=== PATIENT | female | born 1950 | race Caucasian/White ===

== ENCOUNTER 2019-12-28 08:08 | Outpatient (REF) | payer MEDICARE, SELFPAY ==
[2019-12-28 11:13] LABS: Hematocrit 28.3 % (37-47); Hemoglobin 8.5 g/dl (12.0-16.0); Mean Corpuscular Hemoglobin 29.9 pg (27.0-33.0); Mean Corpuscular Volume 99.6 fL (80-98); Mean Platelet Volume 10.4 fL (9.4-12.3); Platelet Count 149 X10*3/uL (160-400); Red Blood Count 2.84 X10*6/uL (4.20-5.50); Red Cell Distribution Width 16.9 % (11.0-16.0); White Blood Count 8.1 X10*3/uL (4.8-10.8)
[2019-12-28 11:37] LABS: Anion Gap 14 (12-20); Blood Urea Nitrogen 42 mg/dL (9-16); Calcium 8.8 mg/dL (8.4-10.2); Carbon Dioxide 26 mmol/L (22-29); Chloride 107 mmol/L (96-108); Estimated Glomerular Filt Rate 23; Glucose Random 197 mg/dL (60-115); Iron 59 mcg/dL (30-160); Percent Iron Saturation 16 % (15-50); Potassium 4.2 mmol/l (3.3-5.1); Sodium 143 mmol/L (135-145); Total Iron Binding Capacity 360 mcg/dL (228-428); Unsaturated Iron Binding 301 ug/dL
[2019-12-28 14:26] LABS: Ferritin 169 ng/mL (10-250)
== END 2019-12-28 08:09 | disposition home or self-care (01) ==
LOC: HO.HMGCLDS 08:08
PROVIDERS: PCP Internal Medicine; Visit Provider Internal Medicine
DX: I42.9 Cardiomyopathy, unspecified (principal); N17.9 Acute kidney failure, unspecified; E11.9 Type 2 diabetes mellitus without complications
CPT/HCPCS: 36415; 80048; 82728; 83540; 85027

== ENCOUNTER 2020-01-19 10:06 | Outpatient (REF) | payer MEDICARE, SELFPAY ==
[2020-01-19 11:45] LABS: Anion Gap 15 (12-20); Blood Urea Nitrogen 44 mg/dL (9-16); Calcium 8.5 mg/dL (8.4-10.2); Carbon Dioxide 26 mmol/L (22-29); Chloride 101 mmol/L (96-108); Estimated Glomerular Filt Rate 20; Potassium 4.4 mmol/l (3.3-5.1); Sodium 138 mmol/L (135-145)
== END 2020-01-19 10:07 | disposition home or self-care (01) ==
LOC: HO.HMGCX 10:06
PROVIDERS: Absent Provider Internal Medicine Hypertension Specialist; PCP Internal Medicine; Visit Provider Internal Medicine
DX: I13.0 Hypertensive heart and chronic kidney disease with heart failure and stage 1 through stage 4 chronic kidney disease, or unspecified chronic kidney disease (principal); E11.22 Type 2 diabetes mellitus with diabetic chronic kidney disease; N18.30 Chronic kidney disease, stage 3 unspecified; N17.9 Acute kidney failure, unspecified; E11.21 Type 2 diabetes mellitus with diabetic nephropathy
CPT/HCPCS: 80051; 82310; 82565; 84520

== ENCOUNTER → 2020-01-21 10:00 | Outpatient (BNVA) | payer MEDICARE, SELFPAY | PROVIDERS: PCP Internal Medicine; Visit Provider Nurse Practitioner Family | DX: R06.02 Shortness of breath (principal); I42.8 Other cardiomyopathies; I11.0 Hypertensive heart disease with heart failure; I50.9 Heart failure, unspecified; N17.9 Acute kidney failure, unspecified; I48.0 Paroxysmal atrial fibrillation; Z79.01 Long term (current) use of anticoagulants; Z79.899 Other long term (current) drug therapy; Z95.2 Presence of prosthetic heart valve; Z95.810 Presence of automatic (implantable) cardiac defibrillator | CPT/HCPCS: 93005; 99212 ==

== ENCOUNTER → 2020-01-26 07:30 | Outpatient (REF) | payer MEDICARE, OTHER, SELFPAY ==
--- NOTE | 2020-01-26 07:35 | CA_ITS ---
Transthoracic Echocardiogram Patient (Last, First, Middle): Ebonie Thomas J Gender: Female Date of : 1950 Age: 69 Procedure Date: 01/26/2020 Procedure Type: Transthoracic Echocardiogram Location: OP Height: 162.56 cm Weight: 116.12 kg BSA: 2.17 m2 Heart Rate: bpm BP: 128 / 60 mmHg Insole Reinforcer: FRANNIE Referring MD: Itzel Meza SOCIAL SERVICES COUNSELOR-Jose Manuel Bond Runner: Kareem Sarmiento MD Symptoms: Z95.2 S/P TAVR, I42.9 CARDIOMYOPATHY Study Quality: Fair ECG Rhythm: Sinus Conclusions: - 1. Moderately dilated left ventricle with severe LV systolic dysfunction with LVEF of 20-25% with grade 3 diastolic dysfunction 2. Moderately dilated left and right atrium 3. Severe stenosis of bioprosthetic aortic valve with mean gradient of 42 mm of mercury 4. Severely elevated right ventricular systolic pressure 5. No pericardial effusion Findings Left Ventricle Moderately increased left ventricular cavity size. There is mildly increased left ventricular wall thickness. The left ventricular systolic function is severely decreased. The visually estimated ejection fraction is between 20 25%. Spectral Doppler is indicative of a restrictive filling pattern. E/E prime ratio is >15, consistent with elevated filling pressures. Evidence suggests grade III (severe) diastolic dysfunction. Right Ventricle Moderately increased right ventricular cavity size. There is low normal right ventricular systolic function. There is an ICD wire seen in the right ventricle. Atria The left atrium is moderately dilated. Interatrial shunt cannot be excluded. The right atrium is mildly dilated. A pacemaker wire is identified in the right atrium. Aortic Valve A bioprosthetic aortic valve is present. The prosthetic aortic valve appears to be functioning abnormally. The aortic valve was not well visualized. The mean gradient is 41 mmHg. The aortic valve area is 0.86 cm2. There is no aortic valve regurgitation. The bioprosthetic valve is well seated without abnormal rocking motion. Her leaflets are not well visualized, on some views appeared to be restricted in motion. The mean gradient is significantly Ng increased compared to prior study consistent with severe stenosis of the bioprosthetic valve. Mitral Valve There is mild anterior and posterior mitral leaflet thickening. There is mild mitral annular calcification. There is trace mitral valve regurgitation. There is no mitral valve stenosis. Pulmonic Valve The pulmonic valve is likely normal. There is trace to mild pulmonic valve regurgitation. Tricuspid Valve Normal tricuspid valve structure. There is moderate tricuspid valve regurgitation. Mildly elevated right atrial pressure. Severe pulmonary hypertension is present. Great Vessels The pulmonary artery was not well visualized. There is mild dilatation of the ascending aorta measuring 3.90 cm. Venous The inferior vena cava is normal in size and collapses less than 50% with inspiration. Pericardium/Pleural There is no evidence of pericardial effusion. Prior Study Comparison Significant changes compared to prior study dated: 05/18/2019. Severe stenosis of bioprosthetic aortic valve is present. LV systolic function appears mildly reduced. RV systolic pressures are increased. Recommendations, Care & Conclusions Consider a JOÃO if clinically appropriate. Measurements 2D Linear Measurements IVSd: 1.26 0.6-0.9/0.6-1.0 cm LVIDd: 6.95 3.9-5.3/4.2-5.9 cm LVIDd Index: 3.20 2.4-3.2/2.2-3.1 cm/m2 LVIDs: 6.17 2.0-3.6 cm LVPWd: 1.33 0.7-1.1 cm Ao Root: 3.00 2.1-3.5 cm LA Diam: 4.60 2.7-3.8/3.0-4.0 cm LAIDs Index: 2.12 1.5-2.3 cm/m2 LV Mass: 553.85 67-162/88-224 g LV Mass Index: 255.23 43-95/49-115 g/m2 LVOT Diam: 2.00 3.0+(-)1.3 cm 2D Systolic Function EF 4C: 22.90 >55% EF 2C: 19.20 >55% EF BiP: 19.40 >55% Mitral Valve MV VTI: 0.36 MV Pk Christian: 1.60 MV Mn Christian: 0.80 MV Pk Grad: 10.00 MV Mn Grad: 3.00 MV Pk E: 1.41 MV PK A: 0.88 MV Decel Time: 169.00 E/A: 1.60 E'Lateral: 3.19 E'Medial: 4.45 E/E' Med: 31.70 E/E' Lat: 44.20 PHT: 50.00 MVA PHT: 4.40 MVA Continuity: 2.41 Decel Mills: 8.35 Aortic Valve AoV Pk Christian: 4.16 AoV Mn Christian: 3.02 AoV VTI: 1.00 AoV Pk Grad: 69.00 Aov Mn Grad: 41.00 MEME Cont.VTI: 0.86 LVOT LVOT Pk Christian: 0.90 LVOT Mn Christian: 0.66 LVOT VTI: 0.27 LVOT Pk Grad: 3.00 LVOT Mn Grad: 2.00 LVOT Diam: 2.00 LVOT Area: 3.14 Diastolic Function MV Pk E: 1.41 MV Pk A: 0.88 E/A: 1.60 E'Medial: 4.45 E/E' Med: 31.70 E' Laterial: 3.19 E/E' Lat: 44.20 Tricuspid Valve TR Pk Christian: 3.70 TR Pk Grad: 55.00 RA Press: 8.00 RVSP: 63.00 Great Vessels Aorta Ao Root-2D: 3.00 2.0-3.7 cm Ao Asc: 3.90 2.1-3.4 cm Pulmonary Valve PV Pk Christian: 1.43 Peak PV Grad: 8.00 Updated in Other Vendor System with Status of Final Kareem Sarmiento MD electronically signed on 01/26/2020 11:32:16 AM with status of Final
== END ==
LOC: HO.CARD 07:30
PROVIDERS: PCP Internal Medicine; Visit Provider Nurse Practitioner Family
DX: I42.9 Cardiomyopathy, unspecified (principal); Z95.2 Presence of prosthetic heart valve
CPT/HCPCS: 93306

== ENCOUNTER 2020-02-18 09:25 | Outpatient (REF) | payer MEDICARE, OTHER, SELFPAY ==
[2020-02-18 11:05] LABS: Hematocrit 28.9 % (37-47); Hemoglobin 8.7 g/dl (12.0-16.0); Mean Corpuscular HGB Conc 30.1 g/dl (31.0-35.0); Mean Corpuscular Hemoglobin 29.2 pg (27.0-33.0); Mean Platelet Volume 10.6 fL (9.4-12.3); Platelet Count 168 X10*3/uL (160-400); Red Blood Count 2.98 X10*6/uL (4.20-5.50); Red Cell Distribution Width 14.7 % (11.0-16.0); White Blood Count 7.6 X10*3/uL (4.8-10.8)
[2020-02-18 11:30] LABS: Anion Gap 15 (12-20); Blood Urea Nitrogen 54 mg/dL (9-16); Calcium 8.4 mg/dL (8.4-10.2); Carbon Dioxide 26 mmol/L (22-29); Chloride 101 mmol/L (96-108); Estimated Glomerular Filt Rate 18; Glucose Random 246 mg/dL (60-115); Potassium 4.1 mmol/l (3.3-5.1); Sodium 138 mmol/L (135-145)
[2020-02-18 11:32] LABS: Alanine Aminotransferase 26 U/L (0-31); Aspartate Amino Transferase 27 U/L (5-31)
[2020-02-18 11:38] LABS: B Type Natriuretic Peptide 3076 pg/mL (<100)
[2020-02-18 11:56] LABS: TSH reflex Free T4 1.54 mIU/mL (0.32-4.0)
== END 2020-02-18 09:26 | disposition home or self-care (01) ==
LOC: HO.HMGCLDS 09:25
PROVIDERS: Absent Provider Nurse Practitioner Family; PCP Internal Medicine; Visit Provider Student in an Organized Health Care Education/Training Program
DX: I48.0 Paroxysmal atrial fibrillation (principal); I50.9 Heart failure, unspecified
CPT/HCPCS: 36415; 80048; 83880; 84443; 84450; 84460; 85027

== ENCOUNTER → 2020-03-14 07:55 | Outpatient (BNVA) | payer MEDICARE, OTHER, SELFPAY | PROVIDERS: PCP Internal Medicine; Visit Provider Internal Medicine | DX: I50.22 Chronic systolic (congestive) heart failure (principal); I42.9 Cardiomyopathy, unspecified; I48.0 Paroxysmal atrial fibrillation; I47.2 Ventricular tachycardia; E66.01 Morbid (severe) obesity due to excess calories; Z79.01 Long term (current) use of anticoagulants; Z79.899 Other long term (current) drug therapy; Z95.3 Presence of xenogenic heart valve; Z95.810 Presence of automatic (implantable) cardiac defibrillator | CPT/HCPCS: 99212 ==

== ENCOUNTER → 2020-04-03 14:21 | Outpatient (BNVA) | payer MEDICARE, OTHER, SELFPAY | PROVIDERS: PCP Internal Medicine; Referring Provider Internal Medicine; Visit Provider Internal Medicine | DX: Z45.02 Encounter for adjustment and management of automatic implantable cardiac defibrillator (principal); I50.22 Chronic systolic (congestive) heart failure; I48.0 Paroxysmal atrial fibrillation; I47.2 Ventricular tachycardia; E66.01 Morbid (severe) obesity due to excess calories; Z95.2 Presence of prosthetic heart valve | CPT/HCPCS: 99212 ==

== ENCOUNTER 2020-04-26 08:30 | Outpatient (REF) | payer MEDICARE, OTHER, SELFPAY ==
--- NOTE | ~2020-04-26 | XR_ITS ---
EXAMINATION: XR ANKLE, bilateral CLINICAL INFORMATION: Pain COMPARISON: Right foot x-ray November 2019 and left foot x-ray March 2014 TECHNIQUE: AP, lateral, and mortise views of both ankles. FINDINGS: Right: Bone alignment is normal. No fracture or dislocation is seen. The ankle mortise is normal. There is soft tissue arterial calcification. There also appears to be nonvascular soft tissue calcification in the lower leg. There is a plantar calcaneal spur. There are degenerative changes of the midfoot. Left: Bone alignment is normal. No fracture or dislocation is seen. The ankle mortise is normal. There is soft tissue arterial calcification. There also appears to be a significant soft tissue calcification in the lower leg that may be nonvascular. There is a large plantar calcaneal spur. There are degenerative changes of the midfoot. XR/XR ankle RT 2V IMPRESSION: Unremarkable ankles. Bilateral soft tissue tissue and arterial calcification, left greater than right. Bilateral large plantar calcaneal spurs and degenerative changes of the midfoot.
--- NOTE | 2020-04-26 08:45 | XR_ITS ---
EXAMINATION: XR ANKLE, bilateral CLINICAL INFORMATION: Pain COMPARISON: Right foot x-ray November 2019 and left foot x-ray March 2014 TECHNIQUE: AP, lateral, and mortise views of both ankles. FINDINGS: Right: Bone alignment is normal. No fracture or dislocation is seen. The ankle mortise is normal. There is soft tissue arterial calcification. There also appears to be nonvascular soft tissue calcification in the lower leg. There is a plantar calcaneal spur. There are degenerative changes of the midfoot. Left: Bone alignment is normal. No fracture or dislocation is seen. The ankle mortise is normal. There is soft tissue arterial calcification. There also appears to be a significant soft tissue calcification in the lower leg that may be nonvascular. There is a large plantar calcaneal spur. There are degenerative changes of the midfoot. XR/XR ankle LT 2V IMPRESSION: Unremarkable ankles. Bilateral soft tissue tissue and arterial calcification, left greater than right. Bilateral large plantar calcaneal spurs and degenerative changes of the midfoot.
[2020-04-26 11:10] LABS: MANUAL DIFF FLAG NO
[2020-04-26 11:23] LABS: Estimated Average Glucose 197 mg/dL; Hemoglobin A1c % 8.5 %
[2020-04-26 11:24] LABS: Basophils Absolute Auto 0.1 X10*3/uL (0.0-0.2); Basophils Percent Auto 0.6 % (0-2); Eosinophils Absolute Auto 0.4 X10*3/uL (0.0-0.4); Eosinophils Percent Auto 4.3 % (0-4); Hematocrit 28.6 % (37-47); Hemoglobin 8.5 g/dl (12.0-16.0); Imm Gran Abs Auto 0.05 X10*3/uL (0.00-0.03); Imm Gran Pct Auto 0.6 % (0.0-0.4); Lymphocytes Absolute Auto 1.4 X10*3/uL (1.2-4.9); Lymphocytes Percent Auto 16.9 % (20-40); Mean Corpuscular HGB Conc 29.7 g/dl (31.0-35.0); Mean Corpuscular Hemoglobin 25.4 pg (27.0-33.0); Mean Corpuscular Volume 85.4 fL (80-98); Mean Platelet Volume 9.9 fL (9.4-12.3); Monocytes Absolute Auto 1.1 X10*3/uL (0.1-1.2); Neutrophils Absolute Auto 5.2 X10*3/uL (2.0-8.3); Neutrophils Percent Auto 64.6 % (45-73); Platelet Count 217 X10*3/uL (160-400); Red Blood Count 3.35 X10*6/uL (4.20-5.50); Red Cell Distribution Width 16.5 % (11.0-16.0); White Blood Count 8.1 X10*3/uL (4.8-10.8)
[2020-04-26 11:34] LABS: B Type Natriuretic Peptide 481 pg/mL (<100)
[2020-04-26 11:42] LABS: Alanine Aminotransferase 16 U/L (0-31); Albumin Level 3.7 g/dL (3.5-5.0); Alkaline Phosphatase 107 U/L (39-117); Anion Gap 17 (12-20); Aspartate Amino Transferase 18 U/L (5-31); Bilirubin Total 0.6 mg/dL (0.0-1.0); Blood Urea Nitrogen 39 mg/dL (9-16); Calcium 8.6 mg/dL (8.4-10.2); Carbon Dioxide 27 mmol/L (22-29); Chloride 101 mmol/L (96-108); Estimated Glomerular Filt Rate 22; Glucose Fasting 212 mg/dL (60-99); Potassium 4.1 mmol/L (3.3-5.1); Sodium 141 mmol/L (135-145); Total Protein 6.9 g/dL (6.5-8.0)
== END 2020-04-26 08:31 | disposition home or self-care (01) ==
LOC: HO.HMGCLDS 08:30
PROVIDERS: PCP Internal Medicine; Visit Provider Internal Medicine
DX: G89.29 Other chronic pain (principal); M25.572 Pain in left ankle and joints of left foot; M25.571 Pain in right ankle and joints of right foot; E11.8 Type 2 diabetes mellitus with unspecified complications; I50.22 Chronic systolic (congestive) heart failure; I48.0 Paroxysmal atrial fibrillation
CPT/HCPCS: 36415; 73600; 80053; 83036; 83880; 85025

== ENCOUNTER 2020-05-29 14:59 | Outpatient (REF) | payer MEDICARE, OTHER, SELFPAY ==
[2020-05-29 16:59] LABS: Anion Gap 15 (12-20); Blood Urea Nitrogen 48 mg/dL (9-16); Calcium 8.3 mg/dL (8.4-10.2); Carbon Dioxide 27 mmol/L (22-29); Chloride 102 mmol/L (96-108); Estimated Glomerular Filt Rate 20; Glucose Random 323 mg/dL (60-115); Potassium 4.3 mmol/L (3.3-5.1); Rheumatoid Factor < 15.0 IU/mL (<15.0); Sodium 140 mmol/L (135-145)
[2020-05-29 17:03] LABS: Uric Acid 9.2 mg/dL (2.4-5.7)
[2020-05-30 15:32] LABS: Cyclic Citrullinated Peptide <16 UNITS
== END 2020-05-29 15:00 | disposition home or self-care (01) ==
LOC: HO.HMGCLDS 14:59
PROVIDERS: PCP Internal Medicine; Visit Provider Internal Medicine
DX: M10.9 Gout, unspecified (principal); M19.90 Unspecified osteoarthritis, unspecified site; E11.8 Type 2 diabetes mellitus with unspecified complications
CPT/HCPCS: 36415; 80048; 84550; 86200; 86431

== ENCOUNTER → 2020-06-26 09:05 | Outpatient (BNVA) | payer MEDICARE, SELFPAY | PROVIDERS: PCP Internal Medicine; Visit Provider Internal Medicine | DX: I50.22 Chronic systolic (congestive) heart failure (principal); I48.0 Paroxysmal atrial fibrillation; I47.2 Ventricular tachycardia; E66.01 Morbid (severe) obesity due to excess calories; Z95.2 Presence of prosthetic heart valve; Z95.810 Presence of automatic (implantable) cardiac defibrillator | CPT/HCPCS: 93005; 99212 ==

== ENCOUNTER 2020-07-14 07:23 | Outpatient (REF) | payer MEDICARE, SELFPAY ==
--- NOTE | ~2020-07-14 | MM_ITS ---
EXAMINATION: MM SCREENING DIGITAL MAMMOGRAPHY, BILATERAL CLINICAL INFORMATION: Screening. Asymptomatic. The lifetime risk of breast cancer based on the Tyrer-Cuzick Model is 4%. COMPARISON: Mammography: 05/06/2019, 04/15/2018, 03/26/2017 TECHNIQUE: Digital mammography is performed in craniocaudal and mediolateral oblique views along with computer-aided detection (CAD). Additional bilateral exaggerated CC views are provided. FINDINGS: The breasts are almost entirely fatty (ACR BI-RADS breast composition Category a). There are no significant masses, abnormal calcifications, or other abnormalities. Pacemaker generator partially overlying the posterior upper left axilla on MLO view. Parenchymal pattern is similar to prior exams. No significant changes. MM/MM screening mammo BI IMPRESSION: No mammographic evidence of malignancy. ASSESSMENT: BI-RADS 1: Negative RECOMMENDATION: Routine annual mammography screening. This patient's information was entered into a reminder system with a target due date for their next mammogram.
== END 2020-07-14 07:24 | disposition home or self-care (01) ==
LOC: HO.MAMMO 07:23
PROVIDERS: PCP Internal Medicine; Visit Provider Internal Medicine
DX: Z12.31 Encounter for screening mammogram for malignant neoplasm of breast (principal)
CPT/HCPCS: 77067

== ENCOUNTER → 2020-10-02 13:35 | Outpatient (BNVA) | payer MEDICARE, SELFPAY | PROVIDERS: PCP Internal Medicine; Referring Provider Internal Medicine; Visit Provider Internal Medicine | DX: Z45.02 Encounter for adjustment and management of automatic implantable cardiac defibrillator (principal); I50.22 Chronic systolic (congestive) heart failure; I48.0 Paroxysmal atrial fibrillation; I47.2 Ventricular tachycardia; E66.01 Morbid (severe) obesity due to excess calories | CPT/HCPCS: 99212 ==

== ENCOUNTER 2020-10-17 08:58 | Outpatient (REF) | payer MEDICARE, SELFPAY ==
--- NOTE | ~2020-10-17 | XR_ITS ---
EXAMINATION: XR CHEST CLINICAL INFORMATION: Respiratory disease. COMPARISON: None TECHNIQUE: Two views of the chest were obtained. FINDINGS: The lungs are well expanded and clear of acute pneumonic process. The heart size and pulmonary vascularity is normal. There are pacer electrodes in the right atrium and right ventricle. There is an aortic stent. No gross bony abnormality seen. XR/XR chest 2V IMPRESSION: Unremarkable chest exam.
== END 2020-10-17 08:59 | disposition home or self-care (01) ==
LOC: HO.HMGCX 08:58
PROVIDERS: PCP Internal Medicine; Visit Provider Nurse Practitioner Family
DX: J98.8 Other specified respiratory disorders (principal)
CPT/HCPCS: 71046

== ENCOUNTER 2020-10-27 14:07 | Outpatient (REF) | payer MEDICARE, SELFPAY ==
[2020-10-27 14:39] LABS: MANUAL DIFF FLAG NO
[2020-10-27 14:44] LABS: Basophils Percent Auto 0.4 % (0-2); Eosinophils Absolute Auto 0.3 X10*3/uL (0.0-0.4); Eosinophils Percent Auto 2.8 % (0-4); Hematocrit 37.7 % (37-47); Hemoglobin 11.8 g/dl (12.0-16.0); Imm Gran Abs Auto 0.12 X10*3/uL (0.00-0.03); Imm Gran Pct Auto 1.3 % (0.0-0.4); Lymphocytes Percent Auto 22.1 % (20-40); Mean Corpuscular HGB Conc 31.3 g/dl (31.0-35.0); Mean Corpuscular Hemoglobin 29.5 pg (27.0-33.0); Mean Corpuscular Volume 94.3 fL (80-98); Mean Platelet Volume 10.4 fL (9.4-12.3); Monocytes Absolute Auto 1.1 X10*3/uL (0.1-1.2); Monocytes Percent Auto 12.1 % (2-11); Neutrophils Absolute Auto 5.5 X10*3/uL (2.0-8.3); Neutrophils Percent Auto 61.3 % (45-73); Platelet Count 142 X10*3/uL (160-400); Red Cell Distribution Width 16.6 % (11.0-16.0)
[2020-10-27 15:07] LABS: Anion Gap 15 (12-20); Blood Urea Nitrogen 45 mg/dL (9-16); Calcium 8.5 mg/dL (8.4-10.2); Carbon Dioxide 25 mmol/L (22-29); Chloride 103 mmol/L (96-108); Estimated Glomerular Filt Rate 23; Glucose Random 344 mg/dL (60-115); Potassium 3.8 mmol/L (3.3-5.1); Sodium 139 mmol/L (135-145)
[2020-10-30 11:36] LABS: Calcium (PTHI) 8.5 mg/dL (8.6-10.4); PTHI 144 pg/mL (14-64)
== END 2020-10-27 14:08 | disposition home or self-care (01) ==
LOC: HO.LAB 14:07
PROVIDERS: PCP Internal Medicine; Visit Provider Internal Medicine Hypertension Specialist
DX: E11.21 Type 2 diabetes mellitus with diabetic nephropathy (principal); N18.4 Chronic kidney disease, stage 4 (severe)
CPT/HCPCS: 36415; 80048; 83970; 85025

== ENCOUNTER 2021-01-08 09:18 | Outpatient (REF) | payer MEDICARE, SELFPAY ==
--- NOTE | ~2021-01-08 | XR_ITS ---
EXAMINATION: CR X-RAY HAND AND WRIST RIGHT CLINICAL INFORMATION: Right hand pain. COMPARISON: None TECHNIQUE: 3 views of the right hand and wrist were obtained. FINDINGS: Severe degenerative changes are seen in the distal interphalangeal joint of the fifth digit with joint space narrowing, periarticular sclerosis, marginal osteophyte formation and mild malalignment. Minimal degenerative changes are seen in the remainder of the interphalangeal joints. Mild degenerative changes are seen at the first carpometacarpal joint. The carpal bones are normally aligned. The distal radius and ulna are intact. There is no acute fracture. Mild soft tissue swelling is seen. XR/XR hand wrist RT IMPRESSION: 1. Degenerative joint changes as detailed above most pronounced in the fifth digit, most consistent with osteoarthritis. No acute osseous abnormality.
== END 2021-01-08 09:19 | disposition home or self-care (01) ==
LOC: HO.HMGCX 09:18
PROVIDERS: PCP Internal Medicine; Visit Provider Physician Assistant
DX: M25.531 Pain in right wrist (principal); M79.641 Pain in right hand
CPT/HCPCS: 73110; 73130

== ENCOUNTER 2021-01-09 04:09 | Emergency (ER) | payer MEDICARE, SELFPAY ==
--- NOTE | ~2021-01-09 | XR_ITS ---
EXAMINATION: XR WRIST, RIGHT CLINICAL INFORMATION: Wrist pain COMPARISON: 01/08/2021 TECHNIQUE: PA, lateral, and oblique views of the right wrist. XR/XR wrist RT min 3V FINDINGS/IMPRESSION: Osseous alignment is anatomic. Small calcific density noted along the dorsal margin of the distal radius, of uncertain etiology, as no finding is seen at this site on yesterday's exam. No definite acute fracture. Diffuse soft tissue swelling is noted. Mild degenerative change in the basal joint of the thumb. Partially visualized degenerative changes of the fifth digit.
[2021-01-09 05:19] VITALS: BP 128/78; PULSE 83; RESP 16; TEMP 36.6; O2SAT 98; BMI 51.5
--- NOTE | 2021-01-09 06:38 | ED.EXTPRO ---
HPI - Extremity Problem General Chief complaint: Extremity Injury, Upper Stated complaint: wrist pain Time Seen by Provider: 01/09/21 06:38 Source: patient Mode of arrival: ambulatory Limitations: no limitations History of Present Illness MD Complaint: extremity pain, extremity swelling, joint swelling and joint paint Onset (ago): day(s) (2) Pain Consistency: constant Location: right and upper extremity Quality: aching Radiation: none Relieving factors: nothing and immobilization Exacerbating factors: range of motion and palpation Associated symptoms: denies other symptoms Context: other (thinks she rolled over on it in bed) Related Data Home Medications Medication Instructions Recorded Confirmed carvedilol 3.125 mg tablet 3.125 mg PO BID 03/14/20 10/02/20 pravastatin 40 mg tablet 40 mg PO DAILY tab 03/14/20 10/02/20 amiodarone 200 mg tablet 200 mg PO DAILY 10/02/20 10/02/20 Previous Rx's Medication Instructions Recorded walker #1 ea 02/03/20 acetaminophen 650 mg 650 mg PO Q8H PRN #270 tab 06/19/20 tablet,extended release (Tylenol 8 Hour) prednisone 20 mg tablet 20 mg PO DAILY #10 tab 07/05/20 insulin glargine 100 unit/mL (3 32 unit SUBCUT QAM #15 ml 08/15/20 mL) subcutaneous pen (Basaglar KwikPen U-100 Insulin) blood sugar diagnostic (FreeStyle #100 ea 08/18/20 Lite Strips) apixaban 5 mg tablet 5 mg PO BID 90 Days #180 tab 08/24/20 torsemide 20 mg tablet 40 mg PO DAILY 90 Days #180 tab 09/26/20 colchicine 0.6 mg tablet (Colcrys) 0.6 mg PO BID 30 Days #60 tab 10/10/20 amoxicillin 875 mg-potassium 1 tab PO BID #14 tab 10/12/20 clavulanate 125 mg tablet doxycycline hyclate 100 mg tablet 100 mg PO BID #14 tab 10/12/20 doxycycline hyclate 100 mg capsule 100 mg PO BID 10 Days #20 cap 10/17/20 prednisone 20 mg tablet 40 mg PO DAILY 5 Days #10 tab 10/17/20 hydrocodone 5 mg-acetaminophen 325 1 tab PO BEDTIME PRN #14 tab 11/23/20 mg tablet prednisone 20 mg tablet 20 mg PO .COMPLEX #18 tab 11/23/20 pen needle, diabetic 31 gauge x 1 ea SUBCUT DIRECTED #100 cap 12/05/20 3/16 (BD Ultra-Fine Mini Pen Needle) fluticasone propionate 230 2 puff INHALATION BID #12 g 12/09/20 mcg-salmeterol 21 mcg/actuation HFA inhaler (Advair HFA) allopurinol 100 mg tablet 100 mg PO DAILY #90 tab 01/01/21 levothyroxine 175 mcg tablet 175 mcg PO QAM #90 tab 01/01/21 potassium chloride 20 mEq 20 meq PO DAILY #90 tab 01/04/21 tablet,extended release oxycodone 5 mg tablet 5 mg PO Q4H PRN #14 tab 01/09/21 prednisone 20 mg tablet 20 mg PO DAILY 4 Days #4 tab 01/09/21 Allergies Allergy/AdvReac Type Severity Reaction Status Date / Time bees Allergy Unknown angioedema Verified 01/08/21 09:06 ibuprofen [From MOTRIN] Allergy Unknown RASH Verified 01/08/21 09:06 Review of Systems Review of Systems: Constitutional : No Fever, No Chills ENT/Mouth : No Ear Pain, No Hoarseness, No sore throat Eyes: No Eye Pain, No Swelling, No Redness, No Foreign Body Cardiovascular : No Chest Pain, No SOB Respiratory : No Cough, No Dyspnea Gastrointestinal : No Nausea, No Vomiting, No Diarrhea, No abdominal Pain Genitourinary : No Dysuria, No Hematuria Musculoskeletal : positive joint pain, No Myalgias, pos Joint Swelling Skin : No Skin lacerations, No rash Neuro : No Weakness, No Numbness PMFSH Past Medical History Attestation statement: The following information was validated with the patient. Medical History Ankle pain, chronic Aortic stenosis ARF (acute renal failure) Arthritis Biventricular ICD (implantable cardioverter-defibrillator) in place CHF (congestive heart failure) Chronic kidney disease Chronic systolic (congestive) heart failure Edema Gout Morbid obesity PAF (paroxysmal atrial fibrillation) Type 2 diabetes mellitus with unspecified complications Ventricular tachycardia Surgical History History of partial thyroidectomy History of tonsillectomy Hx of cholecystectomy S/P TAVR (transcatheter aortic valve replacement) Family History Family History Father CVD (cardiovascular disease) Mother No problems noted. Sister Cancer Son No problems noted. Sister Leukemia Son No problems noted. Son No problems noted. Daughter No problems noted. Brother No problems noted. Brother No problems noted. Brother No problems noted. Social History Social History Patient Tobacco Use Status: Never used Tobacco Advance Directives: No Advance Directives Information Provided: Yes Physical Exam Vital Signs: Vital Signs: Last Vital Signs Temp 97.8 F 01/09/21 05:19 Pulse 83 01/09/21 05:19 Resp 16 01/09/21 05:19 BP 128/78 01/09/21 05:19 Pulse Ox 98 01/09/21 05:19 Body Mass Index 51.5 Appearance: Alert. Oriented X3. No acute distress. Eyes: Pupils equal, round and reactive to light. ENT: Pharynx normal. Neck: Normal inspection. Neck supple. CVS: Normal heart rate and rhythm. Pulses normal. Respiratory: No respiratory distress. Breath sounds normal. Abdomen: Soft and nontender. Skin: Skin warm and dry. Normal skin color. Normal skin turgor. Extremities: No lower extremity edema. R wrist mild swelling NV intact, mild erythema to dorsum and warmth, ttp Neuro: Oriented X 3. No motor deficit. No sensory deficit. MDM - Extremity (Nontraumatic) MDM Narrative Medical decision making narrative: 70 yo female with hx of gout, PNHD, edema, DM, CHF, PAF on eliquis here with c/o R wrist pain after rolling on it. She has no signs of infection, she is NV intact, xrays no fracture. Exam appears as gout, already in splint will treat with steroids and pain medications and refer to PCP Discharge Plan Discharge Clinical Impression: Gout Qualifiers: Gout site: wrist Gout etiology: other secondary cause Chronicity: acute Laterality: right Qualified Code(s): M10.431 - Other secondary gout, right wrist Acute wrist pain Qualifiers: Laterality: right Qualified Code(s): M25.531 - Pain in right wrist Patient Disposition: Home, Self-Care Instructions: Gout (ED), Arthralgia (ED) Additional Instructions: return to ED for any worsening symptoms or concerns REPEAT XRAYS IN 5 DAYS WITH YOUR DOCTOR Osseous alignment is anatomic. Small calcific density noted along the dorsal margin of the distal radius, of uncertain etiology, as no finding is seen at this site on yesterday's exam. No definite acute fracture. Diffuse soft tissue swelling is noted. Mild degenerative change in the basal joint of the thumb. Partially visualized degenerative changes of the fifth digit. Prescriptions: New prednisone 20 mg tablet 20 mg PO DAILY 4 Days Qty: 4 RF: 0 oxycodone 5 mg tablet 5 mg PO Q4H PRN (Reason: pain) Qty: 14 RF: 0 No Action (DME) walker Misc See Rx Instructions .ROUTE .MEDSUPPLY Qty: 1 RF: 0 acetaminophen [Tylenol 8 Hour] 650 mg tablet extended release 650 mg PO Q8H PRN (Reason: pain) Qty: 270 RF: 3 prednisone 20 mg tablet 20 mg PO DAILY Qty: 10 RF: 0 Basaglar KwikPen U-100 Insulin 100 unit/mL (3 mL) insulin pen 32 unit subcut QAM Qty: 15 RF: 4 (DME) FreeStyle Lite Strips Strip See Rx Instructions .ROUTE .MEDSUPPLY Qty: 100 RF: 6 apixaban 5 mg tablet 5 mg PO BID 90 Days Qty: 180 RF: 3 torsemide 20 mg tablet 40 mg PO DAILY 90 Days Qty: 180 RF: 3 colchicine [Colcrys] 0.6 mg tablet 0.6 mg PO BID 30 Days Qty: 60 RF: 6 doxycycline hyclate 100 mg tablet 100 mg PO BID Qty: 14 RF: 0 amoxicillin-pot clavulanate 875-125 mg tablet 1 tab PO BID Qty: 14 RF: 0 pen needle, diabetic [BD Ultra-Fine Mini Pen Needle] 31 gauge x 3/16 needle 1 ea subcut DIRECTED Qty: 100 RF: 3 Advair HFA 230-21 mcg/actuation HFA aerosol inhaler 2 puff inhalation BID Qty: 12 RF: 5 allopurinol 100 mg tablet 100 mg PO DAILY Qty: 90 RF: 0 levothyroxine 175 mcg tablet 175 mcg PO QAM Qty: 90 RF: 0 potassium chloride 20 mEq tablet extended release 20 meq PO DAILY Qty: 90 RF: 3 doxycycline hyclate 100 mg capsule 100 mg PO BID 10 Days Qty: 20 RF: 0 prednisone 20 mg tablet 40 mg PO DAILY 5 Days Qty: 10 RF: 0 prednisone 20 mg tablet 20 mg PO .COMPLEX Qty: 18 RF: 0 hydrocodone-acetaminophen 5-325 mg tablet 1 tab PO BEDTIME PRN (Reason: pain) Qty: 14 RF: 0 amiodarone 200 mg tablet 200 mg PO DAILY RF: 0 pravastatin 40 mg tablet 40 mg PO DAILY RF: 0 carvedilol 3.125 mg tablet 3.125 mg PO BID RF: 0 Referrals: Zainab Pritchard MD [Primary Care Provider] - 5 days
[2021-01-09] MEDS: oxyCODONE HCl Immed Release 5 MG TABLET PO (06:52)
[2021-01-09] MEDS: predniSONE 20 MG TABLET PO (06:53)
[2021-01-09 07:26] VITALS: BP 126/69; PULSE 71; RESP 16; TEMP 36.6; O2SAT 98
--- NOTE | 2021-01-09 08:14 | PC.NURSE ---
RN aware of POC 211
[2021-01-09 08:16] VITALS: BP 132/69; PULSE 74; RESP 16; TEMP 36.6; O2SAT 96
[2021-01-09 08:31] LABS: Glucose, Whole Blood 211 mg/dL (60-115)
== END 2021-01-09 08:19 | disposition home or self-care (01) ==
PROVIDERS: Emergency Provider Emergency Medicine; PCP Internal Medicine
DX: M10.431 Other secondary gout, right wrist (principal); E11.22 Type 2 diabetes mellitus with diabetic chronic kidney disease; N18.9 Chronic kidney disease, unspecified; I50.20 Unspecified systolic (congestive) heart failure; I48.0 Paroxysmal atrial fibrillation; Z79.01 Long term (current) use of anticoagulants; Z95.810 Presence of automatic (implantable) cardiac defibrillator
CPT/HCPCS: 73110; 82947; 99283; 99284

== ENCOUNTER 2021-01-17 13:11 | Outpatient (REF) | payer MEDICARE, SELFPAY ==
[2021-01-17 14:24] LABS: Hematocrit 37.4 % (37-47); Mean Corpuscular HGB Conc 32.1 g/dl (31.0-35.0); Mean Corpuscular Hemoglobin 30.8 pg (27.0-33.0); Mean Corpuscular Volume 96.1 fL (80-98); Mean Platelet Volume 10.4 fL (9.4-12.3); Platelet Count 207 X10*3/uL (160-400); Red Blood Count 3.89 X10*6/uL (4.20-5.50); Red Cell Distribution Width 16.3 % (11.0-16.0); White Blood Count 9.6 X10*3/uL (4.8-10.8)
[2021-01-17 14:27] LABS: Estimated Average Glucose 260 mg/dL; Hemoglobin A1c % 10.7 %
[2021-01-17 14:31] LABS: Alanine Aminotransferase 12 U/L (0-31); Albumin Level 3.9 g/dL (3.5-5.0); Alkaline Phosphatase 106 U/L (39-117); Anion Gap 19 (12-20); Aspartate Amino Transferase 17 U/L (5-31); Bilirubin Total 0.6 mg/dL (0.0-1.0); Blood Urea Nitrogen 38 mg/dL (9-16); Carbon Dioxide 22 mmol/L (22-29); Chloride 101 mmol/L (96-108); Estimated Glomerular Filt Rate 29; Glucose Random 243 mg/dL (60-115); Potassium 4.2 mmol/L (3.3-5.1); Sodium 138 mmol/L (135-145); Uric Acid 8.1 mg/dL (2.4-5.7)
[2021-01-17 14:50] LABS: TSH reflex Free T4 3.24 uIU/mL (0.32-4.0)
== END 2021-01-17 13:12 | disposition home or self-care (01) ==
LOC: HO.HMGCLDS 13:11
PROVIDERS: PCP Internal Medicine; Visit Provider Internal Medicine
DX: E11.8 Type 2 diabetes mellitus with unspecified complications (principal); I48.0 Paroxysmal atrial fibrillation; I42.8 Other cardiomyopathies; I50.22 Chronic systolic (congestive) heart failure
CPT/HCPCS: 36415; 80053; 83036; 84443; 84550; 85027

== ENCOUNTER → 2021-04-02 12:53 | Outpatient (BNVA) | payer MEDICARE, SELFPAY | PROVIDERS: PCP Internal Medicine; Referring Provider Internal Medicine; Visit Provider Internal Medicine | DX: Z45.02 Encounter for adjustment and management of automatic implantable cardiac defibrillator (principal); I50.22 Chronic systolic (congestive) heart failure; I48.0 Paroxysmal atrial fibrillation; I47.2 Ventricular tachycardia; E66.01 Morbid (severe) obesity due to excess calories; Z68.43 Body mass index [BMI] 50.0-59.9, adult | CPT/HCPCS: 99212 ==

== ENCOUNTER 2021-04-09 11:38 | Outpatient (REF) | payer MEDICARE, SELFPAY ==
[2021-04-09 13:55] LABS: Uric Acid 6.8 mg/dL (2.4-5.7)
== END 2021-04-09 11:39 | disposition home or self-care (01) ==
LOC: HO.HMGCLDS 11:38
PROVIDERS: Visit Provider Internal Medicine
DX: M10.431 Other secondary gout, right wrist (principal)
CPT/HCPCS: 36415; 84550

== ENCOUNTER 2021-04-30 07:52 | Outpatient (REF) | payer MEDICARE, SELFPAY ==
[2021-04-30 11:23] LABS: Hemoglobin 11.6 g/dl (12.0-16.0); Mean Corpuscular HGB Conc 31.4 g/dl (31.0-35.0); Mean Corpuscular Hemoglobin 30.7 pg (27.0-33.0); Mean Corpuscular Volume 97.9 fL (80.0-98.0); Mean Platelet Volume 10.8 fL (9.4-12.3); Platelet Count 197 X10*3/uL (160-400); Red Blood Count 3.78 X10*6/uL (4.20-5.50); Red Cell Distribution Width 16.6 % (11.0-16.0); White Blood Count 6.7 X10*3/uL (4.8-10.8)
[2021-04-30 11:50] LABS: Alanine Aminotransferase 16 U/L (0-31); Albumin Level 3.8 g/dL (3.5-5.0); Alkaline Phosphatase 110 U/L (39-117); Anion Gap 14 (12-20); Aspartate Amino Transferase 29 U/L (5-31); Bilirubin Total 0.7 mg/dL (0.0-1.0); Blood Urea Nitrogen 28 mg/dL (9-16); Calcium 9.1 mg/dL (8.4-10.2); Carbon Dioxide 27 mmol/L (22-29); Chloride 101 mmol/L (96-108); Cholesterol 261 mg/dL; Estimated Glomerular Filt Rate 26; Glucose Fasting 242 mg/dL (60-99); HDL Cholesterol 30 mg/dL; Iron 75 mcg/dL (30-160); Percent Iron Saturation 20 % (15-50); Potassium 4.2 mmol/L (3.3-5.1); Sodium 138 mmol/L (135-145); Total Iron Binding Capacity 377 mcg/dL (228-428); Total Protein 6.8 g/dL (6.5-8.0); Triglycerides 434 mg/dL; Unsaturated Iron Binding 302 ug/dL
[2021-04-30 11:55] LABS: TSH reflex Free T4 4.36 uIU/mL (0.32-4.0)
[2021-04-30 11:58] LABS: Creatinine Urine 62.34 mg/dL; Microalbum/Creatinine Ratio Ur 155.5 ug/mg cr
[2021-04-30 12:05] LABS: Estimated Average Glucose 341 mg/dL; Hemoglobin A1c % 13.5 %
[2021-04-30 12:59] LABS: Free T4 (Free Thyroxine) 1.01 ng/dL (0.71-1.85)
== END 2021-04-30 07:53 | disposition home or self-care (01) ==
LOC: HO.HMGCLDS 07:52
PROVIDERS: Visit Provider Internal Medicine
DX: E66.01 Morbid (severe) obesity due to excess calories (principal); I11.0 Hypertensive heart disease with heart failure; I50.22 Chronic systolic (congestive) heart failure; E11.8 Type 2 diabetes mellitus with unspecified complications
CPT/HCPCS: 36415; 80053; 80061; 82043; 83036; 83540; 84439; 84443; 85027

== ENCOUNTER 2021-06-11 07:31 | Outpatient (REF) | payer MEDICARE, SELFPAY ==
--- NOTE | ~2021-06-11 | US_ITS ---
EXAMINATION: US NONINVASIVE ASSESSMENT OF THE bilateral LOWER EXTREMITY WITH ARTERIAL DUPLEX CLINICAL INFORMATION: Peripheral vascular disease, unspecified COMPARISON: None TECHNIQUE: Duplex Doppler techniques with waveform analysis and measurement of velocities in the common femoral, profunda femoris, superficial femoral, popliteal and tibial arteries were performed. The study was performed only at rest. FINDINGS: RIGHT LOWER EXTREMITY DUPLEX ULTRASOUND: Common femoral artery: 132 cm/s. Diastolic flow reversal: Present Profunda femoris artery: 72.4 cm/s. Diastolic flow reversal: Present Superficial femoral artery (proximal): 114 cm/s. Diastolic flow reversal: Present Superficial femoral artery (mid): 104 cm/s. Diastolic flow reversal: Present Superficial femoral artery (distal): 74.5 cm/s. Diastolic flow reversal: Present Popliteal artery: 91.7 cm/s Diastolic flow reversal: Present Posterior tibial artery (midportion): 117 cm/s Diastolic flow reversal: Present Poor quality waveform within the proximal aspect of the posterior tibial with peak systolic velocity 51 cm/s LEFT LOWER EXTREMITY DUPLEX ULTRASOUND: Common femoral artery: 103 cm/s. Diastolic flow reversal: Present Profunda femoris artery: 44.3 cm/s. Diastolic flow reversal: Present Superficial femoral artery (proximal): 108 cm/s. Diastolic flow reversal: Present Superficial femoral artery (mid): 97.4 cm/s. Diastolic flow reversal: Present Superficial femoral artery (distal): 58.5 cm/s. Diastolic flow reversal: Present Popliteal artery: 68 cm/s Diastolic flow reversal: Present Posterior tibial artery (midportion): 62 cm/s Diastolic flow reversal: Present Incidental note of chronic appearing thrombus within the superficial varicosities at the mid thigh bilaterally. US/US arterial duplex LE BI IMPRESSION: No definite ultrasound evidence of hemodynamically significant arterial disease. There is multiphasic flow throughout both of the lower extremities. Incidental note of probable superficial thrombophlebitis of the proximal thighs.
== END 2021-06-11 07:32 | disposition home or self-care (01) ==
LOC: HO.US 07:31
PROVIDERS: Visit Provider Internal Medicine
DX: I73.9 Peripheral vascular disease, unspecified (principal); E66.01 Morbid (severe) obesity due to excess calories; I11.0 Hypertensive heart disease with heart failure; I50.22 Chronic systolic (congestive) heart failure; E11.8 Type 2 diabetes mellitus with unspecified complications
CPT/HCPCS: 93925

== ENCOUNTER 2021-07-02 08:18 | Outpatient (REF) | payer MEDICARE, SELFPAY ==
--- NOTE | ~2021-07-02 | XR_ITS ---
EXAMINATION: XR CHEST CLINICAL INFORMATION: Acute bronchitis COMPARISON: Previous chest x-ray most recent September 2020 TECHNIQUE: 2 views of the chest were obtained. FINDINGS: The cardiac silhouette is enlarged but stable. There is a left-sided KV and 8 ICD devices. There is an aortic valve stent graft. Hilar and mediastinal contours are unremarkable. The lungs are clear. There is no pleural effusion or pneumothorax. Bony structures are unremarkable. XR/XR chest 2V IMPRESSION: Stable enlargement of the cardiac silhouette. No evidence for acute disease in the chest.
== END 2021-07-02 08:19 | disposition home or self-care (01) ==
LOC: HO.HMGCX 08:18
PROVIDERS: PCP Internal Medicine; Visit Provider Internal Medicine
DX: J20.9 Acute bronchitis, unspecified (principal)
CPT/HCPCS: 71046

== ENCOUNTER 2021-07-23 07:16 | Outpatient (REF) | payer MEDICARE, SELFPAY ==
[2021-07-23 12:09] LABS: Alanine Aminotransferase 21 U/L (0-31); Albumin Level 3.8 g/dL (3.5-5.0); Alkaline Phosphatase 94 U/L (39-117); Anion Gap 16 (12-20); Aspartate Amino Transferase 38 U/L (5-31); Bilirubin Total 0.9 mg/dL (0.0-1.0); Blood Urea Nitrogen 27 mg/dL (9-16); Calcium 9.2 mg/dL (8.4-10.2); Carbon Dioxide 27 mmol/L (22-29); Chloride 102 mmol/L (96-108); Cholesterol 95 mg/dL; Estimated Glomerular Filt Rate 28; Glucose Fasting 191 mg/dL (60-99); HDL Cholesterol 26 mg/dL; LDL Cholesterol Calculated 18 mg/dl; Potassium 3.5 mmol/L (3.3-5.1); Sodium 141 mmol/L (135-145); Total Protein 6.6 g/dL (6.5-8.0); Triglycerides 257 mg/dL; Uric Acid 8.9 mg/dL (2.4-5.7)
[2021-07-23 12:10] LABS: Estimated Average Glucose 235 mg/dL; Hemoglobin A1c % 9.8 %
[2021-07-23 12:13] LABS: TSH reflex Free T4 1.27 uIU/mL (0.32-4.0)
== END 2021-07-23 07:17 | disposition home or self-care (01) ==
LOC: HO.HMGCLDS 07:16
PROVIDERS: Visit Provider Internal Medicine
DX: E66.01 Morbid (severe) obesity due to excess calories (principal); I42.8 Other cardiomyopathies; I48.0 Paroxysmal atrial fibrillation; E11.8 Type 2 diabetes mellitus with unspecified complications
CPT/HCPCS: 36415; 80053; 80061; 83036; 84443; 84550

== ENCOUNTER → 2021-07-26 13:00 | Outpatient (BNVA) | payer MEDICARE, SELFPAY | PROVIDERS: PCP Internal Medicine; Referring Provider Internal Medicine; Visit Provider Nurse Practitioner Family | DX: Z45.02 Encounter for adjustment and management of automatic implantable cardiac defibrillator (principal); R06.02 Shortness of breath; I50.22 Chronic systolic (congestive) heart failure; I42.8 Other cardiomyopathies; I47.2 Ventricular tachycardia; N18.4 Chronic kidney disease, stage 4 (severe); I48.0 Paroxysmal atrial fibrillation; Z95.2 Presence of prosthetic heart valve | CPT/HCPCS: 99212 ==

== ENCOUNTER 2021-08-27 07:19 | Outpatient (REF) | payer MEDICARE, SELFPAY ==
[2021-08-27 11:13] LABS: MANUAL DIFF FLAG NO
[2021-08-27 11:19] LABS: Basophils Absolute Auto 0.1 X10*3/uL (0.0-0.2); Eosinophils Absolute Auto 0.4 X10*3/uL (0.0-0.4); Eosinophils Percent Auto 6.5 % (0-4); Hematocrit 37.8 % (37.0-47.0); Hemoglobin 11.9 g/dl (12.0-16.0); Imm Gran Abs Auto 0.02 X10*3/uL (0.00-0.03); Imm Gran Pct Auto 0.3 % (0.0-0.4); Lymphocytes Absolute Auto 1.8 X10*3/uL (1.2-4.9); Lymphocytes Percent Auto 28.6 % (20-40); Mean Corpuscular HGB Conc 31.5 g/dl (31.0-35.0); Mean Corpuscular Hemoglobin 31.8 pg (27.0-33.0); Mean Corpuscular Volume 101.1 fL (80.0-98.0); Monocytes Absolute Auto 0.7 X10*3/uL (0.1-1.2); Monocytes Percent Auto 12.1 % (2-11); Neutrophils Absolute Auto 3.1 x10*3/uL (2.0-8.3); Neutrophils Percent Auto 51.5 % (45-73); Platelet Count 153 X10*3/uL (160-400); Red Blood Count 3.74 X10*6/uL (4.20-5.50); Red Cell Distribution Width 15.9 % (11.0-16.0); White Blood Count 6.1 X10*3/uL (4.8-10.8)
[2021-08-27 12:00] LABS: Anion Gap 16 (12-20); Blood Urea Nitrogen 23 mg/dL (9-16); Calcium 8.8 mg/dL (8.4-10.2); Carbon Dioxide 26 mmol/L (22-29); Chloride 103 mmol/L (96-108); Estimated Glomerular Filt Rate 29; Glucose Random 172 mg/dL (60-115); Potassium 3.8 mmol/L (3.3-5.1); Sodium 141 mmol/L (135-145)
[2021-08-27 12:04] LABS: INTERNATIONAL NORM RATIO 1.1 (0.9-1.1); Prothrombin Time 12.9 SEC (9.9-13.0)
== END 2021-08-27 07:20 | disposition home or self-care (01) ==
LOC: HO.HMGCLDS 07:19
PROVIDERS: PCP Internal Medicine; Visit Provider Nurse Practitioner Family
DX: Z01.810 Encounter for preprocedural cardiovascular examination (principal)
CPT/HCPCS: 36415; 80048; 85025; 85610

== ENCOUNTER → 2021-09-03 11:02 | Outpatient (BNVA) | payer MEDICARE, SELFPAY | PROVIDERS: PCP Internal Medicine; Referring Provider Internal Medicine; Visit Provider Internal Medicine | DX: Z45.02 Encounter for adjustment and management of automatic implantable cardiac defibrillator (principal); I50.22 Chronic systolic (congestive) heart failure; I48.0 Paroxysmal atrial fibrillation; I47.2 Ventricular tachycardia; E66.01 Morbid (severe) obesity due to excess calories; Z95.2 Presence of prosthetic heart valve; Z68.43 Body mass index [BMI] 50.0-59.9, adult | CPT/HCPCS: 93005; 99212 ==

== ENCOUNTER 2021-09-06 10:23 | Day surgery (SDC) | payer MEDICARE, SELFPAY ==
--- NOTE | 2021-09-05 09:13 | HO.ANESPROP2 ---
Documented by User: Julissa Sanchez NP 09/10/21 14:35 HPI - Anesthesia Eval Consult details Narrative: 71yo F for CARDIOMEMS ICD in situ Eliquis for afib Per cardiac visit 09/03/21, history of transcatheter aortic valve replacement, cardiomyopathy as well as BiV ICD placement in the past.? Last year, she was admitted with acute heart failure to [facility].? It was felt that her bioprosthetic aortic valve had severe stenosis, primarily causing her problems.? Subsequently, she underwent a redo TAVR. Otherwise, she also had COVID infection in summer 2019 and had hospitalization to [facility].? She was quite ill and was also intubated and in that setting had ventricular arrhythmias.? 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 Then put on amiodarone- now off. No recurrences. Overall, cardiac status is just about the same.? Shortness of breath is at baseline.? No significant leg swelling.? She has lot of medical issues but overall stable.? Comes in a wheelchair.? Schedule for CardioMEMS this week. ? [facility] Active Problems Active Problems: All Active Problems (Updated 09/03/21 @ 15:01 by Itzel Meza NP-C) Implantable cardioverter-defibrillator (ICD) generator end of life (Acute) Preop cardiovascular exam (Acute) Acute bronchitis (Acute) CKD (chronic kidney disease) stage 4, GFR 15-29 ml/min (Acute) Annual physical exam (Acute) Claudication (Acute) PND (post-nasal drip) (Acute) Respiratory infection (Acute) Gout (Acute) Arthritis (Acute) Ankle pain, chronic (Acute) Type 2 diabetes mellitus with unspecified complications (Acute) Edema (Acute) Morbid obesity (Acute) Chronic systolic (congestive) heart failure (Acute) PAF (paroxysmal atrial fibrillation) (Acute) Shortness of breath (Acute) Biventricular ICD (implantable cardioverter-defibrillator) in place (Acute) HTN (hypertension) (Acute) Non-ischemic cardiomyopathy (Acute) S/P TAVR (transcatheter aortic valve replacement) (Acute) Aortic stenosis (Acute) Ventricular tachycardia (Acute) CHF (congestive heart failure) (Acute) ARF (acute renal failure) (Acute) Past Medical History Medical History Chronic kidney disease Family History Family History Father CVD (cardiovascular disease) Mother No problems noted. Sister Cancer Son No problems noted. Sister Leukemia Son No problems noted. Son No problems noted. Daughter No problems noted. Brother No problems noted. Brother No problems noted. Brother No problems noted. Surgical History Surgical History History of partial thyroidectomy History of tonsillectomy Hx of cholecystectomy Social History Social History Household Members: Spouse Housing: Apartment Patient Tobacco Use Status: Never used Tobacco e-Cigarette/Vaping Use: Never Used Current occupational status: retired Cognitive needs: No Hearing needs: No Vision needs: No Meds Allergies Allergy/AdvReac Type Severity Reaction Status Date / Time bees Allergy Unknown angioedema Verified 09/03/21 12:40 ibuprofen [From MOTRIN] Allergy Unknown RASH Verified 09/03/21 12:40 Home Medications Medication Instructions Recorded Confirmed Last Taken Type potassium chloride 20 mEq 20 meq PO DAILY 09/12/21 09/12/21 Unknown History tablet,extended release(part/cryst) Exam Exam Date and Time: September 05, 2021 0913 Pertinent Lab Results Pertinent Lab Results: Laboratory Tests 08/27/21 08/27/21 07:30 07:30 WBC 6.1 Hgb 11.9 L Hct 37.8 Plt Count 153 L Sodium 141 Potassium 3.8 Chloride 103 BUN 23 H Creatinine 1.72 H Narrative Narrative: EKG 08/2021 atrial sensed, ventricular paced rhythm at 91/Min. Cardiac Device Check 08/2021 Details: Bi V ICD interrogated today.? Device at OUTREACH LIBRARIAN.? Normal lead parameters.? No treated VT/VF.? Monitored VT noted.? No significant atrial arrhythmias.? Total ventricular pacing more than 98%.? Overall, normal function. ECHO 2019 Conclusions: - ? 1. Moderately dilated left ventricle with severe LV systolic dysfunction with LVEF of 20-25% with grade 3 diastolic ? dysfunction? 2. Moderately dilated left and right atrium? 3. Severe stenosis of bioprosthetic aortic valve with mean ? ? ? gradient of 42 mm of mercury ? 4. Severely elevated right ventricular systolic pressure ? 5. No pericardial effusion ? Assessment and Plan Assessment Anesthesia Assessment: Chart Reviewed Documented by User: Cristopher Gerber MD 09/13/21 15:02 [facility] Past Medical History Medical History Chronic kidney disease Family History Family History Father CVD (cardiovascular disease) Mother No problems noted. Sister Cancer Son No problems noted. Sister Leukemia Son No problems noted. Son No problems noted. Daughter No problems noted. Brother No problems noted. Brother No problems noted. Brother No problems noted. Family history of problems with anesthesia: No Surgical History Surgical History History of partial thyroidectomy History of tonsillectomy Hx of cholecystectomy History of Problems with Anesthesia: No Social History Social History Household Members: Spouse Housing: Apartment Patient Tobacco Use Status: Never used Tobacco e-Cigarette/Vaping Use: Never Used Current occupational status: retired Cognitive needs: No Hearing needs: No Vision needs: No Meds Allergies Allergy/AdvReac Type Severity Reaction Status Date / Time bees Allergy Unknown angioedema Verified 09/03/21 12:40 ibuprofen [From MOTRIN] Allergy Unknown RASH Verified 09/03/21 12:40 Home Medications Medication Instructions Recorded Confirmed Last Taken Type potassium chloride 20 mEq 20 meq PO DAILY 09/12/21 09/12/21 Unknown History tablet,extended release(part/cryst) Exam Airway Mallampati Class: III TM Dist: >3cm Neck ROM: Full Loose/Missing/Broken Teeth: Yes Assessment and Plan Assessment Anesthesia Assessment: Anesthesia Plan Discussed Final Anesthetic Review Family History of Problems with Anesthesia: No History of Problems with Anesthesia: No NPO: Yes ASA Class: III Final Preanesthetic Review: No Changes in Pt Med Stat, Meds/Allgs Chart Reviewed, Consent Obtained/Reviewed and Anes Risks/Benef Reviewed Patient Risk: High Procedure Risk: Intermediate Anesthetic Plan Anesthetic Plan: MAC: Disposition: Standard PACU
[2021-09-06] VITALS (14 sets, daily range): BP systolic 104–151; BP diastolic 53–88; PULSE 98–108; RESP 14–25; TEMP 36.1–36.6; O2SAT 92–95; BMI 52.9
[2021-09-06] MEDS: Lactated Ringers 1,000 ML 20 ML IVCONT (11:51)
[2021-09-06 12:02] LABS: Glucose, Whole Blood 141 mg/dL (60-115)
--- NOTE | 2021-09-06 12:25 | MHC.SHP ---
Pre-Procedural Eval Section A Date of Service: 09/06/21 The patient is an INPATIENT: No Section B Chief Complaint: Unspecified diastolic (congestive) heart failure Details of Present Illness: Here for cardiomems implantation. Allergies: Allergies Allergy/AdvReac Type Severity Reaction Status Date / Time bees Allergy Unknown angioedema Verified 09/03/21 12:40 ibuprofen [From MOTRIN] Allergy Unknown RASH Verified 09/03/21 12:40 Plan Diagnosis/Plan: Unchanged I have reviewed the history and physical and performed a pertinent physical examination on my patient. No changes have occurred unless specified.
[2021-09-06] MEDS: iohexoL 300 MG/ML 100 ML INFUS..BTL IV (14:42)
--- NOTE | 2021-09-06 15:10 | P.OP_ITS ---
Operative Note Operative Note Date of Service: 09/06/21 Narrative: Procedure: CardioMEMS implantation. Date: 09/06/2021 Referring physician: Angel Calhoun MD. Itzel Meza NP. Procedure: Patient was identified and a time-out was performed. After this she was draped in usual fashion. Patient was given midazolam and fentanyl for sedation by Anesthesia. We placed 11 [place] sheath with micropuncture technique. We deployed Perclose ProGlide as pre closure. We performed right heart catheterization using the 7 [place] Gotha-Gen catheter and recorded are findings. Right atrial pressure 13 mm Hg, RV 70/14, PA 71/38 mean 89, pulmonary capillary wedge pressure 38. Systolic blood pressure 148/94. We performed left pulmonary angiography and identified target area for deployment of the device. After this we advanced a 018 wire into the left pulmonary artery and advanced the CardioMEMS delivery catheter. We were able to successfully deploy the device. After this we removed the delivery catheter carefully making sure that it does not move the actual device. We then advanced the Gotha-Gen catheter into the pulmonary artery and did the calibration. After this removed the Gotha-Gen catheter. We achieved hemostasis with manual compression. The Perclose ProGlide failed to achieve hemostasis. She will have to lay flat in bed for 6 hours. After that will ambulate her and if the right femoral site is stable then she can go home. She can resume her Eliquis tomorrow if there is no bleeding. Her filling pressures are significantly elevated and we will make changes in her medications starting with increasing her torsemide to twice a day frequency. Thank you for allowing me to participate in the care of your patient. Please feel free to contact me if you have any questions.
[2021-09-06] MEDS: Acetaminophen 325 MG TABLET 650 MG PO (16:22)
--- NOTE | 2021-09-06 17:37 | PC.NURSE ---
HOB elevated 30 degrees. patient more comfortably laying a bit more upright
--- NOTE | 2021-09-06 18:43 | PC.NURSE ---
patient taking po fluids. no complaints related to puncture site. no hematoma, dressing right groin c/d/i. spo2 92-93% at rest.
--- NOTE | 2021-09-06 20:56 | PC.NURSE ---
oob dressing at bedside. ambulated to bathroom with walker to voidx1. steady gait. mild mariee noted. iv removed.
== END 2021-09-06 21:00 | disposition home or self-care (01) ==
PROVIDERS: PCP Internal Medicine; Visit Provider Internal Medicine Cardiovascular Disease
DX: I13.0 Hypertensive heart and chronic kidney disease with heart failure and stage 1 through stage 4 chronic kidney disease, or unspecified chronic kidney disease (principal); N18.4 Chronic kidney disease, stage 4 (severe); I50.22 Chronic systolic (congestive) heart failure; E11.22 Type 2 diabetes mellitus with diabetic chronic kidney disease; Z79.4 Long term (current) use of insulin; R06.02 Shortness of breath; I35.0 Nonrheumatic aortic (valve) stenosis; I42.8 Other cardiomyopathies; I48.0 Paroxysmal atrial fibrillation; I47.2 Ventricular tachycardia; Z95.2 Presence of prosthetic heart valve; Z95.810 Presence of automatic (implantable) cardiac defibrillator; E66.01 Morbid (severe) obesity due to excess calories; Z68.43 Body mass index [BMI] 50.0-59.9, adult; Z79.01 Long term (current) use of anticoagulants; Z79.899 Other long term (current) drug therapy; Z88.8 Allergy status to other drugs, medicaments and biological substances; Z90.49 Acquired absence of other specified parts of digestive tract
CPT/HCPCS: 33289; 82947; C1769; C1887; C1894; C2624; J2250; J3010; Q9967

== ENCOUNTER → 2021-09-12 13:38 | Outpatient (BNVA) | payer MEDICARE, SELFPAY | PROVIDERS: PCP Internal Medicine; Referring Provider Internal Medicine; Visit Provider Nurse Practitioner Family | DX: E11.22 Type 2 diabetes mellitus with diabetic chronic kidney disease (principal); I13.0 Hypertensive heart and chronic kidney disease with heart failure and stage 1 through stage 4 chronic kidney disease, or unspecified chronic kidney disease; N18.4 Chronic kidney disease, stage 4 (severe); I50.22 Chronic systolic (congestive) heart failure; I42.8 Other cardiomyopathies; I48.0 Paroxysmal atrial fibrillation; I47.2 Ventricular tachycardia; R06.02 Shortness of breath; Z95.818 Presence of other cardiac implants and grafts; Z95.810 Presence of automatic (implantable) cardiac defibrillator; Z95.2 Presence of prosthetic heart valve | CPT/HCPCS: 99212 ==

== ENCOUNTER 2021-09-13 09:04 | Outpatient (REF) | payer MEDICARE, SELFPAY ==
[2021-09-13 11:29] LABS: Anion Gap 16 (12-20); Blood Urea Nitrogen 29 mg/dL (9-16); Calcium 8.6 mg/dL (8.4-10.2); Carbon Dioxide 27 mmol/L (22-29); Chloride 102 mmol/L (96-108); Estimated Glomerular Filt Rate 27; Glucose Random 251 mg/dL (60-115); Potassium 3.6 mmol/L (3.3-5.1); Sodium 141 mmol/L (135-145)
[2021-09-13 11:41] LABS: B Type Natriuretic Peptide 482 pg/mL (<100)
== END 2021-09-13 09:05 | disposition home or self-care (01) ==
LOC: HO.HMGCLDS 09:04
PROVIDERS: PCP Internal Medicine; Visit Provider Nurse Practitioner Family
DX: I50.22 Chronic systolic (congestive) heart failure (principal)
CPT/HCPCS: 36415; 80048; 83880

== ENCOUNTER 2021-09-25 08:46 | Outpatient (REF) | payer MEDICARE, SELFPAY ==
[2021-09-25 12:07] LABS: B Type Natriuretic Peptide 457 pg/mL (<100)
[2021-09-25 13:15] LABS: Anion Gap 15 (12-20); Blood Urea Nitrogen 48 mg/dL (9-16); Calcium 8.8 mg/dL (8.4-10.2); Carbon Dioxide 28 mmol/L (22-29); Chloride 98 mmol/L (96-108); Estimated Glomerular Filt Rate 24; Glucose Random 356 mg/dL (60-115); Potassium 3.1 mmol/L (3.3-5.1); Sodium 138 mmol/L (135-145)
== END 2021-09-25 08:47 | disposition home or self-care (01) ==
LOC: HO.HMGCLDS 08:46
PROVIDERS: PCP Internal Medicine; Visit Provider Nurse Practitioner Family
DX: I50.22 Chronic systolic (congestive) heart failure (principal)
CPT/HCPCS: 36415; 80048; 83880

== ENCOUNTER 2021-10-29 07:11 | Outpatient (REF) | payer MEDICARE, SELFPAY ==
[2021-10-29 11:33] LABS: Estimated Average Glucose 203 mg/dL; Hemoglobin A1c % 8.7 %
[2021-10-29 11:40] LABS: Alanine Aminotransferase 23 U/L (0-31); Albumin Level 3.6 g/dL (3.5-5.0); Alkaline Phosphatase 109 U/L (39-117); Anion Gap 15 (12-20); Aspartate Amino Transferase 41 U/L (5-31); Blood Urea Nitrogen 26 mg/dL (9-16); Calcium 8.3 mg/dL (8.4-10.2); Carbon Dioxide 29 mmol/L (22-29); Chloride 100 mmol/L (96-108); Cholesterol 102 mg/dL; Estimated Glomerular Filt Rate 31; Glucose Fasting 153 mg/dL (60-99); HDL Cholesterol 27 mg/dL; LDL Cholesterol Calculated 37 mg/dl; Potassium 3.4 mmol/L (3.3-5.1); Sodium 141 mmol/L (135-145); Total Protein 6.2 g/dL (6.5-8.0); Triglycerides 194 mg/dL
[2021-10-29 11:46] LABS: Hematocrit 35.9 % (37.0-47.0); Hemoglobin 11.5 g/dl (12.0-16.0); Mean Corpuscular Hemoglobin 32.7 pg (27.0-33.0); Mean Platelet Volume 10.8 fL (9.4-12.3); Platelet Count 144 X10*3/uL (160-400); Red Blood Count 3.52 X10*6/uL (4.20-5.50); White Blood Count 6.8 X10*3/uL (4.8-10.8)
[2021-10-29 12:38] LABS: Creatinine Urine 95.06 mg/dL; Microalbum/Creatinine Ratio Ur 66.2 ug/mg cr
== END 2021-10-29 07:12 | disposition home or self-care (01) ==
LOC: HO.HMGCLDS 07:11
PROVIDERS: PCP Internal Medicine; Visit Provider Internal Medicine
DX: E11.8 Type 2 diabetes mellitus with unspecified complications (principal); N18.4 Chronic kidney disease, stage 4 (severe); I50.22 Chronic systolic (congestive) heart failure; I48.0 Paroxysmal atrial fibrillation; I47.2 Ventricular tachycardia; E66.01 Morbid (severe) obesity due to excess calories; Z95.810 Presence of automatic (implantable) cardiac defibrillator; Z95.2 Presence of prosthetic heart valve
CPT/HCPCS: 36415; 80053; 80061; 82043; 83036; 85027; 99212

== ENCOUNTER 2021-11-22 07:39 | Outpatient (REF) | payer MEDICARE, SELFPAY ==
[2021-11-22 12:07] LABS: Anion Gap 19 (12-20); Blood Urea Nitrogen 37 mg/dL (9-16); Carbon Dioxide 27 mmol/L (22-29); Chloride 99 mmol/L (96-108); Estimated Glomerular Filt Rate 27; Glucose Random 133 mg/dL (60-115); Potassium 3.1 mmol/L (3.3-5.1); Sodium 142 mmol/L (135-145)
== END 2021-11-22 07:40 | disposition home or self-care (01) ==
LOC: HO.HMGCLDS 07:39
PROVIDERS: PCP Internal Medicine; Visit Provider Internal Medicine
DX: I50.22 Chronic systolic (congestive) heart failure (principal)
CPT/HCPCS: 36415; 80048

== ENCOUNTER 2022-01-23 07:37 | Outpatient (REF) | payer MEDICARE, SELFPAY ==
[2022-01-23 09:42] LABS: B Type Natriuretic Peptide 630 pg/mL (<100)
== END 2022-01-23 07:38 | disposition home or self-care (01) ==
LOC: HO.HMGCLDS 07:37
PROVIDERS: PCP Internal Medicine; Visit Provider Nurse Practitioner Family
DX: I42.8 Other cardiomyopathies (principal)
CPT/HCPCS: 36415; 83880

== ENCOUNTER 2022-01-25 07:04 | Outpatient (REF) | payer MEDICARE, SELFPAY ==
[2022-01-25 12:06] LABS: Anion Gap 17 (12-20); Blood Urea Nitrogen 26 mg/dL (9-16); Calcium 8.9 mg/dL (8.4-10.2); Carbon Dioxide 27 mmol/L (22-29); Chloride 100 mmol/L (96-108); Estimated Glomerular Filt Rate 32; Glucose Random 109 mg/dL (60-115); Potassium 3.4 mmol/L (3.3-5.1); Sodium 141 mmol/L (135-145)
== END 2022-01-25 07:05 | disposition home or self-care (01) ==
LOC: HO.HMGCLDS 07:04
PROVIDERS: PCP Internal Medicine; Visit Provider Nurse Practitioner Family
DX: I50.22 Chronic systolic (congestive) heart failure (principal)
CPT/HCPCS: 36415; 80048

== ENCOUNTER 2022-01-29 06:30 | Outpatient (REF) | payer MEDICARE, SELFPAY ==
[2022-01-29 11:37] LABS: MANUAL DIFF FLAG NO
[2022-01-29 11:51] LABS: Basophils Percent Auto 0.6 % (0-2); Eosinophils Absolute Auto 0.5 X10*3/uL (0.0-0.4); Eosinophils Percent Auto 7.8 % (0-4); Hematocrit 36.4 % (37.0-47.0); Hemoglobin 11.9 g/dl (12.0-16.0); Imm Gran Abs Auto 0.03 X10*3/uL (0.00-0.03); Imm Gran Pct Auto 0.5 % (0.0-0.4); Lymphocytes Absolute Auto 1.5 X10*3/uL (1.2-4.9); Lymphocytes Percent Auto 24.3 % (20-40); Mean Corpuscular HGB Conc 32.7 g/dl (31.0-35.0); Mean Corpuscular Hemoglobin 33.6 pg (27.0-33.0); Mean Corpuscular Volume 102.8 fL (80.0-98.0); Monocytes Absolute Auto 0.9 X10*3/uL (0.1-1.2); Neutrophils Absolute Auto 3.3 x10*3/uL (2.0-8.3); Neutrophils Percent Auto 52.8 % (45-73); Red Blood Count 3.54 X10*6/uL (4.20-5.50); Red Cell Distribution Width 16.2 % (11.0-16.0); White Blood Count 6.3 X10*3/uL (4.8-10.8)
[2022-01-29 12:04] LABS: Alanine Aminotransferase 29 U/L (0-31); Albumin Level 3.8 g/dL (3.5-5.0); Alkaline Phosphatase 115 U/L (39-117); Anion Gap 16 (12-20); Aspartate Amino Transferase 57 U/L (5-31); Bilirubin Total 1.1 mg/dL (0.0-1.0); Blood Urea Nitrogen 29 mg/dL (9-16); Carbon Dioxide 28 mmol/L (22-29); Chloride 100 mmol/L (96-108); Cholesterol 87 mg/dL; Estimated Glomerular Filt Rate 31; Glucose Fasting 101 mg/dL (60-99); HDL Cholesterol 30 mg/dL; LDL Cholesterol Calculated 24 mg/dl; Potassium 3.4 mmol/L (3.3-5.1); Sodium 141 mmol/L (135-145); Total Protein 6.5 g/dL (6.5-8.0); Triglycerides 165 mg/dL
[2022-01-29 12:32] LABS: Estimated Average Glucose 154 mg/dL
[2022-01-29 12:42] LABS: Creatinine Urine 54.51 mg/dL; Microalbum/Creatinine Ratio Ur 78.8 ug/mg cr
[2022-01-29 12:49] LABS: Mean Platelet Volume 11.1 fL (9.4-12.3); Platelet Count 107 X10*3/uL (160-400)
== END 2022-01-29 06:31 | disposition home or self-care (01) ==
LOC: HO.HMGCLDS 06:30
PROVIDERS: PCP Internal Medicine; Visit Provider Internal Medicine
DX: Z13.89 Encounter for screening for other disorder (principal)
CPT/HCPCS: 36415; 80053; 80061; 82043; 83036; 85025

== ENCOUNTER 2022-01-29 12:07 | Outpatient (REF) | payer MEDICARE, SELFPAY ==
--- NOTE | ~2022-01-29 | MM_ITS ---
EXAMINATION: MM SCREENING DIGITAL BREAST TOMOSYNTHESIS, BILATERAL CLINICAL INFORMATION: Screening. Asymptomatic. COMPARISON: Mammography: July 14, 2020 and studies dating back to March 05, 2016 TECHNIQUE: Digital breast tomosynthesis is performed in both the craniocaudal and mediolateral oblique views along with computer-aided detection (CAD). Synthesized 2D images are generated from the tomosynthesis. Bilateral exaggerated craniocaudal views also performed. FINDINGS: The breasts are almost entirely fatty (ACR BI-RADS breast composition Category a). There are no significant masses, abnormal calcifications, or other abnormalities. MM/MM tomosynthesis screening BI IMPRESSION: No significant changes from prior exam. ASSESSMENT: BI-RADS 1: Negative RECOMMENDATION: Routine annual mammography screening. This patient's information was entered into a reminder system with a target due date for their next mammogram.
== END 2022-01-29 12:08 | disposition home or self-care (01) ==
LOC: HO.MAMMO 12:07
PROVIDERS: PCP Internal Medicine; Visit Provider Internal Medicine
DX: Z12.31 Encounter for screening mammogram for malignant neoplasm of breast (principal); E11.8 Type 2 diabetes mellitus with unspecified complications; E11.22 Type 2 diabetes mellitus with diabetic chronic kidney disease; N18.4 Chronic kidney disease, stage 4 (severe); I50.22 Chronic systolic (congestive) heart failure; H26.9 Unspecified cataract; Z95.818 Presence of other cardiac implants and grafts
CPT/HCPCS: 36415; 77063; 77067; 80053; 80061; 82043; 83036; 85025

== ENCOUNTER → 2022-01-30 12:23 | Outpatient (BNVA) | payer MEDICARE, SELFPAY | PROVIDERS: PCP Internal Medicine; Referring Provider Internal Medicine; Visit Provider Nurse Practitioner Family | DX: I50.22 Chronic systolic (congestive) heart failure (principal); R06.02 Shortness of breath; I42.8 Other cardiomyopathies; I48.0 Paroxysmal atrial fibrillation; I47.20 Ventricular tachycardia, unspecified; N18.4 Chronic kidney disease, stage 4 (severe); Z95.818 Presence of other cardiac implants and grafts; Z95.810 Presence of automatic (implantable) cardiac defibrillator; Z95.2 Presence of prosthetic heart valve | CPT/HCPCS: 99212 ==

== ENCOUNTER 2022-02-18 11:48 | Outpatient (REF) | payer MEDICARE, SELFPAY ==
[2022-02-18 14:30] LABS: Anion Gap 15 (12-20); Blood Urea Nitrogen 40 mg/dL (9-16); Calcium 9.7 mg/dL (8.4-10.2); Carbon Dioxide 29 mmol/L (22-29); Chloride 100 mmol/L (96-108); Estimated Glomerular Filt Rate 26; Glucose Random 165 mg/dL (60-115); Potassium 3.9 mmol/L (3.3-5.1); Sodium 140 mmol/L (135-145)
[2022-02-18 14:46] LABS: B Type Natriuretic Peptide 673 pg/mL (<100)
== END 2022-02-18 11:49 | disposition home or self-care (01) ==
LOC: HO.HMGCLDS 11:48
PROVIDERS: PCP Internal Medicine; Visit Provider Nurse Practitioner Family
DX: I50.22 Chronic systolic (congestive) heart failure (principal)
CPT/HCPCS: 36415; 80048; 83880

== ENCOUNTER 2022-03-05 08:03 | Outpatient (REF) | payer MEDICARE, SELFPAY ==
[2022-03-05 12:24] LABS: Anion Gap 16 (12-20); Blood Urea Nitrogen 52 mg/dL (9-16); Calcium 9.7 mg/dL (8.4-10.2); Carbon Dioxide 31 mmol/L (22-29); Chloride 95 mmol/L (96-108); Estimated Glomerular Filt Rate 22; Glucose Random 156 mg/dL (60-115); Potassium 3.2 mmol/L (3.3-5.1); Sodium 139 mmol/L (135-145)
[2022-03-05 13:06] LABS: B Type Natriuretic Peptide 340 pg/mL (<100)
== END 2022-03-05 08:04 | disposition home or self-care (01) ==
LOC: HO.HMGCLDS 08:03
PROVIDERS: PCP Internal Medicine; Visit Provider Nurse Practitioner Family
DX: I50.9 Heart failure, unspecified (principal)
CPT/HCPCS: 36415; 80048; 83880

== ENCOUNTER 2022-04-09 10:21 | Outpatient (REF) | payer MEDICARE, SELFPAY ==
[2022-04-09 12:10] LABS: B Type Natriuretic Peptide 595 pg/mL (<100)
[2022-04-09 13:54] LABS: Alanine Aminotransferase 38 U/L (0-31); Albumin Level 3.8 g/dL (3.5-5.0); Alkaline Phosphatase 129 U/L (39-117); Anion Gap 17 (12-20); Aspartate Amino Transferase 58 U/L (5-31); Bilirubin Total 1.2 mg/dL (0.0-1.0); Blood Urea Nitrogen 43 mg/dL (9-16); Calcium 9.3 mg/dL (8.4-10.2); Carbon Dioxide 28 mmol/L (22-29); Chloride 95 mmol/L (96-108); Estimated Glomerular Filt Rate 28; Glucose Random 219 mg/dL (60-115); Potassium 3.6 mmol/L (3.3-5.1); Sodium 136 mmol/L (135-145); Total Protein 6.5 g/dL (6.5-8.0)
== END 2022-04-09 10:22 | disposition home or self-care (01) ==
LOC: HO.HMGCLDS 10:21
PROVIDERS: Visit Provider Nurse Practitioner Family
DX: I50.22 Chronic systolic (congestive) heart failure (principal)
CPT/HCPCS: 36415; 80053; 83880

== ENCOUNTER → 2022-04-29 14:41 | Outpatient (BNVA) | payer MEDICARE, SELFPAY | PROVIDERS: PCP Internal Medicine; Referring Provider Internal Medicine; Visit Provider Internal Medicine | DX: I50.22 Chronic systolic (congestive) heart failure (principal); I48.0 Paroxysmal atrial fibrillation; I47.20 Ventricular tachycardia, unspecified; E66.01 Morbid (severe) obesity due to excess calories; Z95.2 Presence of prosthetic heart valve; Z95.810 Presence of automatic (implantable) cardiac defibrillator | CPT/HCPCS: 99212 ==

== ENCOUNTER 2022-04-30 08:47 | Outpatient (REF) | payer MEDICARE, SELFPAY ==
--- NOTE | ~2022-04-30 | US_ITS ---
EXAMINATION: US ABDOMEN COMPLETE CLINICAL INFORMATION: Abnormal LFTs. COMPARISON: Ultrasound retroperitoneal limited (renal only) 12/21/2019 and 07/23/2017. TECHNIQUE: Real-time imaging of the abdominal viscera. FINDINGS: PANCREAS: Normal. ABDOMINAL AORTA: The proximal, mid, and distal segments are normal in caliber. INFERIOR VENA CAVA: Visualized portions are normal. LIVER: The liver is normal in size. The liver contour is normal. Coarsened hepatic echotexture may represent hepatocellular disease. No focal hepatic lesion. There is no intrahepatic biliary duct dilatation seen. GALLBLADDER: Surgically absent. COMMON BILE DUCT: Normal in caliber measuring 1.2 cm in diameter. RIGHT KIDNEY: Increased parenchymal echogenicity and thinning. No hydronephrosis. No renal calculi or focal parenchymal lesions. The kidney measures 9.1 cm in maximum dimension. LEFT KIDNEY: Increased parenchymal echogenicity and thinning. No hydronephrosis. No renal calculi or focal parenchymal lesions. The kidney measures 10.2 cm in maximum dimension. SPLEEN: Mildly enlarged. The spleen measures 13.7 cm in maximum dimension. FREE FLUID: None. US/US abdomen complete IMPRESSION: Unspecific coarsened hepatic echotexture may represent underlying hepatocellular disease. No morphologic cirrhosis. No biliary ductal dilatation. Increased renal echogenicity and cortical thinning consistent with chronic medical renal disease. No hydronephrosis.
== END 2022-04-30 08:48 | disposition home or self-care (01) ==
LOC: HO.HMGCX 08:47
PROVIDERS: PCP Internal Medicine; Visit Provider Internal Medicine
DX: R79.89 Other specified abnormal findings of blood chemistry (principal)
CPT/HCPCS: 76700

== ENCOUNTER 2022-05-15 07:53 | Outpatient (REF) | payer MEDICARE, SELFPAY ==
[2022-05-15 11:13] LABS: MANUAL DIFF FLAG NO
[2022-05-15 11:18] LABS: Basophils Absolute Auto 0.1 X10*3/uL (0.0-0.2); Basophils Percent Auto 0.7 % (0-2); Eosinophils Absolute Auto 0.7 X10*3/uL (0.0-0.4); Eosinophils Percent Auto 10.4 % (0-4); Hematocrit 43.1 % (37.0-47.0); Hemoglobin 14.2 g/dl (12.0-16.0); Imm Gran Abs Auto 0.05 X10*3/uL (0.00-0.03); Imm Gran Pct Auto 0.7 % (0.0-0.4); Lymphocytes Absolute Auto 1.9 X10*3/uL (1.2-4.9); Lymphocytes Percent Auto 26.2 % (20-40); Mean Corpuscular HGB Conc 32.9 g/dl (31.0-35.0); Mean Corpuscular Hemoglobin 33.6 pg (27.0-33.0); Mean Corpuscular Volume 102.1 fL (80.0-98.0); Mean Platelet Volume 11.4 fL (9.4-12.3); Monocytes Percent Auto 13.4 % (2-11); Neutrophils Absolute Auto 3.4 x10*3/uL (2.0-8.3); Neutrophils Percent Auto 48.6 % (45-73); Platelet Count 121 X10*3/uL (160-400); Red Blood Count 4.22 X10*6/uL (4.20-5.50); White Blood Count 7.1 X10*3/uL (4.8-10.8)
[2022-05-15 11:55] LABS: Anion Gap 17 (12-20); Blood Urea Nitrogen 45 mg/dL (9-16); Calcium 9.1 mg/dL (8.4-10.2); Carbon Dioxide 28 mmol/L (22-29); Chloride 100 mmol/L (96-108); Estimated Glomerular Filt Rate 27; Glucose Random 177 mg/dL (60-115); Potassium 3.8 mmol/L (3.3-5.1); Sodium 141 mmol/L (135-145)
== END 2022-05-15 07:54 | disposition home or self-care (01) ==
LOC: HO.HMGCLDS 07:53
PROVIDERS: PCP Internal Medicine; Visit Provider Internal Medicine Hypertension Specialist
DX: N18.4 Chronic kidney disease, stage 4 (severe) (principal)
CPT/HCPCS: 36415; 80048; 85025

== ENCOUNTER 2022-06-18 09:40 | Outpatient (REF) | payer MEDICARE, SELFPAY ==
[2022-06-18 12:59] LABS: Anion Gap 16 (12-20); Blood Urea Nitrogen 44 mg/dL (9-16); Carbon Dioxide 29 mmol/L (22-29); Chloride 97 mmol/L (96-108); Estimated Glomerular Filt Rate 22; Glucose Random 317 mg/dL (60-115); Magnesium 1.5 mg/dL (1.6-2.6); Potassium 3.7 mmol/L (3.3-5.1); Sodium 138 mmol/L (135-145)
== END 2022-06-18 09:41 | disposition home or self-care (01) ==
LOC: HO.HMGCLDS 09:40
PROVIDERS: Visit Provider Nurse Practitioner Family
DX: I47.29 Other ventricular tachycardia (principal)
CPT/HCPCS: 36415; 80048; 83735

== ENCOUNTER → 2022-06-21 14:32 | Outpatient (REF) | payer MEDICARE, SELFPAY ==
--- NOTE | 2022-06-21 14:36 | CA_ITS ---
Transthoracic Echocardiogram Patient (Last, First, Middle): Ebonie Thomas J Gender: Female Date of : 1950 Age: 72 Procedure Date: 06/21/2022 Procedure Type: Transthoracic Echocardiogram Location: OP Height: 162.56 cm Weight: 124.74 kg BSA: 2.24 m2 Heart Rate: bpm BP: 110 / 68 mmHg Medical Scientific Officer: TO/SB Referring MD: Itzel Meza PRESS HAND SUPERVISOR-C Symptoms: I42.8 - Other cardiomyopathies Study Quality: Technically Difficult ECG Rhythm: Sinus/v paced Conclusions: - Severely increased left ventricular cavity size. - The left ventricular systolic function is severely decreased. The calculated ejection fraction is 22% by biplane method. - A bioprosthetic aortic valve is present. The prosthetic aortic valve appears to be functioning normally. - There is moderate mitral annular calcification. - There is mild dilatation of the ascending aorta measuring 4.20 cm. Findings Procedure Information The study quality is limited by patients body habitus. Left Ventricle Severely increased left ventricular cavity size. The left ventricular systolic function is severely decreased. The calculated ejection fraction is 22% by biplane method. There is severe global hypokinesis. E/E prime ratio is >15, consistent with elevated filling pressures. Evidence suggests grade II (moderate) diastolic dysfunction. There is mild septal asymmetric hypertrophy. Right Ventricle Normal right ventricular cavity size. There is low normal right ventricular systolic function. There is an ICD wire seen in the right ventricle. Atria The left atrium is likely dilated. The right atrium is normal in size. Aortic Valve A bioprosthetic aortic valve is present. The prosthetic aortic valve appears to be functioning normally. The mean gradient is 8 mmHg. Trivial regurgitation, cannot state if valvular or para-valvular. Mitral Valve There is moderate mitral annular calcification. There is trace mitral valve regurgitation. There is no mitral valve stenosis. Calcified mitral apparatus. Pulmonic Valve The pulmonic valve is likely normal. Tricuspid Valve There is trace tricuspid valve regurgitation. There is no evidence of pulmonary hypertension. Great Vessels There is mild dilatation of the ascending aorta measuring 4.20 cm. Venous The inferior vena cava is normal in size and collapses greater than 50% with inspiration. Pericardium/Pleural There is no evidence of pericardial effusion. Prior Study Comparison No significant change compared to prior study dated: 01/26/2020. Measurements 2D Linear Measurements IVSd: 1.10 0.6-0.9/0.6-1.0 cm LVIDd: 6.97 3.9-5.3/4.2-5.9 cm LVIDd Index: 3.11 2.4-3.2/2.2-3.1 cm/m2 LVIDs: 6.72 2.0-3.6 cm LVPWd: 0.99 0.7-1.1 cm LA Diam: 3.90 2.7-3.8/3.0-4.0 cm LAIDs Index: 1.74 1.5-2.3 cm/m2 LV Mass: 421.27 67-162/88-224 g LV Mass Index: 188.07 43-95/49-115 g/m2 LVOT Diam: 2.00 3.0+(-)1.3 cm 2D Systolic Function EF 4C: 21.20 >55% EF 2C: 21.90 >55% EF BiP: 21.50 >55% Mitral Valve MV VTI: 0.19 MV Pk Christian: 1.06 MV Mn Christian: 0.69 MV Pk Grad: 4.00 MV Mn Grad: 2.00 MV Pk E: 0.66 MV PK A: 0.44 MV Decel Time: 115.00 E/A: 1.50 E'Lateral: 3.81 E'Medial: 3.05 E/E' Med: 21.50 E/E' Lat: 17.20 PHT: 34.00 MVA PHT: 6.47 MVA Continuity: 2.71 Decel [place]: 5.68 Aortic Valve AoV Pk Christian: 1.87 AoV Mn Christian: 1.32 AoV VTI: 0.29 AoV Pk Grad: 14.00 Aov Mn Grad: 8.00 MEME Cont.VTI: 1.70 LVOT LVOT Pk Christian: 0.96 LVOT Mn Christian: 0.60 LVOT VTI: 0.16 LVOT Pk Grad: 4.00 LVOT Mn Grad: 2.00 LVOT Diam: 2.00 LVOT Area: 3.14 Diastolic Function MV Pk E: 0.66 MV Pk A: 0.44 E/A: 1.50 E'Medial: 3.05 E/E' Med: 21.50 E' Laterial: 3.81 E/E' Lat: 17.20 Right Ventricle TAPSE (mm): 18.20 TVS' Christian: 10.00 Tricuspid Valve TR Pk Christian: 2.59 TR Pk Grad: 27.00 RA Press: 3.00 RVSP: 30.00 Great Vessels Aorta Ao Asc: 4.20 2.1-3.4 cm Updated in Other Vendor System with Status of Final Angel Calhoun MD electronically signed on 06/23/2022 11:33:21 AM with status of Final
== END ==
LOC: HO.CARD 14:32
PROVIDERS: PCP Internal Medicine; Visit Provider Nurse Practitioner Family
DX: I42.8 Other cardiomyopathies (principal); I47.20 Ventricular tachycardia, unspecified; Z95.810 Presence of automatic (implantable) cardiac defibrillator
CPT/HCPCS: 93306

== ENCOUNTER 2022-07-04 08:17 | Outpatient (REF) | payer MEDICARE, SELFPAY ==
[2022-07-04 12:02] LABS: Anion Gap 17 (12-20); Blood Urea Nitrogen 42 mg/dL (9-16); Calcium 8.9 mg/dL (8.4-10.2); Carbon Dioxide 28 mmol/L (22-29); Chloride 99 mmol/L (96-108); Estimated Glomerular Filt Rate 27; Glucose Random 216 mg/dL (60-115); Magnesium 2.2 mg/dL (1.6-2.6); Potassium 3.9 mmol/L (3.3-5.1); Sodium 140 mmol/L (135-145)
== END 2022-07-04 08:18 | disposition home or self-care (01) ==
LOC: HO.HMGCLDS 08:17
PROVIDERS: PCP Internal Medicine; Visit Provider Nurse Practitioner Family
DX: Z13.89 Encounter for screening for other disorder (principal)
CPT/HCPCS: 36415; 80048; 83735

== ENCOUNTER 2022-07-04 09:50 | Outpatient (REF) | payer MEDICARE, SELFPAY ==
[2022-07-04 12:05] LABS: Alanine Aminotransferase 53 U/L (0-31); Albumin Level 3.8 g/dL (3.5-5.0); Alkaline Phosphatase 152 U/L (39-117); Anion Gap 17 (12-20); Aspartate Amino Transferase 80 U/L (5-31); Bilirubin Total 1.2 mg/dL (0.0-1.0); Blood Urea Nitrogen 42 mg/dL (9-16); Calcium 9.1 mg/dL (8.4-10.2); Carbon Dioxide 28 mmol/L (22-29); Chloride 99 mmol/L (96-108); Cholesterol 100 mg/dL; Estimated Glomerular Filt Rate 27; Glucose Fasting 213 mg/dL (60-99); HDL Cholesterol 26 mg/dL; LDL Cholesterol Calculated 36 mg/dl; Magnesium 2.2 mg/dL (1.6-2.6); Potassium 3.9 mmol/L (3.3-5.1); Sodium 140 mmol/L (135-145); Total Protein 6.4 g/dL (6.5-8.0); Triglycerides 193 mg/dL
[2022-07-04 12:11] LABS: Estimated Average Glucose 183 mg/dL
[2022-07-04 12:12] LABS: B Type Natriuretic Peptide 450 pg/mL (<100)
[2022-07-04 12:23] LABS: TSH reflex Free T4 0.39 uIU/mL (0.32-4.0)
== END 2022-07-04 09:51 | disposition home or self-care (01) ==
LOC: HO.HMGCLDS 09:50
PROVIDERS: PCP Internal Medicine; Visit Provider Internal Medicine
DX: E11.22 Type 2 diabetes mellitus with diabetic chronic kidney disease (principal); N18.4 Chronic kidney disease, stage 4 (severe); I42.8 Other cardiomyopathies; E11.8 Type 2 diabetes mellitus with unspecified complications; I47.29 Other ventricular tachycardia
CPT/HCPCS: 36415; 80048; 80053; 80061; 83036; 83735; 83880; 84443

== ENCOUNTER → 2022-09-20 23:59 | Outpatient (BNV) | payer MEDICARE, SELFPAY ==
--- NOTE | 2022-10-04 17:42 | A.OFFVIS_ITS ---
Intake Intake Visit Reasons: Cardiomems - [facility] Allergies bees Allergy (Unknown, Verified 07/04/22 08:49) angioedema ibuprofen [From MOTRIN] Allergy (Unknown, Verified 07/04/22 08:49) RASH FOR[facility], 1928–1983 Medical History Ankle pain, chronic Annual physical exam Arthritis Biventricular ICD (implantable cardioverter-defibrillator) in place Cataract (lens) fragments in eye following cataract surgery, bilateral Chronic kidney disease CKD (chronic kidney disease) stage 4, GFR 15-29 ml/min Claudication Edema Gout Morbid obesity PAF (paroxysmal atrial fibrillation) Type 2 diabetes mellitus with unspecified complications Ventricular tachycardia Surgical History History of partial thyroidectomy History of tonsillectomy Hx of cholecystectomy S/P TAVR (transcatheter aortic valve replacement) Family History Father CVD (cardiovascular disease) Mother No problems noted. Sister Cancer Son No problems noted. Sister Leukemia Son No problems noted. Son No problems noted. Daughter No problems noted. Brother No problems noted. Brother No problems noted. Brother No problems noted. Social History Household Members: Spouse Housing: Apartment Alcohol intake: never Patient Tobacco Use Status: Never used Tobacco e-Cigarette/Vaping Use: Never Used Current occupational status: retired Cognitive needs: No Hearing needs: No Vision needs: No Office Procedures Cardiac Device Check Cardiac Device Check Details: Monitoring period dates: 07/19- 08/20/22 Optimal PA pressure range: PAD 23mmhg Procedure code: [id number] BACKGROUND: Ebonie is implanted with the CardioMEMS PA Sensor.? I use this technology to monitor PA pressures on a weekly basis to ensure patients are within their optimal range to prevent decompensation.? SUMMARY:? I utilized the remote monitoring platform ([employer]) to set optimal targets for pulmonary artery pressure thresholds as part of acute and chronic management of patient?s heart failure. During the period indicated above, I monitored the patient?s pulmonary artery pressures weekly via trend analysis and notification reports which provide alerts when patient?s PA pressures were outside of range to prompt immediate action in medication changes and communications.? The weekly reports are archived in the [employer] system which serve as a parallel record to document weekly PA pressures, medication changes, and clinical notes. I have reviewed readings on 08/23, 08/26, 08/30, 09/02, 09/08, 09/13, 09/20. PAD range has been 17-27mmhg. She has been doing well. 13187 - Remote monitoring of wireless pulmonary artery pressure sensor Procedure code (CPT) selection complete Coding Level of Care Code Procedure Only Diagnoses CPT Codes Cardiac Device Check - Cardiac Device 17: 21549 - Remote monitoring of wireless pulmonary artery pressure sensor ([id number])
== END ==
PROVIDERS: PCP Internal Medicine; Visit Provider Nurse Practitioner Family
DX: I50.9 Heart failure, unspecified (principal); Z95.818 Presence of other cardiac implants and grafts
CPT/HCPCS: 93264

== ENCOUNTER → 2022-10-21 23:59 | Outpatient (BNV) | payer MEDICARE, SELFPAY ==
--- NOTE | 2022-10-31 13:04 | A.OFFVIS_ITS ---
Intake Intake Visit Reasons: [facility] Allergies bees Allergy (Unknown, Verified 10/23/22 09:14) angioedema ibuprofen [From MOTRIN] Allergy (Unknown, Verified 10/23/22 09:14) RASH [facility] Medical History (Updated 10/30/22 @ 00:04 by Background Duong) Ankle pain, chronic Annual physical exam Arthritis Biventricular ICD (implantable cardioverter-defibrillator) in place Cataract (lens) fragments in eye following cataract surgery, bilateral Chronic kidney disease CKD (chronic kidney disease) stage 4, GFR 15-29 ml/min Claudication Edema Gout Morbid obesity PAF (paroxysmal atrial fibrillation) Type 2 diabetes mellitus with unspecified complications Ventricular tachycardia Surgical History History of partial thyroidectomy History of tonsillectomy Hx of cholecystectomy S/P TAVR (transcatheter aortic valve replacement) Family History Father CVD (cardiovascular disease) Mother No problems noted. Sister Cancer Son No problems noted. Sister Leukemia Son No problems noted. Son No problems noted. Daughter No problems noted. Brother No problems noted. Brother No problems noted. Brother No problems noted. Social History Household Members: Spouse Housing: Apartment Alcohol intake: never Patient Tobacco Use Status: Never used Tobacco e-Cigarette/Vaping Use: Never Used Advance Directives: No Current occupational status: retired Cognitive needs: No Hearing needs: No Vision needs: No Office Procedures Cardiac Device Check Cardiac Device Check Details: Monitoring period dates: - 10/21/22 Optimal PA pressure range: PAD goal 23mmhg Procedure code: [id number] BACKGROUND: Ebonie is implanted with the CardioMEMS PA Sensor.? I use this technology to monitor PA pressures on a weekly basis to ensure patients are within their optimal range to prevent decompensation.? SUMMARY:? I utilized the remote monitoring platform ([employer]) to set optimal targets for pulmonary artery pressure thresholds as part of acute and chronic m anagement of patient?s heart failure. During the period indicated above, I monitored the patient?s pulmonary artery pressures weekly via trend analysis and notification reports which provide alerts when patient?s PA pressures were outside of range to prompt immediate action in medication changes and communications.? The weekly reports are archived in the [employer] system which serve as a parallel record to document weekly PA pressures, medication changes, and clinical notes. I have reviewed readings on 09.21, 09/27, 10/02, 10/07, 10/10, 10/15, 10/21. PAD has ranged 18-27mmhg. No HF admits. Diuretics adjusted as needed 89168 - Remote monitoring of wireless pulmonary artery pressure sensor Procedure code (CPT) selection complete Coding Level of Care Code Procedure Only Diagnoses CPT Codes Cardiac Device Check - Cardiac Device 17: 47427 - Remote monitoring of wireless pulmonary artery pressure sensor ([id number])
== END ==
PROVIDERS: PCP Internal Medicine; Visit Provider Internal Medicine
DX: I50.9 Heart failure, unspecified (principal)
CPT/HCPCS: 93264

== ENCOUNTER 2022-10-23 09:07 | Outpatient (AMB) | payer MEDICARE, SELFPAY ==
--- NOTE | 2022-10-23 09:09 | AM.OFFVISMDC ---
Intake Vital Signs 10/23/22 09:14 Weight 260 lb BP 124/78 Blood Pressure Location Lt brachial Position Sitting Pulse 87 Pulse Source Pulse Oximeter Pulse Oximetry (%) 97 Oxygen Delivery Method Room Air Intake Visit Reasons: SWV G0439/DM Allergies bees Allergy (Unknown, Verified 10/23/22 09:14) angioedema ibuprofen [From MOTRIN] Allergy (Unknown, Verified 10/23/22 09:14) RASH Medication List - Last Reconciled 10/23/22 by Zainab Pritchard MD acetaminophen ER (Tylenol 8 Hour) 650 mg PO Q8H PRN allopurinol 200 mg (2 x 100 mg) PO DAILY apixaban (Eliquis) 5 mg PO BID blood sugar diagnostic (FreeStyle Lite Strips) test 3 times a day DX E11.9 carvedilol 3.125 mg PO BID colchicine (Colcrys) 0.6 mg PO BID dapagliflozin propanediol (Farxiga) 10 mg PO DAILY dulaglutide (Trulicity) 3 mg (0.5 mL) subcut QWEEK famotidine (Pepcid) 20 mg PO DAILY flash glucose sensor (FreeStyle Silvestre 14 Day Sensor kit) As directed fluticasone propion-salmeterol 230-21 mcg/actuation (Advair HFA) 2 puffs inhalation BID insulin aspart U-100 (Novolog FlexPen U-100 Insulin aspart) 18 units (0.18 mL) subcut TID insulin glargine (Basaglar KwikPen U-100 Insulin) 80 units (0.8 mL) subcut DAILY levothyroxine 175 mcg PO QAM metolazone 2.5 mg orally; friday/ and PRN when directed 90 days miscellaneous medical supply electric scooter mupirocin 2% 1 appl topical BID pen needle, diabetic (BD Ultra-Fine Mini Pen Needle) 1 ea subcut DIRECTED potassium chloride ER 40 mEq (2 x 20 mEq) PO DAILY 90 days rosuvastatin (Crestor) 20 mg PO DAILY spironolactone (Aldactone) 25 mg PO DAILY 90 days torsemide 60 mg (3 x 20 mg) PO DAILY 90 days walker 2 wheels and 2 flat feet Do you need a note to return to daycare/school/sports/work: No HPI SWV G0439/DM HPI Details Pt presents for ANNUAL. Pt c/o 2 weeks of intermittent watery diarrhea and went to [facility] ER last week and was given IV Potassium for hypokalemia. Pt denies abd pain, fever, chills, hematochezia. Initiated the conversation about Advanced Directives. Advanced Directives help? patients prepare for current and future decisions about their medical treatment? and place of care. Discussed with patient that it is a process where a patients? current condition and prognosis are reviewed, their wishes for information? regarding their illness are elicited, and likely medical dilemmas are presented? and options discussed. The form can be amended as needed, reviewed yearly and? make changes as needed IPPE/AWV ? year old presents? for her ? Annual? Wellness Visit, initial visit.? Medical / Social History Reviewed? Past Medical History ?Yes? . ? [place]? of Care / Care Team list updated ?Yes . ? Surgical/Hospitalization? History ?Yes . ? Current Medications? (including OTC and supplements) ?Yes . ? Family History ?Yes? . ? Tobacco? Control form ?Yes . ? AUDIT-C (Alcohol use) form? ?Yes . ? Illicit drug use in Social? History ?Yes . ? Current diagnosis of? depression? ?No ? Appropriate PHQ2/PHQ9? completed ?Yes . ? Data entered by ?Medical? Circulation Sales Representative and reviewed by provider ? Fall Risk ? Fall? History? Have you had any falls with? injury in the past year? ?No . ? Have you had two or more? falls in the past year? ?No . ? Fall Risk Assessment: ?No? falls in the past year . ? HRA filled out by? the patient, reviewed by Provider and scanned. ? IPPE/AWV ? Balance? Romberg? ?Yes . ? Tandem? walk ?Yes . ? Walk and? Turn ?Yes . ? Rise from? sit to stand ?Yes . ?Vision? Corrective? lens ?Yes ? Vision? screen ? Up-to-date, has an appointment [] for vision? screening and glaucoma screening ?Hearing? Whisper? test ?pass .? Initiated the conversation about Advanced Directives. Advanced Directives help? patients prepare for current and future decisions about their medical treatment? and place of care. Discussed with patient that it is a process where a patients? current condition and prognosis are reviewed, their wishes for information? regarding their illness are elicited, and likely medical dilemmas are presented? and options discussed. The form can be amended as needed, reviewed yearly and? make changes as needed Written? Plan?Completed. See Patient? Documents. [facility] Medical History (Updated 10/23/22 @ 10:18 by Zainab Pritchard MD) Ankle pain, chronic Annual physical exam Arthritis Biventricular ICD (implantable cardioverter-defibrillator) in place Cataract (lens) fragments in eye following cataract surgery, bilateral Chronic kidney disease CKD (chronic kidney disease) stage 4, GFR 15-29 ml/min Claudication Edema Gout Morbid obesity PAF (paroxysmal atrial fibrillation) Type 2 diabetes mellitus with unspecified complications Ventricular tachycardia Surgical History History of partial thyroidectomy History of tonsillectomy Hx of cholecystectomy S/P TAVR (transcatheter aortic valve replacement) Family History Father CVD (cardiovascular disease) Mother No problems noted. Sister Cancer Son No problems noted. Sister Leukemia Son No problems noted. Son No problems noted. Daughter No problems noted. Brother No problems noted. Brother No problems noted. Brother No problems noted. Social History Household Members: Spouse Housing: Apartment Alcohol intake: never Patient Tobacco Use Status: Never used Tobacco e-Cigarette/Vaping Use: Never Used Current occupational status: retired Cognitive needs: No Hearing needs: No Vision needs: No Questionnaire Medicare Wellness Checkup [age] What gender do you identify with?: female During the past 4 weeks, how much have you been bothered by emotional problems such as feeling anxious, depressed, irritable, sad or downhearted, and blue?: quite a bit During the past 4 weeks, has your physical & emotional health limited your social activities with family, friends, neighbors, or groups?: not at all During the past 4 weeks, how much bodily pain have you generally had?: no pain During the past 4 weeks, was someone available to help you if you needed & wanted help?: no, not at all During the past 4 weeks, what was the hardest physical activity you could do for at least 2 minutes?: light Can you get to places out of walking distance without help? (For eg., can you travel alone on buses, taxis or drive your car?): Yes Can you go shopping for groceries or clothes without someone's help?: Yes Can you prepare your own meals?: Yes Can you do your housework without help?: Yes Because of any health problems, do you need the help of another person with your personal care needs such as eating, bathing, dressing or getting around the house?: No Can you handle your own money without help?: Yes During the past 4 weeks, how would you rate your health in general?: fair During the past 4 weeks how have things been going for you?: good & bad parts about equal Are you having difficulties driving your car?: no Do you always fasten your seat belt when you are in a car?: yes, usually During past 4 weeks, have you been bothered by the following: never: Falling or dizzy when standing up, Sexual problems?, Teeth or denture problems? and Problems using the telephone? and sometimes: Trouble eating well? and Tiredness or fatigue? Have you fallen 2 or more times in the past year?: No Are you afraid of falling?: No Are you a smoker?: no During the past 4 weeks, how many drinks of wine, beer, or other alcoholic beverages did you have?: 1 drink or less per week Do you exercise for about 20 minutes 3 or more times a week?: yes, some of the time Have you been given information to help with the following?: yes: Keeping track of your medications? and no: Hazards in your house that might hurt you? How often do you have trouble taking medicines the way you have been told to take them?: I always take medicine as prescribed How confident are you that you can control & manage most of your health problems?: somewhat confident What is your race?: White Mini Mental State Exam (MMSE) Orientation What is the (year) (season) (date) (day) (month)?: year, season, date, day and month Where are we (state) (county) (town or city) (hospital) (floor)?: state, county, town or city, hospital/clinic and floor Registration Name of 3 unrelated objects clearly and slowly, then ask patient to repeat all 3 of them. (1st repeat determines score. Make sure they can repeat all three): object 1, object 2 and object 3 Attention & Calculation (CHOOSE ONE) Spell WORLD backwards (DLROW): 5 letters Recall Ask patient to repeat the 3 items from question #3.: object 1, object 2 and object 3 Language Show patient a wristwatch & ask what it is. Repeat for pencil.: watch and pencil Ask the patient to repeat the phrase 'No ifs, ands, or buts' after you.: correct Ask the patient to 'take a piece of paper with their right hand' 'fold paper in half' 'place paper on floor': take paper in right hand, fold paper in half and place paper on floor Print the sentence 'CLOSE YOUR EYES' on a piece. If patient actually closes eyes then score.: followed written direction Give patient a blank piece of paper & ask to write a sentence. Score if it contains a noun & verb.: sentence contains subject and verb Score Score: 29 Review of Systems Const All systems reviewed & are unremarkable except as noted in HPI and below Reports no additional complaints Eyes Reports no additional complaints ENT Reports no additional complaints Card Reports no additional complaints Resp Reports no additional complaints Reports no additional complaints Physical Exam Vital Signs: Last Vital Signs Pulse 87 10/23/22 09:14 BP 124/78 10/23/22 09:14 Pulse Ox 97 10/23/22 09:14 Oxygen Delivery Method Room Air 10/23/22 09:14 Const General: no acute distress HEENT Head: Yes normal to inspection Eyes General: appearance normal, both eyes and all related structures Neck Neck: Yes no lymphadenopathy and Yes supple Resp Effort & Inspection: normal respiratory effort Auscultation: clear to auscultation bilaterally Cardio Rhythm: regular rhythm Heart sounds: S1 normal heart sound present and S2 normal heart sound present GI Inspection: Yes normal to inspection Palpation (GI): Soft to palpation Percussion: Yes normal to percussion Auscultation: normal bowel sounds Extrem General: Yes no clubbing, cyanosis or edema Assessment & Plan Assessment & Plan (1) Type 2 diabetes mellitus with unspecified complications: Code(s): E11.8 - Type 2 diabetes mellitus with unspecified complications Plan: Check A1c today continue current treatment ADA diet increase physical activity. Follow-up in 3 months with a fasting labs before (2) Non-ischemic cardiomyopathy: Comment: echo 07/14, left ventricle injection fraction 20% global hypokinesis, s/p ICD, no ACEI or ARB CKD stage 4 Code(s): I42.8 - Other cardiomyopathies Plan: Continue current medications (3) S/P TAVR (transcatheter aortic valve replacement): Code(s): Z95.2 - Presence of prosthetic heart valve (4) CHF (congestive heart failure): Code(s): I50.9 - Heart failure, unspecified Plan: Continue current medications (5) CKD (chronic kidney disease) stage 4, GFR 15-29 ml/min: Comment: Follow-up with global consumer sector vice president Code(s): N18.4 - Chronic kidney disease, stage 4 (severe) Plan: Monitor renal function (6) Diarrhea: Code(s): R19.7 - Diarrhea, unspecified Plan: Check stool studies, avoid dairy and fresh vegetables of fruits, try Metamucil or Citrucel, check Cologuard, patient never had a colonoscopy (7) Annual physical exam: Code(s): Z00.00 - Encounter for general adult medical examination without abnormal findings (8) Hypokalemia: Code(s): E87.6 - Hypokalemia Plan: Continue regular dose of 40 mEq of KCl daily, check comprehensive panel today, monitor potassium level periodically Orders: Orders Comprehensive Wise. Panel Fast Today E11.8 - Type 2 diabetes mellitus with unspecified complications, I42.8 - Other cardiomyopathies, I50.9 - Heart failure, unspecified, N17.9 - Acute kidney failure, unspecified, N18.4 - Chronic kidney disease, stage 4 (severe), Z95.2 - Presence of prosthetic heart valve Hemoglobin A1c Today E11.8 - Type 2 diabetes mellitus with unspecified complications, I42.8 - Other cardiomyopathies, I50.9 - Heart failure, unspecified, N17.9 - Acute kidney failure, unspecified, N18.4 - Chronic kidney disease, stage 4 (severe), Z95.2 - Presence of prosthetic heart valve Lipid Panel Today E11.8 - Type 2 diabetes mellitus with unspecified complications, I42.8 - Other cardiomyopathies, I50.9 - Heart failure, unspecified, N17.9 - Acute kidney failure, unspecified, N18.4 - Chronic kidney disease, stage 4 (severe), Z95.2 - Presence of prosthetic heart valve TSH reflex Free T4 Today E11.8 - Type 2 diabetes mellitus with unspecified complications, I42.8 - Other cardiomyopathies, I50.9 - Heart failure, unspecified, N17.9 - Acute kidney failure, unspecified, N18.4 - Chronic kidney disease, stage 4 (severe), Z95.2 - Presence of prosthetic heart valve Complete Blood Count Auto Diff Today E11.8 - Type 2 diabetes mellitus with unspecified complications, I42.8 - Other cardiomyopathies, I50.9 - Heart failure, unspecified, N17.9 - Acute kidney failure, unspecified, N18.4 - Chronic kidney disease, stage 4 (severe), Z95.2 - Presence of prosthetic heart valve GI Panel Today R19.7 - Diarrhea, unspecified Microalbumin, Random (w Creat) Today E11.8 - Type 2 diabetes mellitus with unspecified complications Comprehensive Wise. Panel Fast 3 Months E11.8 - Type 2 diabetes mellitus with unspecified complications, I42.8 - Other cardiomyopathies, N18.4 - Chronic kidney disease, stage 4 (severe) Hemoglobin A1c 3 Months E11.8 - Type 2 diabetes mellitus with unspecified complications, I42.8 - Other cardiomyopathies, N18.4 - Chronic kidney disease, stage 4 (severe) Lipid Panel 3 Months E11.8 - Type 2 diabetes mellitus with unspecified complications, I42.8 - Other cardiomyopathies, N18.4 - Chronic kidney disease, stage 4 (severe) TSH reflex Free T4 3 Months E11.8 - Type 2 diabetes mellitus with unspecified complications, I42.8 - Other cardiomyopathies, N18.4 - Chronic kidney disease, stage 4 (severe) Referrals Cologuard Test Z12.11 - Encounter for screening for malignant neoplasm of colon, Z12.12 - Encounter for screening for malignant neoplasm of rectum Podiatry Referral E11.8 - Type 2 diabetes mellitus with unspecified complications Medications: New flash glucose sensor (FreeStyle Silvestre 14 Day Sensor kit) As directed 2 ea 5RF famotidine (Pepcid) 20 mg PO DAILY 90 tabs 0RF Coding Level of Care Code Medicare Subsequent (G0439) Diagnoses Type 2 diabetes mellitus with unspecified complications E11.8 Non-ischemic cardiomyopathy I42.8 S/P TAVR (transcatheter aortic valve replacement) Z95.2 CHF (congestive heart failure) I50.9 CKD (chronic kidney disease) stage 4, GFR 15-29 ml/min N18.4 Diarrhea R19.7 Annual physical exam Z00.00 Hypokalemia E87.6 CPT Codes Advance Care Planning - Time spent: 1-15 minutes, not on file ([id number]) Advance Care Planning Advance Care Planning discussion: Exists, not on file Forms completed: Health Care Proxy Time spent: 1-15 minutes, not on file
[2022-10-23 09:14] VITALS: BP 124/78; PULSE 87; O2SAT 97
== END 2022-10-23 10:16 | disposition home or self-care (01) ==
PROVIDERS: Visit Provider Internal Medicine
DX: Z00.00 Encounter for general adult medical examination without abnormal findings (principal); E11.22 Type 2 diabetes mellitus with diabetic chronic kidney disease; I50.9 Heart failure, unspecified; N18.4 Chronic kidney disease, stage 4 (severe); I42.8 Other cardiomyopathies; Z95.2 Presence of prosthetic heart valve; R19.7 Diarrhea, unspecified; E87.6 Hypokalemia
CPT/HCPCS: 1124F; G0439

== ENCOUNTER 2022-10-23 10:10 | Outpatient (REF) | payer MEDICARE, SELFPAY ==
[2022-10-23 13:19] LABS: MANUAL DIFF FLAG NO
[2022-10-23 13:34] LABS: Basophils Absolute Auto 0.1 X10*3/uL (0.0-0.2); Basophils Percent Auto 0.9 % (0-2); Eosinophils Absolute Auto 0.2 X10*3/uL (0.0-0.4); Eosinophils Percent Auto 3.9 % (0-4); Hematocrit 39.6 % (37.0-47.0); Hemoglobin 13.4 g/dl (12.0-16.0); Imm Gran Abs Auto 0.02 X10*3/uL (0.00-0.03); Imm Gran Pct Auto 0.3 % (0.0-0.4); Lymphocytes Absolute Auto 1.2 X10*3/uL (1.2-4.9); Lymphocytes Percent Auto 20.7 % (20-40); Mean Corpuscular HGB Conc 33.8 g/dl (31.0-35.0); Mean Corpuscular Hemoglobin 34.8 pg (27.0-33.0); Mean Corpuscular Volume 102.9 fL (80.0-98.0); Monocytes Absolute Auto 0.9 X10*3/uL (0.1-1.2); Monocytes Percent Auto 14.6 % (2-11); Neutrophils Absolute Auto 3.5 x10*3/uL (2.0-8.3); Neutrophils Percent Auto 59.6 % (45-73); Red Blood Count 3.85 X10*6/uL (4.20-5.50); Red Cell Distribution Width 15.9 % (11.0-16.0); White Blood Count 5.9 X10*3/uL (4.8-10.8)
[2022-10-23 13:40] LABS: Estimated Average Glucose 200 mg/dL; Hemoglobin A1c % 8.6 %
[2022-10-23 13:59] LABS: Mean Platelet Volume 11.1 fL (9.4-12.3); Platelet Count 85 X10*3/uL (160-400)
[2022-10-23 14:13] LABS: Alanine Aminotransferase 33 U/L (0-31); Albumin Level 3.4 g/dL (3.5-5.0); Alkaline Phosphatase 198 U/L (39-117); Anion Gap 16 (12-20); Aspartate Amino Transferase 60 U/L (5-31); Bilirubin Total 1.1 mg/dL (0.0-1.0); Blood Urea Nitrogen 49 mg/dL (9-16); Carbon Dioxide 21 mmol/L (22-29); Chloride 106 mmol/L (96-108); Cholesterol 85 mg/dL; Creatinine Urine 102.35 mg/dL; Estimated Glomerular Filt Rate 30; Glucose Fasting 131 mg/dL (60-99); HDL Cholesterol 26 mg/dL; LDL Cholesterol Calculated 32 mg/dl; Microalbum/Creatinine Ratio Ur 12.7 ug/mg cr; Potassium 3.2 mmol/L (3.3-5.1); Sodium 140 mmol/L (135-145); Total Protein 6.7 g/dL (6.5-8.0); Triglycerides 135 mg/dL
[2022-10-23 14:22] LABS: TSH reflex Free T4 1.22 uIU/mL (0.32-4.0)
[2022-10-23 14:24] LABS: Folate 15.9 ng/mL (> or = 4.0); Vitamin B12 1117 pg/mL (200-900)
== END 2022-10-23 10:11 | disposition home or self-care (01) ==
LOC: HO.HMGCLDS 10:10
PROVIDERS: PCP Internal Medicine; Visit Provider Internal Medicine
DX: E11.22 Type 2 diabetes mellitus with diabetic chronic kidney disease (principal); I42.8 Other cardiomyopathies; I50.9 Heart failure, unspecified; N17.9 Acute kidney failure, unspecified; N18.4 Chronic kidney disease, stage 4 (severe); E53.8 Deficiency of other specified B group vitamins; Z95.2 Presence of prosthetic heart valve
CPT/HCPCS: 36415; 80053; 80061; 82043; 82607; 82746; 83036; 84443; 85025

== ENCOUNTER 2022-10-24 06:11 | Outpatient (REF) | payer MEDICARE, SELFPAY ==
[2022-10-24 16:06] LABS: Adenovirus F 40/41 Not Detected (Not Detect.); Astrovirus Detected (Not Detect.); Campylobacter Not Detected (Not Detect.); Cryptosporidium Not Detected (Not Detect.); Cyclospora cayetanensis Not Detected (Not Detect.); E. coli EAEC Not Detected (Not Detect.); E. coli EPEC Not Detected (Not Detect.); E. coli ETEC Not Detected (Not Detect.); E. coli STEC Not Detected (Not Detect.); Entamoeba histolytica Not Detected (Not Detect.); Giardia lamblia Not Detected (Not Detect.); Plesiomonas shigelloides Not Detected (Not Detect.); Rotavirus A Not Detected (Not Detect.); Salmonella Not Detected (Not Detect.); Sapovirus Not Detected (Not Detect.); Shigella sp./EIEC Not Detected (Not Detect.); Vibrio Not Detected (Not Detect.); Vibrio Cholerae Not Detected (Not Detect.); Yersinia enterocolitica Not Detected (Not Detect.)
[2022-10-24 16:10] LABS: Norovirus GI/GII Detected (Not Detect.)
== END 2022-10-24 06:12 | disposition home or self-care (01) ==
LOC: HO.HMGCLNP 06:11
PROVIDERS: PCP Internal Medicine; Visit Provider Internal Medicine
DX: R19.7 Diarrhea, unspecified (principal)
CPT/HCPCS: 87507

== ENCOUNTER 2022-10-28 07:36 | Outpatient (REF) | payer MEDICARE, SELFPAY ==
[2022-10-28 12:31] LABS: Anion Gap 17 (12-20); Blood Urea Nitrogen 44 mg/dL (9-16); Calcium 9.2 mg/dL (8.4-10.2); Carbon Dioxide 20 mmol/L (22-29); Chloride 105 mmol/L (96-108); Estimated Glomerular Filt Rate 29; Gamma Glutamyl Transpeptidase 346 U/L (7-33); Glucose Random 116 mg/dL (60-115); Sodium 139 mmol/L (135-145)
[2022-10-28 12:37] LABS: B Type Natriuretic Peptide 364 pg/mL (<100)
== END 2022-10-28 07:37 | disposition home or self-care (01) ==
LOC: HO.HMGCLDS 07:36
PROVIDERS: PCP Internal Medicine; Visit Provider Internal Medicine
DX: E87.6 Hypokalemia (principal); R79.89 Other specified abnormal findings of blood chemistry; I42.8 Other cardiomyopathies
CPT/HCPCS: 36415; 80048; 82977; 83880

== ENCOUNTER 2022-10-29 10:40 | Emergency (ER) | payer MEDICARE, SELFPAY ==
[2022-10-29 10:48] VITALS: BP 142/64; PULSE 81; RESP 18; O2SAT 96; BMI 46.2
[2022-10-29 11:03] LABS: MANUAL DIFF FLAG NO
[2022-10-29 11:05] LABS: Basophils Absolute Auto 0.1 X10*3/uL (0.0-0.2); Eosinophils Absolute Auto 0.3 X10*3/uL (0.0-0.4); Eosinophils Percent Auto 4.5 % (0-4); Hematocrit 40.4 % (37.0-47.0); Hemoglobin 13.7 g/dl (12.0-16.0); Imm Gran Abs Auto 0.04 X10*3/uL (0.00-0.03); Imm Gran Pct Auto 0.6 % (0.0-0.4); Lymphocytes Absolute Auto 1.4 X10*3/uL (1.2-4.9); Lymphocytes Percent Auto 19.5 % (20-40); Mean Corpuscular HGB Conc 33.9 g/dl (31.0-35.0); Mean Corpuscular Hemoglobin 35.1 pg (27.0-33.0); Mean Corpuscular Volume 103.6 fL (80.0-98.0); Monocytes Absolute Auto 1.1 X10*3/uL (0.1-1.2); Monocytes Percent Auto 16.4 % (2-11); Red Cell Distribution Width 15.9 % (11.0-16.0); White Blood Count 6.9 X10*3/uL (4.8-10.8)
[2022-10-29 11:06] LABS: Platelet Count 88 X10*3/uL (160-400)
[2022-10-29 11:25] LABS: Anion Gap 15 (12-20); Blood Urea Nitrogen 47 mg/dL (9-16); Calcium 9.3 mg/dL (8.4-10.2); Carbon Dioxide 22 mmol/L (22-29); Chloride 104 mmol/L (96-108); Creatinine Clr Calc Pharmacy 34.2; Estimated Glomerular Filt Rate 25; Glucose Random 129 mg/dL (60-115); Sodium 138 mmol/L (135-145)
--- OUTSIDE RECORDS SUMMARY | 2022-10-29 11:40 | XMS_ITS | Continuity of Care Document ---
Demographics Address [address] [place] [address] Mobile Email Address Preferred Language Azeri Marital Status Anabaptism Affiliation Sabianism Race Unknown Ethnic Group Not or Lati no Author Name Unknown Organization [facility] ter Address [address] [place] [id number]- Care Team Providers Care Shipping & Receiving Lead Name Role Phone Zainab Pritchard MD Primary Care Physician Encounter [facility] [place] Date(s): 10/15/22 - 10/16/[address] [address]- Encounter Diagnosis Diarrhea(Final) - 10/16/22 Discharge Disposition: A-D/C Home Attending Physician: Sophia Lopez DO Admitting Physician: Sophia Lopez DO Referring Physician: Not on Staff, Referring MD Allergies, Adverse Reactions, Alerts Substance Reaction Severity Status Motrin Active Bee Stings Active Immunizations Given and Recorded Vaccine Date Status Refusal Reason influenza virus vaccine, inactivated 02/06/20 Give n influenza virus vaccine, inactivated 01/07/15 Give n pneumococcal 23-valent vaccine 01/07/15 Given Not Given Vaccine Date Status Refusal Reason pneumococcal 13-valent vaccine 02/16/20 Not Given Patient Refuses Medications Advair HFA 230 mcg / 21 mcg INHALE TWO PUFFS BY MOUTH TWICE DAILY (BULK) Start Date: 02/03/22 Status: Ordered allopurinol 100 mg oral tablet 100 mg, 1, tablet, By Mouth, Refills 0, Maintenance, 04/01/22 15:16:00 EST, Partial fill upon patient request if the prescription is for a schedule II opioid drug. Start Date: 04/01/22 Status: Ordered apixaban = 5 mg, By Mouth, 2 times a day, 0 Refills, Maintenance, 02/16/20 14:04:00 EST, Tablet, Partial fill upon patient request Start Date: 02/16/20 Status: Ordered carvedilol 3.125 mg oral tablet 3.125 mg, 1, tablet, By Mouth, 2 times a day, # 180 tablet, Refills 3, Tot. Refills 3, Maintenance,04/11/21 14:21:00 EST, Route to Pharmacy Electronically, [facility] ([email or web address]), Partial fill upon patient request if the prescription is for... Start Date: 04/11/21 Stop Date: 04/06/22 Status: Ordered Centrum Silver By Mouth, Daily, 0 Refills, Maintenance, 06/22/15 10:45:53 Start Date: 06/22/15 Status: Ordered colchicine 0.6 mg oral capsule 1 capsule = 0.6 mg, By Mouth, Daily, 0 Refills, Maintenance, 04/01/22 15:16:00 EST, Partial fill upon patient request if the prescription is for a schedule II opioid drug. Start Date: 04/01/22 Status: Ordered Farxiga 10 mg oral tablet TAKE 1 TABLET BY MOUTH EVERY DAY Start Date: 02/03/22 Status: Ordered Insulin Glargine Inj = 80 units, Subcutaneous Injection, Daily at bedtime, 0 Refills, Maintenance, 02/16/20 14:00:00 EST, Injection, Partial fill upon patient request Start Date: 02/16/20 Status: Ordered Lantus Inj Subcutaneous Infusion, Daily, 0 Refills, Maintenance, 04/01/22 15:17:00 EST, Partial fill upon patient request if the prescription is for a schedule II opioid drug. Start Date: 04/01/22 Status: Ordered levothyroxine 0.175 mg oral tablet 1 tablet, By Mouth, Daily, 0 Refills, Maintenance, 05/29/16 16:22:43 Start Date: 05/29/16 Status: Ordered metolazone 2.5 mg oral tablet TAKE 1 TABLET BY MOUTH ONCE WEEKLY DIRECTED BY PROVIDER Start Date: 02/03/22 Status: Ordered Potassium Chloride (Gya-[id number]-Ucf M20) 20 mEq oral tablet, extended release 0 Refills, Maintenance, 02/03/22 21:02:00 EST, Partial fill upon patient request if the prescription is for a schedule II opioid drug. Start Date: 02/03/22 Status: Ordered rosuvastatin 20 mg oral tablet TAKE ONE TABLET BY MOUTH DAILY AT 9PM (VIAL) Start Date: 02/03/22 Status: Ordered spironolactone 25 mg oral tablet 12.5 mg, 0.5, tablet, By Mouth, Daily, # 15 tablet, Refills 0, Maintenance, 02/03/22 21:02:00 EST, Partial fill upon patient request if the prescription is for a schedule II opioid drug. Start Date: 02/03/22 Status: Ordered torsemide 20 mg oral tablet 3 tablet = 60 mg, By Mouth, Daily, # 30 tablet, 1 Refills, Maintenance, 02/16/20 14:00:00 EST, Tablet, [facility], Partial fill upon patient request, 163, cm, 02/16/20 7:37:00 EST, Height, 134, kg, 02/05/20 21:39:00 EST, Dry Weight Start Date: 02/16/20 Status: Ordered Trulicity Pen Subcutaneous Infusion, 0 Refills, Maintenance, 04/01/22 15:17:00 EST, Partial fill upon patient request if the prescription is for a schedule II opioid drug. Start Date: 04/01/22 Status: Ordered Problem List Condition Confirmation Course Effective Dates Status H ealth Status Informant Aortic stenosis Confirmed Active Atrial fibrillation Confirmed Active Stage III chronic kidney disease Confirmed Active Diabetes mellitus Confirmed Active Dilated cardiomyopathy Confirmed Active HFrEF (20-25%) Confirmed Active Heart murmur Confirmed Active S/P TAVR (transcatheter aortic valve replacement) Confirmed Active HLD (hyperlipidemia) Confirmed Active Hypertension Confirmed Active Hypothyroidism Confirmed Active LV dysfunction, EF 20-25% Confirmed Active Morbid obesity, actual BMI 51.90 as of 02/24/2015 Confirmed Active OA (osteoarthritis), knees and back Confirmed Active Pulmonary HTN, severe 78mmHg Confirmed Active Severe obesity Confirmed Active Systolic CHF Confirmed Active Current tobacco use Confirmed Active URI (upper respiratory infection) Confirmed Active Varicose vein of leg Confirmed Active Vital Signs Most recent to oldest [Reference Range]: 1 2 3 Height 163 cm (10/15/22 4:58 PM) 163 cm (10/15/22 3:59 PM) Weight 135 kg (10/15/22 4:58 PM) Oxygen Saturation [94-100 %] 95 % (10/15/22 10:04 PM) 94 % (10/15/22 7:28 PM) 97 % (10/15/22 5:00 PM) Pulse Rate [55-90 bpm] 89 bpm (10/15/22 10:04 PM) 91 bpm *H* (10/15/22 7:28 PM) 88 bpm (10/15/22 5:00 PM) Blood Pressure [90-138/55-84 mm Hg] 126/79mm Hg (10/15/22 10:04 PM) 100/73mm Hg (10/15/22 7:28 PM) 114/81mm Hg (10/15/22 5:00 PM) Respiratory Rate [16-30 br/min] 20 br/min (10/15/22 10:04 PM) 20 br/min (10/15/22 7:28 PM) 22 br/min (10/15/22 5:00 PM) Temperature [96.8-100.4 DegF] 98.0 DegF (10/15/22 7:28 PM) 97.8 DegF (10/15/22 3:59 PM) Mode of Delivery (Oxygen) Room air (10/15/22 10:04 PM) Room air (10/15/22 7:28 PM) Room air (10/15/22 5:00 PM) Blood pressure sites Arm, left (10/15/22 10:04 PM) Arm, left (10/15/22 7:28 PM) Arm, left (10/15/22 3:59 PM) Temperature Route Oral (10/15/22 7:28 PM) Oral (10/15/22 3:59 PM) Dry Weight 135 kg (10/15/22 4:58 PM) 135 kg (10/15/22 3:59 PM) Dry Weight Obtained Via Patient/family s tated (10/15/22 3:59 PM) Social History Social History Type Response Smoking Status Never smoker entered on: 06/22/15 Sex EKG study * Event Display: EKG Authored Date: * Event Display: ECG 12-Lead Authored Date: Please click on pdf link to open report * Event Display: ECG 12-Lead Authored Date: Ventricular Rate: 87 BPM Atrial Rate: 87 BPM P-R Interval: 168 ms QRS Duration: 144 ms Q-T Interval: 458 ms QTC Calculation(Bazett): 551 ms P Tanana: 104 degrees R Tanana: -28 degrees T Tanana: 107 degrees Atrial-sensed ventricular-paced rhythm Abnormal ECG When compared with ECG of 01-APR-2022 15:04, Vent. rate has decreased BY 8 BPM Confirmed by MIKE BARNES MD ([id number]) on 10/16/2022 11:01:24 AM [place]: MIKE BARNES MD Note * Sophia Lopez DO: PERFORM Event Display: Patient Education Leaflets Authored Date: [id number] Potassium Content Fruit ?? [address] [facility] Potassium Content of Fruits Serving Size ?? cup, unless otherwise indicted Juices: 6 oz Low Potassium Fruits (150 mg or less) Applesauce Apricots canned or 1 fresh Blueberries Boysenberries Fruit cocktail Passion fruit 1 fresh Persimmon, 1 fresh Pineapple, fresh Plums, canned or 1 fresh [place], 1 fresh Cranberry juice Cran-Apple juice Cran-Apricot juice Cran-Grape juice Cran-Raspberry juice Papaya nectar [place] nectar Pear nectar ? Medium Potassium Fruits (155-245 mg) Apple 1 medium Blackberries Cherries, canned, 10 fresh Grapefruit, ?? fresh Grapes, 15 small Mandarin oranges Mcbee ?? medium fresh [place], 1 medium Pear, 1 medium Pineapple, canned Prunes, dried 3 Red raspberries Rhubarb Strawberries, 5 fresh Watermelon, 1 cup Apple juice Apple-Raspberry juice Grape juice Pineapple juice Pineapple-Connell juice [place] juice Pear, 1 fresh ? High Potassium Fruits (250-395 mg) Apricots, 3 fresh Dates, 7 Figs, 3 Kiwi, 1 fresh Nectarine, 1 fresh Connell, 1 medium Papaya, ?? fresh Pomegranate, 1 fresh Tangelo, 1 fresh Connell juice ? Very High Potassium Fruits (more than 400 mg) Apricots, dried, 10 halves Avocado, ?? medium Banana, ?? fresh Cantaloupe, 1 cup, cubed Honeydew melon, 1 Cup, cubed Peaches, dried, 5 halves Pears, dried, 5 halves Plantain, ?? fresh Prunes, 6 or more Raisins, 2 tablespoons Passion Fruit juice Prune Juice Breadfruit, raw ? * Sophia Lopez DO: PERFORM Event Display: Patient Education Leaflets Authored Date: [id number] Viral Diarrhea (Adult) ?? [id number] Viral Diarrhea (Adult) Diarrhea caused by??a virus is often called viral gastroenteritis. Many people call it the stomach flu, but it has nothing to do with the flu. The virus that causes diarrhea affects the stomach and intestinal tract. It often lasts from 2 to 7 days. Diarrhea is the passing of loose, watery stools 3 or more times a day. Symptoms Along with diarrhea, you may have these symptoms: ??? Belly (abdominal) pain and cramping ??? Nausea and vomiting ??? Loss of bowel control ??? Feverand chills ??? Bloody stools The danger from repeated diarrhea is dehydration. This is when your body loses too much water and other fluids. Antibiotics don't work well in treating this illness. But there are things you can do at home that will help. ?? Home care Follow these home care tips: ??? If symptoms are severe, rest at home for the next 24 hours or until you are feeling better. ???Wash your hands with soap and water or an alcohol-based asp net software developer. This helps prevent the spread ofinfection. Wash your hands after touching anyone who is sick. ??? Teach all people in your home when and how to wash their hands. Wet your hands with clean, running water. Lather the backs of your hands, between your fingers, and under your nails. Scrub your hands for at least 20 seconds. If you need a timer, try humming the ???Happy Birthday?? song from beginning to end twice. Rinse your hands well. Dry them with a clean paper towel. ??? Wash your hands after using the toilet and before meals. Clean the toilet after each use. Food preparation ??? People with diarrhea should not make food for others. When making food, wash your hands after touching anyone who is??sick. ??? Wash your hands after using items that have been in contact with raw food. This includes cutting boards, countertops, and knives. ??? Keep uncooked meats away from cooked and [id number]-[id number]-xiy foods. Medicines ??? You may use acetaminophen or nonsteroidal anti-inflammatory drugs (NSAIDS), such as ibuprofen or naproxen, to control fever unless another medicine was prescribed.??In addition: o Talk with your healthcare provider before using these medicines if you have chronic liver or kidney disease, or ever had a stomach ulcer or GI (gastrointestinal) bleeding. o Don???t give aspirin (or medicine that contains aspirin) to children or teens unless directed by the provider. Taking aspirin can put them atrisk for Kalyan syndrome. This is a rare but very serious disorder. It most often affects the brain and the liver. o Don't use NSAID medicines if you are already taking one for another condition (such as arthritis) or if you are taking aspirin (such as for heart disease or after a stroke). ??? Only take antidiarrhea medicines if advised by your healthcare provider. Sometimes they can make your condition worse. If you have bloody diarrhea or fever, check with your provider before taking this type of medicine. Diet ??? Water and clear liquids are important, so you don't get dehydrated. Drink small amounts at a time. Don't guzzle it down. If you are very dehydrated, sports drinks aren't a good choice. They have too much sugar and not enough electrolytes. In this case, commercially available products called oral rehydration solutions are best. ??? Caffeine, tobacco, and alcohol can make the diarrhea, cramping, and pain worse. Try to stop using these until you are fully recovered. ??? Don't force yourself toeat, especially if you have cramping, vomiting, or diarrhea. Don't eat large amounts at a time, even if you are hungry. It may make you feel worse. ??? If you eat, don't have fatty, greasy, spicy, orfried foods. ??? Don't have any dairy products, as they can make diarrhea worse. During the first 24 hours??(the first full day)??follow the diet below: ??? Drinks. Water, clear liquids, soft drinks without caffeine; vika shelly, mineral water (plain orflavored), decaffeinated tea and coffee ??? Soups. Clear broth, consomm??, and bouillon ??? Desserts. Plain gelatin, ice pops, and fruit juice bars During the next 24 hours (the second day) you may add these to the above if you are feeling better: ??? Hot cereal, plain toast, bread, rolls, crackers ??? Plain noodles, rice, mashed potatoes, chicken noodle or rice soup ??? Unsweetened canned fruit, such as applesauce and bananas (not pineapple and citrus) ??? Limit fat intake to less than 15 grams per day. Don't eat margarine, butter, oils, mayonnaise, sauces, gravies, fried foods, peanut butter, meat, poultry, and fish. ??? Limit fiber. Don't eat raw or cooked vegetables, fresh fruits (except bananas), and bran cereals. ??? Limit caffeineand chocolate. No spices or seasonings except salt. During the next 24 hours: ??? Slowly go back to a normal diet, as you feel better and your symptomsease. ??? If at any time the diarrhea or cramping gets worse, go back to the simpler diet (above) or to clear liquids. ?? Follow-up care Follow up with your healthcare provider, or??as advised. Call if you aren't getting better in 24 hours or if??the diarrhea lasts more than 1 week. This is even more important if you are in a high-risk group, such as: ??? Being an older adult ??? Having a weak immune system (such as from cancer treatment) ??? Havinginflammatory bowel disease (Crohn's disease or colitis) If a stool (diarrhea) sample was taken, you may call in 2 days (or as directed) for the results. ?? When to get medical advice Call your healthcare provider right away if any of the following occur: ??? More belly pain or constant lower right belly pain ??? Lasting vomiting (can't keep liquids down) ??? Frequent diarrhea (more than 5 times a day) ??? Blood in vomit or stool (black or red color) ??? Eating or drinking less ??? Dark urine, reduced urine output ??? Weakness, dizziness ??? Drowsiness ??? Fever of 100.4??F (38??C) or higher, or as directed by your provider ??? New rash ??? Symptoms get worse or you have newsymptoms ?? Call 911 Call 911 if any of the following occur: ??? Trouble breathing ??? Feeling confused ??? Severe drowsiness or trouble waking up ??? Fainting or loss of consciousness ??? Fast heart rate ??? Seizure ???Stiff neck ?? Last Reviewed Date: 2022 ?? [id number] [employer]. All rights reserved. This information is not intended as a substitute for professional medical care. Always follow your healthcare professional's instructions. ?? Patient Care team information Care Team Personnel Name: Zainab Pritchard MD Position: [facility] Physician - Primary Care Member Role: PCP Address: Address: [address] [place] [address]- Name: Rupinder Gamez RN Position: [facility] RN Member Role: Primary Care Nurse Name: Brenda Pedro RN Position: [facility] RN Member Role: Primary Care Nurse Name: Charli Pedro RN Position: [facility] RN Member Role: Primary Care Nurse Name: Vanessa Corrigan RN Position: [facility] SN RN Member Role: Primary Care Nurse Name: Curtis Squires MD Position: [facility] Renal MD Member Role: Lifetime Consulting Physician Address: Address: [address] [place] [address] [address] [facility], [place] [address]- [place] Name: Michael Cardenas RN Position: [facility] RN Member Role: Primary Care Nurse Name: Raquel Ivy RN Position: [facility] RN Member Role: Primary Care Nurse Name: Josefina Syed RN Position: [facility] RN Member Role: Primary Care Nurse Name: Jane Horton Position: [facility] ED RN W/OE and Tasks Member Role: Patient Care Provider Name: Sophia Lopez DO Position: [facility] Resident Member Role: ED Attending Physician Address: Address: [address] [facility] [place] [address]- Care Team Related Persons Name: HANNAH LERMA Address: home [address] [place] [address] Name: BECKIE TORREZ Address: home [address] [place] [address]
--- OUTSIDE RECORDS SUMMARY | 2022-10-29 11:40 | XMS_ITS | Continuity of Care Document ---
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 Date(s): 02/04/22 - 02/05/[address] [id number] Discharge Disposition: A-D/C Home Attending Physician: Zohreh Plata MD Admitting Physician: Imani Hayes MD Referring Physician: Not on Staff, Referring MD [...] DAILY (BULK) Start Date: 02/03/22 Status: Ordered apixaban = 5 mg, By Mouth, 2 times a day, 0 Refills, Maintenance, 02/16/20 14:04:00 EST, Tablet, Partial fill upon patient request Start Date: 02/16/20 Status: Ordered carvedilol 3.125 mg oral tablet 3.125 mg, Tablet, By Mouth, 02/05/22 9:00:00 EST Start Date: 02/05/22 Stop Date: 02/05/22 Status: Completed carvedilol 3.125 mg oral tablet 3.125 mg, 1, tablet, By Mouth, 2 times a day, # 180 tablet, Refills 3, Tot. Refills 3, Maintenance,04/11/21 14:21:00 EST, Route to Pharmacy Electronically, [facility] ([facility]), Partial fill upon patient request if the prescription is for... Start Date: 04/11/21 Stop Date: 04/06/22 Status: Ordered Centrum Silver By Mouth, Daily, 0 Refills, Maintenance, 06/22/15 10:45:53 Start Date: 06/22/15 Status: Ordered Farxiga 10 mg oral tablet TAKE 1 TABLET BY MOUTH EVERY DAY Start Date: 02/03/22 Status: Ordered Insulin Glargine Inj = 80 units, Subcutaneous Injection, Daily at bedtime, 0 Refills, Maintenance, 02/16/20 14:00:00 EST, Injection, Partial fill upon patient request Start Date: 02/16/20 Status: Ordered levothyroxine 0.175 mg oral tablet 1 tablet, By Mouth, Daily, 0 Refills, Maintenance, 05/29/16 16:22:43 Start Date: 05/29/16 Status: Ordered metolazone 2.5 mg oral tablet TAKE 1 TABLET BY MOUTH ONCE WEEKLY DIRECTED BY PROVIDER Start Date: 02/03/22 Status: Ordered Potassium Chloride ([id number]-[id number]-Ula M20) 20 mEq oral tablet, extended release [...] 1 Refills, Maintenance, 02/16/20 14:00:00 EST, Tablet, [facility], Partial fill upon patient request, 163, cm, 02/16/20 7:37:00 EST, Height, 134, kg, 02/05/20 21:39:00 EST, Dry Weight Start Date: 02/16/20 Status: Ordered Problem List Condition Confirmation Course [...] Active Varicose vein of leg Confirmed Active Results Radiology Reports * Exam Date Time Procedure Performing Provider Status 02/03/22 3:41 PM Chest 2 Views Frontal and Lat Elysia Hester; Auth (Verified) Notes: (Chest 2 Views Frontal and Lat) Reason For Exam: Chest Pain;Other: RESULT: Chest 2 Views Frontal and Lat Chest 2 Views Frontal and Lat Hx of Present Illness: SOB since last pm; Reason: Other:; Chest Pain; Clinical Question(s): Other: COMPARISON: 11/11/2020. FINDINGS: LINES AND TUBES: Again demonstrated is a triple lead intracardiac pacemaker LUNGS AND PLEURA: Persistent pulmonary vascular congestion. Blunting of the left costophrenic angle compatible with a small pleural effusion. No pneumothorax. HEART, MEDIASTINUM AND HERNANDO: The cardiomediastinal silhouette remains enlarged. BONES AND SOFT TISSUES: No acute abnormality. IMPRESSION: 1. Enlarged cardiomediastinal silhouette with pulmonary vascular congestion. 2. Small left pleural effusion. WSN: [id number] Ordering Physician: Leo Morris MD Dictated By: Rivka Porter MD Dictated Date/Time: 02/03/22 3:51 pm Reviewed By: Rivka Porter MD Signed By: Rivka Porter MD Signed Date/Time: 02/03/22 3:51 pm Transcribed By: FELY Transcribed Date/Time: 02/03/22 3:49 pm Vital Signs Most recent to oldest [Reference Range]: 1 2 3 Height 165 cm (02/05/22 7:00 AM) 165 cm (02/05/22 5:04 AM) 165 cm (02/04/22 11:50 PM) Weight 122.5 kg (02/04/22 12:34 PM) 122.5 kg (02/04/22 8:19 AM) 122.5 kg (02/04/22 2:07 AM) Oxygen Saturation [94-100 %] 95 % (02/05/22 7:00 AM) 99 % (02/05/22 5:04 AM) 95 % (02/04/22 11:50 PM) Pulse Rate [55-90 bpm] 96 bpm *H* (02/05/22 8:22 AM) 96 bpm *H* (02/05/22 7:00 AM) 91 bpm *H* (02/05/22 5:04 AM) Body Mass Index [18.5-24.99 kg/m2] 45 kg/m2 *>HHI* (02/04/22 12:34 PM) 45 kg/m2 *>HHI* (02/04/22 8:19 AM) 45 kg/m2 *>HHI* (02/04/22 2:07 AM) Blood Pressure [90-138/55-84 mm Hg] 117/79mm Hg (02/05/22 8:22 AM) 117/79mm Hg (02/05/22 7:00 AM) 131/75mm Hg (02/05/22 5:04 AM) Respiratory Rate [16-30 br/min] 18 br/min (02/05/22 7:00 AM) 20 br/min (02/05/22 5:04 AM) 20 br/min (02/04/22 11:50 PM) Temperature [96.8-100.4 DegF] 98.6 DegF (02/05/22 7:00 AM) 98.3 DegF (02/05/22 5:04 AM) 97.9 DegF (02/04/22 11:50 PM) Mode of Delivery (Oxygen) Room air (02/05/22 7:00 AM) Room air (02/05/22 5:04 AM) Room air (02/04/22 7:56 PM) Blood pressure sites Arm, left (02/05/22 7:00 AM) Arm, right (02/05/22 5:04 AM) Arm, right (02/04/22 11:50 PM) Temperature Route Oral (02/05/22 7:00 AM) Oral (02/05/22 5:04 AM) Oral (02/04/22 7:56 PM) Weight Obtained Via Patient/family state d (02/03/22 1:59 PM) Social History Social History Type Response Smoking Status Never smoker entered on: 06/22/15 Sex History and physical note * Mannie MORFIN, Stefan Lan: MODIFY, PERFORM Event Display: History and Physical Hospital Authored Date: Patient: ??SHAUN LERMA ? Age:??71 Years?Sex:??Female?:??1950?? Chief Complaint/Reason for Consultation Shortness of breath History of Present Illness 71-year-old??female??with history of??morbid obesity,??HFrEF EF 15 to 20%, dilated cardiomyopathy,??aortic stenosis status post??2 TAVR's,??paroxysmal atrial fibrillation on Eliquis,??biventricular pacemaker with ICD, chronic kidney disease stage III,??insulin-dependent diabetes mellitus, hypertension, hyperlipidemia, and hypothyroidism??presenting to the emergency department with worsening dyspnea over the past 3 days.?? She became dyspneic??at rest yesterday, and thus came in for evaluation today.?? She describes increasing lower extremity edema. ??She has been taking her home medications as prescribed, with adjustment in diuretic dosing by her automobile club information clerk.?? She is not necessarily compliant with a low-salt diet.?? She denies chest pain. ??No fever or coughing. ??No vomiting, abdominalpain, diarrhea, or urinary symptoms. ?? In the emergency room, the patient has been afebrile and hemodynamically stable. ??She arrived with significant work of breathing, but no hypoxia.?? She was given??Lasix 40 mg IV, and has had [id number] cc urine output.?? By the time of my evaluation,??she is markedly improved and is asking if she can go home. Review of Systems Other than those positives as noted in the HPI above, the remaining comprehensive 14-point review of systems is negative. Objective Measurements?? Height: 165 cm (02/03/22) Weight: 122.5 kg (02/03/22) Body Mass Index:??45 kg/m2??Critical (02/03/22) ? Vital Signs?? Temperature: 98.2 DegF (02/03/22 17:45:00) Temperature Route: Oral (02/03/22 17:45:00) Pulse Rate:??99 bpm??High (02/03/22 17:45:00) Respiratory Rate: 19 br/min (02/03/22 17:45:00) Systolic Blood Pressure: 124 mm Hg (02/03/22 17:45:00) Diastolic Blood Pressure:??105 mm Hg??High (02/03/22 17:45:00) Blood pressure sites: Arm, right (02/03/22 17:45:00) Mean Arterial Pressure: 111 mm Hg (02/03/22 17:45:00) Pulse Pressure: 19 mm Hg (02/03/22 17:45:00) Oxygen Saturation: 100 % (02/03/22 17:45:00) Mode of Delivery (Oxygen): Room air (02/03/22 17:45:00) Early Warning Score: 3 (02/03/22 17:46:02) ? Pain Scores 1 - 10 Pain Scale Score: 0 (14:13) ? Physical Exam General Appearance: Alert, appears stated age, pleasant, answers questions appropriately in full sentences HEENT: Normocephalic, atraumatic, PERRL, EOMI, no scleral icterus, no facial droop, moist mucous membranes, no oropharynx lesions?? Neck: Supple, no JVD, no C-Spine tenderness, no LAD Cardiac: RRR, S1 & S2 present, no m / r / g appreciated Chest: Clear to auscultation bilaterally, no wheezing / ronchi / rales, no tenderness to percussion Abdomen: Soft, nontender, obese, no rebound or guarding, no masses, no organomegaly, normal bowel sounds in all quadrants Extremities: No clubbing or cyanosis, no ankle edema, large calves without overt edema or tenderness,??2+ distal pulses Skin: Warm, no rash or open wounds Neuro: ??A & O x 3, CN III-XII intact, strength 5/5 of upper / lower extremities bilaterally, gross sensation intact Psych: ??Stable mood, appropriate affect Assessment/Plan Assessment:??71-year-old female with history of morbid obesity, HFrEF EF 15 to 20%, dilated cardiomyopathy, aortic stenosis status post 2 TAVR's, paroxysmal atrial fibrillation on Eliquis, biventricular pacemaker with ICD, chronic kidney disease stage III, insulin-dependent diabetes mellitus, hypertension, hyperlipidemia, and hypothyroidism presenting to the emergency department with worsening dyspnea over the past 3 days.??She has decompensated heart failure without hypoxia, and has responded well to IV diuresis. ?? Acute on chronic systolic congestive heart failure (I50.23) Dilated cardiomyopathy (I42.0) Aortic stenosis (I35.0):??Etiology for decompensation is not clear. She does not have??chest pain or new??ischemic changes.??Troponin level is??unremarkable??with repeat pending.?? BNP appears to be around baseline from a year ago.?? There may be an element of dietary noncompliance. She has been??ta alcides her medications as prescribed.??She has had marked urine output from Lasix 40 mg IV??and feels 100% better. 1.?Observation on??the medical floor, continuous EKG monitoring, continuous pulse oximetry monitoring 2. ??Monitor strict input and output and daily weights 3.?Given rapid improvement after 1 dose of IV furosemide, will??switch back to oral Torsemide inthe morning.?? Increase dose to 60 mg daily for 1-2 days,??monitor renal function and electrolytes 4. ??Echocardiogram to be scheduled, evaluate prosthetic valve function (last Echo almost 1 year ago) 5. ??2 g sodium,??1500 cc fluid restricted, cardiac prudent diet 6. ??Continue carvedilol, statin,??spironolactone, and potassium supplementation??as prescribed 7.?? Discussed with Cardiology who??agrees with plan; consult as needed if Echo shows??worsening aortic valve function or other concerns ?? Atrial fibrillation (I48.91):??Currently the patient is in a paced rhythm. Continue carvedilol as prescribed. Continue Eliquis as prescribed. ?? Stage III chronic kidney disease (N18.30):??Creatinine at baseline, 1.8. Will monitor metabolic panel with diuresis. ?? Diabetes mellitus (E11.9):??Current blood sugar 206.??She is due for her basal insulin this evening. Continue Lantus 80 units nightly as prescribed. Monitor POC's with insulin lispro sliding scale coverage. Goal blood sugars less than 180. Resume Farxiga and??Trulicity on discharge??(nonformulary here). ?? Hypertension (I10):??Diastolic blood pressure??elevated. Renal function stable. We will monitor blood pressure with diuresis. Continue carvedilol??as prescribed. ?? Hypothyroidism (E03.9):??Continue levothyroxine as prescribed. ?? VTE Prophylaxis:??She is on Eliquis. ?VTE Prophylaxis Assessment:??VTE Prophylaxis Ordered ?? Code Status:??FULL. ?Order Code Status:??Code Status Ordered ?? Discharge Planning:??Anticipate discharge home with family,??less than 2 midnights. ?? Face to face time with patient:?26 min Total time spent including documentation and patient care coordination:?74 min ? Histories Allergies Allergies ?(Active and Proposed Allergies Only) Bee Stings? (Severity: Unknown severity, Onset: Unknown) Motrin? (Severity: Unknown severity, Onset: Unknown) ? Past Medical History/Problem List Active Problems Aortic stenosis Atrial fibrillation, on Eliquis Diabetes mellitus, insulin dependent Dilated cardiomyopathy Heart murmur HFrEF (15-20%) HLD (hyperlipidemia) Hypertension Hypothyroidism Morbid obesity, actual BMI 51.90 as of 02/24/2015 OA (osteoarthritis), knees and back Pulmonary HTN, severe 78mmHg S/P TAVR (transcatheter aortic valve replacement) x 2 Stage III chronic kidney disease URI (upper respiratory infection) Varicose vein of leg ? Past Surgical History Varicose veins of legs History of subtotal thyroidectomy Tonsillectomy s/p TAVR x 2 (03/2015, 01/2020) ? Social History Alcohol Details:??Use: Current. ??Type: Wine. Substance Abuse Details:??Use: Never. Tobacco Details:??Never smoker ? Family History Father (): CAD - Coronary artery disease ? Medications Home Medications apixaban?5?Milligram?By Mouth?2 times a day Carvedilol (carvedilol 3.125 mg oral tablet)?3.125?Milligram?1?tablet?By Mouth?2 times a day?for 90?Days dapagliflozin (Farxiga 10 mg oral tablet)?TAKE 1 TABLET BY MOUTH EVERY DAY Fluticasone-Salmeterol (Advair HFA 230 mcg / 21 mcg)?INHALE TWO PUFFS BY MOUTH TWICE DAILY (BULK) Insulin Glargine (Insulin Glargine Inj)?80?unit(s)?Subcutaneous Injection?Daily at bedtime Levothyroxine (levothyroxine 0.175 mg oral tablet)?1?tab(s)?By Mouth?Daily Metolazone (metolazone 2.5 mg oral tablet)?TAKE 1 TABLET BY MOUTH ONCE WEEKLY DIRECTED BY PROVIDER Multivitamin With Minerals (Centrum Silver)?By Mouth?Daily Rosuvastatin (rosuvastatin 20 mg oral tablet)?TAKE ONE TABLET BY MOUTH DAILY AT 9PM (VIAL) Spironolactone (spironolactone 25 mg oral tablet)?12.5?Milligram?0.5?tablet?By Mouth?Daily torsemide (torsemide 20 mg oral tablet)?2?tab(s)?40?Milligram?By Mouth?Daily ? Results Recent Labs BLOOD COUNT & DIFF WBC 5.6 k/mm3 ()?? 02/03/2022 14:45 RBC 3.47 m/mm3 (Low)?? 02/03/2022 14:45 Hgb 11.7 Gm/dL ()?? 02/03/2022 14:45 Hct 36.8 % ()?? 02/03/2022 14:45 MCV 106.1 femtoliters (High)?? 02/03/2022 14:45 MCH 33.7 pg ()?? 02/03/2022 14:45 MCHC 31.8 g/dL (Low)?? 02/03/2022 14:45 Platelet Count 115 k/mm3 (Low)?? 02/03/2022 14:45 RDW-SD 64.8 femtoliters (High)?? 02/03/2022 14:45 MPV 10.7 femtoliters ()?? 02/03/2022 14:45 Nucleated RBC (Automated) 0.0 #/100 WBC'S ()?? 02/03/2022 14:45 Abs. NRBC 0.0 k/mm3 ()?? 02/03/2022 14:45 Abs. Neut 3.2 k/mm3 ()?? 02/03/2022 14:45 Abs. Lymph 1.4 k/mm3 ()?? 02/03/2022 14:45 Abs. Cameron 0.6 k/mm3 ()?? 02/03/2022 14:45 Abs. Eo 0.4 k/mm3 ()?? 02/03/2022 14:45 Abs. Baso 0.0 k/mm3 ()?? 02/03/2022 14:45 Neut % 56.8 % ()?? 02/03/2022 14:45 Lymph % 24.1 % ()?? 02/03/2022 14:45 Cameron % 11.2 % (High)?? 02/03/2022 14:45 Eos % 7.0 % (High)?? 02/03/2022 14:45 Baso % 0.7 % ()?? 02/03/2022 14:45 Imm Gran 0.2 % ()?? 02/03/2022 14:45 Abs. Imm Gran 0.0 k/mm3 ()?? 02/03/2022 14:45 ?? CARDIAC Troponin T Quant 0.03 ng/mL ()?? 02/03/2022 14:45 Nt-Probnp 3653 pg/mL (High)?? 02/03/2022 14:45 ?? CHEM GENERAL Sodium 141 mmol/L ()?? 02/03/2022 14:45 Potassium 3.8 mmol/L ()?? 02/03/2022 14:45 Chloride 103 mmol/L ()?? 02/03/2022 14:45 Bicarbonate Level 27 mmol/L ()?? 02/03/2022 14:45 Anion Gap 11 ()?? 02/03/2022 14:45 Glucose Level 206 mg/dL (High)?? 02/03/2022 14:45 BUN 25 mg/dL (High)?? 02/03/2022 14:45 Creatinine-Blood 1.8 mg/dL (High)?? 02/03/2022 14:45 Estimated GFR Creatinine 31 ML/MIN/1.73 M2 ()?? 02/03/2022 14:45 Calcium 8.8 mg/dL ()?? 02/03/2022 14:45 ?? HEME OTHER Hold Blue Top SPECIMEN DISCARDED AFTER 4 HOURS. ()?? 02/03/2022 14:45 ?? VIROLOGY COVID-19 POC Result NEGATIVE ()?? 02/03/2022 14:10 ? Imaging(s) ?Chest 2 Views Frontal and Lat ?? 02/03/2022 15:41??by German MORFIN, [facility] ?IMPRESSION: 1. Enlarged cardiomediastinal silhouette with pulmonary vascular congestion. 2. Small left pleural effusion. ?Other Image ?EKG: A-sensed, V-paced, rate 98.??No changes from 08/2021. ? US Heart * Event Display: Echocardiogram - Complete Authored Date: [id number] Transthoracic Echocardiography Report (TTE) Patient Demographics Patient Name SHAUN LERMA Date of Study 02/04/2022 Corporate Gender Female Facility Race Ethnicity Date of 1950 Height: 64.96 inches Age 71 year(s) Weight: 268.98 pounds Accession Number [id number] BSA: 2.24 m2 Room Number D321 BMI: 44.81 kg/m2 Referring Physician Mannie Stout MD, MD Physician Carton Forming Machine Tender Isaac Aponte Indications Heart failure. Study Data Type of Study TTE procedure:Echo Complete-Doppler, Colorflow, M-Mode. Study Date02/04/2022 Start Time: 10:48 AM Study Location: [facility] Adult Echo Study Status: Bedside Patient Status: Routine Technical Quality: Fair Blood Pressure:106/44 mmHg EKG: Normal sinus rhythm HR: 99 bpm Allergies - Motrin. 2D Measurements LV Diastolic Dimension: 7.28 cm LV Systolic Dimension: 6.2 cm LV Septum Diastolic: 0.8 cm LV PW Diastolic: 0.98 cm AO Root Dimension: 3.8 cm LA Dimension: 3.7 cm LA ESV (BP):102 ml LVOT Stroke Volume: 88.91 ml LA ESV Index: 46 ml/m2 Stroke Volume Index39.69 ml/m2 LVOT: 2.2 cm Cardiac Index:3.93 l/min/m2 Ascending Aorta:4.5 cm Doppler Measurements AV Peak Velocity: 214 cm/s MV Peak E-Wave: 139 cm/s AV Peak Gradient: 18.32 mmHg MV Peak A-Wave: 65.1 cm/s AV Mean Gradient: 11 mmHg MV E/A Ratio: 2.14 AV VTI:38.4 cm LVOT Peak Velocity: 138 cm/s MV Mean Gradient: 34 mmHg LVOT VTI23.4 cm MV Area (continuity): 0.79 cm2 AV Area (Continuity):2.32 cm2 MV Deceleration Time: 164 msec TR Velocity:317 cm/s TR Gradient:40.2 mmHg E' Septal Velocity: 7.09 cm/s E' Lateral Velocity: 6.22 cm/s E/Med E':19.54860 E/Lat E':22.24630 Cardiac Anatomy Left Ventricle/Interventricular Septum The left ventricle is severely dilated. Left ventricular wall thickness is top normal, the septum is thinned. The LV systolic function is severely reduced . The left ventricular ejection fraction is 10-15 %. There is severe global hypokinesis with regional variation. Unable to assess diastolic function . Left Atrium/Interatrial Septum The left atrium is severely dilated. Aortic Valve There is a transcatheter aortic valve implantation (DANE Evolut Pro + #29) implanted [id number] in DANE (David 3 #29)in the aortic position. There is mild perivalvular leak. There is trivial central aortic regurgitation. The mean gradient is 11 mmHg. Mitral Valve The mitral valve appears moderately thickened. The mitral valve chordal apparatus is moderately thickened. There is moderate apical tethering of the both leaflets of the mitral valve. There is mild mitral regurgitation. Aorta The aorta is not well visualized. Right Ventricle The right ventricle is mildly dilated. Right ventricular systolic function appears reduced. A pacer/ICD wire is seen in the right ventricle. Right Atrium The right atrium is poorly visualized. Pulmonic Valve The pulmonic valve is poorly visualized. There is mild pulmonic regurgitation. Tricuspid Valve The tricuspid valve is poorly visualized. There is mild tricuspid valve regurgitation. Pumonary Artery The pulmonary artery systolic pressure estimation is 55-60 mmHg. There is moderate pulmonary hypertension. Venous Structures The inferior vena cava is moderately dilated with poor inspiratory collapse consistent with elevated right atrial pressures. Pericardium/Extracardiac There is no significant pericardial effusion. Summary The left ventricle is severely dilated. Left ventricular wall thickness is top normal, the septum is thinned. The LV systolic function is severely reduced . The left ventricular ejection fraction is 10-15 %. There is severe global hypokinesis with regional variation. Unable to assess diastolic function . There is a transcatheter aortic valve implantation (DANE Evolut Pro + #29) implanted msshi-gw-aspec in DANE (David 3 #29)in the aortic position. There is mild perivalvular leak. There is trivial central aortic regurgitation. The mean gradient is 11 mmHg. The mitral valve appears moderately thickened. The mitral valve chordal apparatus is moderately thickened. There is moderate apical tethering of the both leaflets of the mitral valve. There is mild mitral regurgitation. The right ventricle is mildly dilated. Right ventricular systolic function appears reduced. A pacer/ICD wire is seen in the right ventricle. The pulmonary artery systolic pressure estimation is 55-60 mmHg. There is moderate pulmonary hypertension. There is no significant pericardial effusion. Comparison Comparison is made to the study of February 20, .Images not available to review. Signature * Event Display: Echocardiogram - Complete Authored Date: [id number] Note * Event Display: Cardiac Rhythm Strips Authored Date: * Raquel Ivy RN: PERFORM Event Display: Discharge/Transfer Note Hospital Authored Date: [id number] Nursing Discharge Note Entered On: 02/05/2022 11:01 EST Performed On: 02/05/2022 11:01 EST by Raquel Ivy RN Nursing Discharge Note 2 Discharge Time : 02/05/2022 11:01 EST Discharge Level of Care at Discharge : Home/Longterm/Foster Care Patient Left Unit Via : Wheelchair Patient Accompanied Off Unit with : Responsible adult DC Instructions Provided & Signed by Pt : Yes Patient Understands D/C Instructions : Yes Patient Instructions Discharge Signed : Yes Did Pt have Specialty Bed or Wound Vac : No Raquel Ivy RN - 02/05/2022 11:01 EST * Zohreh Plata MD: PERFORM Event Display: Discharge/Transfer Note Hospital Authored Date: [id number] Patient: ??SHAUN LERMA ? Age:??71 Years?Sex:??Female?:??1950?? Patient Information Discharge Location: B Primary Care Physician: Zainab Pritchard MD Admjacinto Date/Time: 02/04/22 11:51 Discharge Disposition Discharge Disposition: Home: No Services Discharge Diagnosis Acute on chronic systolic congestive heart failure (I50.23) Dilated cardiomyopathy (I42.0) Aortic stenosis (I35.0) Atrial fibrillation (I48.91) Stage III chronic kidney disease (N18.30) ? _ Discharge Medications apixaban?5?Milligram?By Mouth?2 times a day Carvedilol (carvedilol 3.125 mg oral tablet)?3.125?Milligram?1?tablet?By Mouth?2 times a day?for 90?Days dapagliflozin (Farxiga 10 mg oral tablet)?TAKE 1 TABLET BY MOUTH EVERY DAY Fluticasone-Salmeterol (Advair HFA 230 mcg / 21 mcg)?INHALE TWO PUFFS BY MOUTH TWICE DAILY (BULK) Insulin Glargine (Insulin Glargine Inj)?80?unit(s)?Subcutaneous Injection?Daily at bedtime Levothyroxine (levothyroxine 0.175 mg oral tablet)?1?tab(s)?By Mouth?Daily Metolazone (metolazone 2.5 mg oral tablet)?TAKE 1 TABLET BY MOUTH ONCE WEEKLY DIRECTED BY PROVIDER Multivitamin With Minerals (Centrum Silver)?By Mouth?Daily Rosuvastatin (rosuvastatin 20 mg oral tablet)?TAKE ONE TABLET BY MOUTH DAILY AT 9PM (VIAL) Spironolactone (spironolactone 25 mg oral tablet)?12.5?Milligram?0.5?tablet?By Mouth?Daily torsemide (torsemide 20 mg oral tablet)?3?tab(s)?60?Milligram?By Mouth?Daily ? Medications Started None. Medications Discontinued None. Doses Changed Torsemide increased to 60 mg daily. Allergies Allergies ?(Active and Proposed Allergies Only) Bee Stings? (Severity: Unknown severity, Onset: Unknown) Motrin? (Severity: Unknown severity, Onset: Unknown) ? Future Appointments Friday 2:45 PM EST ?? With: Laura MORFIN, Maximilian Hernandez Where: [facility] [address] [place] [address]- Hospital Course ?? 71-year-old female with history of morbid obesity, HFrEF EF 15 to 20%, dilated cardiomyopathy, aortic stenosis status post 2 TAVR's, paroxysmal atrial fibrillation on Eliquis, biventricular pacemakerwith ICD, chronic kidney disease stage III, insulin-dependent diabetes mellitus, hypertension, hyperlipidemia, and hypothyroidism presenting to the emergency department with worsening dyspnea over the past 3 days.??She has decompensated heart failure without hypoxia, and has responded well to IV diuresis. ?? Acute on chronic systolic congestive heart failure (I50.23) Dilated cardiomyopathy (I42.0) Aortic stenosis (I35.0):??Etiology for decompensation is not clear. She does not have??chest pain or new??ischemic changes.??Troponin level is??unremarkable??with repeat pending.?? BNP appears to be around baseline from a year ago.?? There may be an element of dietary noncompliance. She has been??ta alcides her medications as prescribed.??She has had marked urine output from Lasix 40 mg IV??and feels 100% better. Got treated with IV Lasix in the hospital for 2 days. This morning appears to be clinically stable and??will discharge on??torsemide 60 mg daily. Torsemide increased to 60 mg daily from 40 mg daily. Continue carvedilol, statin,??spironolactone. Echo with known??very low ejection fraction of 10 to 15%.?? Echo finding has been??discussed with hand stitcher. Patient has appointment with her automobile club information clerk??Dr. Price??in [place]??less than a month. She will follow-up with her automobile club information clerk. ?? Atrial fibrillation (I48.91):??Currently the patient is in a paced rhythm. Continue carvedilol as prescribed. Continue Eliquis as prescribed. ?? Stage III chronic kidney disease (N18.30):??Creatinine at baseline, 1.8. ? Diabetes mellitus (E11.9):?? Continue Lantus 80 units nightly as prescribed. Resume Farxiga and??Trulicity ?? Hypertension (I10):?? Continue carvedilol??as prescribed. ?? Hypothyroidism (E03.9):??Continue levothyroxine as prescribed. ? Objective Measurements?? Height: 165 cm (02/05/22) Weight: 122.5 kg (02/04/22) Body Mass Index:??45 kg/m2??Critical (02/04/22) ? Vital Signs?? Temperature: 98.6 DegF (02/05/22 07:00:00) Temperature Route: Oral (02/05/22 07:00:00) Pulse Rate:??96 bpm??High (02/05/22 08:22:00) Respiratory Rate: 18 br/min (02/05/22 07:00:00) Systolic Blood Pressure: 117 mm Hg (02/05/22 08:22:00) Diastolic Blood Pressure: 79 mm Hg (02/05/22 08:22:00) Blood pressure sites: Arm, left (02/05/22 07:00:00) Mean Arterial Pressure: 94 mm Hg (02/05/22 05:04:00) Pulse Pressure: 38 mm Hg (02/05/22 07:00:00) Oxygen Saturation: 95 % (02/05/22 07:00:00) Mode of Delivery (Oxygen): Room air (02/05/22 07:00:00) Early Warning Score: 5 (02/05/22 08:33:37) ? . Physical Exam ?? General: Lying comfortably in bed,no evident distress Cardiac: S1 + S2 + 0, no murmurs heard Respiratory: CTA, No wheezes, Rales or crackles heard Abdomen: soft, nondistended, nontender Extremities: No edema or cyanosis present Neurological: AO X3,cranial nerves grossly normal? Pending Results COVID-19 (2019 Novel Coronavirus) PCR ordered on 02/04/2022 Follow-Up Appointments Added Follow Up ?Time Frame ?Comments Zainab Pritchard MD?1 to 2 weeks Post Discharge Care Discharge ?02/05/22 9:34:00 EST Home Health Face to Face ^[facility] Results Discharge Labs BLOOD COUNT & DIFF WBC 6.8 k/mm3 ()?? 02/04/2022 05:14 RBC 3.40 m/mm3 (Low)?? 02/04/2022 05:14 Hgb 11.5 Gm/dL (Low)?? 02/04/2022 05:14 Hct 35.3 % (Low)?? 02/04/2022 05:14 MCV 103.8 femtoliters (High)?? 02/04/2022 05:14 MCH 33.8 pg ()?? 02/04/2022 05:14 MCHC 32.6 g/dL (Low)?? 02/04/2022 05:14 Platelet Count 107 k/mm3 (Low)?? 02/04/2022 05:14 RDW-SD 64.3 femtoliters (High)?? 02/04/2022 05:14 MPV 10.6 femtoliters ()?? 02/04/2022 05:14 Nucleated RBC (Automated) 0.0 #/100 WBC'S ()?? 02/04/2022 05:14 Abs. NRBC 0.0 k/mm3 ()?? 02/04/2022 05:14 Abs. Neut 4.1 k/mm3 ()?? 02/04/2022 05:14 Abs. Lymph 1.3 k/mm3 ()?? 02/04/2022 05:14 Abs. Cameron 0.9 k/mm3 ()?? 02/04/2022 05:14 Abs. Eo 0.4 k/mm3 ()?? 02/04/2022 05:14 Abs. Baso 0.0 k/mm3 ()?? 02/04/2022 05:14 Neut % 60.5 % ()?? 02/04/2022 05:14 Lymph % 19.4 % ()?? 02/04/2022 05:14 Cameron % 13.5 % (High)?? 02/04/2022 05:14 Eos % 5.6 % ()?? 02/04/2022 05:14 Baso % 0.6 % ()?? 02/04/2022 05:14 Imm Gran 0.4 % ()?? 02/04/2022 05:14 Abs. Imm Gran 0.0 k/mm3 ()?? 02/04/2022 05:14 ?? CARDIAC Troponin T Quant 0.03 ng/mL ()?? 02/04/2022 05:14 Nt-Probnp 3653 pg/mL (High)?? 02/03/2022 14:45 ?? CHEM GENERAL Sodium 142 mmol/L ()?? 02/05/2022 01:15 Potassium 3.8 mmol/L ()?? 02/05/2022 01:15 Chloride 102 mmol/L ()?? 02/05/2022 01:15 Bicarbonate Level 27 mmol/L ()?? 02/05/2022 01:15 Anion Gap 13 ()?? 02/05/2022 01:15 Glucose Level 134 mg/dL (High)?? 02/05/2022 01:15 Glucose, POC 113 mg/dL (High)?? 02/05/2022 08:17 BUN 29 mg/dL (High)?? 02/05/2022 01:15 Creatinine-Blood 1.9 mg/dL (High)?? 02/05/2022 01:15 Estimated GFR Creatinine 29 ML/MIN/1.73 M2 ()?? 02/05/2022 01:15 Calcium 9.0 mg/dL ()?? 02/04/2022 05:14 Magnesium 2.0 mg/dL ()?? 02/05/2022 01:15 ?? HEME OTHER Hold Blue Top SPECIMEN DISCARDED AFTER 4 HOURS. ()?? 02/03/2022 14:45 ? VIROLOGY COVID-19 POC Result NEGATIVE ()?? 02/03/2022 14:10 ? 35_ minutes spent on discharge * Raquel Ivy RN: PERFORM Event Display: Patient Education/Instruction Authored Date: Inpatient Adult Discharge Instructions [address] [address] Name: SHAUN LERMA : 1950 Visit: 02/04/2022 11:51:00 Current Date: 02/05/2022 10:41 Account: [id number] Inpatient Adult Discharge Instructions We would like to thank you for allowing us to assist you with your healthcare needs. The following includes patient education materials and information regarding your injury/illness. Our entire staffstrives to provide an excellent experience for our patients and their families. PLEASE ENSURE YOU FOLLOW-UP PER THE INSTRUCTIONS BELOW! ?? YOUR OPINION IS IMPORTANT TO US! Please complete the survey you may receive by mail or email. Your feedback will be used to make improvements to the healthcare experiences of our patients and their families. Surveys are administered by [employer]. ?? If further treatment with your primary care physician or another doctor is recommended, it is important for you to keep the appointment. Call your primary care physician or return to the Emergency Department immediately if your condition worsens, fails to improve, or new symptoms develop. If you need to find a doctor, you can call [facility] [employer] for a referral at [phone] or toll free at [phone]) or log in to [email or web address].. ?? You can view and manage your care through the patient portal or by using a health care sincere of your choosing. [facility] is a website that allows you to securely view your medical information including your hospital discharge summary, office visit summaries, medications and follow-up visits. You can also request appointments, renew medications, and request access to your medical information using a health care sincere of your choosing, or just ask a question. You can enroll at [email or web address] or register during your next office visit. You have been discharged from [facility], Patient Care Unit: D3B. If you have any questions regarding these instructions after you leave, please call us and we will be happy to assist you. [facility] Your Care Team Attending Physician Zohreh Plata MD Discharging Providers Zohreh Plata MD Reason for Admission Shortness of breath Your Diagnosis Acute on chronic systolic congestive heart failure Diabetes mellitus Dilated cardiomyopathy Stage III chronic kidney disease Hypertension Hypothyroidism Aortic stenosis Atrial fibrillation Tests Performed Below is a partial list of the tests performed during your hospitalization. You may have had other tests and procedures not included in this list. Please discuss all test results with your provider. Basic Metabolic Panel BUN CBC w/ Differential COVID-19 RNA POC Creatinine Electrolytes Glucose Level GLUCOSE POC Hold Blue Top Tube Magnesium Level PROBNP TROPONIN T QUANT XR Chest 2 Views Frontal and Lat Primary Care Provider Zainab Pritchard MD Advance Directive Health Care Proxy on File Yes - Health Care Proxy No qualifying data available. Discharge Vitals Temperature: 98.6 DegF Height: 165 cm Pulse Rate:??96 bpm??High Weight: 122.5 kg Respiratory Rate: 18 br/min Body Mass Index:??45 kg/m2??Critical Systolic Blood Pressure: 117 mm Hg Body surface area: 2.37 Diastolic Blood Pressure: 79 mm Hg ?? Oxygen Saturation: 95 % ?? Studies Pending All tests and labs ordered during this hospital stay have been completed unless listed below. Please discuss all pending results with your provider listed above in these instructions. ?? COVID-19 (2019 Novel Coronavirus) PCR What to do next Instructions From Your Doctor Discharge Orders Scheduled Follow-Up Appointments Friday 2:45 PM EST ?? With: Laura MORFIN, Maximilian Hernandez Where: [facility] [address] [place] [id number]- You Need to Schedule the Following Appointments Follow Up with??Zainab Pritchard MD When??Within 1 to 2 weeks Where: [address] [place] [address]- Discharge Medications SHAUN LERMA :1950 Visit Date:02/04/2022 Medications: Please continue your medications until treatment is completed or stopped by your provider. Medications not listed below should be discontinued. Discuss any questions related to medications with your provider. What How Much When Instructions Next Dose Changed torsemide (torsemide 20 mg oral tablet) 3 tab(s) Oral Daily 02/06/22 - AM Unchanged apixaban 5 Milligram Oral Twice a day 02/05/22 - PM Unchanged Carvedilol (carvedilol 3.125 mg oral tablet) 1 tab(s) Oral Twice a day Duration: 90 Days 02/05/22 - PM Unchanged dapagliflozin (Farxiga 10 mg oral tablet) TAKE 1 TABLET BY MOUTH EVERY DAY ?? continue as ordered Unchanged Fluticasone-Salmeterol (Advair HFA 230 mcg / 21 mcg) INHALE TWO PUFFS BY MOUTH TWICE DAILY (BULK) ?? 02/05/22??- PM Unchanged Insulin Glargine (Insulin Glargine Inj) 80 unit(s) Subcutaneous Injection Daily at Bedtime 02/05/22 - PM Unchanged Levothyroxine (levothyroxine 0.175 mg oral tablet) 1 tab(s) Oral Daily 02/06/22 - AM Unchanged Metolazone (metolazone 2.5 mg oral tablet) TAKE 1 TABLET BY MOUTH ONCE WEEKLY DIRECTED BY PROVIDER ?? continue as ordered Unchanged Multivitamin With Minerals (Centrum Silver) Oral Daily 02/06/22 - AM Unchanged Potassium Chloride (Potassium Chloride (Bhk-Xege-Lrp M20) 20 mEq oral tablet, extended release) 02/06/22 AM Unchanged Rosuvastatin (rosuvastatin 20 mg oral tablet) TAKE ONE TABLET BY MOUTH DAILY AT 9PM (VIAL) ?? 02/05/22 - PM Unchanged Spironolactone (spironolactone 25 mg oral tablet) 0.5 tab(s) Oral Daily 02/06/22 - AM Test Results Below is a partial list of the most recent Laboratory test results done prior to this discharge. You may have had other tests and procedures not included in this list. Please discuss all test resultswith your provider. Basic Metabolic Panel (02/04/2022) ???Sodium - 141 mmol/L???Potassium - 3.9 mmol/L???Chloride - 103 mmol/L???Bicarbonate Level - 26 mmol/L???Anion Gap - 12???Glucose Level - 132 mg/dL???BUN - 27 mg/dL???Creatinine-Blood - 1.9 mg/dL???Estimated GFR Creatinine - 29 ML/MIN/1.73 M2???Calcium - 9.0 mg/dL BUN (02/05/2022) ???BUN - 29 mg/dL CBC w/ Differential (02/04/2022) ???WBC - 6.8 k/mm3???RBC - 3.40 m/mm3???Hgb - 11.5 Gm/dL???Hct - 35.3 %???MCV - 103.8 femtoliters???MCH - 33.8 pg???MCHC - 32.6 g/dL???Platelet Count - 107 k/mm3???RDW-SD - 64.3 femtoliters???MPV - 10.6 femtoliters???Nucleated RBC (Automated) - 0.0 #/100 WBC'S???Abs. NRBC - 0.0 k/mm3???Abs. Neut - 4.1 k/mm3???Abs. Lymph - 1.3 k/mm3???Abs. Cameron - 0.9 k/mm3???Abs. Eo - 0.4 k/mm3???Abs. Baso - 0.0 k/mm3???Neut % - 60.5 %???Lymph % - 19.4 %???Cameron % - 13.5 %???Eos % - 5.6 %???Baso % - 0.6 %???Imm Gran - 0.4 %???Abs. Imm Gran - 0.0 k/mm3 COVID-19 RNA POC (02/03/2022) ???COVID-19 POC Result - NEGATIVE Creatinine (02/05/2022) ???Creatinine-Blood - 1.9 mg/dL???Estimated GFR Creatinine - 29 ML/MIN/1.73 M2 Electrolytes (02/05/2022) ???Sodium - 142 mmol/L???Potassium - 3.8 mmol/L???Chloride - 102 mmol/L???Bicarbonate Level - 27 mmol/L???Anion Gap - 13 Glucose Level (02/05/2022) ???Glucose Level - 134 mg/dL GLUCOSE POC (02/05/2022) ???Glucose, POC - 113 mg/dL Hold Blue Top Tube (02/03/2022) ???Hold Blue Top - SPECIMEN DISCARDED AFTER 4 HOURS. Magnesium Level (02/05/2022) ???Magnesium - 2.0 mg/dL PROBNP (02/03/2022) ???Nt-Probnp - 3653 pg/mL TROPONIN T QUANT (02/04/2022) ???Troponin T Quant - 0.03 ng/mL Allergies (NKA means No Known Allergies) Bee Stings Motrin Problems Active Problems??(20) Aortic stenosis?? Atrial fibrillation?? Current tobacco use?? Diabetes mellitus?? Dilated cardiomyopathy?? Heart murmur?? HFrEF (20-25%)?? HLD (hyperlipidemia)?? Hypertension?? Hypothyroidism?? LV dysfunction, EF 20-25%?? Morbid obesity, actual BMI 51.90 as of 02/24/2015?? OA (osteoarthritis), knees and back?? Pulmonary HTN, severe 78mmHg?? S/P TAVR (transcatheter aortic valve replacement)?? Severe obesity?? Stage III chronic kidney disease?? Systolic CHF?? URI (upper respiratory infection)?? Varicose vein of leg?? Education Materials Below is the list of Educational Leaflet Providered with your Discharge Instructions. Valuables and Belongings I fully understand and agree that [facility] accepts no responsibility for all my personal property including clothing, toilet articles, radios, jewelry, dentures, hearing aids, rings, money, or any other property that is in my possession or is brought to me after admission. I understand certain valuables may be placed in a hospital safe for a short period of time. I understand that the hospital is not liable for loss or damage due to accident, fire, or other natural occurrence while said property is in the safe. I accept full responsibility for any personal property that I keep with me, and will not hold the hospital responsible in case of loss or disappearance. I acknowledge that i have been encouraged to send valuables and belongings home. ?? Review of Valuable and Belonging List: With patient Date for Pt to Sign Valuables/Belongings: 02/03/22 20:48:00 ?? Other Discharge Information ? Pulmonary Rehab Status?? Pulmonary Rehab Discharge Status?? Respiratory Rate: 18 br/min ? Common Emergency Awareness Tips IS IT A STROKE? Act FAST and Check for these signs: FACE Does the face look uneven? ARM Does one arm drift down? SPEECH Does their speech sound strange? TIME Call at any sign of stroke ?? Heart Attack Signs Chest discomfort: Most heart attacks involve discomfort in the center of the chest and lasts more than a few minutes, or goes away and comes back. It can feel like uncomfortable pressure, squeezing, fullness or pain. Discomfort in upper body: Symptoms can include pain or discomfort in one or both arms, back, neck, jaw or stomach. Shortness of breath: With or without discomfort. Other signs: Breaking out in a cold sweat, nausea, or lightheaded. Remember, MINUTES DO MATTER. If you experience any of these heart attack warning signs, call to get immediate medical attention! ?? Smoking can increase your chances of developing chronic health problems and can cause harmful effects to other family members in your house. If you smoke, you are strongly encouraged to quit. Please call [facility] the [employer] Link at [phone] or [phone] ([phone]) or log in to [email or web address] for referrals to smoking cessation programs. ?? The National Suicide Prevention Hotline is available 14/10 if you or someone you know needs to find a reason to keep living. By calling 6-259-047Shopcliq (7326) you'll be connected to a skilled, trained counselor at a crisis center in your area. INPATIENT DISCHARGE INSTRUCTIONS SIGNATURE PAGE SHAUN LERMA Location:[facility] Registration Date and Time:02/04/2022 11:51 EST Primary Care Physician: Zainab Pritchard MD, I FLORENTIN SHAUN, have received the above patient education materials/instructions and have verbalized understanding. If ambulance or transport services are being used I further acknowledge being given a choice of service. ?? If you need to contact me, please call me at this number: . Patient/Stock Turner Name: Patient/Stock Turner Signature: Relationship to Patient: Witness Name/Signature: Date: * BHSPowerscribe , CIS S: TRANSCRIBE Rivka Porter MD: VERIFY Event Display: Result: Authored Date: Chest 2 Views Frontal and Lat Hx of Present Illness: SOB since last pm; Reason: Other:; Chest Pain; Clinical Question(s): Other: COMPARISON: 11/11/2020. FINDINGS: LINES AND TUBES: Again demonstrated is a triple lead intracardiac pacemaker LUNGS AND PLEURA: Persistent pulmonary vascular congestion. Blunting of the left costophrenic angle compatible with a small pleural effusion. No pneumothorax. HEART, MEDIASTINUM AND HERNANDO: The cardiomediastinal silhouette remains enlarged. BONES AND SOFT TISSUES: No acute abnormality. IMPRESSION: 1. Enlarged cardiomediastinal silhouette with pulmonary vascular congestion. 2. Small left pleural effusion. WSN: [id number] Ordering Physician: Leo Morris MD Dictated By: Rivka Porter MD Dictated Date/Time: 02/03/22 3:51 pm Reviewed By: Rivka Porter MD Signed By: Rivka Porter MD Signed Date/Time: 02/03/22 3:51 pm Transcribed By: FELY Transcribed Date/Time: 02/03/22 3:49 pm Hospital Progress note * Franco KEYS, Rupinder: PERFORM, SIGN, VERIFY Event Display: Progress Note Hospital Authored Date: Patient: SHAUN LERMA Age: 71 years Sex: Female : 1950 Associated Diagnoses: None Author: Franco KEYS, Rupinder Findings Evaluation Patient is alert and oriented speech is clear she follows all commands, visual brown are intact .Pt lung sounds in the upper lobes are clear, she denies pain and neuro deficits.No signs of respiratory distress with exertion or at rest. Pt skin is intact + pp bilaterally. Will continue to monitor at this time please see cis and iview for more details.. * Tomas Melissa RN: PERFORM, SIGN, VERIFY Event Display: Progress Note Hospital Authored Date: Patient: SHAUN LERMA Age: 71 years Sex: Female : 1950 Associated Diagnoses: None Author: Tomas Melissa RN Findings Pt arrived on unit by stretcher, ambulated with walker to bed w/ slow/steady gait. Pt alert/oriented x4. VSS. Pt reports she has no pain. Neuros intact. Showing Paced, IVCD on telemetry. RN oriented pt to unit/call system. RN reviewed falls risk and use of call hill at all times prior to getting oob. Pt denies questions at this time. * Boni MORFIN, Zohreh: PERFORM Event Display: Progress Note Hospital Authored Date: Patient: ??SHAUN LERMA ? Age:??71 Years?Sex:??Female?:??1950?? Subjective Seen and examined at bedside. Overall clinically improved since yesterday. Still have bibasilar crackles. I gave 1 dose of IV Lasix this morning. Review of Systems Constitutional:??No fever. RS:??Reports shortness of breath improving. CVS:??Denies any chest pain, palpitations, orthopnea GI:??Denies any nausea, vomiting, Neuro:??No headache, disorientation or focal muscle weakness. Musculoskeletal:??No joint pain or low back pain Psych:??no depression Objective Vital Signs?? Temperature: 97.8 DegF (02/04/22 08:19:00) Temperature Route: Oral (02/04/22 08:19:00) Pulse Rate:??94 bpm??High (02/04/22 08:19:00) Respiratory Rate: 18 br/min (02/04/22 08:19:00) Vented: No (02/04/22 08:19:00) Systolic Blood Pressure: 123 mm Hg (02/04/22 08:19:00) Diastolic Blood Pressure: 73 mm Hg (02/04/22 08:19:00) Blood pressure sites: Arm, left (02/03/22 23:41:00) Mean Arterial Pressure: 90 mm Hg (02/04/22 08:19:00) Pulse Pressure: 50 mm Hg (02/04/22 08:19:00) Oxygen Saturation: 95 % (02/04/22 08:19:00) Mode of Delivery (Oxygen): Room air (02/04/22 08:19:00) Early Warning Score: 7 (02/04/22 08:34:30) ? Physical Exam ?? General: Lying comfortably in bed,no evident distress Cardiac: S1 + S2 + 0, no murmurs heard Respiratory: Bibasilar crackles. Abdomen: soft, nondistended, nontender Extremities: No edema or cyanosis present Neurological: AO X3,cranial nerves grossly normal? Results Reviewed. Assessment/Plan ?? 71-year-old female with history of morbid obesity, HFrEF EF 15 to 20%, dilated cardiomyopathy, aortic stenosis status post 2 TAVR's, paroxysmal atrial fibrillation on Eliquis, biventricular pacemakerwith ICD, chronic kidney disease stage III, insulin-dependent diabetes mellitus, hypertension, hyperlipidemia, and hypothyroidism presenting to the emergency department with worsening dyspnea over the past 3 days.??She has decompensated heart failure without hypoxia, and has responded well to IV diuresis. ?? Acute on chronic systolic congestive heart failure (I50.23) Dilated cardiomyopathy (I42.0) Aortic stenosis (I35.0):??Etiology for decompensation is not clear. She does not have??chest pain or new??ischemic changes.??Troponin level is??unremarkable??with repeat pending.?? BNP appears to be around baseline from a year ago.?? There may be an element of dietary noncompliance. She has been??ta alcides her medications as prescribed.??She has had marked urine output from Lasix 40 mg IV??and feels 100% better. Monitor strict input and output and daily weights Still have basal crackles hence will give 40 mg IV Lasix??today. Increase dose to 60 mg daily for 1-2 days,??monitor renal function and electrolytes Pending echocardiogram. Continue carvedilol, statin,??spironolactone, and potassium supplementation??as prescribed Admitting hospitalist discussed with Cardiology who??agrees with plan; consult as needed if Echo shows??worsening aortic valve function or other concerns. ?? Atrial fibrillation (I48.91):??Currently the patient is in a paced rhythm. Continue carvedilol as prescribed. Continue Eliquis as prescribed. ?? Stage III chronic kidney disease (N18.30):??Creatinine at baseline, 1.8. Will monitor metabolic panel with diuresis. ?? Diabetes mellitus (E11.9):??Current blood sugar 206.??She is due for her basal insulin this evening. Continue Lantus 80 units nightly as prescribed. Monitor POC's with insulin lispro sliding scale coverage. Goal blood sugars less than 180. Resume Farxiga and??Trulicity on discharge??(nonformulary here). ?? Hypertension (I10):??Diastolic blood pressure??elevated. Renal function stable. We will monitor blood pressure with diuresis. Continue carvedilol??as prescribed. ?? Hypothyroidism (E03.9):??Continue levothyroxine as prescribed. ?? VTE Prophylaxis:??She is on Eliquis. Code Status:??FULL. ? Patient Care team information Care Team Personnel Name: Zainab Pritchard MD Position: [facility] Physician (General Medicine) Member Role: PCP Address: Address: [address] [place] [address]- Name: Rupinder Gamez RN Position: [facility] RN Member Role: Primary Care Nurse Name: Brenda Pedro RN Position: [facility] [place] Nurse Member Role: Primary Care Nurse Name: Charli Pedro RN Position: [facility] RN Member Role: Primary Care Nurse Name: Vanessa Corrigan RN Position: [facility] SN RN Member Role: Primary Care Nurse Name: Curtis Squires MD Position: [facility] Renal MD Member Role: Lifetime Consulting Physician Address: Address: [address] [facility] [place] [address]- Name: Michael Cardenas RN Position: [facility] RN Member Role: Primary Care Nurse Name: Raquel Ivy RN Position: [facility] RN Member Role: Primary Care Nurse Name: Dory Kunz RN Position: [facility] RN Member Role: Primary Care Nurse Name: Josefina Syed RN Position: [facility] RN Member Role: Primary Care Nurse Name: Dominick YU Attending Position: [facility] ED Medicine MD Name: Fuad Rivera Position: [facility] ED TA [facility] Member Role: Patient Care Provider Name: Savannah Deutsch RN Position: [facility] ED RN W/OE and Tasks Member Role: Patient Care Provider Care Team Related Persons Name: HANNAH LERMA Address: home [address] [place] [address] Name: BECKIE TORREZ Address: home [address] [place] [address]
--- OUTSIDE RECORDS SUMMARY | 2022-10-29 11:40 | XMS_ITS | Continuity of Care Document ---
Demographics Address [address] [place] [address] Mobile Email Address Preferred Language Bulgarian Marital Status Mormonism Affiliation Gnosticism Race Unknown Ethnic Group Not or Lati no Author Name Unknown Organization [facility] ter Address [address] [place] [address]- Care Team Providers Care Civil Service Clerk Name Role Phone Zainab Pritchard MD Primary Care Physician [phone] [facility] Date(s): 10/20/22 - 10/20/[address] [address]- Discharge Disposition: A-D/C Walkout Attending Physician: Not on Staff, Attending MD Admitting Physician: Not on Staff, Admitting MD Referring Physician: Not on Staff, Referring [...] Maintenance,04/11/21 14:21:00 EST, Route to Pharmacy Electronically, [facility] ([facility]), Partial fill upon patient [...] Start Date: 02/03/22 Status: Ordered Potassium Chloride (Zoo-Qpxw-Oea M20) 20 mEq oral tablet, extended release [...] 1 Refills, Maintenance, 02/16/20 14:00:00 EST, Tablet, [facility], Partial fill upon patient request, [...] oldest [Reference Range]: 1 2 3 Height 162 cm (10/20/22 6:22 AM) 162 cm (10/20/22 6:11 AM) Weight 134.8 kg (10/20/22 6:22 AM) 134.8 kg (10/20/22 6:11 AM) Oxygen Saturation [94-100 %] 98 % (10/20/22 9:50 AM) 95 % (10/20/22 7:36 AM) 96 % (10/20/22 6:11 AM) Pulse Rate [55-90 bpm] 86 bpm (10/20/22 9:50 AM) 84 bpm (10/20/22 7:36 AM) 84 bpm (10/20/22 6:11 AM) Body Mass Index [18.5-24.99 kg/m2] 51.36 kg/m2 *>HHI* (10/20/22 6:11 AM) Blood Pressure [90-138/55-84 mm Hg] 108/61mm Hg (10/20/22 9:50 AM) 122/73mm Hg (10/20/22 7:36 AM) 117/65mm Hg (10/20/22 6:11 AM) Temperature [96.8-100.4 DegF] 97.6 DegF (10/20/22 9:50 AM) 97.6 DegF (10/20/22 7:36 AM) 97.7 DegF (10/20/22 6:11 AM) Mode of Delivery (Oxygen) Room air (10/20/22 6:11 AM) Blood pressure sites Arm, left (10/20/22 9:50 AM) Arm, right (10/20/22 7:36 AM) Arm, right (10/20/22 6:11 AM) Temperature Route Oral (10/20/22 9:50 AM) Oral (10/20/22 7:36 AM) Oral (10/20/22 6:11 AM) Dry Weight 134.8 kg (10/20/22 6:22 AM) 134.8 kg (10/20/22 6:11 AM) Weight Obtained Via Patient/family state d (10/20/22 6:11 AM) Dry Weight Obtained Via Patient/family s tated (10/20/22 6:11 AM) Social History Social History Type Response Smoking Status Never smoker entered on: 06/22/15 Sex EKG study * Event Display: ECG 12-Lead Authored Date: Please click on pdf link to open report * Event Display: ECG 12-Lead Authored Date: Ventricular Rate: 82 BPM Atrial Rate: 82 BPM P-R Interval: 158 ms QRS Duration: 146 ms Q-T Interval: 470 ms QTC Calculation(Bazett): 549 ms P Grayson: 82 degrees R Grayson: -41 degrees T Grayson: 130 degrees Atrial-sensed ventricular-paced rhythm Abnormal ECG When compared with ECG of 15-OCT-2022 20:10, Vent. rate has decreased BY 5 BPM Confirmed by MIKE BARNES MD ([id number]) on 10/20/2022 10:32:58 AM [place]: MIKE BARNES MD Patient Care team information Care Team Personnel Name: Zainab Pritchard MD Position: [facility] Physician - Primary Care Member Role: PCP Address: Address: [address] [place] [address]- Name: Rupinder Gamez RN Position: S RN Member Role: Primary Care Nurse Name: Brenda Pedro RN Position: S RN Member Role: Primary Care Nurse Name: Charli Pedro RN Position: S RN Member Role: Primary Care Nurse Name: Vanessa Corrigan RN Position: [facility] SN RN Member Role: Primary Care Nurse Name: Curtis Squires MD Position: [facility] Renal MD Member Role: Lifetime Consulting Physician Address: Address: [address] [place] [address] [address] [facility], [place] [address]- Name: Michael Cardenas RN Position: [facility] RN Member Role: Primary Care Nurse Name: Raquel Ivy RN Position: S RN Member Role: Primary Care Nurse Name: Josefina Syed RN Position: [facility] RN Member Role: Primary Care Nurse Care Team Related Persons Name: HANNAH LERMA Address: home [address] [place] [address] Name: BECKIE TORREZ Address: home [address] [place] [address]
--- OUTSIDE RECORDS SUMMARY | 2022-10-29 11:40 | XMS_ITS | Continuity of Care Document ---
Demographics Address [address] [facility] [place] [address] Mobile Email Address Preferred Language Luxembourger Marital Status Orthodoxy Affiliation Mormonism Race Unknown Ethnic Group Not or Lati no Author Name Unknown Organization [facility] Address [address] [place] [address]- Care Team Providers Care Tax Evaluator Name Role Phone Zainab Pritchard MD Primary Care Physician Encounter [facility] Date(s): 04/01/22 - 05/01/22 [facility] [address] [place] [address]- Attending Physician: Maria Alejandra Ríos Admitting Physician: Maria Alejandra Ríos Referring Physician: [id number] Allergies, Adverse Reactions, Alerts Substance Reaction Severity [...] Maintenance,04/11/21 14:21:00 EST, Route to Pharmacy Electronically, [facility] ([facility]), Partial fill upon patient request [...] Start Date: 02/03/22 Status: Ordered Potassium Chloride (Bmz-Owvi-Vjf M20) 20 mEq oral tablet, extended release [...] 1 Refills, Maintenance, 02/16/20 14:00:00 EST, Tablet, [facility], Partial fill upon [...] Active Varicose vein of leg Confirmed Active Social History Social History Type Response Smoking Status Never smoker entered on: 06/22/15 Sex Note * Event Display: EKG Non BH Authored Date: * Event Display: Non BH Lab Results Authored Date: * Event Display: Non BH Cardiovascular Results Authored Date: * Event Display: Cardiology Office Note, Non-BH Authored Date: * Event Display: Non BH Lab Results Authored Date: * Event Display: Cardiology Office Note, Non-BH Authored Date: * Event Display: Non BH Lab Results Authored Date: * Event Display: Non BH Cardiovascular Results Authored Date: * Event Display: Cardiology Office Note, Non-BH Authored Date: * Event Display: X-Ray Chest, Non- BH Authored Date: * Event Display: Ultrasound Lower Extremity, Non-BH Authored Date: * Radha Rodriguez: PERFORM, SIGN, VERIFY Event Display: Patient Education/Instruction Authored Date: [id number] [facility] Clinical Summary Person Information Visit Date 05/25/2015 11:00 AM Name SHAUN LERMA Age 64 Years 1950 12:00 AM PCP Marcos Ruano DO PCP Sex Female Race White Ethnicity Non-/Non- Language Luxembourger You can now view a summary of your hospital visit from the comfort of your home through a free online portal called [employer]eval[employer]. [employer] is a website that allows you to securely view your medical information including discharge summary, medications and follow-up visits. You can also send a secure electronic message to your doctor???s office to request appointments, renew medicationsor just ask a question. You can enroll at [email or web address] or register during your next office visit. Smoking can increase your chances of developing chronic health problems and can cause harmful effects to other family members in your house. If you smoke, you are strongly encouraged to quit. Please call the [place] Smokers??? Helpline at 6-123-ZHXO-NOW (or ) or log on to [email or web address] for more information. Reason for Visit: Allergy Info: Motrin Smoking Status No Smoking Status Documented Vital Signs Height Weight BMI Blood Pressure / Temperature Pulse Rate Respiratory Rate 02 Sat Mode of Delivery / Medication Information Aspirin 81 mg, Oral, Daily, Refills: 0 Furosemide (Lasix 40 mg oral tablet) 1 tablet, Oral, twice a day, Refills: 0 GlipiZIDE (glipiZIDE 5 mg oral tablet) 1 tablet, Oral, twice a day, Refills: 0 Levothyroxine (levothyroxine 0.2 mg oral tablet) 1 tablet, Oral, Daily, Refills: 0 Lisinopril (lisinopril 2.5 mg oral tablet) 1 tablet, Oral, Daily, 30 days, Refills: 1 Metformin 1,000 mg, Oral, twice a day, Refills: 0 Metoprolol (metoprolol 25 mg oral tablet, extended release) 25 mg, Oral, Daily, 30 days, Refills: 0 Multivitamin , Oral, Daily, Refills: 0 Oxycodone / Acetaminophen (acetaminophen-oxyCODONE 325 mg-5 mg oral tablet) 1 tablet, Oral, every 6hours, As Needed, Pain, Refills: 0 Potassium Chloride (potassium chloride 20 mEq oral tablet, extended release) 1 tablet, Oral, Daily,with food do not crush or chew, 30 days, Refills: 3 Spironolactone (spironolactone 25 mg oral tablet) 1 tablet, Oral, Daily, Refills: 1 Future Orders No future orders Orders Completed this Visit No visit orders documented Problem List Problem Aortic valve stenosis Hypothyroidism Hypertensive disorder Diabetes mellitus Heart failure Varicose vein of leg Upper respiratory infection Hyperlipidemia Morbid obesity Tobacco user Pulmonary hypertension Left ventricular cardiac dysfunction Dilated cardiomyopathy Heart murmur Osteoarthritis Diagnosis Procedures No Procedures Documented If the following labs have been performed in the last year, the most recent result is displayed below. Diagnostic Results Lab Result Value Date Lead Hemoglobin A1C 6.3 02/23/15 LDL HDL Triglycerides Total Cholesterol Disclaimer: The information provided is of a general nature and is intended to be used in conjunction with the recommendations and advice of your health care practitioner. Every effort has been made to ensure that the information provided is accurate and complete at the time it is provided to you however, as your needs change, or, as new information becomes available, different or additional instructions may be required. If you have questions, please consult with your primary care provider or pharmacist, as appropriate. This information is not intended to serve as substitution for assessment and evaluation by a qualified health care provider. If you do not have a primary care provider, you may find a [facility] provider by calling [facility] ERCOM Link at [phone]. For information about the plan of care including goals and instructions for your diagnosis, please see the patient education orders section of this document. Patient Visit Summary: Future Appointments: Type Location Start [facility] TAVR Follow Up [facility] 05/25/2015 11:00 AM 05/25/2015 11:30 AM Pending Follow-Up Instructions With: Address: When: [facility] [address] [place] [address] Business (1) 05/25/2015 10:15 AM Comments: ECHO APPOINTMENT BEFORE SEEING DR MERCADO With: Address: When: Jed Mercado [address] [place] [address] Business (1) 05/25/2015 11:00 AM Comments: Patient Education Materials Additional Instructions: Patient Care team information Care Team Personnel Name: Zainab Pritchard MD Position: [facility] Physician (General Medicine) Member Role: PCP Address: Address: [address] [place] [address]- Name: Rupinder Gamez RN Position: S RN Member Role: Primary Care Nurse Name: Brenda Pedro RN Position: S RN Member Role: Primary Care Nurse Name: Charli Pedro RN Position: S RN Member Role: Primary Care Nurse Name: Vanessa Corrigan RN Position: [facility] SN RN Member Role: Primary Care Nurse Name: Curtis Squires MD Position: [facility] Renal MD Member Role: Lifetime Consulting Physician Address: Address: [address] [place] [address] [address] [facility] [place] [address]- Name: Michael Cardenas RN Position: S RN Member Role: Primary Care Nurse Name: Raquel Ivy RN Position: S RN Member Role: Primary Care Nurse Name: Josefina Syed RN Position: S RN Member Role: Primary Care Nurse Care Team Related Persons Name: HANNAH LERMA Address: home [address] [place] [address] Name: BECKIE TORREZ Address: home [address] [place] [address]
[2022-10-29] MEDS: Potassium Chloride ER 20 MEQ TAB.ER.PRT 60 MEQ PO (11:57)
--- NOTE | 2022-10-29 11:58 | ED_ITS ---
HPI - General Adult General Chief complaint: General Medical Stated complaint: Low Potassium Time Seen by Provider: 10/29/22 11:33 Source: patient, family and old records reviewed Mode of arrival: ambulatory Limitations: no limitations History of Present Illness HPI narrative: 72 yo female with history of paroxysmal afib, CKD, nonischemic cardiomyopathy s/p AICD, morbid obesity, CHF, DM who presents to the ER for evaluation of low potassium found on routine lab work. She states she has had low potassium before and is on potassium supplements. She states she is also on torsemide, dosing not changed. She reports she has had significant watery diarrhea for the last 10 days as well and was diagnosed with norovirus. She is intermittently taking imodium and pepto with little relief. MD complaint: low potassium Onset (ago): day(s) Radiation: non-radiation Severity: moderate Quality: aching Pain Consistency: intermittent Relieving factors: none Exacerbating factors: none Associated symptoms: denies other symptoms Treatments prior to arrival: none Related Data Previous Rx's Medication Instructions Recorded walker #1 ea 02/03/20 miscellaneous medical supply See Rx Instructions miscellaneous 01/23/21 .COMPLEX #1 ea mupirocin 2 % topical ointment 1 appl topical BID #66 grams 04/23/21 dulaglutide 3 mg/0.5 mL 3 mg (0.5 mL) subcut QWEEK #6 mL 11/02/21 subcutaneous pen injector (Trulicity) insulin glargine 100 unit/mL (3 80 unit (0.8 mL) subcut DAILY #72 01/22/22 mL) subcutaneous pen (Basaglar mL KwikPen U-100 Insulin) torsemide 20 mg tablet 60 mg PO DAILY 90 days #270 tabs 03/29/22 fluticasone propionate 230 2 puff inhalation BID #36 grams 04/03/22 mcg-salmeterol 21 mcg/actuation HFA inhaler (Advair HFA) blood sugar diagnostic (FreeStyle #300 ea 04/10/22 Lite Strips) potassium chloride 20 mEq 40 meq PO DAILY 90 days #180 tabs 04/18/22 tablet,extended release(part/cryst) acetaminophen 650 mg 650 mg PO Q8H PRN pain #270 tabs 04/23/22 tablet,extended release (Tylenol 8 Hour) allopurinol 100 mg tablet 200 mg PO DAILY #180 tabs 04/25/22 levothyroxine 175 mcg tablet 175 mcg PO QAM #90 tabs 04/25/22 rosuvastatin 20 mg tablet (Crestor) 20 mg PO DAILY #90 tabs 05/20/22 spironolactone 25 mg tablet 25 mg PO DAILY 90 days #90 tabs 05/28/22 (Aldactone) pen needle, diabetic 31 gauge x 1 ea subcut DIRECTED #300 caps 07/09/2206/06 (BD Ultra-Fine Mini Pen Needle) dapagliflozin propanediol 10 mg 10 mg PO DAILY #90 tabs 07/10/22 tablet (Farxiga) metolazone 2.5 mg tablet 2.5 mg PO .COMPLEX 90 days #30 tabs 07/10/22 insulin aspart U-100 100 unit/mL 18 unit (0.18 mL) subcut TID #45 mL 07/26/22 (3 mL) subcutaneous pen (Novolog FlexPen U-100 Insulin aspart) colchicine (gout) 0.6 mg tablet 0.6 mg PO BID #180 tabs 08/23/22 (Colcrys) apixaban 5 mg tablet (Eliquis) 5 mg PO BID #60 tabs 10/21/22 carvedilol 3.125 mg tablet 3.125 mg PO BID #180 tabs 10/21/22 famotidine 20 mg tablet (Pepcid) 20 mg PO DAILY #90 tabs 10/23/22 flash glucose sensor (FreeStyle #2 ea 10/23/22 Silvestre 14 Day Sensor kit) loperamide 2 mg capsule (Imodium 2 mg PO Q4H PRN loose stool #30 10/29/22 A-D) caps Allergies Allergy/AdvReac Type Severity Reaction Status Date / Time bees Allergy Unknown angioedema Verified 10/23/22 09:14 ibuprofen [From MOTRIN] Allergy Unknown RASH Verified 10/23/22 09:14 Review of Systems Review of Systems: Yes all other systems are reviewed and are negative [facility] Past Medical History Medical History (Updated 10/29/22 @ 12:01 by ROSA [place]) Ankle pain, chronic Annual physical exam Arthritis Biventricular ICD (implantable cardioverter-defibrillator) in place Cataract (lens) fragments in eye following cataract surgery, bilateral Chronic kidney disease CKD (chronic kidney disease) stage 4, GFR 15-29 ml/min Claudication Edema Gout Morbid obesity PAF (paroxysmal atrial fibrillation) Type 2 diabetes mellitus with unspecified complications Ventricular tachycardia Surgical History History of partial thyroidectomy History of tonsillectomy Hx of cholecystectomy S/P TAVR (transcatheter aortic valve replacement) Family History Family History Father CVD (cardiovascular disease) Mother No problems noted. Sister Cancer Son No problems noted. Sister Leukemia Son No problems noted. Son No problems noted. Daughter No problems noted. Brother No problems noted. Brother No problems noted. Brother No problems noted. Social History Social History Household Members: Spouse Housing: Apartment Alcohol intake: never Patient Tobacco Use Status: Never used Tobacco e-Cigarette/Vaping Use: Never Used Advance Directives: No Current occupational status: retired Cognitive needs: No Hearing needs: No Vision needs: No Physical Exam ED Vital Signs: Vital Signs - 24 hr 10/29/22 10:48 Pulse Rate 81 Respiratory Rate 18 Blood Pressure 142/64 H Pulse Oximetry 96 Oxygen Delivery Method Room Air BMI result Body Mass Index 46.2 Appearance: Alert. Oriented X3. No acute distress. HEENT: normal inspection CVS: Normal heart rate and rhythm. Pulses normal. Respiratory: No respiratory distress. Lungs CTAB Skin: Skin warm and dry. Normal skin color. Normal skin turgor. No rashes. Abd: obese, soft, NT/ND Extremities: normal inspection Neuro: Oriented X 3. No motor deficit. No sensory deficit. Medications Administered Discontinued Medications Generic Name Dose Route Start Last Admin Trade Name Freq PRN Reason Stop Dose Admin Loperamide HCl 4 mg 10/29/22 11:58 10/29/22 12:01 Loperamide Hcl 2 Mg Capsule PO 10/29/22 11:59 4 mg ONCE ONE Administration Potassium Chloride 60 meq 10/29/22 11:33 10/29/22 11:57 Potassium Chloride Er 20 Meq Tab.Er.Prt PO 10/29/22 11:34 60 meq ONCE ONE Administration Medical Decision Making Medical Decision Making MDM Narrative: 72 yo female with history of paroxysmal afib, CKD, nonischemic cardiomyopathy s/p AICD, morbid obesity, CHF, DM who presents to the ER for evaluation of low potassium found on routine lab work. K 3.0 today and yesterday. She is on potassium supplementation at home given her diuretic use however she has active GI losses with norovirus. She was given 60 meQ KCl in the ER. She has not been taking imodium regularly. Patient advised to increase imodium and increase oral hydration including electrolytes like gatorade/powerade. She will get her K+ recheck in 48-72 hours as an outpatient by her PCP - advised sooner recheck if diarrhea persists or worsens or if she developed s/sxs dehydration or muscle cramping. Comfortable w/ d/c home with close outpatient follow up. Differential Diagnosis Differential Diagnoses: The differential diagnosis associated with the presentation includes hypokalemia 2/2 diuretics, GI losses, dehydration, worsening CKD, cardiac arryth sandy Admission/Observation Consideration of admission/observation: Escalation of care including admission/observation considered elderly female with extensive cardiac history presenting with hypokalemia and GI losses Lab Data MDM Lab Attestation statement: I reviewed the patient's lab results. thrombocytopenia (chronic), hypokalemia, CKD near baseline 10/29/22 10:58 10/29/22 10:58 Labs: Lab Results 10/29/22 10/29/22 Range/Units 10:58 10:58 WBC 6.9 (4.8-10.8) X10*3/uL RBC 3.90 L (4.20-5.50) X10*6/uL Hgb 13.7 (12.0-16.0) g/dl Hct 40.4 (37.0-47.0) % MCV 103.6 H (80.0-98.0) fL MCH 35.1 H (27.0-33.0) pg MCHC 33.9 (31.0-35.0) g/dl RDW 15.9 (11.0-16.0) % Plt Count 88 L (160-400) X10*3/uL MPV 11.0 (9.4-12.3) fL Immature Gran % (Auto) 0.6 H (0.0-0.4) % Neut % (Auto) 58.0 (45-73) % Lymph % (Auto) 19.5 L (20-40) % [place] % (Auto) 16.4 H (2-11) % Eos % (Auto) 4.5 H (0-4) % Baso % (Auto) 1.0 (0-2) % Lymph # (Auto) 1.4 (1.2-4.9) X10*3/uL [place] # (Auto) 1.1 (0.1-1.2) X10*3/uL Eos # (Auto) 0.3 (0.0-0.4) X10*3/uL Baso # (Auto) 0.1 (0.0-0.2) X10*3/uL Abs Immat Gran (auto) 0.04 H (0.00-0.03) X10*3/uL Absolute Neuts (auto) 4.0 (2.0-8.3) x10*3/uL Absolute Nucleated RBC 0.000 (0.0-0.012) X10*3/uL Nucleated RBC % (auto) 0.0 (0.0-0.2) /100WBC Sodium 138 (135-145) mmol/L Potassium 3.0 L (3.3-5.1) mmol/L Chloride 104 (96-108) mmol/L Carbon Dioxide 22 (22-29) mmol/L Anion Gap 15 (12-20) BUN 47 H (9-16) mg/dL Creatinine 1.97 H (0.5-1.4) mg/dL Estim Creat Clear Calc 34.2 Estimated GFR 25 Random Glucose 129 H (60-115) mg/dL Calcium 9.3 (8.4-10.2) mg/dL Independent Historian Clinical information obtained from an independent historian. History obtained from or confirmed by: Spouse External Record Review External record reviewed: Office record, Outpatient record and Prior outpatient labs Tests considered The following testing was considered but not selected: EKG considered however low suspicion for EKG changes associated with hypokalemia with level of 3.0 Prescription Management I considered prescription management with: Other (KCl, anti-diarrheal) Chronic Conditions Patient?s care impacted by: Other (CKD, CHF) Critical Care Time Critical Care Time Critical Care Time: No Discharge Plan Discharge Clinical Impression: Hypokalemia Patient Disposition: Home, Self-Care Instructions: Potassium Content of Foods List (ED), Hypokalemia (ED) Additional Instructions: Your potassium level today and yesterday was 3.0. Normal is 3.3-5.1. Recommend increasing your potassium at home to 2 in the morning and 2 at night for the next 2 days. Follow up with your doctor for repeat potassium testing by the end of the week. Take the prescribed anti-diarrheal medication as directed. Max 16 mg in 24 hours Drink plenty of fluids like Gatorade or Liquid IV which has electrolytes in it. If you develop new or worsening symptoms call 911 or come back to the ER for further evaluation. Prescriptions: New loperamide [Imodium A-D] 2 mg capsule 2 mg PO Q4H PRN (Reason: loose stool) Qty: 30 0RF Rx Instructions: administer after each loose stool until symptoms controlled; do not exceed 8 mg per 24 hrs No Action (DME) walker Misc See Rx Instructions .ROUTE .MEDSUPPLY Qty: 1 0RF Rx Instructions: 2 wheels and 2 flat feet miscellaneous medical supply Misc See Rx Instructions miscellaneous .COMPLEX Qty: 1 0RF Rx Instructions: electric scooter mupirocin 2 % ointment 1 appl topical BID Qty: 66 3RF Trulicity 3 mg/0.5 mL pen injector 3 mg subcut QWEEK Qty: 6 3RF Basaglar KwikPen U-100 Insulin 100 unit/mL (3 mL) insulin pen 80 unit subcut DAILY Qty: 72 3RF torsemide 20 mg tablet 60 mg PO DAILY 90 Days Qty: 270 3RF Advair HFA 230-21 mcg/actuation HFA aerosol inhaler 2 puff inhalation BID Qty: 36 3RF (DME) FreeStyle Lite Strips Strip See Rx Instructions .ROUTE .MEDSUPPLY Qty: 300 3RF Rx Instructions: test 3 times a day DX E11.9 potassium chloride 20 mEq tablet,ER particles/crystals 40 meq PO DAILY 90 Days Qty: 180 3RF acetaminophen [Tylenol 8 Hour] 650 mg tablet extended release 650 mg PO Q8H PRN (Reason: pain) Qty: 270 3RF levothyroxine 175 mcg tablet 175 mcg PO QAM Qty: 90 3RF allopurinol 100 mg tablet 200 mg PO DAILY Qty: 180 3RF rosuvastatin [Crestor] 20 mg tablet 20 mg PO DAILY Qty: 90 3RF spironolactone [Aldactone] 25 mg tablet 25 mg PO DAILY 90 Days Qty: 90 2RF pen needle, diabetic [BD Ultra-Fine Mini Pen Needle] 31 gauge x 3/16 needle 1 ea subcut DIRECTED Qty: 300 3RF Rx Instructions: Use to inject insulin 4 times per day Farxiga 10 mg tablet 10 mg PO DAILY Qty: 90 3RF metolazone 2.5 mg tablet 2.5 mg PO .COMPLEX 90 Days Qty: 30 3RF Rx Instructions: 2.5 mg orally; friday/ and PRN when directed insulin aspart U-100 [Novolog FlexPen U-100 Insulin] 100 unit/mL (3 mL) insulin pen 18 unit subcut TID Qty: 45 3RF Rx Instructions: before meals colchicine (gout) [Colcrys] 0.6 mg tablet 0.6 mg PO BID Qty: 180 1RF carvedilol 3.125 mg tablet 3.125 mg PO BID Qty: 180 11RF Eliquis 5 mg tablet 5 mg PO BID Qty: 60 11RF (DME) FreeStyle Silvestre 14 Day Sensor Kit See Rx Instructions .Route Qty: 2 5RF Rx Instructions: As directed famotidine [Pepcid] 20 mg tablet 20 mg PO DAILY Qty: 90 0RF Interventions: ED Discharge Assessment Last Done: 10/29/22 12:11 Discharge Date/Time: 10/29/22 12:12
[2022-10-29] MEDS: Loperamide HCl 2 MG CAPSULE 4 MG PO (12:01)
== END 2022-10-29 12:12 | disposition home or self-care (01) ==
PROVIDERS: Emergency Provider Emergency Medicine; PCP Internal Medicine
DX: E87.6 Hypokalemia (principal); I48.0 Paroxysmal atrial fibrillation; Z79.899 Other long term (current) drug therapy
CPT/HCPCS: 36415; 80048; 85025; 99283

== ENCOUNTER 2022-11-01 07:33 | Outpatient (REF) | payer MEDICARE, SELFPAY ==
[2022-11-01 12:05] LABS: Anion Gap 13 (12-20); Blood Urea Nitrogen 51 mg/dL (9-16); Carbon Dioxide 22 mmol/L (22-29); Chloride 105 mmol/L (96-108); Estimated Glomerular Filt Rate 26; Glucose Random 224 mg/dL (60-115); Potassium 3.4 mmol/L (3.3-5.1); Sodium 137 mmol/L (135-145)
== END 2022-11-01 07:34 | disposition home or self-care (01) ==
LOC: HO.HMGCLDS 07:33
PROVIDERS: PCP Internal Medicine; Visit Provider Internal Medicine
DX: E87.6 Hypokalemia (principal)
CPT/HCPCS: 36415; 80048

== ENCOUNTER 2022-11-11 08:56 | Outpatient (REF) | payer MEDICARE, SELFPAY ==
[2022-11-11 12:42] LABS: Anion Gap 13 (12-20); Blood Urea Nitrogen 46 mg/dL (9-16); Calcium 9.3 mg/dL (8.4-10.2); Carbon Dioxide 25 mmol/L (22-29); Chloride 102 mmol/L (96-108); Estimated Glomerular Filt Rate 26; Glucose Random 197 mg/dL (60-115); Potassium 3.2 mmol/L (3.3-5.1); Sodium 137 mmol/L (135-145)
== END 2022-11-11 08:57 | disposition home or self-care (01) ==
LOC: HO.HMGCLDS 08:56
PROVIDERS: PCP Internal Medicine; Visit Provider Internal Medicine
DX: E87.6 Hypokalemia (principal)
CPT/HCPCS: 36415; 80048

== ENCOUNTER 2022-11-20 08:14 | Outpatient (AMB) | payer MEDICARE, SELFPAY ==
[2022-11-20 08:22] VITALS: BP 133/77; PULSE 65
--- NOTE | 2022-11-20 08:22 | A.OFFVIS_ITS ---
Intake Vital Signs 11/20/22 08:22 Height 5 ft 4 in BP 133/77 Blood Pressure Location Lt brachial Position Sitting Pulse 65 Intake Visit Reasons: Diarrhea Intake Note: Ebonie presents in office as a new.patient for diarrhea PT CC: pt reports having diarrhea & heartburn pt denies any other GI Issues Epic Application Coordinator Required: No Accompanied by: Significant Other Allergies bees Allergy (Unknown, Verified 11/20/22 08:22) angioedema ibuprofen [From MOTRIN] Allergy (Unknown, Verified 11/20/22 08:22) RASH HPI Diarrhea HPI Details 72-year-old female with past medical his tory of cardiomyopathy, CKD, gout, arthritis, type 2 diabetes, PAF, biventricular ICD, hypertension, nonischemic cardiomyopathy, status post TAVR, VT, Congestive heart failure, gout, ICD, presence of CardioMEMS HF system is here today for initial consultation. Patient reports that she has been having diarrhea since middle of September (6 weeks now) diagnosed with Noro virus and Fausto Virus. Patient reports that she is getting tired as the diarrhea has been going on for so long. Patient was diagnosed and tested 10/29/2022. Patient has been trying to drink enough fluids. She however is on fluid restrictions due to her Congestive heart failure. Patient is trying to drink extra cup of water a day. Patient is also drinking electrolytes to stay hydrated. Patient denies any nausea or vomiting. However patient does report dyspepsia and epigastric discomfort in the morning. Patient denies melena, hematochezia, unintentional weight loss or ribbon like stools. Patient denies dysphagia or odynophagia. [facility] Medical History Ankle pain, chronic Annual physical exam Arthritis Biventricular ICD (implantable cardioverter-defibrillator) in place Cataract (lens) fragments in eye following cataract surgery, bilateral Chronic kidney disease CKD (chronic kidney disease) stage 4, GFR 15-29 ml/min Claudication Edema Gout Morbid obesity PAF (paroxysmal atrial fibrillation) Type 2 diabetes mellitus with unspecified complications Ventricular tachycardia Surgical History History of partial thyroidectomy History of tonsillectomy Hx of cholecystectomy S/P TAVR (transcatheter aortic valve replacement) Family History Father CVD (cardiovascular disease) Mother No problems noted. Sister Cancer Son No problems noted. Sister Leukemia Son No problems noted. Son No problems noted. Daughter No problems noted. Brother No problems noted. Brother No problems noted. Brother No problems noted. Social History Household Members: Spouse Housing: Apartment Alcohol intake: never Patient Tobacco Use Status: Never used Tobacco e-Cigarette/Vaping Use: Never Used Current occupational status: retired Cognitive needs: No Hearing needs: No Vision needs: No Review of Systems Const Denies weight gain and Denies weight loss ENT Reports no additional complaints, Denies dysphagia and Denies odynophagia Card Reports no additional complaints Resp Reports no additional complaints GI Reports abdominal pain (cramping), Denies belching, Denies melena, Reports bloating, Denies change in bowel habits, Denies dysphagia, Denies excessive flatus, Denies dyspepsia, Reports heartburn, Reports diarrhea, Reports loose stools, Denies nausea, Denies odynophagia and Denies vomiting Reports no additional complaints Musc Reports no additional complaints Neuro Reports no additional complaints Psych Reports no additional complaints Endo Reports no additional complaints Physical Exam Vital Signs: Last Vital Signs Pulse 65 11/20/22 08:22 BP 133/77 11/20/22 08:22 BMI result Body Mass Index 102.2 Assessment & Plan Assessment & Plan (1) Diarrhea: Code(s): R19.7 - Diarrhea, unspecified Qualifiers: Diarrhea type: presumed infectious Qualified Code(s): R19.7 - Diarrhea, unspecified Plan: Patient diagnosed with norovirus few weeks ago. Patient continues to have loose stools. Patient reports occasional abdominal cramping. Will repeat GI panel today, H pylori, vitamin level liver panel and lipase. Patient does report occasional abdominal cramping. Patient will continue to drink fluids patient does have a history of Congestive heart failure. Will send patient script for Citrucel. Patient twice a day. Patient was advised not to take any anti diarrheal (2) GERD (gastroesophageal reflux disease): Code(s): K21.9 - Gastro-esophageal reflux disease without esophagitis Qualifiers: Esophagitis presence: esophagitis presence not specified Qualified Code(s): K21.9 - Gastro-esophageal reflux disease without esophagitis Plan: Occasional dyspepsia without dysphagia or odynophagia. Patient will be started on pantoprazole daily. Patient was encouraged to avoid dietary triggers in late night snacking. Staying upright for minimum 3 hours after meals discussed with patient. I will see patient in 4 weeks, sooner on as needed basis. Patient is agreeable to this plan and verbalizes understanding of instructions. She was given the opportunity to ask questions and all questions answered. Thank you for allowing me to participate in her care Orders: Orders Vitamin D 25-OH (D2 and D3) 11/20/22 E55.9 - Vitamin D deficiency, unspecified Liver Panel 11/20/22 R10.9 - Unspecified abdominal pain Ova and Parasite 11/21/22 R19.7 - Diarrhea, unspecified GI Panel 11/21/22 R19.7 - Diarrhea, unspecified Lipase 11/20/22 R10.9 - Unspecified abdominal pain H pylori Ag Stool 11/21/22 K21.9 - Gastro-esophageal reflux disease without esophagitis Medications: New methylcellulose (laxative) (Citrucel) 500 mg PO BID 60 tabs 2RF pantoprazole take one tablet half an hour before breakfast 40 mg PO DAILY 30 tabs 2RF K21.9 - Gastro-esophageal reflux disease without esophagitis Coding Level of Care Code New Pt Level 4 (67287) Diagnoses Diarrhea of presumed infectious origin R19.7 Diarrhea type: presumed infectious Gastroesophageal reflux disease, unspecified whether esophagitis present K21.9 Esophagitis presence: esophagitis presence not specified Time Spent (min) 45 Comment 30 minutes spent with patient and additional minutes spent reviewing her records
== END 2022-11-20 08:59 | disposition home or self-care (01) ==
PROVIDERS: PCP Internal Medicine; Visit Provider Nurse Practitioner Family
DX: R19.7 Diarrhea, unspecified (principal); K21.9 Gastro-esophageal reflux disease without esophagitis
CPT/HCPCS: 99204

== ENCOUNTER 2022-11-20 08:14 | Outpatient (REF) | payer MEDICARE, SELFPAY ==
[2022-11-20 11:14] LABS: Alanine Aminotransferase 30 U/L (0-31); Albumin Level 3.5 g/dL (3.5-5.0); Alkaline Phosphatase 198 U/L (39-117); Anion Gap 17 (12-20); Aspartate Amino Transferase 62 U/L (5-31); Bilirubin Direct 0.6 mg/dL (0.0-0.5); Bilirubin Total 1.2 mg/dL (0.0-1.0); Blood Urea Nitrogen 43 mg/dL (9-16); Calcium 9.1 mg/dL (8.4-10.2); Carbon Dioxide 25 mmol/L (22-29); Chloride 99 mmol/L (96-108); Estimated Glomerular Filt Rate 26; Glucose Random 142 mg/dL (60-115); Lipase 19 U/L (8-78); Magnesium 1.7 mg/dL (1.6-2.6); Potassium 3.3 mmol/L (3.3-5.1); Sodium 138 mmol/L (135-145); Total Protein 6.8 g/dL (6.5-8.0)
[2022-11-24 15:03] LABS: Vitamin D 25-OH, D2 <4 ng/mL; Vitamin D 25-OH, D3 45 ng/mL; Vitamin D 25-OH, Total 45 ng/mL (30-100)
== END 2022-11-20 08:15 | disposition home or self-care (01) ==
LOC: HO.LAB 08:14
PROVIDERS: PCP Internal Medicine; Visit Provider Nurse Practitioner Family
DX: E87.6 Hypokalemia (principal); R19.7 Diarrhea, unspecified; E11.22 Type 2 diabetes mellitus with diabetic chronic kidney disease; I13.0 Hypertensive heart and chronic kidney disease with heart failure and stage 1 through stage 4 chronic kidney disease, or unspecified chronic kidney disease; N18.9 Chronic kidney disease, unspecified; I50.9 Heart failure, unspecified; K21.9 Gastro-esophageal reflux disease without esophagitis; E55.9 Vitamin D deficiency, unspecified; R10.9 Unspecified abdominal pain
CPT/HCPCS: 36415; 80048; 80076; 82306; 83690; 83735; 99202

== ENCOUNTER 2022-11-21 08:30 | Outpatient (REF) | payer MEDICARE, SELFPAY ==
[2022-11-22 13:09] LABS: Campylobacter Not Detected (Not Detect.); Plesiomonas shigelloides Not Detected (Not Detect.)
[2022-11-22 13:10] LABS: Adenovirus F 40/41 Not Detected (Not Detect.); Astrovirus Not Detected (Not Detect.); Cryptosporidium Not Detected (Not Detect.); Cyclospora cayetanensis Not Detected (Not Detect.); E. coli EAEC Not Detected (Not Detect.); E. coli EPEC Not Detected (Not Detect.); E. coli ETEC Not Detected (Not Detect.); E. coli STEC Not Detected (Not Detect.); Entamoeba histolytica Not Detected (Not Detect.); Giardia lamblia Not Detected (Not Detect.); Rotavirus A Not Detected (Not Detect.); Salmonella Not Detected (Not Detect.); Sapovirus Not Detected (Not Detect.); Shigella sp./EIEC Not Detected (Not Detect.); Vibrio Not Detected (Not Detect.); Vibrio Cholerae Not Detected (Not Detect.)
[2022-11-22 13:20] LABS: Norovirus GI/GII Detected (Not Detect.); Yersinia enterocolitica Detected (Not Detect.)
== END 2022-11-21 08:31 | disposition home or self-care (01) ==
LOC: HO.HMGCLNP 08:30
PROVIDERS: PCP Internal Medicine; Visit Provider Nurse Practitioner Family
DX: R19.7 Diarrhea, unspecified (principal); K21.9 Gastro-esophageal reflux disease without esophagitis
CPT/HCPCS: 87177; 87209; 87338; 87507

== ENCOUNTER → 2022-11-21 23:59 | Outpatient (BNV) | payer MEDICARE, SELFPAY ==
--- NOTE | 2022-12-03 18:32 | MHC.OFFVIS ---
Intake Intake Visit Reasons: Remote [facility]- [facility] Allergies bees Allergy (Unknown, Verified 11/20/22 08:22) angioedema ibuprofen [From MOTRIN] Allergy (Unknown, Verified 11/20/22 08:22) RASH [facility] Medical History Ankle pain, chronic Annual physical exam Arthritis Biventricular ICD (implantable cardioverter-defibrillator) in place Cataract (lens) fragments in eye following cataract surgery, bilateral Chronic kidney disease CKD (chronic kidney disease) stage 4, GFR 15-29 ml/min Claudication Edema Gout Morbid obesity PAF (paroxysmal atrial fibrillation) Type 2 diabetes mellitus with unspecified complications Ventricular tachycardia Surgical History History of partial thyroidectomy History of tonsillectomy Hx of cholecystectomy S/P TAVR (transcatheter aortic valve replacement) Family History Father CVD (cardiovascular disease) Mother No problems noted. Sister Cancer Son No problems noted. Sister Leukemia Son No problems noted. Son No problems noted. Daughter No problems noted. Brother No problems noted. Brother No problems noted. Brother No problems noted. Social History Household Members: Spouse Housing: Apartment Alcohol intake: never Patient Tobacco Use Status: Never used Tobacco e-Cigarette/Vaping Use: Never Used Current occupational status: retired Cognitive needs: No Hearing needs: No Vision needs: No Office Procedures Cardiac Device Check Cardiac Device Check Details: Monitoring period dates:10/22/22 - 11/21/22 Optimal PA pressure range: PAD goal 23mmhg Procedure code: [id number] BACKGROUND: Ebonie is implanted with the CardioMEMS PA Sensor.? I use this technology to monitor PA pressures on a weekly basis to ensure patients are within their optimal range to prevent decompensation.? SUMMARY:? I utilized the remote monitoring platform ([employer]) to set optimal targets for pulmonary artery pressure thresholds as part of acute and chronic management of patient?s heart failure. During the period indicated above, I monitored the patient?s pulmonary artery pressures weekly via trend analysis and notification reports which provide alerts when patient?s PA pressures were outside of range to prompt immediate action in medication changes and communications.? The weekly reports are archived in the [employer] system which serve as a parallel record to document weekly PA pressures, medication changes, and clinical notes. I have reviewed readings on 10/22, 10/27, 11/03, 11/10, 11/16, 11/19. PAD goal has ranged 16-23mmhg. She was having issues with diarrhea and Metolazone placed on hold. 74925 - Remote monitoring of wireless pulmonary artery pressure sensor Procedure code (CPT) selection complete Coding Level of Care Code Procedure Only CPT Codes Cardiac Device Check - Cardiac Device 17: 31455 - Remote monitoring of wireless pulmonary artery pressure sensor ([id number])
== END ==
PROVIDERS: PCP Internal Medicine; Visit Provider Nurse Practitioner Family
DX: I50.9 Heart failure, unspecified (principal)
CPT/HCPCS: 93264

== ENCOUNTER → 2022-12-17 23:59 | Outpatient (BNV) | payer MEDICARE, SELFPAY ==
--- NOTE | 2022-12-19 14:07 | MHC.OFFVIS ---
Intake Intake Visit Reasons: Remote ICD Check- [employer] Allergies bees Allergy (Unknown, Verified 12/18/22 09:14) angioedema ibuprofen [From MOTRIN] Allergy (Unknown, Verified 12/18/22 09:14) RASH [facility] Medical History Ankle pain, chronic Annual physical exam Arthritis Biventricular ICD (implantable cardioverter-defibrillator) in place Cataract (lens) fragments in eye following cataract surgery, bilateral Chronic kidney disease CKD (chronic kidney disease) stage 4, GFR 15-29 ml/min Claudication Edema Gout Morbid obesity PAF (paroxysmal atrial fibrillation) Type 2 diabetes mellitus with unspecified complications Ventricular tachycardia Surgical History History of tonsillectomy History of partial thyroidectomy Hx of cholecystectomy S/P TAVR (transcatheter aortic valve replacement) Family History Father CVD (cardiovascular disease) Mother No problems noted. Sister Cancer Son No problems noted. Sister Leukemia Son No problems noted. Son No problems noted. Daughter No problems noted. Brother No problems noted. Brother No problems noted. Brother No problems noted. Social History Household Members: Spouse Housing: Apartment Alcohol intake: never Patient Tobacco Use Status: Never used Tobacco e-Cigarette/Vaping Use: Never Used Current occupational status: retired Cognitive needs: No Hearing needs: No Vision needs: No Office Procedures Cardiac Device Check Cardiac Device Check Details: Date of service 12/17/2022; Battery life 7 years; normal lead parameters; no treated VT/VF; adequate biv pacing; normal ICD function. [id number] Cardiac Interrogation, implant defibrillator w/interim Procedure code (CPT) selection complete Assessment & Plan Assessment & Plan (1) Non-ischemic cardiomyopathy: Comment: echo 07/14, left ventricle injection fraction 20% global hypokinesis, s/p ICD, no ACEI or ARB CKD stage 4 Code(s): I42.8 - Other cardiomyopathies (2) HTN (hypertension): Code(s): I10 - Essential (primary) hypertension Coding Level of Care Code Procedure Only Diagnoses Non-ischemic cardiomyopathy I42.8 HTN (hypertension) I10 CPT Codes Cardiac Device Check - Cardiac Device 13: [id number] Cardiac Interrogation, implant defibrillator w/interim ([id number])
== END ==
PROVIDERS: PCP Internal Medicine; Visit Provider Internal Medicine
DX: I42.8 Other cardiomyopathies (principal); Z95.810 Presence of automatic (implantable) cardiac defibrillator
CPT/HCPCS: 93295

== ENCOUNTER 2022-12-18 07:53 | Outpatient (AMB) | payer MEDICARE, SELFPAY ==
--- NOTE | 2022-12-18 08:28 | A.OFFVIS_ITS ---
Intake Vital Signs 12/18/22 08:33 Height 5 ft 4 in Weight 255 lb BMI 43.8 BP 118/66 Blood Pressure Location Lt brachial Position Sitting Pulse 97 Intake Visit Reasons: 4 week follow up Intake Note: Ebonie presents in the office as a 4 week follow up. CC: States that her stomach is still the same - her diarrhea has gotten better but her stomach is bothering her everyday. Allergies bees Allergy (Unknown, Verified 12/18/22 09:14) angioedema ibuprofen [From MOTRIN] Allergy (Unknown, Verified 12/18/22 09:14) RASH HPI 4 week follow up HPI Details LAST VISIT Diarrhea Patient diagnosed with norovirus few weeks ago. Patient continues to have loose stools. Patient reports occasional abdominal cramping. Will repeat GI panel today, H pylori, vitamin level liver panel and lipase. Patient does report occasional abdominal cramping. Patient will continue to drink fluids patient does have a history of Congestive heart failure. Will send patient script for Citrucel. Patient twice a day. Patient was advised not to take any anti diar rheal GERD (gastroesophageal reflux disease) Occasional dyspepsia without dysphagia or odynophagia. Patient will be started on pantoprazole daily. Patient was encouraged to avoid dietary triggers in late night snacking. Staying upright for minimum 3 hours after meals discussed with patient. I will see patient in 4 weeks, sooner on as needed basis. Patient is agreeable to this plan and verbalizes understanding of instructions. She was given the opportunity to ask questions and all questions answered. TODAY'S VISIT Patient is here today for follow-up. Patient reports that since the last time I have seen her she has been feeling much better. Patient no longer has diarrhea. Take Citrucel twice a day and her stools are bulkier. However patient does report occasional abdominal discomfort. Patient reports that she is moving her bowels better. Feels like she empties them completely. Patient is taking pantoprazole in the morning and her symptoms of acid reflux are suppressed for the most part. Famotidine at night time patient feels like it is not working well enough she continues to have epigastric and mid abdominal discomfort. Patient denies dyspepsia, dysphagia or odynophagia. Denies melena, hematochezia, unintentional weight loss or ribbon like stools. [facility] Medical History Ankle pain, chronic Annual physical exam Arthritis Biventricular ICD (implantable cardioverter-defibrillator) in place Cataract (lens) fragments in eye following cataract surgery, bilateral Chronic kidney disease CKD (chronic kidney disease) stage 4, GFR 15-29 ml/min Claudication Edema Gout Morbid obesity PAF (paroxysmal atrial fibrillation) Type 2 diabetes mellitus with unspecified complications Ventricular tachycardia Surgical History History of tonsillectomy History of partial thyroidectomy Hx of cholecystectomy S/P TAVR (transcatheter aortic valve replacement) Family History Father CVD (cardiovascular disease) Mother No problems noted. Sister Cancer Son No problems noted. Sister Leukemia Son No problems noted. Son No problems noted. Daughter No problems noted. Brother No problems noted. Brother No problems noted. Brother No problems noted. Social History Household Members: Spouse Housing: Apartment Alcohol intake: never Patient Tobacco Use Status: Never used Tobacco e-Cigarette/Vaping Use: Never Used Current occupational status: retired Cognitive needs: No Hearing needs: No Vision needs: No Review of Systems Const Denies weight gain and Denies weight loss ENT Reports no additional complaints, Denies dysphagia and Denies odynophagia Card Reports no additional complaints Resp Reports no additional complaints GI Reports abdominal pain, Denies belching, Denies melena, Denies bloating, Denies change in bowel habits, Denies dysphagia, Denies excessive flatus, Denies dyspepsia, Denies heartburn, Denies diarrhea, Reports loose stools (Occasional), Denies nausea, Denies odynophagia and Denies vomiting Musc Reports no additional complaints Neuro Reports no additional complaints Psych Reports no additional complaints Endo Reports no additional complaints Physical Exam Vital Signs: Last Vital Signs Pulse 97 12/18/22 08:33 BP 118/66 12/18/22 08:33 BMI result Body Mass Index 43.8 Const Other: In a wheelchair General: healthy appearing and no acute distress Nutritional Appearance: obese Orientation/consciousness: patient oriented x3 HEENT Head: Yes normal to inspection, Yes normocephalic and Yes atraumatic Face and sinus: Yes normal facial exam Mouth: Normal oral and palatal mucosa present Throat: Yes posterior oropharynx normal, Yes tonsils normal and Yes uvula midline Eyes General: appearance normal, both eyes and all related structures Neck Neck: Yes normal visual inspection, Yes full ROM and Yes trachea midline Thyroid: Thyroid normal Resp Effort & Inspection: normal respiratory effort, able to speak in complete sentences, no tracheal deviation and symmetric chest movement Auscultation: clear to auscultation bilaterally Cardio Rate: regular rate Heart sounds: S1 normal heart sound present and S2 normal heart sound present GI Inspection: Yes normal to inspection, No distended and Yes obesity Palpation (GI): Soft to palpation, not firm, nontender and No hepatosplenomegaly present Auscultation: normal bowel sounds General: Yes no CVA tenderness Back/Spine/Pelvis Back: no CVA tenderness Skin General skin exam: elasticity normal, turgor normal and dry skin Neuro General: patient oriented x3 Psych Appearance: grossly normal Mental Status: mental status grossly normal Results Reviewed Results Reviewed: Laboratory Tests 11/21/22 08:30 St Y.enterocolitica PCR Detected A Stl Norovirus GI/GII PCR Detected A Assessment & Plan Assessment & Plan (1) Diarrhea: Code(s): R19.7 - Diarrhea, unspecified Qualifiers: Diarrhea type: presumed infectious Qualified Code(s): R19.7 - Diarrhea, unspecified Plan: Patient tested and of October and came back positive for norovirus again. Patient states that her diarrhea subsided. Feeling better. Continue drinking fluids weigh. Making sure the patient watches her hands and sanitizes bathroom after using to prevent spreading of the virus (2) Elevated LFTs: Code(s): R79.89 - Other specified abnormal findings of blood chemistry Plan: Improved liver functions. Patient was encouraged to lose weight eat food low in fat. Patient is unable to exercise due to her sedentary lifestyle. Will see patient in 2 months, sooner on as needed basis. Patient is agreeable to this plan and verbalizes understanding of instructions. She was given the opportunity to ask questions and all questions answered. Thank you for allowing me to participate in her care (3) Abdominal pain: Code(s): R10.9 - Unspecified abdominal pain Qualifiers: Abdominal location: generalized Qualified Code(s): R10.84 - Generalized abdominal pain Medications: New sucralfate 1 g PO BEDTIME 30 tabs 4RF R19.7 - Diarrhea, unspecified Discontinued famotidine (Pepcid) Discontinued Reason: Duplicate 20 mg PO DAILY 90 tabs 0RF Coding Level of Care Code Est Pt Level 3 (14233) Diagnoses Diarrhea of presumed infectious origin R19.7 Diarrhea type: presumed infectious Elevated LFTs R79.89 Generalized abdominal pain R10.84 Abdominal location: generalized Time Spent (min) 25 Comment 15 minutes spent with patient and additional 10 minutes spent reviewing her records
[2022-12-18 08:33] VITALS: BP 118/66; PULSE 97; BMI 43.8
== END 2022-12-18 09:05 | disposition home or self-care (01) ==
PROVIDERS: PCP Internal Medicine; Visit Provider Nurse Practitioner Family
DX: R19.7 Diarrhea, unspecified (principal); R79.89 Other specified abnormal findings of blood chemistry; R10.84 Generalized abdominal pain
CPT/HCPCS: 99213

== ENCOUNTER 2022-12-18 07:53 | Outpatient (AMB) | payer MEDICARE, SELFPAY ==
--- NOTE | 2022-12-18 09:11 | MHC.OFFVIS ---
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: No Allergies bees Allergy (Unknown, Verified 12/18/22 09:14) angioedema ibuprofen [From MOTRIN] Allergy (Unknown, Verified 12/18/22 09:14) RASH Medication List - Last Reconciled 12/18/22 by Angel Calhoun MD acetaminophen ER (Tylenol 8 Hour) 650 mg PO Q8H PRN allopurinol 200 mg (2 x 100 mg) PO DAILY apixaban (Eliquis) 5 mg PO BID blood sugar diagnostic (FreeStyle Lite Strips) test 3 times a day DX E11.9 carvedilol 3.125 mg PO BID colchicine (gout) (Colcrys) 0.6 mg PO BID dapagliflozin propanediol (Farxiga) 10 mg PO DAILY diphenoxylate-atropine 2.5-0.025 mg (Lomotil) 1 tab PO TID PRN dulaglutide (Trulicity) 3 mg (0.5 mL) subcut QWEEK flash glucose sensor (FreeStyle Silvestre 14 Day Sensor kit) As directed fluticasone propion-salmeterol 230-21 mcg/actuation (Advair HFA) 2 puffs inhalation BID insulin aspart U-100 (Novolog FlexPen U-100 Insulin aspart) 18 units (0.18 mL) subcut TID insulin glargine (Basaglar KwikPen U-100 Insulin) 80 units (0.8 mL) subcut DAILY levothyroxine 175 mcg PO QAM methylcellulose (laxative) (Citrucel) 500 mg PO BID metolazone mg PO miscellaneous medical supply electric scooter mupirocin 2% 1 appl topical BID pantoprazole 40 mg PO DAILY pen needle, diabetic (BD Ultra-Fine Mini Pen Needle) 1 ea subcut DIRECTED potassium chloride ER 60 mEq (3 x 20 mEq) PO DAILY 90 days rosuvastatin (Crestor) 20 mg PO DAILY spironolactone (Aldactone) 25 mg PO DAILY 90 days sucralfate 1 g PO BEDTIME torsemide 60 mg (3 x 20 mg) PO DAILY 90 days walker 2 wheels and 2 flat feet HPI HPI Comments History of Present Illness Details Ebonie returns for follow-up regarding her complex cardiac issues. To recall, she has a history of transcatheter aortic valve replacement x2; nonischemic cardiomyopathy; biventricular ICD among others. She also had CardioMEMS implanted for heart failure management. She comes to the clinic in a wheelchair as before. Overall, she states she is feeling the same as before. Shortness of breath is at baseline. No angina. No change in leg swelling. Stable per patient. [facility] Medical History Ankle pain, chronic Annual physical exam Arthritis Biventricular ICD (implantable cardioverter-defibrillator) in place Cataract (lens) fragments in eye following cataract surgery, bilateral Chronic kidney disease CKD (chronic kidney disease) stage 4, GFR 15-29 ml/min Claudication Edema Gout Morbid obesity PAF (paroxysmal atrial fibrillation) Type 2 diabetes mellitus with unspecified complications Ventricular tachycardia Surgical History History of tonsillectomy History of partial thyroidectomy Hx of cholecystectomy S/P TAVR (transcatheter aortic valve replacement) Family History Father CVD (cardiovascular disease) Mother No problems noted. Sister Cancer Son No problems noted. Sister Leukemia Son No problems noted. Son No problems noted. Daughter No problems noted. Brother No problems noted. Brother No problems noted. Brother No problems noted. Social History Household Members: Spouse Housing: Apartment Alcohol intake: never Patient Tobacco Use Status: Never used Tobacco e-Cigarette/Vaping Use: Never Used Current occupational status: retired Cognitive needs: No Hearing needs: No Vision needs: No Review of Systems Const Denies weakness ENT Denies dizziness Card Denies chest pain, Denies chest pain with activity, Denies syncope, Denies rapid heart rate, Denies pedal edema, Denies edema, Denies leg edema, Denies lightheadedness, Denies palpitations, Denies dyspnea, Denies dyspnea on exertion and Denies orthopnea Resp Denies cough, Denies dyspnea and Denies dyspnea on exertion GI Denies hematochezia and Denies change in stool character Musc Denies abnormal gait, Denies muscle cramps, Denies muscle weakness, Denies numbness, Denies radiating pain into limb and Denies tingling Neuro Denies abnormal gait, Denies dizziness, Denies syncope, Denies numbness, Denies tingling and Denies weakness Endo Denies palpitations Physical Exam Vital Signs: Last Vital Signs Pulse 87 12/18/22 09:15 BP 116/64 12/18/22 09:15 Const General: comfortable and no acute distress Orientation/consciousness: patient oriented x3 HEENT Other: Unremarkable Head: Yes normal to inspection Neck Neck: Yes normal visual inspection Chest Chest palpation & inspection: normal inspection of the chest Resp Auscultation: clear to auscultation bilaterally Cardio Palpation: normal PMI Heart sounds: S1 normal heart sound present, S2 normal heart sound present, no gallops, no murmurs and no rubs GI Palpation (GI): Soft to palpation Back/Spine/Pelvis Other: unremarkable Skin General skin exam: no rashes or lesions noted Neuro General: patient oriented x3 Extrem General: Yes normal to inspection Psych Mental Status: mental status grossly normal Office Procedures EKG Details: EKG with sinus rhythm with likely biventricular pacing and possibly intermittent atrial pacing. [id number], Complete Assessment & Plan Assessment & Plan (1) S/P TAVR (transcatheter aortic valve replacement): Code(s): Z95.2 - Presence of prosthetic heart valve Plan: Status post valve in valve TAVR, due to stenosis of the previous TAVR. Infective endocarditis prophylaxis per protocol. Stable valve function on the last echocardiogram. (2) Chronic systolic (congestive) heart failure: Code(s): I50.22 - Chronic systolic (congestive) heart failure Plan: In the most recent echocardiogram, LVEF 22%. Clinically, no overt volume overload but she is also difficult to assess. Can follow CardioMEMS readings and adjust accordingly. She is taking torsemide daily and metolazone once a week. Father medications, on carvedilol, spironolactone, Farxiga. Not on Entresto or MISBAH-i/ARB, but she also has a very high creatinine. (3) PAF (paroxysmal atrial fibrillation): Comment: On Eliquis Code(s): I48.0 - Paroxysmal atrial fibrillation Plan: This was previously noted on device interrogation. On Eliquis. Off amiodarone. (4) Ventricular tachycardia: Code(s): I47.2 - Ventricular tachycardia Plan: In the setting of COVID infection during hospitalization in ICU. No recent issues. (5) Biventricular ICD (implantable cardioverter-defibrillator) in place: Code(s): Z95.810 - Presence of automatic (implantable) cardiac defibrillator Plan: Status post generator change. Functioning normally. Can be followed remotely. (6) Morbid obesity: Code(s): E66.01 - Morbid (severe) obesity due to excess calories Plan: Long-term problem unlikely to change. As to her cardiac and medical issues. Coding Level of Care Code Est Pt Level 4 (11485) Diagnoses S/P TAVR (transcatheter aortic valve replacement) Z95.2 Chronic systolic (congestive) heart failure I50.22 PAF (paroxysmal atrial fibrillation) I48.0 Ventricular tachycardia I47.2 Biventricular ICD (implantable cardioverter-defibrillator) in place Z95.810 Morbid obesity E66.01 CPT Codes EKG - CPT: 99134-[id number], Complete ([id number])
[2022-12-18 09:15] VITALS: BP 116/64; PULSE 87
== END 2022-12-18 09:38 | disposition home or self-care (01) ==
PROVIDERS: PCP Internal Medicine; Visit Provider Internal Medicine
DX: Z95.2 Presence of prosthetic heart valve (principal); I50.22 Chronic systolic (congestive) heart failure; I48.0 Paroxysmal atrial fibrillation; I47.20 Ventricular tachycardia, unspecified; Z95.810 Presence of automatic (implantable) cardiac defibrillator; E66.01 Morbid (severe) obesity due to excess calories
CPT/HCPCS: 93010; 99214

== ENCOUNTER → 2022-12-18 07:53 | Outpatient (BNVA) | payer MEDICARE, SELFPAY | PROVIDERS: PCP Internal Medicine; Visit Provider Internal Medicine | DX: I50.22 Chronic systolic (congestive) heart failure (principal); I48.0 Paroxysmal atrial fibrillation; I47.20 Ventricular tachycardia, unspecified; E66.01 Morbid (severe) obesity due to excess calories; R19.7 Diarrhea, unspecified; R79.89 Other specified abnormal findings of blood chemistry; R10.84 Generalized abdominal pain; Z95.2 Presence of prosthetic heart valve; Z95.810 Presence of automatic (implantable) cardiac defibrillator; Z68.41 Body mass index [BMI] 40.0-44.9, adult | CPT/HCPCS: 93005; 99212 ==

== ENCOUNTER → 2022-12-27 23:59 | Outpatient (BNV) | payer MEDICARE, SELFPAY ==
--- NOTE | 2023-01-07 09:01 | A.OFFVIS_ITS ---
Intake Intake Visit Reasons: Remote CardioMEMS Check- [facility] Allergies bees Allergy (Unknown, Verified 12/18/22 09:14) angioedema ibuprofen [From MOTRIN] Allergy (Unknown, Verified 12/18/22 09:14) RASH [facility] Medical History Ankle pain, chronic Annual physical exam Arthritis Biventricular ICD (implantable cardioverter-defibrillator) in place Cataract (lens) fragments in eye following cataract surgery, bilateral Chronic kidney disease CKD (chronic kidney disease) stage 4, GFR 15-29 ml/min Claudication Edema Gout Morbid obesity PAF (paroxysmal atrial fibrillation) Type 2 diabetes mellitus with unspecified complications Ventricular tachycardia Surgical History History of tonsillectomy History of partial thyroidectomy Hx of cholecystectomy S/P TAVR (transcatheter aortic valve replacement) Family History Father CVD (cardiovascular disease) Mother No problems noted. Sister Cancer Son No problems noted. Sister Leukemia Son No problems noted. Son No problems noted. Daughter No problems noted. Brother No problems noted. Brother No problems noted. Brother No problems noted. Social History Household Members: Spouse Housing: Apartment Alcohol intake: never Patient Tobacco Use Status: Never used Tobacco e-Cigarette/Vaping Use: Never Used Current occupational status: retired Cognitive needs: No Hearing needs: No Vision needs: No Office Procedures Cardiac Device Check Cardiac Device Check Details: Monitoring period dates: 11/22/22 - 12/21/22 Optimal PA pressure range: PAD goal 23 mmhg Procedure code: 55180 BACKGROUND: Ebonie is implanted with the CardioMEMS PA Sensor.? I use this technology to monitor PA pressures on a weekly basis to ensure patients are within their optimal range to prevent decompensation.? SUMMARY:? I utilized the remote monitoring platform ([employer]) to set optimal targets for pulmonary artery pressure thresholds as part of acute and chronic management of patient?s heart failure. During the period indicated above, I monitored the patient?s pulmonary artery pressures weekly via trend analysis and notification reports which provide alerts when patient?s PA pressures were outside of range to prompt immediate action in medication changes and communications.? The weekly reports are archived in the [facility] system which serve as a parallel record to document weekly PA pressures, medication changes, and clinical notes. I have reviewed readings on 11/25, 12/02, 12/08, 12/15, 12/18. PAD ranged 18-27 mmhg. Medication adjustments made as needed. No HF admissions. 87666 - Remote monitoring of wireless pulmonary artery pressure sensor Procedure code (CPT) selection complete Coding Level of Care Code Procedure Only CPT Codes Cardiac Device Check - Cardiac Device 17: 17756 - Remote monitoring of wireless pulmonary artery pressure sensor ([id number])
== END ==
PROVIDERS: PCP Internal Medicine; Visit Provider Nurse Practitioner Family
DX: I50.9 Heart failure, unspecified (principal); Z95.818 Presence of other cardiac implants and grafts
CPT/HCPCS: 93264

== ENCOUNTER 2023-01-01 12:33 | Outpatient (REF) | payer MEDICARE, SELFPAY | END 2023-01-01 12:34 | disposition home or self-care (01) | LOC: HO.HMGCLDS 12:33 | PROVIDERS: PCP Internal Medicine; Visit Provider Internal Medicine | DX: R30.0 Dysuria (principal) | CPT/HCPCS: 87086; 87088; 87186 ==

== ENCOUNTER → 2023-01-27 23:59 | Outpatient (BNV) | payer MEDICARE, SELFPAY ==
--- NOTE | 2023-02-21 15:34 | MHC.OFFVIS ---
Intake Intake Visit Reasons: Remote CardioMEMS Check- [facility] Allergies bees Allergy (Unknown, Verified 02/07/23 08:30) angioedema ibuprofen [From MOTRIN] Allergy (Unknown, Verified 02/07/23 08:30) RASH [facility] Medical History Dysuria Hypokalemia Diarrhea Elevated LFTs Skin abnormality Preop cardiovascular exam Acute bronchitis Shortness of breath Cataract (lens) fragments in eye following cataract surgery, bilateral CKD (chronic kidney disease) stage 4, GFR 15-29 ml/min Annual physical exam Claudication Gout Arthritis Ankle pain, chronic Edema Type 2 diabetes mellitus with unspecified complications Morbid obesity Chronic kidney disease PAF (paroxysmal atrial fibrillation) Biventricular ICD (implantable cardioverter-defibrillator) in place Ventricular tachycardia Surgical History History of tonsillectomy History of partial thyroidectomy Hx of cholecystectomy S/P TAVR (transcatheter aortic valve replacement) Family History Father CVD (cardiovascular disease) Mother No problems noted. Sister Cancer Son No problems noted. Sister Leukemia Son No problems noted. Son No problems noted. Daughter No problems noted. Brother No problems noted. Brother No problems noted. Brother No problems noted. Social History Household Members: Spouse Housing: Apartment Alcohol intake: never Patient Tobacco Use Status: Never used Tobacco e-Cigarette/Vaping Use: Never Used Advance Directives Date on File: 10/23/22 Current occupational status: retired Cognitive needs: No Hearing needs: No Vision needs: No Office Procedures Cardiac Device Check Cardiac Device Check Details: Monitoring period dates: 12/22/22 - 01/21/23 Optimal PA pressure range: PAD goal 23 mmhg Procedure code: 04575 BACKGROUND: Ebonie is implanted with the CardioMEMS PA Sensor.? I use this technology to monitor PA pressures on a weekly basis to ensure patients are within their optimal range to prevent decompensation.? SUMMARY:? I utilized the remote monitoring platform ([employer]) to set optimal targets for pulmonary artery pressure thresholds as part of acute and chronic management of patient?s heart failure. During the period indicated above, I monitored the patient?s pulmonary artery pressures weekly via trend analysis and notification reports which provide alerts when patient?s PA pressures were outside of range to prompt immediate action in medication changes and communications.? The weekly reports are archived in the [employer] system which serve as a parallel record to document weekly PA pressures, medication changes, and clinical notes. I have reviewed readings on 12/27, 01/03, 01/07, 01/14, 01/20. PAD has ranged 20-24mmhg. Stable. 76410 - Remote monitoring of wireless pulmonary artery pressure sensor Procedure code (CPT) selection complete Assessment & Plan Assessment & Plan (1) Presence of CardioMEMS HF system: Comment: 09/06/2021 Code(s): Z95.818 - Presence of other cardiac implants and grafts Plan: monthly report - december Coding Level of Care Code Procedure Only Diagnoses Presence of CardioMEMS HF system Z95.818 CPT Codes Cardiac Device Check - Cardiac Device 17: 25285 - Remote monitoring of wireless pulmonary artery pressure sensor ([id number])
== END ==
PROVIDERS: PCP Internal Medicine; Visit Provider Nurse Practitioner Family
DX: I50.9 Heart failure, unspecified (principal); Z95.818 Presence of other cardiac implants and grafts
CPT/HCPCS: 93264

== ENCOUNTER 2023-02-02 14:49 | Emergency (ER) | payer MEDICARE, SELFPAY ==
[2023-02-02] VITALS (8 sets, daily range): BP systolic 110–128; BP diastolic 59–81; PULSE 69–87; RESP 16–20; TEMP 36.5–36.6; O2SAT 96–98; BMI 45.0
--- NOTE | ~2023-02-02 | CT_ITS ---
EXAMINATION: CT HEAD WITHOUT CONTRAST CLINICAL INFORMATION: Dizziness. COMPARISON: None available. TECHNIQUE: Contiguous axial imaging was performed from the skull base to vertex without intravenous administration of contrast. This CT examination was performed using dose optimization techniques as appropriate, variously including the following: *Automated exposure control *Adjustment of mA and/or kV according to patient size (this includes techniques or standardized protocols for targeted exams where dose is matched to indication/reason for exam; i.e. extremities or head) *Use of iterative reconstruction technique DLP: 636 mGy-cm FINDINGS: Mild diffuse commensurate prominence of ventricles and sulci is noted. No intrarenal hemorrhage, tumors or acute infarcts visualized. Mild subcortical and periventricular white matter patchy hypodensities are visualized consistent with chronic microangiopathic ischemic changes. Focal encephalomalacia is present in the head of the right caudate nucleus consistent with a chronic lacunar infarct. Dense segmental calcific atherosclerosis of the cavernous portions of the internal carotid arteries and focal calcific atherosclerosis within the intradural segment of the right vertebral artery. The orbits and globes are normal in appearance aside from bilateral ocular lens extractions. No significant opacification of the visualized paranasal sinuses, mastoid air cells and middle ear cavities. CT/CT head/brain wo IV con IMPRESSION: 1. No acute intracranial abnormalities. 2. Mild white matter chronic microangiopathic ischemic changes and chronic lacunar infarct of the head of the right caudate nucleus.
--- NOTE | ~2023-02-02 | XR_ITS ---
EXAMINATION: XR CHEST CLINICAL INFORMATION: Dizziness. COMPARISON: Chest x-ray 07/02/2021. TECHNIQUE: 2 views of the chest were obtained. FINDINGS: TAVR Left subclavian pacer with leads in the right atrium, right ventricle, and coronary sinus. CardioMEMS device. The cardiomediastinal silhouette is stable. Mild vascular congestion without overt edema. No consolidation. No effusion or pneumothorax. Degenerative changes in the shoulders and spine. XR/XR chest 2V IMPRESSION: Vascular congestion without overt pulmonary edema.
--- NOTE | 2023-02-02 15:02 | ED.GENADULT ---
HPI - General Adult General Chief complaint: Dizziness Stated complaint: Dizziness Time Seen by Provider: 02/02/23 16:19 Source: patient and family Mode of arrival: ambulatory History of Present Illness HPI narrative: 72-year-old female presents with an isolated episode lightheadedness when and she got up and walked to the bathroom and then out to the living room to sit in her recliner with some residual lightheadedness after sitting down but then quickly resolved. Patient states she is continue taking her prescribed medications as directed, she denies any associated shortness of breath/chest pain / palpitations with this event and she reports that her lightheadedness has completely resolved and that she did not experience any symptoms during orthostatics. She denies any recent medication changes or new medications and denies any GI or symptoms. Related Data Home Medications Medication Instructions Recorded Confirmed metolazone 2.5 mg tablet mg PO 12/18/22 12/18/22 Previous Rx's Medication Instructions Recorded walker #1 ea 02/03/20 miscellaneous medical supply See Rx Instructions miscellaneous 01/23/21 .COMPLEX #1 ea mupirocin 2 % topical ointment 1 appl topical BID #66 grams 04/23/21 dulaglutide 3 mg/0.5 mL 3 mg (0.5 mL) subcut QWEEK #6 mL 11/02/21 subcutaneous pen injector (Trulicity) torsemide 20 mg tablet 60 mg (3 x 20 mg) PO DAILY 90 days 03/29/22 #270 tabs fluticasone propionate 230 2 puff inhalation BID #36 grams 04/03/22 mcg-salmeterol 21 mcg/actuation HFA inhaler (Advair HFA) blood sugar diagnostic (FreeStyle #300 ea 04/10/22 Lite Strips) allopurinol 100 mg tablet 200 mg (2 x 100 mg) PO DAILY #180 04/25/22 tabs levothyroxine 175 mcg tablet 175 mcg PO QAM #90 tabs 04/25/22 rosuvastatin 20 mg tablet (Crestor) 20 mg PO DAILY #90 tabs 05/20/22 pen needle, diabetic 31 gauge x 1 ea subcut DIRECTED #300 caps 07/09/22/16 (BD Ultra-Fine Mini Pen Needle) dapagliflozin propanediol 10 mg 10 mg PO DAILY #90 tabs 07/10/22 tablet (Farxiga) colchicine (gout) 0.6 mg tablet 0.6 mg PO BID #180 tabs 08/23/22 (Colcrys) apixaban 5 mg tablet (Eliquis) 5 mg PO BID #60 tabs 10/21/22 carvedilol 3.125 mg tablet 3.125 mg PO BID #180 tabs 10/21/22 flash glucose sensor (FreeStyle #2 ea 10/23/22 Silvestre 14 Day Sensor kit) potassium chloride 20 mEq 60 meq (3 x 20 mEq) PO DAILY 90 11/12/22 tablet,extended release(part/cryst) days #270 tabs diphenoxylate-atropine 2.5 1 tab PO TID PRN diarrhea #60 tabs 11/13/22 mg-0.025 mg tablet (Lomotil) methylcellulose (laxative) 500 mg 500 mg PO BID #60 tabs 11/20/22 tablet (Citrucel) pantoprazole 40 mg tablet,delayed 40 mg PO DAILY #30 tabs 11/20/22 release insulin aspart U-100 100 unit/mL 18 unit (0.18 mL) subcut TID #45 mL 11/27/22 (3 mL) subcutaneous pen (Novolog FlexPen U-100 Insulin aspart) sucralfate 1 gram tablet 1 g PO BEDTIME #30 tabs 12/18/22 acetaminophen 650 mg 650 mg PO Q8H PRN pain #270 tabs 12/19/22 tablet,extended release (Tylenol 8 Hour) insulin glargine 100 unit/mL (3 80 unit (0.8 mL) subcut DAILY #72 12/30/22 mL) subcutaneous pen (Basaglar mL KwikPen U-100 Insulin) ciprofloxacin HCl 250 mg tablet 250 mg PO DAILY #7 tabs 01/01/23 spironolactone 25 mg tablet 25 mg PO QAM #90 tabs 01/20/23 Allergies Allergy/AdvReac Type Severity Reaction Status Date / Time bees Allergy Unknown angioedema Verified 12/18/22 09:14 ibuprofen [From MOTRIN] Allergy Unknown RASH Verified 12/18/22 09:14 Review of Systems Review of Systems: pertinent positives and negatives as stated in [facility] Past Medical History Source: nursing notes reviewed Medical History Dysuria Hypokalemia Diarrhea Elevated LFTs Skin abnormality Preop cardiovascular exam Acute bronchitis Shortness of breath Cataract (lens) fragments in eye following cataract surgery, bilateral CKD (chronic kidney disease) stage 4, GFR 15-29 ml/min Annual physical exam Claudication Gout Arthritis Ankle pain, chronic Edema Type 2 diabetes mellitus with unspecified complications Morbid obesity Chronic kidney disease PAF (paroxysmal atrial fibrillation) Biventricular ICD (implantable cardioverter-defibrillator) in place Ventricular tachycardia Surgical History History of tonsillectomy History of partial thyroidectomy Hx of cholecystectomy S/P TAVR (transcatheter aortic valve replacement) Family History Family History Father CVD (cardiovascular disease) Mother No problems noted. Sister Cancer Son No problems noted. Sister Leukemia Son No problems noted. Son No problems noted. Daughter No problems noted. Brother No problems noted. Brother No problems noted. Brother No problems noted. Social History Social History Household Members: Spouse Housing: Apartment Alcohol intake: never Patient Tobacco Use Status: Never used Tobacco Smoked in Last 30 Days: No e-Cigarette/Vaping Use: Never Used Use of substances other than those prescribed or required for medical reasons: No Advance Directives: Yes Advance Directives on File: Yes Advance Directives Date on File: 10/23/22 Current occupational status: retired Cognitive needs: No Hearing needs: No Vision needs: No Physical Exam ED Vital Signs: Vital Signs - 24 hr 02/02/23 15:03 02/02/23 15:34 02/02/23 16:13 Temperature 97.7 F Pulse Rate 78 77 82 Respiratory Rate 18 16 Blood Pressure 115/69 120/81 128/67 Pulse Oximetry 97 96 Oxygen Delivery Method Room Air Room Air 02/02/23 16:14 02/02/23 16:52 02/02/23 16:53 Temperature Pulse Rate 77 76 87 Respiratory Rate Blood Pressure 121/76 128/67 110/67 Pulse Oximetry Oxygen Delivery Method 02/02/23 16:53 02/02/23 16:55 Temperature Pulse Rate 81 81 Respiratory Rate 20 Blood Pressure 111/59 L 111/59 L Pulse Oximetry 98 Oxygen Delivery Method Room Air BMI result Body Mass Index 45.0 VITAL SIGNS: Reviewed. GENERAL: elevated BMI,Well developed, well nourished, in no acute distress. HEAD: Normocephalic/atraumatic EYES: PERRLA, EOMI EARS: Ext canals without abnormality, TMs non-bulging and non-erythematous NOSE: Nares patent bilateral OROPHARYNX: no oral lesions noted, posterior pharynx clear NECK: Supple, no adenopathy LUNGS: Normal breath sounds, there are no rales and no tachypnea. SpO2<98> CARDIOVASCULAR: Regular rate and rhythm without noted murmurs, no JVD, trace lower extremity edema. ABDOMEN: Soft, non-tender, non-distended with bowel sounds. MUSCULOSKELETAL: No tenderness, deformities, or effusions noted on gross inspection. EXTREMITIES: No cyanosis, clubbing or edema. SKIN: Inspection of the skin reveals no rashes NEUROLOGIC: Alert and oriented x 4. Strength and sensation to light touch were grossly intact x 4 , cranial nerves 2-12 are grossly intact. Course Course Course Narrative: RME performed by Lisa Chun PA-C. Patient is a 72 year old assigned female at presenting to the emergency department with dizziness. Labs, imaging, and swabs ordered. Patient placed back in the waiting room pending room availability and results. Medical Decision Making Medical Decision Making MDM Narrative: 72-year-old female with history and clinical presentation, DDX: infection, anemia, electrolyte abnormality, CHF, cardiac issue, Patient is otherwise nonfocal and no clinical suspicion for stroke like this etiology I reviewed all investigations and hematologic indices are negative for leukocytosis or left shift and patient has a chronically low thrombocytopenia, no anemia. Coagulation studies reflect current chronic anticoagulation with PT- 15.5 and INR-1.3. Chemistry indices demonstrate chronically stable CKD without electrolyte or new liver enzyme derangements. Patient has a chronic elevation of total bilirubin and AST. I sensitivity troponin is 80.7 by it patient is not experiencing chest pain, there are no acute findings on EKG in suspect that this is underlying elevation secondary to mild fluid overload in combination with exertion. urinalysis is dirty and no suspicion for UTI or hematuria and patient denies symptoms. CT of the head does not show any acute intracranial abnormalities. Chest x-ray does not show infiltrate but does demonstrate vascular congestion without overt pulmonary edema. In regards to the latter findings I do not appreciate on clinical exam acute exacerbation, there are no bibasilar rales, there is no significant lower extremity edema, patient has no complaints of shortness of breath and she is not noted to demonstrate any hypoxia. My interpretation is that patient experienced some postural lightheadedness due to a balance between fluid intake and the significant diuresis that she is currently undergoing she is otherwise discharged completely asymptomatic and I do note that patient has serial flat troponins but she does not have any chest pain she is otherwise asymptomatic and suspect that this is baseline elevation as there are no acute changes on EKG and there are no priors for comparison. She was provided with strict return precautions and strongly encouraged to follow-up with cardiology 1st thing in the morning. Differential Diagnosis Differential Diagnoses: The differential diagnosis associated with the presentation includes please see the discussion above Admission/Observation Consideration of admission/observation: Escalation of care including admission/observation considered please see the discussion above Lab Data MDM Lab Attestation statement: I reviewed the patient's lab results. Please see the discussion above 02/02/23 15:50 02/02/23 15:50 Labs: Lab Results 02/02/23 02/02/23 02/02/23 Range/Units 15:49 15:50 16:46 WBC 4.8 (4.8-10.8) X10*3/uL RBC 3.74 L (4.20-5.50) X10*6/uL Hgb 13.3 (12.0-16.0) g/dl Hct 39.1 (37.0-47.0) % MCV 104.5 H (80.0-98.0) fL MCH 35.6 H (27.0-33.0) pg MCHC 34.0 (31.0-35.0) g/dl RDW 15.6 (11.0-16.0) % Plt Count 58 L D (160-400) X10*3/uL MPV 10.7 (9.4-12.3) fL Immature Gran % (Auto) 0.2 (0.0-0.4) % Neut % (Auto) 49.4 (45-73) % Lymph % (Auto) 23.8 (20-40) % [place] % (Auto) 18.1 H (2-11) % Eos % (Auto) 7.7 H (0-4) % Baso % (Auto) 0.8 (0-2) % Lymph # (Auto) 1.1 L (1.2-4.9) X10*3/uL [place] # (Auto) 0.9 (0.1-1.2) X10*3/uL Eos # (Auto) 0.4 (0.0-0.4) X10*3/uL Baso # (Auto) 0.0 (0.0-0.2) X10*3/uL Abs Immat Gran (auto) 0.01 (0.00-0.03) X10*3/uL Absolute Neuts (auto) 2.4 (2.0-8.3) x10*3/uL Absolute Nucleated RBC 0.000 (0.0-0.012) X10*3/uL Nucleated RBC % (auto) 0.0 (0.0-0.2) /100WBC PT 15.5 H (11.1-13.3) SEC INR 1.3 H (0.9-1.1) APTT 33.9 (26.0-36.4) SEC Sodium 139 (135-145) mmol/L Potassium 3.6 (3.3-5.1) mmol/L Chloride 97 (96-108) mmol/L Carbon Dioxide 30 H (22-29) mmol/L Anion Gap 16 (12-20) BUN 23 H (9-16) mg/dL Creatinine 1.78 H (0.5-1.4) mg/dL Estim Creat Clear Calc 37.3 Estimated GFR 28 Random Glucose 220 H (60-115) mg/dL Calcium 8.7 (8.4-10.2) mg/dL Magnesium 1.8 (1.6-2.6) mg/dL Total Bilirubin 1.2 H (0.0-1.0) mg/dL AST 55 H (5-31) U/L ALT 25 (0-31) U/L Alkaline Phosphatase 214 H (39-117) U/L Troponin I High Sens 80.7 H* (<3.5-17.0) ng/L B-Natriuretic Peptide 623 H (<100) pg/mL Total Protein 6.2 L (6.5-8.0) g/dL Albumin 3.1 L (3.5-5.0) g/dL Urine Color Yellow Urine Appearance Clear Urine pH 6.0 (5.0-9.0) Ur Specific [place] 1.010 (1.005-1.025) Urine Protein Negative (Neg-Trace) mg/dL Urine Glucose (UA) >=1000 H (Negative) mg/dL Urine Ketones Negative (Negative) mg/dL Urine Blood Negative (Negative) Urine Nitrite Negative (Negative) Ur Leukocyte Esterase Small (1+) H (Negative) Urine RBC 0-2 (0-2) /HPF Urine WBC 11-20 H (0-5) /HPF Ur Squamous Epith Cells 6-10 (0-2) /HPF Urine Bacteria 1+ (None Seen) Hyaline Casts 0-2 (0-2) /LPF Influenza Type A (PCR) NEGATIVE (Negative) Influenza Type B (PCR) NEGATIVE (Negative) RSV RNA Qual (PCR) NEGATIVE (Negative) SARS-CoV-2 RNA (RT-PCR) NEGATIVE (Negative) Independent Interpretation I performed an independent interpretation of an: EKG Interpretation: atrial sensed ventricular paced rhythm, HR- 76, no evidence to suggest STEMI, MN within normal limits, QRS - 132 and QTC-510. Radiology Impression Discussion of test interpretation with radiology: I have reviewed the radiologist's reading. Radiologist Impression: Please see the discussion above External Record Review External record reviewed: Outpatient record, Prior outpatient labs and Prior outpatient radiology Chronic Conditions Patient?s care impacted by: Hypertension and Other CHF, CKD, paroxysmal atrial fibrillation Critical Care Time Critical Care Time Critical Care Time: Yes Total Critical Care Time: 45 Attestation: I personally attest to this time spent taking care of the patient. Discharge Plan Discharge Clinical Impression: Light-headedness Patient Disposition: Home, Self-Care Instructions: Lightheadedness (ED) Additional Instructions: 1. Resume all home medications as prescribed. 2. Tried about staying well hydrated with the need to also keep additional fluid removed. 3. Please follow-up with a packing machine inspector by calling the office 1st thing in the morning. Do not hesitate to return for any worsening symptoms. Prescriptions: No Action (DME) walker Misc See Rx Instructions .ROUTE .MEDSUPPLY Qty: 1 0RF Rx Instructions: 2 wheels and 2 flat feet miscellaneous medical supply Misc See Rx Instructions miscellaneous .COMPLEX Qty: 1 0RF Rx Instructions: electric scooter mupirocin 2 % ointment 1 appl topical BID Qty: 66 3RF Trulicity 3 mg/0.5 mL pen injector 3 mg subcut QWEEK Qty: 6 3RF torsemide 20 mg tablet 60 mg PO DAILY 90 Days Qty: 270 3RF Advair HFA 230-21 mcg/actuation HFA aerosol inhaler 2 puff inhalation BID Qty: 36 3RF (DME) FreeStyle Lite Strips Strip See Rx Instructions .ROUTE .MEDSUPPLY Qty: 300 3RF Rx Instructions: test 3 times a day DX E11.9 levothyroxine 175 mcg tablet 175 mcg PO QAM Qty: 90 3RF allopurinol 100 mg tablet 200 mg PO DAILY Qty: 180 3RF rosuvastatin [Crestor] 20 mg tablet 20 mg PO DAILY Qty: 90 3RF pen needle, diabetic [BD Ultra-Fine Mini Pen Needle] 31 gauge x 3/16 needle 1 ea subcut DIRECTED Qty: 300 3RF Rx Instructions: Use to inject insulin 4 times per day Farxiga 10 mg tablet 10 mg PO DAILY Qty: 90 3RF colchicine (gout) [Colcrys] 0.6 mg tablet 0.6 mg PO BID Qty: 180 1RF carvedilol 3.125 mg tablet 3.125 mg PO BID Qty: 180 11RF Eliquis 5 mg tablet 5 mg PO BID Qty: 60 11RF potassium chloride 20 mEq tablet,ER particles/crystals 60 meq PO DAILY 90 Days Qty: 270 3RF diphenoxylate-atropine [Lomotil] 2.5-0.025 mg tablet 1 tab PO TID PRN (Reason: diarrhea) Qty: 60 0RF insulin aspart U-100 [Novolog FlexPen U-100 Insulin] 100 unit/mL (3 mL) insulin pen 18 unit subcut TID Qty: 45 3RF Rx Instructions: before meals acetaminophen [Tylenol 8 Hour] 650 mg tablet extended release 650 mg PO Q8H PRN (Reason: pain) Qty: 270 3RF Basaglar KwikPen U-100 Insulin 100 unit/mL (3 mL) insulin pen 80 unit subcut DAILY Qty: 72 3RF ciprofloxacin HCl 250 mg tablet 250 mg PO DAILY Qty: 7 0RF spironolactone 25 mg tablet 25 mg PO QAM Qty: 90 3RF (DME) FreeStyle Silvestre 14 Day Sensor Kit See Rx Instructions .Route Qty: 2 5RF Rx Instructions: As directed metolazone 2.5 mg tablet PO sucralfate 1 gram tablet 1 g PO BEDTIME Qty: 30 4RF Citrucel 500 mg tablet 500 mg PO BID Qty: 60 2RF pantoprazole 40 mg tablet,delayed release (DR/EC) 40 mg PO DAILY Qty: 30 2RF Rx Instructions: take one tablet half an hour before breakfast Referrals: Zainab Pritchard MD [Primary Care Provider] - Angel Calhoun MD [Physician] -
--- NOTE | 2023-02-02 15:04 | ECG_ITS ---
Test Reason : DIZZINESS Blood Pressure : / mmHG Vent. Rate : 076 BPM Atrial Rate : 076 BPM P-R Int : 162 ms QRS Dur : 132 ms QT Int : 454 ms P-R-T Axes : 061 -83 156 degrees QTc Int : 510 ms Atrial-sensed ventricular-paced rhythm Abnormal ECG When compared with ECG of 05-AUG-2006 06:33, Electronic ventricular pacemaker has replaced Sinus rhythm Referred By: Lisa Chun Electronically Signed By:RUBY HENDRIX MD
--- NOTE | 2023-02-02 15:29 | PC.NURSE ---
Pt states she has been feeling dizzy since this AM; states she has to lay on a machine at night that measures my fluids and reports it to the doctors . Pt states when turning in the bed, she felt dizzines that would not go away. Pt states she has a defibrillator pacemaker s/p Afib dx. Pt has no c/o SOB and denies chest pain. No edema assessed in LE bilaterally. Fine crackles heard in base of left lung, otherwise clear throughout. Pt states she does not stand for long periods of time, and this is baseline for her.
[2023-02-02 15:54] LABS: MANUAL DIFF FLAG NO
[2023-02-02 15:58] LABS: Basophils Percent Auto 0.8 % (0-2); Eosinophils Absolute Auto 0.4 X10*3/uL (0.0-0.4); Eosinophils Percent Auto 7.7 % (0-4); Hematocrit 39.1 % (37.0-47.0); Hemoglobin 13.3 g/dl (12.0-16.0); Imm Gran Abs Auto 0.01 X10*3/uL (0.00-0.03); Imm Gran Pct Auto 0.2 % (0.0-0.4); Lymphocytes Absolute Auto 1.1 X10*3/uL (1.2-4.9); Lymphocytes Percent Auto 23.8 % (20-40); Mean Corpuscular Hemoglobin 35.6 pg (27.0-33.0); Mean Corpuscular Volume 104.5 fL (80.0-98.0); Mean Platelet Volume 10.7 fL (9.4-12.3); Monocytes Absolute Auto 0.9 X10*3/uL (0.1-1.2); Monocytes Percent Auto 18.1 % (2-11); Neutrophils Absolute Auto 2.4 x10*3/uL (2.0-8.3); Neutrophils Percent Auto 49.4 % (45-73); Red Blood Count 3.74 X10*6/uL (4.20-5.50); Red Cell Distribution Width 15.6 % (11.0-16.0); White Blood Count 4.8 X10*3/uL (4.8-10.8)
[2023-02-02 15:59] LABS: Platelet Count 58 X10*3/uL (160-400)
[2023-02-02 16:06] LABS: INTERNATIONAL NORM RATIO 1.3 (0.9-1.1); Prothrombin Time 15.5 SEC (11.1-13.3)
[2023-02-02 16:09] LABS: Partial Thromboplastin Time 33.9 SEC (26.0-36.4)
[2023-02-02 16:18] LABS: Alanine Aminotransferase 25 U/L (0-31); Albumin Level 3.1 g/dL (3.5-5.0); Alkaline Phosphatase 214 U/L (39-117); Anion Gap 16 (12-20); Aspartate Amino Transferase 55 U/L (5-31); Bilirubin Total 1.2 mg/dL (0.0-1.0); Blood Urea Nitrogen 23 mg/dL (9-16); Calcium 8.7 mg/dL (8.4-10.2); Carbon Dioxide 30 mmol/L (22-29); Chloride 97 mmol/L (96-108); Creatinine Clr Calc Pharmacy 37.3; Estimated Glomerular Filt Rate 28; Glucose Random 220 mg/dL (60-115); Magnesium 1.8 mg/dL (1.6-2.6); Potassium 3.6 mmol/L (3.3-5.1); Sodium 139 mmol/L (135-145); Total Protein 6.2 g/dL (6.5-8.0)
[2023-02-02 16:22] LABS: B Type Natriuretic Peptide 623 pg/mL (<100)
[2023-02-02 16:29] LABS: Troponin-I High Sensitivity 80.7 ng/L (<3.5-17.0)
[2023-02-02 16:42] LABS: Influenza A PCR NEGATIVE (Negative); Influenza B PCR NEGATIVE (Negative); Resp Syncy Virus RNA Qual PCR NEGATIVE (Negative); SARS COV2 PCR INHOUSE NEGATIVE (Negative)
[2023-02-02 16:55] LABS: Appearance Urine Clear; Color Urine Yellow; Glucose Urine UA >=1000 mg/dL (Negative); Leukocyte Esterase Urine Small (1+) (Negative); Nitrite Urine Negative (Negative); UMIC TRIGGER UACC YES; Urine Blood Negative (Negative); Urine Ketones Negative (Negative); Urine Protein Negative (Neg-Trace)
[2023-02-02 16:58] LABS: Bacteria Urine 1+ (None Seen); Hyaline Casts Urine 0-2 /LPF (0-2); RBC Urine 0-2 /HPF (0-2); UACC Culture Trigger YES
[2023-02-02 18:53] LABS: Troponin-I High Sensitivity 79.9 ng/L (<3.5-17.0)
== END 2023-02-02 19:21 | disposition home or self-care (01) ==
PROVIDERS: Physician Assistant Medical; Emergency Provider Student in an Organized Health Care Education/Training Program; PCP Internal Medicine
DX: R42 Dizziness and giddiness (principal); R06.02 Shortness of breath; E11.22 Type 2 diabetes mellitus with diabetic chronic kidney disease; I13.0 Hypertensive heart and chronic kidney disease with heart failure and stage 1 through stage 4 chronic kidney disease, or unspecified chronic kidney disease; N18.4 Chronic kidney disease, stage 4 (severe); I50.9 Heart failure, unspecified; Z20.822 Contact with and (suspected) exposure to COVID-19; Z20.828 Contact with and (suspected) exposure to other viral communicable diseases; I48.0 Paroxysmal atrial fibrillation; Z95.2 Presence of prosthetic heart valve; Z79.4 Long term (current) use of insulin; Z79.899 Other long term (current) drug therapy
CPT/HCPCS: 0241U; 36415; 70450; 71046; 80053; 81001; 83735; 83880; 84484; 85025; 85610; 85730; 87086; 93005; 99284; 99285

== ENCOUNTER 2023-02-07 08:25 | Outpatient (AMB) | payer MEDICARE, SELFPAY ==
[2023-02-07 08:27] VITALS: BP 113/87; PULSE 87; BMI 45.4
--- NOTE | 2023-02-07 08:27 | A.OFFVIS_ITS ---
Intake Vital Signs 02/07/23 08:27 Height 5 ft 4 in Weight 264 lb 8.875 oz BMI 45.4 BP 113/87 Blood Pressure Location Rt brachial Position Sitting Pulse 87 Pulse Source Pulse Oximeter Intake Visit Reasons: 2 month follow up Intake Note: Pt presents to the office today for a 2 month follow up. Pt states her abdominal pain has been doing a lot better and isnt as bad as it was. Pt denies any other GI concerns at this time. Allergies bees Allergy (Unknown, Verified 02/07/23 08:30) angioedema ibuprofen [From MOTRIN] Allergy (Unknown, Verified 02/07/23 08:30) RASH HPI 2 month follow up HPI Details LAST VISIT: Diarrhea Patient tested and of October and came back positive for norovirus again. Patient states that her diarrhea subsided. Feeling better. Continue drinking fluids weigh. Making sure the patient watches her hands and sanitizes bathroom after using to prevent spreading of the virus Elevated LFTs Improved liver functions. Patient was encouraged to lose weight eat food low in fat. Patient is unable to exercise due to her sedentary lifestyle. Will see patient in 2 months, sooner on as needed basis. Patient is agreeable to this plan and verbalizes understanding of instructions. She was given the opportunity to ask questions and all questions answered. ? Thank you for allowing me to participate in her care Abdominal pain Plan Medications New sucralfate 1 g PO BEDTIME 30 tabs 4RF R19.7 Discontinued famotidine (Pepcid) Discontinued Reason: Duplicate 20 mg PO DAILY 90 tabs 0RF TODAY'S VISIT Patient is here today for follow-up. Patient reports that she has been feeling much better now. Her bowels normalized. Patient is using Citrucel twice a day and sucralfate at bedtime. Patient states that she no longer has diarrhea. Patient denies any melena, hematochezia, unintentional weight loss or ribbon like stools. Patient denies any dyspepsia, dysphagia or odynophagia. Patient wants to wait to go for her colonoscopy. Has an appointment with her hot mill tin roller in May and wants to wait till after then. [facility] Medical History Dysuria Hypokalemia Diarrhea Elevated LFTs Skin abnormality Preop cardiovascular exam Acute bronchitis Shortness of breath Cataract (lens) fragments in eye following cataract surgery, bilateral CKD (chronic kidney disease) stage 4, GFR 15-29 ml/min Annual physical exam Claudication Gout Arthritis Ankle pain, chronic Edema Type 2 diabetes mellitus with unspecified complications Morbid obesity Chronic kidney disease PAF (paroxysmal atrial fibrillation) Biventricular ICD (implantable cardioverter-defibrillator) in place Ventricular tachycardia Surgical History History of tonsillectomy History of partial thyroidectomy Hx of cholecystectomy S/P TAVR (transcatheter aortic valve replacement) Family History Father CVD (cardiovascular disease) Mother No problems noted. Sister Cancer Son No problems noted. Sister Leukemia Son No problems noted. Son No problems noted. Daughter No problems noted. Brother No problems noted. Brother No problems noted. Brother No problems noted. Social History Household Members: Spouse Housing: Apartment Alcohol intake: never Patient Tobacco Use Status: Never used Tobacco e-Cigarette/Vaping Use: Never Used Advance Directives Date on File: 10/23/22 Current occupational status: retired Cognitive needs: No Hearing needs: No Vision needs: No Physical Exam Vital Signs: Last Vital Signs Pulse 87 02/07/23 08:27 BP 113/87 02/07/23 08:27 BMI result Body Mass Index 45.4 Const Other: In the wheelchair General: healthy appearing and no acute distress Nutritional Appearance: obese Orientation/consciousness: patient oriented x3 HEENT Head: Yes normal to inspection, Yes normocephalic and Yes atraumatic Face and sinus: Yes normal facial exam Mouth: Normal oral and palatal mucosa present Throat: Yes posterior oropharynx normal, Yes tonsils normal and Yes uvula midline Eyes General: appearance normal, both eyes and all related structures Neck Neck: Yes normal visual inspection, Yes full ROM and Yes trachea midline Thyroid: Thyroid normal Resp Effort & Inspection: normal respiratory effort, able to speak in complete sentences, no tracheal deviation and symmetric chest movement Auscultation: clear to auscultation bilaterally Cardio Rate: regular rate Heart sounds: S1 normal heart sound present and S2 normal heart sound present GI Other: Small umbilical hernia, no pain no tenderness Inspection: Yes normal to inspection, No distended and Yes obesity Palpation (GI): Soft to palpation, not firm, nontender and No hepatosplenomegaly present Auscultation: normal bowel sounds General: Yes no CVA tenderness Back/Spine/Pelvis Back: no CVA tenderness Skin General skin exam: elasticity normal, turgor normal and dry skin Neuro General: patient oriented x3 Psych Appearance: grossly normal Mental Status: mental status grossly normal Assessment & Plan Assessment & Plan (1) Diarrhea: Code(s): R19.7 - Diarrhea, unspecified Qualifiers: Diarrhea type: presumed infectious Qualified Code(s): R19.7 - Diarrhea, unspecified (2) Elevated LFTs: Code(s): R79.89 - Other specified abnormal findings of blood chemistry (3) Abdominal pain: Code(s): R10.9 - Unspecified abdominal pain Qualifiers: Abdominal location: generalized Qualified Code(s): R10.84 - Generalized abdominal pain Plan Continue Pantoprazole in the morning and sucralfate at bedtime. Patient can take Citrucel 1-2 tablets daily. Discussed with patient avoiding dietary triggers. Patient is aware which food causes diarrhea. She will try to stay away from eating food high in fat. Control blood sugars. Small umbilical hernia noted, no tenderness or discomfort. I will see her in 6 months, sooner on as needed basis. Patient is agreeable to this plan and verbalizes understanding of instructions. She was given the opportunity to ask questions and all questions answered. Thank you for allowing me to participate in her care Medications: Refilled pantoprazole take one tablet half an hour before breakfast 40 mg PO DAILY 90 tabs 2RF K21.9 - Gastro-esophageal reflux disease without esophagitis methylcellulose (laxative) (Citrucel) 500 mg PO BID 180 tabs 2RF sucralfate 1 g PO BEDTIME 90 tabs 4RF R19.7 - Diarrhea, unspecified Discontinued diphenoxylate-atropine 2.5-0.025 mg (Lomotil) Discontinued Reason: Patient no longer taking 1 tab PO TID PRN 60 tabs 0RF diarrhea Coding Level of Care Code Est Pt Level 3 (33646) Diagnoses Diarrhea of presumed infectious origin R19.7 Diarrhea type: presumed infectious Elevated LFTs R79.89 Generalized abdominal pain R10.84 Abdominal location: generalized Time Spent (min) 30 Comment 20 minutes spent with patient and additional 10 minutes spent reviewing her records
== END 2023-02-07 08:52 | disposition home or self-care (01) ==
PROVIDERS: PCP Internal Medicine; Visit Provider Nurse Practitioner Family
DX: R19.7 Diarrhea, unspecified (principal); R79.89 Other specified abnormal findings of blood chemistry; R10.84 Generalized abdominal pain
CPT/HCPCS: 99213

== ENCOUNTER → 2023-02-07 08:25 | Outpatient (BNVA) | payer MEDICARE, SELFPAY | PROVIDERS: PCP Internal Medicine; Visit Provider Nurse Practitioner Family | DX: R19.7 Diarrhea, unspecified (principal); R79.89 Other specified abnormal findings of blood chemistry; R10.84 Generalized abdominal pain | CPT/HCPCS: 99212 ==

== ENCOUNTER → 2023-02-28 23:59 | Outpatient (BNV) | payer MEDICARE, SELFPAY ==
--- NOTE | 2023-03-10 12:14 | A.OFFVIS_ITS ---
Intake Intake Visit Reasons: Remote CardioMEMS- [facility] Allergies bees Allergy (Unknown, Verified 02/07/23 08:30) angioedema ibuprofen [From MOTRIN] Allergy (Unknown, Verified 02/07/23 08:30) [facility] Medical History Dysuria Hypokalemia Diarrhea Elevated LFTs Skin abnormality Preop cardiovascular exam Acute bronchitis Shortness of breath Cataract (lens) fragments in eye following cataract surgery, bilateral CKD (chronic kidney disease) stage 4, GFR 15-29 ml/min Annual physical exam Claudication Gout Arthritis Ankle pain, chronic Edema Type 2 diabetes mellitus with unspecified complications Morbid obesity Chronic kidney disease PAF (paroxysmal atrial fibrillation) Biventricular ICD (implantable cardioverter-defibrillator) in place Ventricular tachycardia Surgical History History of tonsillectomy History of partial thyroidectomy Hx of cholecystectomy S/P TAVR (transcatheter aortic valve replacement) Family History Father CVD (cardiovascular disease) Mother No problems noted. Sister Cancer Son No problems noted. Sister Leukemia Son No problems noted. Son No problems noted. Daughter No problems noted. Brother No problems noted. Brother No problems noted. Brother No problems noted. Social History Household Members: Spouse Housing: Apartment Alcohol intake: never Patient Tobacco Use Status: Never used Tobacco e-Cigarette/Vaping Use: Never Used Advance Directives Date on File: 10/23/22 Current occupational status: retired Cognitive needs: No Hearing needs: No Vision needs: No Office Procedures Cardiac Device Check Cardiac Device Check Details: Monitoring period dates:01/22/23 - 02/21/23 Optimal PA pressure range: PAD goal 23mmhg Procedure code: 31774 BACKGROUND: Ebonie is implanted with the CardioMEMS PA Sensor.? I use this technology to monitor PA pressures on a weekly basis to ensure patients are within their optimal range to prevent decompensation.? SUMMARY:? I utilized the remote monitoring platform ([employer]) to set optimal targets for pulmonary artery pressure thresholds as part of acute and chronic management of patient?s heart failure. During the period indicated above, I monitored the patient?s pulmonary artery pressures weekly via trend analysis and notification reports which provide alerts when patient?s PA pressures were outside of range to prompt immediate action in medication changes and communications.? The weekly reports are archived in the [employer] system which serve as a parallel record to document weekly PA pressures, medication changes, and clinical notes. I have reviewed readings on 01/24, 01/31, 02/06, 02/10, 02/16, 02/20. Her PAD has ranged between 19-25mmgh. 09162 - Remote monitoring of wireless pulmonary artery pressure sensor Procedure code (CPT) selection complete Assessment & Plan Assessment & Plan (1) Presence of CardioMEMS HF system: Comment: 09/06/2021 Code(s): Z95.818 - Presence of other cardiac implants and grafts Plan: monthly report Coding Level of Care Code Procedure Only Diagnoses Presence of CardioMEMS HF system Z95.818 CPT Codes Cardiac Device Check - Cardiac Device 17: 52582 - Remote monitoring of wireless pulmonary artery pressure sensor ([id number])
== END ==
PROVIDERS: PCP Internal Medicine; Visit Provider Nurse Practitioner Family
DX: I50.9 Heart failure, unspecified (principal); Z95.818 Presence of other cardiac implants and grafts
CPT/HCPCS: 93264

== ENCOUNTER → 2023-03-17 23:59 | Outpatient (BNV) | payer MEDICARE, SELFPAY ==
--- NOTE | 2023-03-24 13:20 | A.OFFVIS_ITS ---
Intake Intake Visit Reasons: Remote ICD Check- [employer] Allergies bees Allergy (Unknown, Verified 03/19/23 08:59) angioedema ibuprofen [From MOTRIN] Allergy (Unknown, Verified 03/19/23 08:59) RASH [facility] Medical History Dysuria Hypokalemia Diarrhea Elevated LFTs Skin abnormality Preop cardiovascular exam Acute bronchitis Shortness of breath Cataract (lens) fragments in eye following cataract surgery, bilateral CKD (chronic kidney disease) stage 4, GFR 15-29 ml/min Annual physical exam Claudication Gout Arthritis Ankle pain, chronic Edema Type 2 diabetes mellitus with unspecified complications Morbid obesity Chronic kidney disease PAF (paroxysmal atrial fibrillation) Biventricular ICD (implantable cardioverter-defibrillator) in place Ventricular tachycardia Surgical History History of tonsillectomy History of partial thyroidectomy Hx of cholecystectomy S/P TAVR (transcatheter aortic valve replacement) Family History Father CVD (cardiovascular disease) Mother No problems noted. Sister Cancer Son No problems noted. Sister Leukemia Son No problems noted. Son No problems noted. Daughter No problems noted. Brother No problems noted. Brother No problems noted. Brother No problems noted. Social History Household Members: Spouse Housing: Apartment Alcohol intake: never Patient Tobacco Use Status: Never used Tobacco e-Cigarette/Vaping Use: Never Used Advance Directives Date on File: 10/23/22 Current occupational status: retired Cognitive needs: No Hearing needs: No Vision needs: No Office Procedures Cardiac Device Check Cardiac Device Check Details: Date of service 03/17/2023; Battery life >6 years; normal lead parameters; no treated VT/VF; ; normal ICD function. [id number] Cardiac Interrogation, implant defibrillator w/interim Procedure code (CPT) selection complete Assessment & Plan Assessment & Plan (1) Non-ischemic cardiomyopathy: Comment: echo 07/14, left ventricle injection fraction 20% global hypokinesis, s/p ICD, no ACEI or ARB CKD stage 4 Code(s): I42.8 - Other cardiomyopathies Plan x Coding Level of Care Code Procedure Only Diagnoses Non-ischemic cardiomyopathy I42.8 CPT Codes Cardiac Device Check - Cardiac Device 13: [id number] Cardiac Interrogation, implant defibrillator w/interim ([id number])
== END ==
PROVIDERS: PCP Internal Medicine; Visit Provider Internal Medicine
DX: I42.8 Other cardiomyopathies (principal); Z95.810 Presence of automatic (implantable) cardiac defibrillator
CPT/HCPCS: 93295

== ENCOUNTER 2023-03-19 08:47 | Outpatient (AMB) | payer MEDICARE, SELFPAY ==
[2023-03-19 08:53] VITALS: BP 130/76; PULSE 94; TEMP 36.3; O2SAT 98; BMI 43.9
--- NOTE | 2023-03-19 08:53 | MHC.OFFWIV ---
Intake Vital Signs 03/19/23 08:53 Height 5 ft 4 in Weight 256 lb BMI 43.9 BP 130/76 Blood Pressure Location Lt brachial Position Sitting Pulse 94 Pulse Source Pulse Oximeter Temp 97.4 F Temp Source Temporal Artery Scan Pulse Oximetry (%) 98 Oxygen Delivery Method Room Air Intake Visit Reasons: EP Cough (masked) Intake Note: pt is here today for cough started 1 week ago Patient Tobacco Use Status: Never used Tobacco Allergies bees Allergy (Unknown, Verified 03/19/23 08:59) angioedema ibuprofen [From MOTRIN] Allergy (Unknown, Verified 03/19/23 08:59) RASH Do you need a note to return to daycare/school/sports/work: No HPI EP Cough (masked) HPI Details This is a 72-year-old female patient who presents today with a one-week history of persistent productive cough which is worse at night, and nasal congestion. She denies any fever or chills, denies any shortness of breath, but denies any GI symptoms. Denies any known exposure to sick contacts. [facility] Medical History Dysuria Hypokalemia Diarrhea Elevated LFTs Skin abnormality Preop cardiovascular exam Acute bronchitis Shortness of breath Cataract (lens) fragments in eye following cataract surgery, bilateral CKD (chronic kidney disease) stage 4, GFR 15-29 ml/min Annual physical exam Claudication Gout Arthritis Ankle pain, chronic Edema Type 2 diabetes mellitus with unspecified complications Morbid obesity Chronic kidney disease PAF (paroxysmal atrial fibrillation) Biventricular ICD (implantable cardioverter-defibrillator) in place Ventricular tachycardia Surgical History History of tonsillectomy History of partial thyroidectomy Hx of cholecystectomy S/P TAVR (transcatheter aortic valve replacement) Family History Father CVD (cardiovascular disease) Mother No problems noted. Sister Cancer Son No problems noted. Sister Leukemia Son No problems noted. Son No problems noted. Daughter No problems noted. Brother No problems noted. Brother No problems noted. Brother No problems noted. Social History Household Members: Spouse Housing: Apartment Alcohol intake: never Patient Tobacco Use Status: Never used Tobacco e-Cigarette/Vaping Use: Never Used Advance Directives Date on File: 10/23/22 Current occupational status: retired Cognitive needs: No Hearing needs: No Vision needs: No Review of Systems Const All systems reviewed & are unremarkable except as noted in HPI and below Physical Exam Vital Signs: Last Vital Signs Temp 97.4 F 03/19/23 08:53 Pulse 94 03/19/23 08:53 BP 130/76 03/19/23 08:53 Pulse Ox 98 03/19/23 08:53 Oxygen Delivery Method Room Air 03/19/23 08:53 BMI result Body Mass Index 43.9 Const General: cooperative and no acute distress Nutritional Appearance: obese Limitations: wheelchair HEENT Head: Yes normal to inspection Ears: hearing grossly normal bilaterally General nose exam: Normal external nose present Throat: Yes posterior oropharynx normal Neck Neck: Yes no lymphadenopathy Resp Effort & Inspection: normal respiratory effort and Actively coughing Quality: productive Auscultation: clear to auscultation bilaterally Cardio Palpation: normal PMI Rate: regular rate Rhythm: regular rhythm Skin General skin exam: no rashes or lesions noted Extrem General: Yes capillary refill normal and Yes no clubbing, cyanosis or edema Psych Appearance: grossly normal Mental Status: mental status grossly normal Speech and movement: Normal speech and movement present Assessment & Plan Assessment & Plan (1) Upper respiratory infection: Code(s): J06.9 - Acute upper respiratory infection, unspecified Qualifiers: URI type: unspecified URI Qualified Code(s): J06.9 - Acute upper respiratory infection, unspecified Plan: Azithromycin and benzonatate prescribed for patient. We reviewed indications, use, possible s/e of these. Patient states similar URI progressed to pneumonia previously. We reviewed indications to return to clinic or to ED for evaluation, including worsening of symptoms, shortness of breath, fever/chills. She verbalizes understanding and agrees to plan. Medications: New azithromycin For 250 mg dose pack: take 500 mg today (day 1), then 250 mg for 4 days (days 2-5) PO 6 tabs 0RF J06.9 - Acute upper respiratory infection, unspecified benzonatate 100 mg PO BID 7 days PRN 14 caps 0RF cough R05.9 - Cough, unspecified Coding Level of Care Code Est Pt Level 3 (41417) Diagnoses Upper respiratory tract infection, unspecified type J06.9 URI type: unspecified URI
== END 2023-03-19 09:11 | disposition home or self-care (01) ==
PROVIDERS: PCP Internal Medicine; Visit Provider Nurse Practitioner Family
DX: J06.9 Acute upper respiratory infection, unspecified (principal)
CPT/HCPCS: 99213

== ENCOUNTER → 2023-03-31 23:59 | Outpatient (BNV) | payer MEDICARE, SELFPAY ==
--- NOTE | 2023-04-08 18:32 | A.OFFVIS_ITS ---
Intake Intake Visit Reasons: Remote CardioMEMS- [facility] Allergies bees Allergy (Unknown, Verified 03/19/23 08:59) angioedema ibuprofen [From MOTRIN] Allergy (Unknown, Verified 03/19/23 08:59) RASH [facility] Medical History Dysuria Hypokalemia Diarrhea Elevated LFTs Skin abnormality Preop cardiovascular exam Acute bronchitis Shortness of breath Cataract (lens) fragments in eye following cataract surgery, bilateral CKD (chronic kidney disease) stage 4, GFR 15-29 ml/min Annual physical exam Claudication Gout Arthritis Ankle pain, chronic Edema Type 2 diabetes mellitus with unspecified complications Morbid obesity Chronic kidney disease PAF (paroxysmal atrial fibrillation) Biventricular ICD (implantable cardioverter-defibrillator) in place Ventricular tachycardia Surgical History History of tonsillectomy History of partial thyroidectomy Hx of cholecystectomy S/P TAVR (transcatheter aortic valve replacement) Family History Father CVD (cardiovascular disease) Mother No problems noted. Sister Cancer Son No problems noted. Sister Leukemia Son No problems noted. Son No problems noted. Daughter No problems noted. Brother No problems noted. Brother No problems noted. Brother No problems noted. Social History Household Members: Spouse Housing: Apartment Alcohol intake: never Patient Tobacco Use Status: Never used Tobacco e-Cigarette/Vaping Use: Never Used Advance Directives Date on File: 10/23/22 Current occupational status: retired Cognitive needs: No Hearing needs: No Vision needs: No Office Procedures Cardiac Device Check Cardiac Device Check Details: Monitoring period dates:02/21/23 - 03/23/23 Optimal PA pressure range: PAD goal 23mmhg Procedure code: 78791 BACKGROUND: Ebonie is implanted with the CardioMEMS PA Sensor.? I use this technology to monitor PA pressures on a weekly basis to ensure patients are within their optimal range to prevent decompensation.? SUMMARY:? I utilized the remote monitoring platform ([employer]) to set optimal targets for pulmonary artery pressure thresholds as part of acute and chronic management of patient?s heart failure. During the period indicated above, I monitored the patient?s pulmonary artery pressures weekly via trend analysis and notification reports which provide alerts when patient?s PA pressures were outside of range to prompt immediate action in medication changes and communications.? The weekly reports are archived in the [employer] system which serve as a parallel record to document weekly PA pressures, medication changes, and clinical notes. I have reviewed readings on 02/22, 02/28, 03/07, 03/12, 03/18, 03/21. Her PAD readings have ranged between 20-29mmhg. stable. 12010 - Remote monitoring of wireless pulmonary artery pressure sensor Procedure code (CPT) selection complete Assessment & Plan Assessment & Plan (1) Presence of CardioMEMS HF system: Comment: 09/06/2021 Code(s): Z95.818 - Presence of other cardiac implants and grafts Plan: monthly report Coding Level of Care Code Procedure Only Diagnoses Presence of CardioMEMS HF system Z95.818 CPT Codes Cardiac Device Check - Cardiac Device 17: 99777 - Remote monitoring of wireless pulmonary artery pressure sensor ([id number])
== END ==
PROVIDERS: PCP Internal Medicine; Visit Provider Nurse Practitioner Family
DX: I50.9 Heart failure, unspecified (principal); Z95.818 Presence of other cardiac implants and grafts
CPT/HCPCS: 93264

== ENCOUNTER 2023-04-25 13:34 | Emergency (ER) | payer MEDICARE, SELFPAY ==
--- NOTE | ~2023-04-25 | CT_ITS ---
EXAMINATION: CT brain and CT cervical spine without contrast. CLINICAL INDICATIONS: Fall. COMPARISON: CT brain 02/02/2023. TECHNIQUE: 5 mm thin axial and reformatted 2 mm thin sagittal and coronal images of brain were obtained without contrast. Subsequently axial 3 mm thin and reformatted 2 mm thin sagittal and coronal images of cervical spine were obtained without contrast. DLP [address] examination was performed using dose optimization technique as appropriate, variously including the following: Automated exposure control Adjustment of MA and/or KV according to patient size(this includes techniques or standardized protocols for targeted exams where dose is matched to indication/reason for exam; extremities or head. Use of iterative reconstruction techniques. FINDINGS: Brain: There is no acute intra-axial, extra-axial bleed, masses or midline shift. There is no acute infarction evolution. There is a lacunar infarct right anterior external capsule in caudate nucleus.. The rivera to white matter differentiation is maintained normal. The lateral ventricles are symmetrical in size and configuration but moderately enlarged. There is mild periventricular hypodensity in both cerebral hemispheres without mass effect. There is patient motion artifact in bilateral temporal lobes and posterior fossa. Bone windows reveal no calvarial abnormality. No scalp soft tissue abnormality. Bilateral paranasal sinuses and mastoid air cells are well-aerated. Cervical spine: There is mild straightening of cervical lordosis. The vertebral heights and alignment is normal. There is loss of C6-C7 disc heights with mild ventral spondylosis. The craniovertebral junction and the C1-C2 alignment is normal. There is mild left C2-C3, C3-C4, C4-C5 facet joint arthropathy. No visible fracture, dislocation or subluxation seen. Prevertebral and paravertebral soft tissues are normal. The airways widely patent. The lung apices are clear. CT/CT cervical spine wo IV con IMPRESSION: 1. No acute intracranial process seen. 2. There is no acute fracture, dislocation or subluxation in cervical spine. There are degenerative disc changes C6-C7 disc level with spondylosis.
--- NOTE | ~2023-04-25 | XR_ITS ---
EXAMINATION: XR ELBOW, LEFT CLINICAL INFORMATION: Pain, fall COMPARISON: None available. TECHNIQUE: AP, lateral, and oblique views of the left elbow. FINDINGS: The joint spaces normal. There is no visible acute fracture, dislocation or loose bodies. No abnormal joint effusion seen. The soft tissues are normal. XR/XR elbow LT min 3V IMPRESSION: Unremarkable left elbow exam.
--- NOTE | ~2023-04-25 | XR_ITS ---
EXAMINATION: XR knee RT 4V CLINICAL INFORMATION: Reason for Exam pain, fall COMPARISON: None available at the time of this dictation. TECHNIQUE: frontal, lateral, tunnel and patella sunrise views 4 views. FINDINGS: BONES: There is 1.4 x 0.4 cm defect in the articular surface of the medial femoral condyle suggesting probably osteochondritis dissecans. No evidence of acute traumatic injury. JOINTS: Narrowing of joint spaces and developed osteophytes from the edges of articular surfaces suggest degenerative osteoarthritis. SOFT TISSUE: Normal XR/XR knee RT 4V IMPRESSION: 1. There is 1.4 x 0.4 cm defect in the articular surface of the medial femoral condyle suggesting probably osteochondritis dissecans. MRI could be utilized for further characterization. 2. Underlying degenerative osteoarthritis.
--- NOTE | ~2023-04-25 | XR_ITS ---
EXAMINATION: XR KNEE, LEFT CLINICAL INFORMATION: Fall. Pain. COMPARISON: None available. TECHNIQUE: Four views of the left knee. FINDINGS: Bone alignment is normal. No fracture or dislocation. There is arthritis at the femoral tibial patellofemoral joints with joint space narrowing and osteophyte formation. There is a small joint effusion. There is atherosclerotic disease. XR/XR knee LT 4V IMPRESSION: No fracture or dislocation. Arthritis and small joint effusion.
[2023-04-25 14:02] VITALS: BP 112/70; BP 140/90; PULSE 90; PULSE 96; RESP 18; TEMP 36.9; O2SAT 95; O2SAT 97; BMI 43.8
--- NOTE | 2023-04-25 14:06 | ED.GENADULT ---
HPI - General Adult General Chief complaint: Fall Stated complaint: FALL ONTO KNEES Time Seen by Provider: 04/25/23 18:14 Source: patient, family (patient's ) and EMS Mode of arrival: EMS Limitations: no limitations History of Present Illness HPI narrative: Patient is a 72 year old assigned female at with a history of DM, HTN, and arthritis presenting to the emergency department today with left elbow pain and bilateral knee pain. Patient states that she was at a [employer] when she got weak and fell to her knees and landed on her left arm. Patient denies any head strike, loss of consciousness, dizziness, lightheadedness, abdominal pain, nausea, vomiting, fever, chills, blurry vision, double vision, loss of vision, chest pain, difficulty breathing, shortness of breath, back pain, night sweats, pain with urination, increased urinary frequency, increased urinary urgency, blood in her urine or stool, syncope or a near syncopal episode, bowel incontinence, bladder incontinence, bowel retention, bladder retention, or any other complaints at this time. Onset (ago): minute(s) Location: upper extremity (left) and lower extremity (bilateral) Severity: mild Severity scale (1-10): 2 Relieving factors: none Exacerbating factors: none Associated symptoms: denies other symptoms Treatments prior to arrival: none Related Data Home Medications Medication Instructions Recorded Confirmed metolazone 2.5 mg tablet mg PO 12/18/22 12/18/22 Previous Rx's Medication Instructions Recorded walker #1 ea 02/03/20 miscellaneous medical supply See Rx Instructions miscellaneous 01/23/21 .COMPLEX #1 ea mupirocin 2 % topical ointment 1 appl topical BID #66 grams 04/23/21 dulaglutide 3 mg/0.5 mL 3 mg (0.5 mL) subcut QWEEK #6 mL 11/02/21 subcutaneous pen injector ([employer] fluticasone propionate 230 2 puff inhalation BID #36 grams 04/03/22 mcg-salmeterol 21 mcg/actuation HFA inhaler (Advair HFA) blood sugar diagnostic (FreeStyle #300 ea 04/10/22 Lite Strips) pen needle, diabetic 31 gauge x 1 ea subcut DIRECTED #300 caps 07/09/22/16 (BD Ultra-Fine Mini Pen Needle) apixaban 5 mg tablet (Eliquis) 5 mg PO BID #60 tabs 10/21/22 carvedilol 3.125 mg tablet 3.125 mg PO BID #180 tabs 10/21/22 flash glucose sensor (FreeStyle #2 ea 10/23/22 Silvestre 14 Day Sensor kit) insulin aspart U-100 100 unit/mL 18 unit (0.18 mL) subcut TID #45 mL 11/27/22 (3 mL) subcutaneous pen (Novolog FlexPen U-100 Insulin aspart) acetaminophen 650 mg 650 mg PO Q8H PRN pain #270 tabs 12/19/22 tablet,extended release (Tylenol 8 Hour) insulin glargine 100 unit/mL (3 80 unit (0.8 mL) subcut DAILY #72 12/30/22 mL) subcutaneous pen (Basaglar mL KwikPen U-100 Insulin) spironolactone 25 mg tablet 25 mg PO QAM #90 tabs 01/20/23 methylcellulose (laxative) 500 mg 500 mg PO BID #180 tabs 02/07/23 tablet (Citrucel) pantoprazole 40 mg tablet,delayed 40 mg PO DAILY #90 tabs 02/07/23 release sucralfate 1 gram tablet 1 g PO BEDTIME #90 tabs 02/07/23 dapagliflozin propanediol 10 mg 10 mg PO QAM #90 tabs 02/10/23 tablet (Farxiga) sennosides 8.6 mg tablet (Natural 17.2 mg (2 x 8.6 mg) PO BEDTIME 02/11/23 Senna Laxative) constipation #60 tabs colchicine 0.6 mg tablet (Colcrys) 0.6 mg PO BID #180 tabs 02/16/23 potassium chloride 20 mEq 60 meq (3 x 20 mEq) PO DAILY 90 03/10/23 tablet,extended release(part/cryst) days #270 tabs azithromycin 250 mg tablet See Rx Instructions PO .COMPLEX #6 03/19/23 tabs benzonatate 100 mg capsule 100 mg PO BID PRN cough 7 days #14 03/19/23 caps torsemide 20 mg tablet 60 mg (3 x 20 mg) PO QAM #270 tabs 04/08/23 allopurinol 100 mg tablet 200 mg (2 x 100 mg) PO DAILY #180 04/18/23 tabs levothyroxine 175 mcg tablet 175 mcg PO QAM #90 tabs 04/18/23 rosuvastatin 20 mg tablet (Crestor) 20 mg PO DAILY #90 tabs 04/18/23 Allergies Allergy/AdvReac Type Severity Reaction Status Date / Time bees Allergy Unknown angioedema Verified 04/25/23 14:07 ibuprofen [From MOTRIN] Allergy Unknown RASH Verified 04/25/23 14:07 Review of Systems Constitutional: Constitutional: Reports no additional constitutional complaints, Denies chills, Denies fever(s) and Denies night sweats Eyes: Eyes: Reports no additional eye complaints, Denies blurry vision, Denies change in vision, Denies diplopia, Denies eye discharge, Denies loss of vision and Denies eye pain ENT: Denies dizziness Cardiovascular: Cardiovascular: Reports no additional cardiovascular complaints, Denies chest pain, Denies lightheadedness, Denies Loss of Consciousness and Denies dyspnea Respiratory: Respiratory: Reports no additional respiratory complaints and Denies dyspnea Gastrointestinal: Gastrointestinal: Reports no additional gastrointestinal complaints, Denies abdominal pain, Denies melena, Denies hematochezia, Denies change in bowel habits and Denies change in stool character Genitourinary: Genitourinary: Denies hematuria, Denies urinary frequency, Denies dysuria, Denies urinary incontinence, Denies urinary hesitancy and Denies urinary urgency Musculoskeletal: Musculoskeletal: Reports no additional musculoskeletal complaints, Denies numbness and Denies tingling Comments: left elbow pain, bilateral knee pain Neurologic: Denies dizziness, Denies loss of vision, Denies numbness and Denies tingling Psychiatric: Psychiatric: Reports no additional psychiatric complaints Endocrine: Endocrine: Reports no additional endocrine complaints Hematologic/Lymphatic: Hematologic/Lymphatic: Reports no additional hematologic/lymphatic complaints Allergic/Immunologic: Allergic/Immunologic: Reports no additional allergic/immunologic complaints PMFSH Past Medical History Attestation statement: The following information was validated with the patient. Source: old records reviewed and nursing notes reviewed Medical History Dysuria Hypokalemia Diarrhea Elevated LFTs Skin abnormality Preop cardiovascular exam Acute bronchitis Shortness of breath Cataract (lens) fragments in eye following cataract surgery, bilateral CKD (chronic kidney disease) stage 4, GFR 15-29 ml/min Annual physical exam Claudication Gout Arthritis Ankle pain, chronic Edema Type 2 diabetes mellitus with unspecified complications Morbid obesity Chronic kidney disease PAF (paroxysmal atrial fibrillation) Biventricular ICD (implantable cardioverter-defibrillator) in place Ventricular tachycardia Surgical History History of tonsillectomy History of partial thyroidectomy Hx of cholecystectomy S/P TAVR (transcatheter aortic valve replacement) Family History Family History Father CVD (cardiovascular disease) Mother No problems noted. Sister Cancer Son No problems noted. Sister Leukemia Son No problems noted. Son No problems noted. Daughter No problems noted. Brother No problems noted. Brother No problems noted. Brother No problems noted. Social History Social History Household Members: Spouse Housing: Apartment Alcohol intake: never Patient Tobacco Use Status: Never used Tobacco e-Cigarette/Vaping Use: Never Used Advance Directives: Yes Advance Directives on File: Yes Advance Directives Date on File: 10/23/22 Current occupational status: retired Cognitive needs: No Hearing needs: No Vision needs: No Physical Exam ED Vital Signs: Vital Signs - 24 hr 04/25/23 14:02 04/25/23 18:14 Temperature 98.5 F 98.8 F Pulse Rate 96 96 Respiratory Rate 18 16 Blood Pressure 112/70 104/72 Pulse Oximetry 95 94 Oxygen Delivery Method Room Air Room Air BMI result Body Mass Index 43.8 Const General: cooperative, no acute distress, alert and awake Nutritional Appearance: well nourished Orientation/consciousness: patient oriented x3 Limitations: no limitations HENMT Head: Yes normal to inspection and Yes atraumatic Ears: hearing grossly normal bilaterally and external ears normal General nose exam: Normal external nose present, no nasal discharge noted and no epistaxis Face and sinus: Yes normal facial exam, No abrasion and No laceration Mouth: Normal oral and palatal mucosa present, no drooling and no muffled voice Eyes General: appearance normal, both eyes and all related structures Periorbital: periorbital findings normal Eyelids: Yes eyelids normal Conjunctivae: conjunctivae normal Pupils: Equal, round and reactive pupils present EOM: EOMs intact bilaterally Neck Neck: Yes normal visual inspection, Yes full ROM and Yes no lymphadenopathy Chest Chest palpation & inspection: normal inspection of the chest Resp Effort & Inspection: normal respiratory effort and able to speak in complete sentences GI Inspection: Yes normal to inspection Neuro General: patient oriented x3 and moves all extremities Cranial nerves: Yes Equal, round and reactive pupils present Cognition (Neuro): normal cognition Motor exam (neuro): 5/5 motor strength present throughout Sensory Exam: Normal double simultaneous stimulation for sensation Coordination: [id number] test normal Extrem General: Yes normal to inspection, Yes full ROM and Yes capillary refill normal Psych Appearance: grossly normal Mental Status: mental status grossly normal Affect: normal affect Attitude: cooperative Thought process: Normal thought process present Thought content: Normal thought content present Insight: Good insight present (Psych) Course Course Course Narrative: RME performed by Lisa Chun PA-C. Patient is a 72 year old assigned female at , on anti-coagulant medications, presenting to the emergency department with left arm and bilateral knee pain after a fall in a [employer]. 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 Imaging ordered. Patient placed back in the waiting room pending room availability and results. Medical Decision Making Medical Decision Making MDM Narrative: Patient is a 72 year old assigned female at with a history of DM presenting to the emergency department today with left elbow and bilateral knee pain after a fall. Patient's physical exam was unremarkable. Patient's left elbow x-ray, head CT, and c-spine CT showed no acute process. I explained my physical exam findings as well as all test results to the patient and the patient's . I answered all questions asked by the patient and the patient's . I stressed the importance of the patient taking her medication as prescribed. I stressed the importance of the patient following up with her primary care provider. I stressed the importance of the patient returning to the emergency department immediately if her symptoms were to worsen or if she were to develop any dizziness, shortness of breath, difficulty breathing, chest pain, blurry vision, loss of vision, nausea, vomiting, abdominal pain, fever, chills, back pain, or any other complaints. Patient and the patient's verbalized agreement and understanding with this treatment plan and discharge. Differential Diagnosis Differential Diagnoses: The differential diagnosis associated with the presentation includes Fall Knee pain Elbow pain Admission/Observation Consideration of admission/observation: Escalation of care including admission/observation considered Patient would have been admitted to the hospital had her work up had any findings where hospital admission was appropriate and her clinical presentation warranted hospital admission. Independent Interpretation I performed an independent interpretation of an: Plain X-Ray and CT Scan Interpretation: My interpretation is in agreement with the radiologist's impression of these imaging studies. EXAMINATION: XR ELBOW, LEFT CLINICAL INFORMATION: Pain, fall COMPARISON: None available. TECHNIQUE: AP, lateral, and oblique views of the left elbow. FINDINGS: The joint spaces normal. There is no visible acute fracture, dislocation or loose bodies. No abnormal joint effusion seen. The soft tissues are normal. XR/XR elbow LT min 3V IMPRESSION: Unremarkable left elbow exam. Dictated By: Jhonatan Murphy MD Signed By: Electronically signed by Jhonatan Murphy MD 04/25/23 1543 EXAMINATION: XR knee RT 4V CLINICAL INFORMATION: Reason for Exam pain, fall COMPARISON: None available at the time of this dictation. TECHNIQUE: frontal, lateral, tunnel and patella sunrise views 4 views. FINDINGS: BONES: There is 1.4 x 0.4 cm defect in the articular surface of the medial femoral condyle suggesting probably osteochondritis dissecans. No evidence of acute traumatic injury. JOINTS: Narrowing of joint spaces and developed osteophytes from the edges of articular surfaces suggest degenerative osteoarthritis. SOFT TISSUE: Normal XR/XR knee RT 4V IMPRESSION: 1. There is 1.4 x 0.4 cm defect in the articular surface of the medial femoral condyle suggesting probably osteochondritis dissecans. MRI could be utilized for further characterization. 2. Underlying degenerative osteoarthritis. Dictated By: Mercedes Lenz MD Signed By: Electronically signed by Mercedes Lenz MD 04/25/23 1737 EXAMINATION: XR KNEE, LEFT CLINICAL INFORMATION: Fall. Pain. COMPARISON: None available. TECHNIQUE: Four views of the left knee. FINDINGS: Bone alignment is normal. No fracture or dislocation. There is arthritis at the femoral tibial patellofemoral joints with joint space narrowing and osteophyte formation. There is a small joint effusion. There is atherosclerotic disease. XR/XR knee LT 4V IMPRESSION: No fracture or dislocation. Arthritis and small joint effusion. Dictated By: Arianna West MD Signed By: Electronically signed by Arianna West MD 04/25/23 7449 EXAMINATION: CT brain and CT cervical spine without contrast. CLINICAL INDICATIONS: Fall. COMPARISON: CT brain 02/02/2023. TECHNIQUE: 5 mm thin axial and reformatted 2 mm thin sagittal and coronal images of brain were obtained without contrast. Subsequently axial 3 mm thin and reformatted 2 mm thin sagittal and coronal images of cervical spine were obtained without contrast. DLP [address] examination was performed using dose optimization technique as appropriate, variously including the following: Automated exposure control Adjustment of MA and/or KV according to patient size(this includes techniques or standardized protocols for targeted exams where dose is matched to indication/reason for exam; extremities or head. Use of iterative reconstruction techniques. FINDINGS: Brain: There is no acute intra-axial, extra-axial bleed, masses or midline shift. There is no acute infarction evolution. There is a lacunar infarct right anterior external capsule in caudate nucleus.. The rivera to white matter differentiation is maintained normal. The lateral ventricles are symmetrical in size and configuration but moderately enlarged. There is mild periventricular hypodensity in both cerebral hemispheres without mass effect. There is patient motion artifact in bilateral temporal lobes and posterior fossa. Bone windows reveal no calvarial abnormality. No scalp soft tissue abnormality. Bilateral paranasal sinuses and mastoid air cells are well-aerated. Cervical spine: There is mild straightening of cervical lordosis. The vertebral heights and alignment is normal. There is loss of C6-C7 disc heights with mild ventral spondylosis. The craniovertebral junction and the C1-C2 alignment is normal. There is mild left C2-C3, C3-C4, C4-C5 facet joint arthropathy. No visible fracture, dislocation or subluxation seen. Prevertebral and paravertebral soft tissues are normal. The airways widely patent. The lung apices are clear. CT/CT cervical spine wo IV con IMPRESSION: 1. No acute intracranial process seen. 2. There is no acute fracture, dislocation or subluxation in cervical spine. There are degenerative disc changes C6-C7 disc level with spondylosis. Dictated By: Jhonatan Murphy MD Signed By: Electronically signed by Jhonatan Murphy MD 04/25/23 0193 Radiology Impression Discussion of test interpretation with radiology: I have reviewed the radiologist's reading. Independent Historian Clinical information obtained from an independent historian. History obtained from or confirmed by: Spouse (patient's provided additional history and confirmed the history provided by the patient.) and EMS (EMS provided additional history and confirmed the history provided by the patient.) Discharge Plan Discharge Clinical Impression: Fall Patient Disposition: Home, Self-Care Instructions: Fall Prevention for Older Adults (ED) Additional Instructions: Follow up with your primary care provider. Return to the emergency department immediately if your symptoms worsen or if you develop any dizziness, shortness of breath, difficulty breathing, chest pain, blurry vision, loss of vision, nausea, vomiting, abdominal pain, fever, chills, back pain, or any other complaints. Prescriptions: No Action (DME) walker Misc See Rx Instructions .ROUTE .MEDSUPPLY Qty: 1 0RF Rx Instructions: 2 wheels and 2 flat feet miscellaneous medical supply Misc See Rx Instructions miscellaneous .COMPLEX Qty: 1 0RF Rx Instructions: electric scooter mupirocin 2 % ointment 1 appl topical BID Qty: 66 3RF Trulicity 3 mg/0.5 mL pen injector 3 mg subcut QWEEK Qty: 6 3RF Advair HFA 230-21 mcg/actuation HFA aerosol inhaler 2 puff inhalation BID Qty: 36 3RF (DME) FreeStyle Lite Strips Strip See Rx Instructions .ROUTE .MEDSUPPLY Qty: 300 3RF Rx Instructions: test 3 times a day DX E11.9 pen needle, diabetic [BD Ultra-Fine Mini Pen Needle] 31 gauge x 3/16 needle 1 ea subcut DIRECTED Qty: 300 3RF Rx Instructions: Use to inject insulin 4 times per day carvedilol 3.125 mg tablet 3.125 mg PO BID Qty: 180 11RF Eliquis 5 mg tablet 5 mg PO BID Qty: 60 11RF insulin aspart U-100 [Novolog FlexPen U-100 Insulin] 100 unit/mL (3 mL) insulin pen 18 unit subcut TID Qty: 45 3RF Rx Instructions: before meals acetaminophen [Tylenol 8 Hour] 650 mg tablet extended release 650 mg PO Q8H PRN (Reason: pain) Qty: 270 3RF Basaglar KwikPen U-100 Insulin 100 unit/mL (3 mL) insulin pen 80 unit subcut DAILY Qty: 72 3RF spironolactone 25 mg tablet 25 mg PO QAM Qty: 90 3RF Farxiga 10 mg tablet 10 mg PO QAM Qty: 90 3RF sennosides [Natural Senna Laxative] 8.6 mg tablet 17.2 mg PO BEDTIME Qty: 60 3RF colchicine [Colcrys] 0.6 mg tablet 0.6 mg PO BID Qty: 180 1RF potassium chloride 20 mEq tablet,ER particles/crystals 60 meq PO DAILY 90 Days Qty: 270 3RF torsemide 20 mg tablet 60 mg PO QAM Qty: 270 3RF allopurinol 100 mg tablet 200 mg PO DAILY Qty: 180 3RF rosuvastatin [Crestor] 20 mg tablet 20 mg PO DAILY Qty: 90 3RF levothyroxine 175 mcg tablet 175 mcg PO QAM Qty: 90 3RF benzonatate 100 mg capsule 100 mg PO BID PRN (Reason: cough) 7 Days Qty: 14 0RF azithromycin 250 mg tablet See Rx Instructions PO .COMPLEX Qty: 6 0RF Rx Instructions: For 250 mg dose pack: take 500 mg today (day 1), then 250 mg for 4 days (days 2-5) PO (DME) FreeStyle Silvestre 14 Day Sensor Kit See Rx Instructions .Route Qty: 2 5RF Rx Instructions: As directed metolazone 2.5 mg tablet PO pantoprazole 40 mg tablet,delayed release (DR/EC) 40 mg PO DAILY Qty: 90 2RF Rx Instructions: take one tablet half an hour before breakfast sucralfate 1 gram tablet 1 g PO BEDTIME Qty: 90 4RF Citrucel 500 mg tablet 500 mg PO BID Qty: 180 2RF Referrals: Zainab Pritchard MD [Primary Care Provider] - Interventions: ED Discharge Assessment Last Done: 04/25/23 18:18 Discharge Date/Time: 04/25/23 18:23 Print Language: Montserratian
--- NOTE | 2023-04-25 17:47 | PC.NURSE ---
assumed care of pt at 1720- pt agitated, demanding a room with a television. advised current exam room is the only exam room aviable at this time. pt stated to nurse dont given me a needle advised pt needs eval before we can give anything. pt requests willie blanket, provided. ROSA Byrd to bedside explaining treatment. pt then stated he dont understand anything manager agency called to bedside.
[2023-04-25 18:14] VITALS: BP 104/72; PULSE 96; RESP 16; TEMP 37.1; O2SAT 94
== END 2023-04-25 18:23 | disposition home or self-care (01) ==
LOC: HO.ED 18:20
PROVIDERS: Emergency Provider Emergency Medicine Emergency Medical Services; PCP Internal Medicine
DX: S89.92XA Unspecified injury of left lower leg, initial encounter (principal); S89.91XA Unspecified injury of right lower leg, initial encounter; M25.561 Pain in right knee; R51.9 Headache, unspecified; M54.2 Cervicalgia; M25.522 Pain in left elbow; M25.521 Pain in right elbow; W18.30XA Fall on same level, unspecified, initial encounter; Y93.89 Activity, other specified; Y92.511 Restaurant or cafe as the place of occurrence of the external cause; Y99.8 Other external cause status; Z79.899 Other long term (current) drug therapy
CPT/HCPCS: 70450; 72125; 73080; 73564; 99282; 99284

== ENCOUNTER → 2023-05-02 23:59 | Outpatient (BNV) | payer MEDICARE, SELFPAY ==
--- NOTE | 2023-05-06 17:49 | MHC.OFFVIS ---
Intake Intake Visit Reasons: Remote CardioMEMS Check- [facility] Allergies bees Allergy (Unknown, Verified 04/25/23 14:07) angioedema ibuprofen [From MOTRIN] Allergy (Unknown, Verified 04/25/23 14:07) RASH [facility] Medical History Dysuria Hypokalemia Diarrhea Elevated LFTs Skin abnormality Preop cardiovascular exam Acute bronchitis Shortness of breath Cataract (lens) fragments in eye following cataract surgery, bilateral CKD (chronic kidney disease) stage 4, GFR 15-29 ml/min Annual physical exam Claudication Gout Arthritis Ankle pain, chronic Edema Type 2 diabetes mellitus with unspecified complications Morbid obesity Chronic kidney disease PAF (paroxysmal atrial fibrillation) Biventricular ICD (implantable cardioverter-defibrillator) in place Ventricular tachycardia Surgical History History of tonsillectomy History of partial thyroidectomy Hx of cholecystectomy S/P TAVR (transcatheter aortic valve replacement) Family History Father CVD (cardiovascular disease) Mother No problems noted. Sister Cancer Son No problems noted. Sister Leukemia Son No problems noted. Son No problems noted. Daughter No problems noted. Brother No problems noted. Brother No problems noted. Brother No problems noted. Social History Household Members: Spouse Housing: Apartment Alcohol intake: never Patient Tobacco Use Status: Never used Tobacco e-Cigarette/Vaping Use: Never Used Advance Directives Date on File: 10/23/22 Current occupational status: retired Cognitive needs: No Hearing needs: No Vision needs: No Office Procedures Cardiac Device Check Cardiac Device Check Details: Monitoring period dates: 03/24/23 - 05/02/23 Optimal PA pressure range: PAD goal 23 mmhg Procedure code: 52892 BACKGROUND: Ebonie is implanted with the CardioMEMS PA Sensor.? I use this technology to monitor PA pressures on a weekly basis to ensure patients are within their optimal range to prevent decompensation.? SUMMARY:? I utilized the remote monitoring platform ([employer]) to set optimal targets for pulmonary artery pressure thresholds as part of acute and chronic management of patient?s heart failure. During the period indicated above, I monitored the patient?s pulmonary artery pressures weekly via trend analysis and notification reports which provide alerts when patient?s PA pressures were outside of range to prompt immediate action in medication changes and communications.? The weekly reports are archived in the [employer] system which serve as a parallel record to document weekly PA pressures, medication changes, and clinical notes. I have reviewed readings on 03/25, 03/31, 04/07, 04/10, 04/15, 04/22, 04/29. PAD has ranged between 20-27mmhg. Stable, no admissions for HF. 63505 - Remote monitoring of wireless pulmonary artery pressure sensor Procedure code (CPT) selection complete Assessment & Plan Assessment & Plan (1) Presence of CardioMEMS HF system: Comment: 09/06/2021 Code(s): Z95.818 - Presence of other cardiac implants and grafts Plan: monthly monitoring Coding Level of Care Code Procedure Only Diagnoses Presence of CardioMEMS HF system Z95.818 CPT Codes Cardiac Device Check - Cardiac Device 17: 31516 - Remote monitoring of wireless pulmonary artery pressure sensor ([id number])
== END ==
PROVIDERS: PCP Internal Medicine; Visit Provider Nurse Practitioner Family
DX: I50.9 Heart failure, unspecified (principal); Z95.818 Presence of other cardiac implants and grafts
CPT/HCPCS: 93264

== ENCOUNTER 2023-05-09 12:21 | Outpatient (AMB) | payer MEDICARE, SELFPAY ==
--- NOTE | 2023-05-09 12:30 | A.OFFPC_ITS ---
Vital Signs 05/09/23 12:31 Height 5 ft 4 in Weight 255 lb 6 oz BMI 43.8 BP 112/76 Blood Pressure Location Rt radial Position Sitting Pulse 98 Pulse Source Pulse Oximeter Pulse Oximetry (%) 99 Oxygen Delivery Method Room Air Intake Visit Reasons: 04/25/23 [facility] Fall Intake Note: Pt is here to follow up from [facility] ER for a fall Allergies bees Allergy (Unknown, Verified 05/09/23 12:36) angioedema ibuprofen [From MOTRIN] Allergy (Unknown, Verified 05/09/23 12:36) RASH Medication List - Last Reconciled 05/09/23 by Zainab Pritchard MD acetaminophen ER (Tylenol 8 Hour) 650 mg PO Q8H PRN allopurinol 200 mg (2 x 100 mg) PO DAILY apixaban (Eliquis) 5 mg PO BID blood sugar diagnostic (FreeStyle Lite Strips) test 3 times a day DX E11.9 carvedilol 3.125 mg PO BID colchicine (Colcrys) 0.6 mg PO BID dapagliflozin propanediol (Farxiga) 10 mg PO QAM dulaglutide (Trulicity) 3 mg (0.5 mL) subcut QWEEK flash glucose sensor (FreeStyle Silvestre 14 Day Sensor kit) As directed fluticasone propion-salmeterol 230-21 mcg/actuation (Advair HFA) 2 puffs inhalation BID insulin aspart U-100 (Novolog FlexPen U-100 Insulin aspart) 18 units (0.18 mL) subcut TID insulin glargine (Basaglar KwikPen U-100 Insulin) 80 units (0.8 mL) subcut DAILY levothyroxine 175 mcg PO QAM methylcellulose (laxative) (Citrucel) 500 mg PO BID metolazone mg PO [employer] electric scooter mupirocin 2% 1 appl topical BID pantoprazole 40 mg PO DAILY pen needle, diabetic (BD Ultra-Fine Mini Pen Needle) 1 ea subcut DIRECTED potassium chloride ER 60 mEq (3 x 20 mEq) PO DAILY 90 days rosuvastatin (Crestor) 20 mg PO DAILY sennosides (Natural Senna Laxative) 17.2 mg (2 x 8.6 mg) PO BEDTIME spironolactone 25 mg PO QAM sucralfate 1 g PO BEDTIME torsemide 60 mg (3 x 20 mg) PO QAM walker 2 wheels and 2 flat feet Tobacco use date assessed: 05/09/23 Fall risk assessment: 1 Fall in past year Last assessed Fall Risk: 05/09/23 Dental Screening Dental Screen Date: 05/09/23 Did you have a dental visit in the last 12 months?: No Did you have a dental problem in the last 6 months where you did not have access to dental care?: No Was dental information given to patient?: No HPI 04/25/23 [facility] Fall HPI Details Patient presents for the follow-up of ER visit for a mechanical fall. Patient denies head trauma loss of consciousness chest pains or palpitations. She started physical therapy and is ambulating with a walker at home. Type 2 diabetes CHF chronic kidney disease stage 3 are stable on current medications. Patient complains of neuropathy pain in both feet worse at night. [facility] Medical History (Updated 05/09/23 @ 13:23 by Zainab Pritchard MD) Dysuria Hypokalemia Diarrhea Elevated LFTs Skin abnormality Preop cardiovascular exam Acute bronchitis Shortness of breath Cataract (lens) fragments in eye following cataract surgery, bilateral CKD (chronic kidney disease) stage 4, GFR 15-29 ml/min Annual physical exam Gout Arthritis Ankle pain, chronic Edema Type 2 diabetes mellitus with unspecified complications Morbid obesity Chronic kidney disease PAF (paroxysmal atrial fibrillation) Biventricular ICD (implantable cardioverter-defibrillator) in place Ventricular tachycardia Surgical History History of tonsillectomy History of partial thyroidectomy Hx of cholecystectomy S/P TAVR (transcatheter aortic valve replacement) Family History Father CVD (cardiovascular disease) Mother No problems noted. Sister Cancer Son No problems noted. Sister Leukemia Son No problems noted. Son No problems noted. Daughter No problems noted. Brother No problems noted. Brother No problems noted. Brother No problems noted. Social History Household Members: Spouse Housing: Apartment Alcohol intake: never Patient Tobacco Use Status: Never used Tobacco e-Cigarette/Vaping Use: Never Used Advance Directives Date on File: 10/23/22 Current occupational status: retired Cognitive needs: No Hearing needs: No Vision needs: No Questionnaire Thrive Questionnaire Date Thrive assessed: 07/04/22 BETY-7 AMB Questionnaire BETY-7 Date BETY - 7 assessed: 07/04/22 Source: Developed by Drs. Johnny Rodríguez, Ammy Sarah, Raphael Miranda and colleagues, with an educational sundeep from [employer]. Physical exam (Primary Care) Vital Signs: Last Vital Signs Pulse 98 05/09/23 12:31 BP 138/82 05/09/23 12:31 Pulse Ox 99 05/09/23 12:31 Oxygen Delivery Method Room Air 05/09/23 12:31 BMI result Body Mass Index 43.8 Tobacco/Smoking Status: Tobacco use Status Tobacco use date assessed 05/09/23 05/09/23 12:41 Patient Tobacco Use Status Never used Tobacco 05/09/23 12:30 e-Cigarette/Vaping Use Never Used 05/09/23 12:30 Thrive Assessment: Date of Thrive Assessment Date Thrive assessed 07/04/22 05/09/23 12:30 Const General: no acute distress HENMT Mouth: Normal oral and palatal mucosa present Eyes General: appearance normal, both eyes and all related structures Neck Neck: Yes supple Resp Effort & Inspection: normal respiratory effort Auscultation: clear to auscultation bilaterally Cardio Rhythm: regular rhythm Heart sounds: S1 normal heart sound present and S2 normal heart sound present GI Inspection: Yes normal to inspection Palpation (GI): Soft to palpation Percussion: Yes normal to percussion Auscultation: normal bowel sounds Extrem Other: 2+ pitting edema and chronic venous stasis in both lower extremities Assessment and Plan Assessment & Plan (1) CKD (chronic kidney disease) stage 4, GFR 15-29 ml/min: Comment: Follow-up with software validation technician Code(s): N18.4 - Chronic kidney disease, stage 4 (severe) Plan: Avoid nephrotoxins monitor renal function (2) Type 2 diabetes mellitus with unspecified complications: Code(s): E11.8 - Type 2 diabetes mellitus with unspecified complications Plan: ADA diet weight loss discussed with the patient. A1c will be checked next week. Continue current medications (3) Morbid obesity: Code(s): E66.01 - Morbid (severe) obesity due to excess calories Plan: Weight loss discussed with the patient (4) PAF (paroxysmal atrial fibrillation): Comment: On Eliquis Code(s): I48.0 - Paroxysmal atrial fibrillation Plan: Continue Eliquis (5) Non-ischemic cardiomyopathy: Comment: echo 07/14, left ventricle injection fraction 20% global hypokinesis, s/p ICD, no ACEI or ARB CKD stage 4 Code(s): I42.8 - Other cardiomyopathies Plan: Continue current medications and follow-up with Cardiology (6) Vitamin B 12 deficiency: Code(s): E53.8 - Deficiency of other specified B group vitamins Plan: Check vitamin B12 Orders: Orders Comprehensive [place]. Panel Fast Today E11.8 - Type 2 diabetes mellitus with unspecified complications, E66.01 - Morbid (severe) obesity due to excess calories, I10 - Essential (primary) hypertension, I42.8 - Other cardiomyopathies, I48.0 - Paroxysmal atrial fibrillation, N18.4 - Chronic kidney disease, stage 4 (severe) Hemoglobin A1c Today E11.8 - Type 2 diabetes mellitus with unspecified complications, E66.01 - Morbid (severe) obesity due to excess calories, I10 - Essential (primary) hypertension, I42.8 - Other cardiomyopathies, I48.0 - Paroxysmal atrial fibrillation, N18.4 - Chronic kidney disease, stage 4 (severe) Lipid Panel Today I42.8 - Other cardiomyopathies Complete Blood Count Auto Diff Today E11.8 - Type 2 diabetes mellitus with unspecified complications, E66.01 - Morbid (severe) obesity due to excess calories, I10 - Essential (primary) hypertension, I42.8 - Other cardiomyopathies, I48.0 - Paroxysmal atrial fibrillation, N18.4 - Chronic kidney disease, stage 4 (severe) TSH reflex Free T4 Today E11.8 - Type 2 diabetes mellitus with unspecified complications, E66.01 - Morbid (severe) obesity due to excess calories, I10 - Essential (primary) hypertension, I42.8 - Other cardiomyopathies, I48.0 - Paroxysmal atrial fibrillation, N18.4 - Chronic kidney disease, stage 4 (severe) Vitamin B12 and Folate Today E53.8 - Deficiency of other specified B group vitamins Medications: New gabapentin 200 mg (2 x 100 mg) PO BEDTIME 60 caps 0RF Coding Level of Care Code Est Pt Level 4 (95255) Diagnoses CKD (chronic kidney disease) stage 4, GFR 15-29 ml/min N18.4 Type 2 diabetes mellitus with unspecified complications E11.8 Morbid obesity E66.01 PAF (paroxysmal atrial fibrillation) I48.0 Non-ischemic cardiomyopathy I42.8 Vitamin B 12 deficiency E53.8
[2023-05-09 12:31] VITALS: BP 112/76; PULSE 98; O2SAT 99; BMI 43.8
== END 2023-05-09 13:30 | disposition home or self-care (01) ==
PROVIDERS: PCP Internal Medicine; Visit Provider Internal Medicine
DX: I48.0 Paroxysmal atrial fibrillation (principal); N18.4 Chronic kidney disease, stage 4 (severe); E11.8 Type 2 diabetes mellitus with unspecified complications; E66.01 Morbid (severe) obesity due to excess calories; I42.8 Other cardiomyopathies; E53.8 Deficiency of other specified B group vitamins
CPT/HCPCS: 99214

== ENCOUNTER 2023-05-10 06:36 | Outpatient (REF) | payer MEDICARE, SELFPAY ==
[2023-05-10 11:24] LABS: MANUAL DIFF FLAG NO
[2023-05-10 11:30] LABS: Basophils Absolute Auto 0.1 X10*3/uL (0.0-0.2); Basophils Percent Auto 1.3 % (0-2); Eosinophils Absolute Auto 0.1 X10*3/uL (0.0-0.4); Eosinophils Percent Auto 2.5 % (0-4); Hemoglobin 13.3 g/dl (12.0-16.0); Imm Gran Abs Auto 0.01 X10*3/uL (0.00-0.03); Imm Gran Pct Auto 0.2 % (0.0-0.4); Lymphocytes Absolute Auto 1.1 X10*3/uL (1.2-4.9); Lymphocytes Percent Auto 23.2 % (20-40); Mean Corpuscular HGB Conc 34.1 g/dl (31.0-35.0); Mean Corpuscular Volume 105.7 fL (80.0-98.0); Mean Platelet Volume 11.5 fL (9.4-12.3); Monocytes Absolute Auto 0.9 X10*3/uL (0.1-1.2); Monocytes Percent Auto 17.9 % (2-11); Neutrophils Absolute Auto 2.6 x10*3/uL (2.0-8.3); Neutrophils Percent Auto 54.9 % (45-73); Red Blood Count 3.69 X10*6/uL (4.20-5.50); Red Cell Distribution Width 17.4 % (11.0-16.0); White Blood Count 4.8 X10*3/uL (4.8-10.8)
[2023-05-10 11:36] LABS: Platelet Count 71 X10*3/uL (160-400)
[2023-05-10 11:51] LABS: Estimated Average Glucose 154 mg/dL
[2023-05-10 12:12] LABS: Alanine Aminotransferase 35 U/L (0-31); Albumin Level 3.1 g/dL (3.5-5.0); Alkaline Phosphatase 272 U/L (39-117); Anion Gap 15 (12-20); Aspartate Amino Transferase 67 U/L (5-31); Bilirubin Total 1.8 mg/dL (0.0-1.0); Blood Urea Nitrogen 40 mg/dL (9-16); Calcium 9.1 mg/dL (8.4-10.2); Carbon Dioxide 27 mmol/L (22-29); Chloride 100 mmol/L (96-108); Cholesterol 112 mg/dL (<200); Estimated Glomerular Filt Rate 27; Glucose Fasting 97 mg/dL (60-99); HDL Cholesterol 21 mg/dL (>40); LDL Cholesterol Calculated 60 mg/dL (<100); Potassium 3.5 mmol/L (3.3-5.1); Sodium 138 mmol/L (135-145); Total Protein 6.3 g/dL (6.5-8.0); Triglycerides 155 mg/dL (<150)
[2023-05-10 12:15] LABS: TSH reflex Free T4 0.54 uIU/mL (0.32-4.0)
[2023-05-10 12:30] LABS: Folate 14.6 ng/mL (> or = 4.0); Vitamin B12 1228 pg/mL (200-900)
== END 2023-05-10 06:37 | disposition home or self-care (01) ==
LOC: HO.HMGCLDS 06:36
PROVIDERS: PCP Internal Medicine; Visit Provider Internal Medicine
DX: E11.8 Type 2 diabetes mellitus with unspecified complications (principal); N18.4 Chronic kidney disease, stage 4 (severe); I48.0 Paroxysmal atrial fibrillation; I42.8 Other cardiomyopathies; I10 Essential (primary) hypertension; E66.01 Morbid (severe) obesity due to excess calories; E53.8 Deficiency of other specified B group vitamins
CPT/HCPCS: 36415; 80053; 80061; 82607; 82746; 83036; 84443; 85025

== ENCOUNTER 2023-05-20 09:00 | Outpatient (RCR) | payer MEDICARE, SELFPAY ==
--- NOTE | 2023-05-07 11:59 | MHC.PT.EP ---
[facility] [place] [facility] [place] [facility] [place] [facility] [address] Ana Rosa Bobo [address] [phone] F: [phone] F: [phone] F: [phone] F: [phone] Physical Therapy Plan of Care Date of Evaluation: 05/07/23 Date of Surgery: Diagnosis: weakness in legs. Assessment: Patient is a 72 year old R handed female who presents with s/s consistent with b/l leg weakness, R knee pain. She does not work and is fairy sedentary during the day. Patient past medical history is complex and she is currently mostly wheelchair bound during the day with short bouts of functional mobility. Current impairments include pain, posture, safety, independence, flexibility, ROM, strength, activity tolerance and functional mobility. Functional limitations include decreased ability to stand, walk, and perform household tasks and chores. Patient is motivated with good rehab potential. Skilled PT will address impairments and functional limitations in order to achieve goals. Frequency and Duration: The patient will be seen 2x/week for 5 weeks Short Term Goals: I with HEP - 2 weeks AROM ext full - 3 weeks TTP absent - 3 weeks Able to walk/stand 2 minutes without increased pain, need for rest - 3 weeks Brass Wind Instrument Maker Goals: Able to walk/stand 4 minutes without increased pain or need for rest - 5 weeks Strength 4/5 in LEs grossly - 5 weeks LEFS 40/80 - 5 weeks Treatment Plan: Modalities to reduce pain, spasms and effusion. Manual therapy to restore motion and function. Therapeutic exercise to improve strength and flexibility. Neuromuscular re-education for posture and balance. Therapeutic activities to return to functional activities of daily living. Electronically signed by: Ricky Rizo, PT Please sign and return to therapist. Thank you for your referral.
--- NOTE | 2023-12-02 10:47 | MHC.PT.DC ---
[facility] [place] Office [place] Office [place] Office [address] Ana Rosa Bobo [address] [phone] F: [phone] F: [phone] F: [phone] F: [phone] Physical Therapy Discharge Report Diagnosis: weakness in legs. Date of Surgery: Date of Evaluation: 05/07/23 Date of Discharge: 06/05/23 Treatments to Date: 4 Cancellations to Date: No Shows to Date: Discharge Status: Patient Elected to Stop Discharge Summary: 05/20; Pt performs exs with low endurance. SBA with transfer. Instructed her to do supine hip abd at home due to safety reasosn. 05/15/23: progressed time with each ex. to increased STS reps NV. pt with min soreness. appropriate to progress as tolerated. possible move to // for standing ex if indicated (marches, hip abd, HS curls, etc) 05/14/23: increased LE strength today. patient fatigued. we will assess response before progressing HEP. tolerates seated ex > supine ex. Patient is a 72 year old R handed female who presents with s/s consistent with b/l leg weakness, R knee pain. She does not work and is fairy sedentary during the day. Patient past medical history is complex and she is currently mostly wheelchair bound during the day with short bouts of functional mobility. Current impairments include pain, posture, safety, independence, flexibility, ROM, strength, activity tolerance and functional mobility. Functional limitations include decreased ability to stand, walk, and perform household tasks and chores. Patient is motivated with good rehab potential. Skilled PT will address impairments and functional limitations in order to achieve goals. Electronically signed by: Ricky Rizo, PT Please sign and return to therapist. Thank you for your referral.
== END 2023-12-02 10:47 | disposition home or self-care (01) ==
LOC: HO.PTCHIC 09:00
PROVIDERS: PCP Internal Medicine; Visit Provider Internal Medicine
DX: R29.898 Other symptoms and signs involving the musculoskeletal system (principal)
CPT/HCPCS: 97110; 97162

== ENCOUNTER → 2023-06-02 23:59 | Outpatient (BNV) | payer MEDICARE, SELFPAY ==
--- NOTE | 2023-06-12 11:49 | MHC.OFFVIS ---
Intake Intake Visit Reasons: Remote CardioMEMS Check- [facility] Allergies bees Allergy (Unknown, Verified 05/09/23 12:36) angioedema ibuprofen [From MOTRIN] Allergy (Unknown, Verified 05/09/23 12:36) RASH [facility] Medical History (Updated 05/09/23 @ 13:23 by Zainab Pritchard MD) Dysuria Hypokalemia Diarrhea Elevated LFTs Skin abnormality Preop cardiovascular exam Acute bronchitis Shortness of breath Cataract (lens) fragments in eye following cataract surgery, bilateral CKD (chronic kidney disease) stage 4, GFR 15-29 ml/min Annual physical exam Gout Arthritis Ankle pain, chronic Edema Type 2 diabetes mellitus with unspecified complications Morbid obesity Chronic kidney disease PAF (paroxysmal atrial fibrillation) Biventricular ICD (implantable cardioverter-defibrillator) in place Ventricular tachycardia Surgical History History of tonsillectomy History of partial thyroidectomy Hx of cholecystectomy S/P TAVR (transcatheter aortic valve replacement) Family History Father CVD (cardiovascular disease) Mother No problems noted. Sister Cancer Son No problems noted. Sister Leukemia Son No problems noted. Son No problems noted. Daughter No problems noted. Brother No problems noted. Brother No problems noted. Brother No problems noted. Social History Household Members: Spouse Housing: Apartment Alcohol intake: never Patient Tobacco Use Status: Never used Tobacco e-Cigarette/Vaping Use: Never Used Advance Directives Date on File: 10/23/22 Current occupational status: retired Cognitive needs: No Hearing needs: No Vision needs: No Office Procedures Cardiac Device Check Cardiac Device Check Details: Monitoring period dates: 05/03/23 - 06/02/23 Optimal PA pressure range:PAD goal 23mmhg Procedure code: 05168 BACKGROUND: Ebonie is implanted with the CardioMEMS PA Sensor.? I use this technology to monitor PA pressures on a weekly basis to ensure patients are within their optimal range to prevent decompensation.? SUMMARY:? I utilized the remote monitoring platform ([employer]) to set optimal targets for pulmonary artery pressure thresholds as part of acute and chronic management of patient?s heart failure. During the period indicated above, I monitored the patient?s pulmonary artery pressures weekly via trend analysis and notification reports which provide alerts when patient?s PA pressures were outside of range to prompt immediate action in medication changes and communications.? The weekly reports are archived in the [employer] system which serve as a parallel record to document weekly PA pressures, medication changes, and clinical notes. I have reviewed readings on 05/06, 05/13, 05/18. She has hospitalized after 05/18 and has not been doing readings since. PAD range 16- 23mmhg. Called her when reading was low and instructed to increase fluids, hold metolazone. 82142 - Remote monitoring of wireless pulmonary artery pressure sensor Procedure code (CPT) selection complete Assessment & Plan Assessment & Plan (1) Presence of CardioMEMS HF system: Comment: 09/06/2021 Code(s): Z95.818 - Presence of other cardiac implants and grafts Plan: monthly report Coding Level of Care Code Procedure Only Diagnoses Presence of CardioMEMS HF system Z95.818 CPT Codes Cardiac Device Check - Cardiac Device 17: 80230 - Remote monitoring of wireless pulmonary artery pressure sensor ([id number])
== END ==
PROVIDERS: PCP Internal Medicine; Visit Provider Nurse Practitioner Family
DX: Z95.818 Presence of other cardiac implants and grafts (principal)
CPT/HCPCS: 93264

== ENCOUNTER 2023-07-24 14:11 | Outpatient (AMB) | payer MEDICARE, SELFPAY ==
--- NOTE | 2023-07-24 14:12 | MHC.PC.OV ---
Intake Visit Reasons: Telehealth Discharge follow up Allergies bees Allergy (Unknown, Verified 07/24/23 14:12) angioedema ibuprofen [From MOTRIN] Allergy (Unknown, Verified 07/24/23 14:12) RASH Medication List - Last Reconciled 07/24/23 by Zainab Pritchard MD acetaminophen ER (Tylenol 8 Hour) 650 mg PO Q8H PRN allopurinol 200 mg (2 x 100 mg) PO DAILY apixaban (Eliquis) 5 mg PO BID blood sugar diagnostic (FreeStyle Lite Strips) test 3 times a day DX E11.9 carvedilol 3.125 mg PO BID colchicine (Colcrys) 0.6 mg PO BID dapagliflozin propanediol (Farxiga) 10 mg PO QAM dulaglutide (Trulicity) 3 mg (0.5 mL) subcut QWEEK flash glucose sensor (FreeStyle Silvestre 14 Day Sensor kit) As directed fluticasone propion-salmeterol 230-21 mcg/actuation (Advair HFA) 2 puffs inhalation BID gabapentin 100 mg PO BEDTIME insulin aspart U-100 (Novolog FlexPen U-100 Insulin aspart) 18 units (0.18 mL) subcut TID insulin glargine (Basaglar KwikPen U-100 Insulin) 80 units (0.8 mL) subcut DAILY levothyroxine 175 mcg PO QAM methylcellulose (laxative) (Citrucel) 500 mg PO BID metolazone every Friday miscellaneous medical supply electric scooter pantoprazole 40 mg PO DAILY pen needle, diabetic (BD Ultra-Fine Mini Pen Needle) 1 ea subcut DIRECTED potassium chloride ER 60 mEq (3 x 20 mEq) PO DAILY 90 days rosuvastatin (Crestor) 20 mg PO DAILY sennosides (Natural Senna Laxative) 17.2 mg (2 x 8.6 mg) PO BEDTIME spironolactone 25 mg PO QAM sucralfate 1 g PO BEDTIME torsemide 60 mg (3 x 20 mg) PO QAM walker 2 wheels and 2 flat feet [wheelchair-28 inch wide with removeable leg rests As directed] Tobacco use date assessed: 07/24/23 Dental Screening Dental Screen Date: 05/09/23 HPI Telehealth Discharge follow up HPI Details This is Tele health. Pt patient fell and broke her right distal femur on May 21 underwent open reduction and fixation by Dr. Colon at [facility] on May 22. Patient has been getting home physical therapy since she was discharged from rehab. CHF type 2 diabetes chronic kidney disease stage 3/4 are stable. Patient reports higher blood glucose readings up to 200 when noncompliant with ADA diet. Patient has a VNA service. She denies chest pain shortness for breath palpitations. [facility], [facility] Medical History (Updated 07/24/23 @ 14:49 by Zainab Pritchard MD) Dysuria Hypokalemia Diarrhea Elevated LFTs Skin abnormality Preop cardiovascular exam Acute bronchitis Shortness of breath Cataract (lens) fragments in eye following cataract surgery, bilateral CKD (chronic kidney disease) stage 4, GFR 15-29 ml/min Annual physical exam Gout Arthritis Ankle pain, chronic Edema Type 2 diabetes mellitus with unspecified complications Morbid obesity Chronic kidney disease PAF (paroxysmal atrial fibrillation) Biventricular ICD (implantable cardioverter-defibrillator) in place Ventricular tachycardia Surgical History History of tonsillectomy History of partial thyroidectomy Hx of cholecystectomy S/P TAVR (transcatheter aortic valve replacement) Family History Father CVD (cardiovascular disease) Mother No problems noted. Sister Cancer Son No problems noted. Sister Leukemia Son No problems noted. Son No problems noted. Daughter No problems noted. Brother No problems noted. Brother No problems noted. Brother No problems noted. Social History Household Members: Spouse Housing: Apartment Alcohol intake: never Patient Tobacco Use Status: Never used Tobacco e-Cigarette/Vaping Use: Never Used Advance Directives Date on File: 10/23/22 service: No Current occupational status: retired Cognitive needs: No Hearing needs: No Vision needs: No Questionnaire PHQ-9 Over the last 2 weeks, how often have you been bothered by any of the following problems? 1. Little interest or pleasure in doing things: not at all 2. Feeling down, depressed, or hopeless: not at all 3. Trouble falling or staying asleep, or sleeping too much: not at all 4. Feeling tired or having little energy: not at all 5. Poor appetite or overeating: not at all 6. Feeling bad about yourself - or that you are a failure or have let yourself or your family down: not at all 7. Trouble concentrating on things, such as reading the newspaper or watching television: not at all 8. Moving or speaking so slowly that other people could have noticed. Or the opposite - being so fidgety or restless that you have been moving around a lot more than usual: not at all 9. Thoughts that you would be better off or of hurting yourself in some way: not at all Total score: 0 Depression Screening Interpretation: Negative Depression Screening Done: Yes Source: Developed by Drs. Johnny Rodríguez, Ammy Sarah, Raphael Miranda and colleagues, with an educational sundeep from [employer]. Thrive Questionnaire Date Thrive assessed: 07/24/23 I am a: Patient What is your living situation today?: I have a steady place to live Within the past 12 months, did the food you bought not last and you didn't have the money to get more?: Never true Within the past 12 months, did you worry whether your food would run out before you got money to buy more?: Never true Do you have trouble paying for medicines?: No Do you have trouble getting transportation to medical appointments?: No Do you have trouble paying your heating and electricity bill?: No Do you have trouble taking care of your child, family member or friend?: No Do you have trouble with day-to-day activities such as bathing, preparing meals, shopping, managing finances, etc.?: No Are you currently unemployed and looking for a job?: No Are you interested in more education?: No THRIVE Score: 0 AUDIT C Alcohol Use Questionnaire (AUDIT-C) 1. How often do you have a drink containing alcohol?: Never 3. How often do you have six or more drinks on one occasion?: Never Total Score: 0 BETY-7 AMB Questionnaire BETY-7 Date BETY - 7 assessed: 07/24/23 Feeling nervous, anxious, or on edge: 0 = Not at all Not being able to stop or control worryin = Not at all Worrying too much about different things: 0 = Not at all Trouble relaxin = Not at all Being so restless that it is hard to sit still: 0 = Not at all Becoming easily annoyed or irritable: 0 = Not at all Feeling afraid as if something awful might happen: 0 = Not at all Total BETY-7 score (0-4 normal; 5-9 mild; 10-14 moderate; 15-21 severe): 0 Source: Developed by Drs. Johnny Rodríguez, Ammy Sarah, Raphael Miranda and colleagues, with an educational sundeep from [employer]. Review of Systems Const All systems reviewed & are unremarkable except as noted in HPI and below ENT Reports no additional complaints Card Reports no additional complaints Resp Reports no additional complaints GI Reports no additional complaints Reports no additional complaints Physical exam (Primary Care) Tobacco/Smoking Status: Tobacco use Status Tobacco use date assessed 07/24/23 07/24/23 14:20 Patient Tobacco Use Status Never used Tobacco 07/24/23 14:20 e-Cigarette/Vaping Use Never Used 07/24/23 14:13 PHQ-9: PHQ-9 Score PHQ-9: Total score 0 07/24/23 14:22 Depression Screening Interpretation: Negative Thrive Assessment: Date of Thrive Assessment Date Thrive assessed 07/24/23 07/24/23 14:22 Telehealth Telehealth Telehealth Platform: Telephone Location of provider rendering services: practice address Location of patient: address on file Patient Identification confirmed using: Name, : Yes Telehealth method: voice only Patient verbally consented to treatment: Yes Patient verbally consented to billing insurance company: Yes Patient informed of any privacy concerns related to visit: Yes Minutes spent on Phone/Video with Pt.: 25 Assessment and Plan Assessment & Plan (1) Closed fracture of right distal femur: Comment: 05/21/23 s/p ORIF NEOS Code(s): S72.401A - Unspecified fracture of lower end of right femur, initial encounter for closed fracture Plan: FOLLOW-UP WITH HOME PT AND ORTHO (2) Type 2 diabetes mellitus with unspecified complications: Code(s): E11.8 - Type 2 diabetes mellitus with unspecified complications Plan: ADA diet discussed with the patient continue current medications return in 2 months with a fasting labs including A1c (3) PAF (paroxysmal atrial fibrillation): Comment: On Eliquis Code(s): I48.0 - Paroxysmal atrial fibrillation Plan: Continue Eliquis and beta candido (4) Implantable cardioverter-defibrillator (ICD) generator end of life: Code(s): Z45.02 - Encounter for adjustment and management of automatic implantable cardiac defibrillator Plan: Follow-up with cardiology (5) CKD (chronic kidney disease) stage 4, GFR 15-29 ml/min: Comment: Follow-up with licensed midwife Code(s): N18.4 - Chronic kidney disease, stage 4 (severe) Plan: Monitor renal function avoid nephrotoxin follow-up with nephrology (6) Non-ischemic cardiomyopathy: Comment: echo 07/14, left ventricle injection fraction 20% global hypokinesis, s/p ICD, no ACEI or ARB CKD stage 4, on dapagliflozin carvedilol Code(s): I42.8 - Other cardiomyopathies Plan: Continue current medications follow-up with Cardiology (7) Ventricular tachycardia: Comment: STATUS POST IMPLANTED CARDIOVERTER -DEFIBRILLATOR 2021 Code(s): I47.2 - Ventricular tachycardia Plan: Follow-up with cardiology Orders: Orders Complete Blood Count Auto Diff 2 Months TSH reflex Free T4 2 Months Lipid Panel 2 Months Comprehensive Grant. Panel Fast 2 Months Hemoglobin A1c 2 Months Vitamin D 25-OH (D2 and D3) 2 Months Medications: Changed From gabapentin 200 mg (2 x 100 mg) PO BEDTIME 60 caps 0RF To gabapentin 100 mg PO BEDTIME Coding Level of Care Code Tele Est Pt Level 4 (36139) Diagnoses Closed fracture of right distal femur S72.401A Type 2 diabetes mellitus with unspecified complications E11.8 PAF (paroxysmal atrial fibrillation) I48.0 Implantable cardioverter-defibrillator (ICD) generator end of life Z45.02 CKD (chronic kidney disease) stage 4, GFR 15-29 ml/min N18.4 Non-ischemic cardiomyopathy I42.8 Ventricular tachycardia I47.2
--- OUTSIDE RECORDS SUMMARY | 2023-07-24 14:13 | XMS_ITS | Continuity of Care Document ---
Demographics Address [address] [place] [address] Mobile Preferred Language [place] Citizen Marital Status Zoroastrianism Affiliation Baptist Race White Ethnic Group Not or Lati no Author Organization [facility] ter Address [address] [place] [id number] Care Team Providers Care Inspector Quality Assurance Name Role Phone Zainab Pritchard MD Primary Care Physician [phone] Encounter [facility] [place] Date(s): 05/21/23 - 05/25/[address] [id number]- Encounter Diagnosis Accidental fall(Final) - 05/21/23 Discharge Disposition: A-Transfer SNF Attending Physician: Raine MORFIN, [facility] Admitting Physician: Marissa Pepe DO Referring Physician: Not on Staff, Referring MD Allergies, Adverse Reactions, Alerts Substance Reaction Severity Status Motrin Active Bee Stings Active Immunizations Given and Recorded Vaccine Date Status Refusal Reason influenza virus vaccine, inactivated 05/23/23 Give n influenza virus vaccine, inactivated 02/06/20 Give n influenza virus vaccine, inactivated 01/07/15 Give n pneumococcal 23-valent vaccine 01/07/15 Given Medications Advair HFA 230 mcg / 21 mcg INHALE TWO PUFFS BY MOUTH TWICE DAILY (BULK) Start Date: 02/03/22 Status: Ordered allopurinol 100 mg oral tablet 100 mg, 1, tablet, By Mouth, Refills 0, Maintenance, 04/01/22 15:16:00 EST, Partial fill upon patient request if the prescription is for a schedule II opioid drug. Start Date: 04/01/22 Status: Ordered carvedilol 3.125 mg oral tablet 3.125 mg, 1, tablet, By Mouth, 2 times a day, # 180 tablet, Refills 3, Tot. Refills 3, Maintenance,04/11/21 14:21:00 EST, Route to Pharmacy Electronically, [facility] ([facility]), Partial fill upon patient request if the prescription is for... Start Date: 04/11/21 Stop Date: 04/06/22 Status: Ordered Centrum Silver By Mouth, Daily, 0 Refills, Maintenance, 06/22/15 10:45:53 Start Date: 06/22/15 Status: Ordered Farxiga 10 mg oral tablet TAKE 1 TABLET BY MOUTH EVERY DAY Start Date: 02/03/22 Status: Ordered Heparin 1 mL = 5,000 units, Subcutaneous Injection, 3 times a day, 0 Refills, Maintenance, 05/25/23 15:43:00 EST, Injection, Partial fill upon patient request if the prescription is for a schedule II opioid drug. Start Date: 05/25/23 Status: Ordered Insulin Glargine Inj = 45 units, Subcutaneous Injection, Daily at bedtime, 0 Refills, Maintenance, 05/25/23 15:43:00 EST, Injection, Partial fill upon patient request if the prescription is for a schedule II opioid drug. Start Date: 05/25/23 Status: Ordered levothyroxine 0.175 mg oral tablet 1 tablet, By Mouth, Daily, 0 Refills, Maintenance, 05/29/16 16:22:43 Start Date: 05/29/16 Status: Ordered oxyCODONE 5 mg oral tablet 5 mg, Tablet, By Mouth, Every 4 hours, may give less in 2.5 mg increments, hold for sedation, PRN for Pain , Severe, Routine, 05/23/23 17:41:00 EST Start Date: 05/23/23 Stop Date: 05/26/23 Status: Discontinued oxyCODONE 5 mg oral tablet 5 mg, By Mouth, Every 4 hours, PRN, for 2 days, # 10 tablet, Refills 0, Tot. Refills 0, Acute 05/27/23 15:44:00 EST, Pain , Severe, 05/25/23 15:44:00 EST, Print Requisition, Partial fill upon patientrequest if the prescription is for a schedule II op... Start Date: 05/25/23 Stop Date: 05/27/23 Status: Ordered rosuvastatin 20 mg oral tablet TAKE ONE TABLET BY MOUTH DAILY AT 9PM (VIAL) Start Date: 02/03/22 Status: Ordered Trulicity Pen Subcutaneous Infusion, 0 Refills, Maintenance, 04/01/22 15:17:00 EST, Partial fill upon patient request if the prescription is for a schedule II opioid drug. Start Date: 04/01/22 Status: Ordered Tylenol 325 mg oral tablet 650 mg, Tablet, By Mouth, Every 4 hours, PRN for Pain , Moderate, Routine, 05/21/23 12:33:00 EST Start Date: 05/21/23 Stop Date: 05/26/23 Status: Discontinued Problem List Condition Confirmation Course Effective Dates [...] Active Varicose vein of leg Confirmed Active Procedures Procedure Date Related Diagnosis Body Site Status Open treatment of femoral orlando pracondylar or transcondylar fracture with intercondylar extension, includes internal fixation, when performed 1 05/23/23 Completed 1Synthes locking Kyra plate and screws Results Orders for Microbiology Reports Name Date Urine Culture (URINE CULTURE) 05/22/23 Blood Culture 05/22/23 Blood Culture #2 05/22/23 Microbiology Reports TEST:Urine Culture STATUS:Auth (Verified) BODY SITE: SOURCE:URINE COLLECTED DATE/TIME:05/22/23 2:36 AM Urine Culture SPECIMEN DESCRIPTION : URINE CLEAN CATCH/MIDSTREAM SPECIAL REQUESTS : NONE CULTURE : >100,000 COL/ML ENTEROBACTER CLOACAE COMPLEX Due to potential resistance which can develop on therapy, monotherapy with a 3rd-generation cephalosporin (ceftriaxone, ceftazidime, cefpodoxime, cefixime) is not recommended to treat this organism. Bacteriuria without symptoms may not warrant antibiotic treatment. This isolate was identified using Maldi-TOF system These AST results were performed on the GlucoVista 2 ID and AST system REPORT STATUS : FINAL 05/24/2023 ORGANISM >100,000 COL/ML ENTEROBACTER CLOACAE COMPLEX Due to potential resistance which can develop on therapy, monotherapy with a 3rd-generation cephalosporin (ceftriaxone, ceftazidime, cefpodoxime, cefixime) is not recommended to treat this organism. Bacteriuria without symptoms may not warrant antibiotic treatment. This isolate was identified using Maldi-TOF system These AST results were performed on the Vitek 2 ID and AST system METHOD MIN. INHIB. CONC. (MCG/ML) CEFEPIME SUSCEPTIBLE CIPROFLOXACIN SUSCEPTIBLE ERTAPENEM SUSCEPTIBLE GENTAMICIN SUSCEPTIBLE LEVOFLOXACIN SUSCEPTIBLE NITROFURANTOIN SUSCEPTIBLE PIPERACILLIN/TAZOBAC SUSCEPTIBLE TRIMETH/SULFAMETHOX SUSCEPTIBLE TEST:Blood Culture STATUS:Unauthenticated BODY SITE: SOURCE:Blood COLLECTED DATE/TIME:05/22/23 12:52 AM Blood Culture SPECIMEN DESCRIPTION : BLOOD NO SITE SPECIAL REQUESTS : NONE CULTURE : NO GROWTH 3 DAYS REPORT STATUS : PRELIMINARY REPORT TEST:Blood Culture, Second Order STATUS:Unauthenticated BODY SITE: SOURCE:Blood COLLECTED DATE/TIME:05/22/23 12:52 AM Blood Culture, Second Order SPECIMEN DESCRIPTION : BLOOD N SITE SPECIAL REQUESTS : NONE CULTURE : NO GROWTH 3 DAYS REPORT STATUS : PRELIMINARY REPORT Radiology Reports * Exam Date Time Procedure Performing Provider Status 05/23/23 7:17 PM C-Arm > 1 Hour Yunier Hugo; Rosanna (Ve rified) Notes: (C-Arm > 1 Hour) Reason For Exam: ORIF OF DISTAL R FEMUR RESULT: C-Arm > 1 Hour INDICATION: Reason: ORIF OF DISTAL R FEMUR COMPARISONS: CT of 05/22/2023 TECHNIQUE: Fluoroscopy support was provided. There was no radiologist in attendance. Fluoroscopy time: 1 minute 39.7 seconds Technologist time: 1 hour 38 minutes DAP: 3.5033 Gycm2 FINDINGS: 6 intraoperative images were provided for interpretation. Images demonstrate placement of a plate and screws stabilizing a distal femoral fracture. Please refer to operative report for additional details IMPRESSION: See above. WSN: [id number] Ordering Physician: El Colon Dictated By: Miriam Galdamez MD Dictated Date/Time: 05/23/23 7:54 pm Reviewed By: Miriam Galdamez MD Signed By: Miriam Galdamez MD Signed Date/Time: 05/23/23 7:54 pm Transcribed By: FELY Transcribed Date/Time: 05/23/23 7:52 pm * Exam Date Time Procedure Performing Provider Status 05/23/23 7:17 PM XR Femur 2 Views Right Mario Hugo Auth (Verified) Notes: (XR Femur 2 Views Right) Reason For Exam: ORIF OF DISTAL R FEMUR RESULT: Femur 2 Views Right INDICATION: Reason: ORIF OF DISTAL R FEMUR COMPARISONS: CT of 05/22/2023 TECHNIQUE: Fluoroscopy support was provided. There was no radiologist in attendance. Fluoroscopy time: 1 minute 39.7 seconds Technologist time: 1 hour 38 minutes DAP: 3.5033 Gycm2 FINDINGS: 6 intraoperative images were provided for interpretation. Images demonstrate placement of a plate and screws stabilizing a distal femoral fracture. Please refer to operative report for additional details IMPRESSION: See above. WSN: [id number] Ordering Physician: El Colon Dictated By: Miriam Galdamez MD Dictated Date/Time: 05/23/23 7:54 pm Reviewed By: Miriam Galdamez MD Signed By: Miriam Galdamez MD Signed Date/Time: 05/23/23 7:54 pm Transcribed By: FELY Transcribed Date/Time: 05/23/23 7:52 pm * Exam Date Time Procedure Performing Provider Status 05/22/23 5:[address] Angio Ext Lower Right Joseline Tran; Modified Notes: (CT Angio Ext Lower Right) Reason For Exam: rule out bleed;Trauma RESULT: CT Angio Ext Lower Right PROCEDURE: CT Angio Ext Lower Right INDICATION: Reason: Trauma; rule out bleed; Clinical Question(s): Other:; Order Comment: 05 22 2023 04:05:57 EST nurse will bring pt to ct room edg texted ordering MD - ? reason for order. 05 22 2023 04:31:34 EST. SJ gfr = 23 also have emergency consent from ordering MD - and scan femur for bleed. 05 22 2023 04:36:12 EST. SJ RELEVANT CLINICAL INFORMATION/CLINICAL QUESTION: Other: TECHNIQUE: CT angiography of the right lower extremity was performed from the pelvis through the knee using contiguous helical images during injection IV contrast. 100 cc of Omnipaque 300 was administered intravenously. One mm axial images were reconstructed. Sagittal and coronal reformatted imageswere rendered. High resolution multiplanar, volume rendered and MIP images were created and used to evaluate the abdominal aorta and lower extremity arteries in multiple projections on an independent workstation, with permanent images saved to PACS. Automatic tube current modulation was used to optimize exposure parameters. RADIATION DOSE PARAMETERS: CTDIvol Body: 42.50 mGy, DLP Body: 1444 mGy*cm. COMPARISON: 05/21/2023. FINDINGS: Right side: Common iliac artery: The visualized distal segment is patent. No significant stenosis. Internal iliac artery: Patent. No significant stenosis. External iliac artery: Patent. No significant stenosis. Common femoral artery: Patent. No significant stenosis. Superficial femoral artery: Patent. No significant stenosis. Deep femoral artery: Patent. No significant stenosis. Popliteal artery: Patent. No significant stenosis. No evidence of active hemorrhage. Small hypervascular focus in the medial soft tissues of the thigh(image 85, series 401), may represent a small pseudoaneurysm. Redemonstration of extensive venous varices throughout the extremity, some of which demonstrate diffuse calcifications and are therefore likely thrombosed. Left side: Internal iliac artery: The visualized segment is patent. External iliac artery: The visualized segment is patent. OTHER FINDINGS: Paper Ruler View Findings, Lines and Tubes: None. Bladder: Decompressed. No evidence of acute abnormality. Reproductive organs: Status post hysterectomy. Stomach, small bowel, and large bowel: Visualized loops of bowel are nonobstructive in appearance. Diverticulosis of the colon without evidence of acute diverticulitis. Peritoneum and retroperitoneum: No ascites or pneumoperitoneum. No omental or mesenteric lesions. Lymph nodes: No enlarged lymph nodes. Abdominal and pelvic wall: Incompletely visualized, complex of ventral hernia containing fat. Lower extremities: Varicosities as above. Diffuse edema. Redemonstration of a hematoma, posterior to the femur. Small lipohemarthrosis. Hallman's cyst with intermediate density fluid, compatible with blood. Bones: Better visualized on the concurrent MSK examination of the knee, comminuted fractures involving the femur and fibula. Please refer to the separate CT report for additional diagnostic details. IMPRESSION: 1. Status post a comminuted fracture to the distal femur and proximal fibula. 2. No evidence of active hemorrhage. 3. No evidence of a significant arterial injury. 4. Possibly tiny pseudoaneurysm in the medial thigh. Preliminary read was provided by [facility]. I concur with the salient findings of the [facility] report. No major discrepancy identified. WSN: [id number] Ordering Physician: Carlos Rizo Dictated By: Leo Mckee MD Dictated Date/Time: 05/22/23 9:35 am Reviewed By: Leo Mckee MD Signed By: Leo Mckee MD Signed Date/Time: 05/22/23 9:35 am Transcribed By: FELY Transcribed Date/Time: 05/22/23 8:41 am * Exam Date Time Procedure Performing Provider Status 05/21/23 5:[address] Ext Lower W/O Contrast Right Colon , Mela; Auth (Verified) Notes: (CT Ext Lower W/O Contrast Right) Reason For Exam: Fracture RESULT: CT Ext Lower W/O Contrast Right CT Ext Lower W/O Contrast Right Hx of Present Illness: Pt reports she was walking to the bathroom w her walker when her left knee gave out and she fell, no head strike, no LOC. Pt reports she fell 2 weeks ago after knee giving out ,went to [facility] ED and negative xrays.; Reason: Fracture; Clinical Question(s): Knee. TECHNIQUE: Helical CT of the right knee without contrast formatted in 3 planes. Weight-based protocol using automatic tube modulation was used to optimize exposure parameters. CTDIvol Body: 37.80 mGy, DLP Body: 1124 mGy*cm. COMPARISONS: Right knee radiographs dated 05/21/2023. FINDINGS: Bones and joints: There is an acute comminuted fracture of the distal right femur. The dominant fracture planes are primarily seen at the metaphysis where there is impaction and overlap of fracture fragments anteriorly by approximately 2.7 cm. Additionally, there are fracture planes which extend into the intercondylar notch. There is mild posterior displacement of the medial femoral condyle relative to the femoral diaphysis as well as mild anterior rotation of the femoral condyles relative to the femoral diaphysis. There is a nondisplaced slightly impacted fracture of the proximal fibular metadiaphysis. Questionable small amount of callus formation is seen along the anterior aspect of the fi bular fracture site. The bones are osteopenic with no additional fractures. There is mild tricompartmental degenerative change with mild joint space narrowing bony proliferation. [place] shaped corticated ossific density is seen in the posterolateral aspect of the joint measuring up to 0.9 cm. Soft Tissues: There is a small lipohemarthrosis. There is periarticular edema as well as a hyperdense collection posterior to the distal femoral fracture site which measures compatible with hematoma.This measures 2.6 x 3.1 x 2.8 cm. There is subcutaneous edema most pronounced in the posterior medial aspect. Superficial venous varicosities are seen with associated calcifications. Severe atherosclerotic vascular calcification seen. IMPRESSION: 1. Comminuted mildly displaced intra-articular fracture of the distal femur. 2. Nondisplaced minimally impacted fracture of the proximal fibular metadiaphysis. This may be subacute as there is a questionable small amount of callus formation along the anterior aspect of the fracture plane. 3. Small lipohemarthrosis as well as periarticular edema and hyperdense collection compatible with hematoma posterior to the fracture site. Results were discussed via telephone by Dr. Mancilla with Zhou Barnett DO on 05/22/2023 2:27 AM with understanding voiced back. I have personally reviewed the images and I agree with this report. WSN: [id number] Ordering Physician: Leonel Rasmussen Dictated By: Yunier Mancilla DO Dictated Date/Time: 05/22/23 7:56 am Reviewed By: Silvia Ortega MD Signed By: Silvia Ortega MD Signed Date/Time: 05/22/23 8:01 am Transcribed By: FELY Transcribed Date/Time: 05/22/23 2:29 am * Exam Date Time Procedure Performing Provider Status 05/21/23 5:45 PM XR Femur 2 Views Right Jaycob Self; [facility] (Verified) Notes: (XR Femur 2 Views Right) Reason For Exam: Trauma RESULT: Femur 2 Views Right Femur 2 Views Right, 2 views Hx of Present Illness: Pt reports she was walking to the bathroom w her walker when her left knee gave out and she fell, no head strike, no LOC. Pt reports she fell 2 weeks ago after knee giving out ,went to [facility] ED and negative xrays.; Reason: Trauma; Clinical Question(s): Fracture; Order Comment: 05 21 2023 15:51:24 EST COMPARISON: None. FINDINGS: AP and crosstable lateral views of right femur obtained. There is a comminuted impacted fracture of the distal femur above and likely extending into the joint. Remainder of the femur appears intact. Degenerative changes in the right hip. Extensive vascular calcifications in the soft tissues of the thigh. IMPRESSION: Comminuted impacted and likely intra-articular fracture involving the distal femur and femoral condyles. WSN: [id number] Ordering Physician: Lisandro Menon Dictated By: Nell Sierra MD, I Dictated Date/Time: 05/21/23 5:55 pm Reviewed By: Nell Sierra MD, I Signed By: Nell Sierra MD, I Signed Date/Time: 05/21/23 5:55 pm Transcribed By: FELY Transcribed Date/Time: 05/21/23 5:52 pm * Exam Date Time Procedure Performing Provider Status 05/21/23 5:45 PM Chest 2 Views Frontal and Lat Jaycob Self; Auth (Verified) Notes: (Chest 2 Views Frontal and Lat) Reason For Exam: Shortness of Breath, Fever;Other: RESULT: Chest 2 Views Frontal and Lat Chest 2 Views Frontal and Lat Hx of Present Illness: Pt reports she was walking to the bathroom w her walker when her left knee gave out and she fell, no head strike, no LOC. Pt reports she fell 2 weeks ago after knee giving out ,went to [facility] ED and negative xrays.; Reason: Other:; Shortness of Breath, Fever; Clinical Question(s): Pneumonia COMPARISON: 02/03/2022 FINDINGS: LINES AND TUBES: Triple-lead left subclavian pacer/AICD wires are intact. LUNGS AND PLEURA: Vascular congestion without overt pulmonary edema. No definite focal consolidation. HEART, MEDIASTINUM AND HERNANDO: Unchanged. Status post TAVR. Enlarged but unchanged cardiac silhouette. BONES AND SOFT TISSUES: No acute abnormality. IMPRESSION: No acute abnormality. WSN: [id number] Ordering Physician: Lisandro Menon Dictated By: Preston Duvall MD Dictated Date/Time: 05/21/23 5:48 pm Reviewed By: Preston Duvall MD Signed By: Preston Duvall MD Signed Date/Time: 05/21/23 5:48 pm Transcribed By: FELY Transcribed Date/Time: 05/21/23 5:47 pm * Exam Date Time Procedure Performing Provider Status 05/21/23 3:24 PM Tibia/Fibula 2 Views Right Madai Self n; Auth (Verified) Notes: (Tibia/Fibula 2 Views Right) Reason For Exam: Trauma RESULT: Tibia/Fibula 2 Views Right Knee 1 or 2 Views Right, Tibia/Fibula 2 Views Right Hx of Present Illness: Pt reports she was walking to the bathroom w her walker when her left knee gave out and she fell, no head strike, no LOC. Pt reports she fell 2 weeks ago after knee giving out ,went to [facility] ED and negative xrays.; Reason: Trauma; Clinical Question(s): Fracture COMPARISON: Plain films 04/01/2010. FINDINGS: Transverse comminuted fracture of the distal femur approximately 5 cm from the articular surface. No knee dislocation. Non-displaced fracture of the fibular head. No tibial fracture. Degenerative changes of the ankle joint. Extensive vascular calcifications. IMPRESSION: Comminuted fracture of the right distal femur. Nondisplaced fracture of the fibular head. I have personally reviewed the images and I agree with this report. WSN: [id number] Ordering Physician: Lisandro Menon Dictated By: Neri Haynes MD Dictated Date/Time: 05/21/23 3:34 pm Reviewed By: Hosea Escalante MD, V Signed By: Hosea Escalante MD, V Signed Date/Time: 05/21/23 3:39 pm Transcribed By: FELY Transcribed Date/Time: 05/21/23 3:26 pm * Exam Date Time Procedure Performing Provider Status 05/21/23 3:24 PM Knee 1 or 2 Views Right Forte , Jaycob; Auth (Verified) Notes: (Knee 1 or 2 Views Right) Reason For Exam: Trauma RESULT: Knee 1 or 2 Views Right Knee 1 or 2 Views Right, Tibia/Fibula 2 Views Right Hx of Present Illness: Pt reports she was walking to the bathroom w her walker when her left knee gave out and she fell, no head strike, no LOC. Pt reports she fell 2 weeks ago after knee giving out ,went to [facility] ED and negative xrays.; Reason: Trauma; Clinical Question(s): Fracture COMPARISON: Plain films 04/01/2010. FINDINGS: Transverse comminuted fracture of the distal femur approximately 5 cm from the articular surface. No knee dislocation. Non-displaced fracture of the fibular head. No tibial fracture. Degenerative changes of the ankle joint. Extensive vascular calcifications. IMPRESSION: Comminuted fracture of the right distal femur. Nondisplaced fracture of the fibular head. I have personally reviewed the images and I agree with this report. WSN: [id number] Ordering Physician: Lisandro Menon Dictated By: Neri Haynes MD Dictated Date/Time: 05/21/23 3:34 pm Reviewed By: Hosea Escalante MD, V Signed By: Hosea Escalante MD, V Signed Date/Time: 05/21/23 3:39 pm Transcribed By: FELY Transcribed Date/Time: 05/21/23 3:26 pm Vital Signs Most recent to oldest [Reference Range]: 1 2 3 Height 162 cm (05/25/23 7:20 AM) 162 cm (05/25/23 3:06 AM) 162 cm (05/24/23 7:07 PM) Weight 111.8 kg (05/23/23 4:23 PM) 111.8 kg (05/22/23 8:45 AM) 116 kg (05/22/23 6:52 AM) Oxygen Saturation [94-100 %] 100 % (05/25/23 7:20 AM) 5 % *L* (05/25/23 3:06 AM) 95 % (05/24/23 7:07 PM) Pulse Rate [55-90 bpm] 86 bpm (05/25/23 7:20 AM) 85 bpm (05/25/23 3:06 AM) 89 bpm (05/24/23 7:07 PM) Body Mass Index [18.5-24.99 kg/m2] 42.6 kg/m2 *>HHI* (05/23/23 4:23 PM) 42.6 kg/m2 *>HHI* (05/22/23 8:45 AM) 44.2 kg/m2 *>HHI* (05/22/23 6:52 AM) Blood Pressure [90-138/55-84 mm Hg] 113/47mm Hg (05/25/23 7:20 AM) 108/56mm Hg (05/25/23 3:06 AM) 108/52mm Hg (05/24/23 7:07 PM) Respiratory Rate [16-30 br/min] 20 br/min (05/25/23 4:51 PM) 20 br/min (05/25/23 11:56 AM) 20 br/min (05/25/23 11:04 AM) Temperature [96.8-100.4 DegF] 97.9 DegF (05/25/23 7:20 AM) 98.4 DegF (05/25/23 3:06 AM) 98.3 DegF (05/24/23 7:07 PM) Liters per Minute 2 L/min (05/23/23 9:15 PM) 2 L/min (05/23/23 8:15 PM) 6 L/min (05/23/23 7:45 PM) Mode of Delivery (Oxygen) Room air (05/25/23 7:20 AM) Room air (05/25/23 3:06 AM) Room air (05/24/23 7:07 PM) Blood pressure sites Arm, right (05/25/23 7:20 AM) Arm, right (05/25/23 3:06 AM) Arm, left (05/24/23 7:07 PM) Temperature Route Oral (05/25/23 7:20 AM) Oral (05/25/23 3:06 AM) Oral (05/24/23 7:07 PM) Dry Weight 111.8 kg (05/23/23 4:23 PM) 111.8 kg (05/22/23 8:45 AM) 116 kg (05/22/23 6:52 AM) Weight Obtained Via Bed scale (05/22/23 8:45 AM) Dry Weight Obtained Via Bed scale (05/22/23 8:45 AM) Social History Social History Type Response Smoking Status Never smoker entered on: 06/22/15 Sex Admission evaluation note * Zhou Barnett DO: PERFORM, MODIFY, MODIFY, MODIFY, MODIFY Event Display: Admission Note Authored Date: Patient: ??SHAUN LERMA ? Age:??72 Years?Sex:??Female?:??1950?? Chief Complaint/Reason for Consultation From home. pt c/o R knee pain s/p R knee giving out. pt able to lower self to ground. denies head strike. pt noted to have systolic BP ranging from 92-102, noted when demand pacer firing. pt is assymptomatic. 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 ??Patient states she was walking at home when her right knee gave out??and she landed directly on her right knee.?? She denies any??dizziness/lightheadedness/palpitations during this episode. ??She denies any??head trauma.?? Patient does note pain in her right??lower extremity but states it is controlled with the morphine that she received.?? Patient does have significant cardiac history and??does not have any chest pain. ??Her symptoms have been well-controlled on her current medication regimen. ? ED course: Vitals: Heart rate ranging from 90s???100s/afebrile/normotensive/saturating well on room air Labs: Microcytic anemia with hemoglobin/hematocrit of 11/32.5 with MCV 107.3.?? INR 1.2.?? Hypokalemia 3.5 with BUN/creatinine of 46/2 (at baseline).?? Hypocalcemia 8.2. 2 view x-ray of the right knee shows comminuted fracture of the right distal femur and nondisplacedfracture of the fibular head.?? Chest x-ray shows no acute abnormalities.?? 2 view x-ray of the femur shows comminuted impacted and likely intra-articular fracture involving the distal femur and femoral condyles. Review of Systems Denies except as listed above. Objective Vital Signs?? Temperature: 99.1 DegF (05/21/23 18:39:00) Temperature Route: Oral (05/21/23 18:39:00) Pulse Rate:??101 bpm??High (05/21/23 18:39:00) Respiratory Rate: 18 br/min (05/21/23 18:39:00) Systolic Blood Pressure: 116 mm Hg (05/21/23 18:39:00) Diastolic Blood Pressure:??46 mm Hg??Low (05/21/23 18:39:00) Blood pressure sites: Arm, right (05/21/23 15:53:00) Mean Arterial Pressure: 69 mm Hg (05/21/23 18:39:00) Pulse Pressure: 70 mm Hg (05/21/23 18:39:00) Oxygen Saturation: 97 % (05/21/23 18:39:00) Mode of Delivery (Oxygen): Room air (05/21/23 18:39:00) Early Warning Score: 4 (05/21/23 18:39:24) ? Physical Exam Constitutional: Alert, in no distress. Mental Status: Oriented to person, place and time. Head: Normocephalic. Respiratory: Clear to auscultation. No wheezing, rales or rhonchi. Cardiovascular: S1 S2 regular. No murmurs, rubs or gallops. Gastrointestinal: Abdomen soft, non-tender, non-distended. Neurologic:?? No focal neurological deficits. Moves all extremities spontaneously. Sensation intactbilaterally. Skin: No rashes or lesions. No petechiae or purpura.?? Musculoskeletal: Chronic venous stasis changes noted in??bilateral lower extremities.?? Right lowerextremity is in knee immobilizer. 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 Will be admitted and undergo possible surgical fixation??in the a.m. ?? Closed fracture of right distal femur Closed fracture right fibular head Presentation:??Mechanical fall??without any loss of consciousness or head trauma Orthopedic surgery is consulted and planning for surgical fixation NSQIP surgical risk calculator shows a slightly below average risk for serious complications with an above average risk for any complications. Revised cardiac risk index for preoperative shows a class IV risk with 15% 30- day risk of , OK, or cardiac arrest. Muñoz perioperative risk calculator shows .3% risk of 30-day OK or cardiac arrest. Muñoz postoperative respiratory failure risk is 0.3% for mechanical ventilation for 48 hours after surgery. Patient does not have a history of dementia??and is low risk for??acute delirium. Please be??cautious with fluid administration given patient's??extensive cardiac history and??chronic HFrEF. There is no acute??contraindication to surgery at this time. ? Plan: ??? N.p.o. at??midnight ?Pain control with Tylenol??650 every??4 hours as needed??for moderate pain ??? Dilaudid 0.5 mg every 4 hours as needed??for breakthrough pain ?Hold Eliquis will use??heparin for DVT prophylaxis ?? Chronic heart failure with reduced ejection fraction EF 15-20% Dilated cardiomyopathy Aortic stenosis status post 2 TAVR's Paroxysmal A-fib on Eliquis Biventricular pacemaker with ICD Chest pain-free and not in acute heart failure exacerbation. Echocardiogram from shows LVEF of 10-15% with severe global hypokinesis with regional variation.?? There show transcatheter aortic valve implantation with mild perivalvular leak. Please be cautious with fluid administration given patient's extensive cardiac history. ?? Plan: ??? Hold apixaban in the setting of acute surgical fixation ??? Continue carvedilol 3.125 mg twice daily ??? Continue dapagliflozin 10 mg ??? Continue spironolactone 12.5 mg ??? Continue torsemide 60 mg ??? Continue rosuvastatin 20 mg ?? Chronic/stable medical conditions: Chronic kidney disease: BUN/creatinine of 46/2.0.?? Appears to be at baseline. Diabetes mellitus:??Takes Lantus 80 units at bedtime.?? Reduce dose to 40 units given n.p.o. statusinpatient. ??Will check POC and sliding scale Hypothyroidism:??Continue home levothyroxine??175 mcg Gout:??Continue allopurinol 100 mg ? DVT prophylaxis: Heparin??3 times daily CODE STATUS: Full Diet: N.p.o. at midnight ?? Patient?? discussed with attending physician Dr. Rizo. ?? Zhou Barnett, DO Internal Medicine PGY1 ?? Diagnoses Accidental fall ??(W19.XXXA) Closed fracture of head of right fibula ??(S82.831A) Closed fracture of right distal femur ??(S72.401A) 1. ??Aortic stenosis ??(I35.0) 2. ??Diabetes mellitus ??(E11.9) 3. ??Dilated cardiomyopathy ??(I42.0) 4. ??Hypothyroidism ??(E03.9) 5. ??S/P TAVR (transcatheter aortic valve replacement) ??(Z95.2) 6. ??Stage III chronic kidney disease ??(N18.30) 7. ??Chronic HFrEF (heart failure with reduced ejection fraction) ??(I50.22) 8. ??Gout ??(M10.9) Histories Allergies Allergies ?(Active and Proposed Allergies Only) Bee Stings? (Severity: Unknown severity, Onset: Unknown) Motrin? (Severity: Unknown severity, Onset: Unknown) ? Past Medical History/Problem List Active Problems??(20) Aortic stenosis Atrial fibrillation Current tobacco use Diabetes mellitus Dilated cardiomyopathy Heart murmur HFrEF (20-25%) HLD (hyperlipidemia) Hypertension Hypothyroidism LV dysfunction, EF 20-25% Morbid obesity, actual BMI 51.90 as of 02/24/2015 OA (osteoarthritis), knees and back Pulmonary HTN, severe 78mmHg S/P TAVR (transcatheter aortic valve replacement) Severe obesity Stage III chronic kidney disease Systolic CHF URI (upper respiratory infection) Varicose vein of leg ? Past Surgical History Varicose veins of legs History of subtotal thyroidectomy Tonsillectomy ? Social History Alcohol Details:??Use: Current. ??Type: Wine. Substance Abuse Details:??Use: Never. Tobacco Details:??Never smoker ? Family History Father (): CAD - Coronary artery disease ? Medications Home Medications Allopurinol (allopurinol 100 mg oral tablet)?100?Milligram?1?tablet?By Mouth apixaban?5?Milligram?By Mouth?2 times a day Carvedilol (carvedilol 3.125 mg oral tablet)?3.125?Milligram?1?tablet?By Mouth?2 times a day?for 90?Days Colchicine (colchicine 0.6 mg oral capsule)?1?capsule?0.6?Milligram?By Mouth?Daily dapagliflozin (Farxiga 10 mg oral tablet)?TAKE 1 TABLET BY MOUTH EVERY DAY dulaglutide (Trulicity Pen)?Subcutaneous Infusion Fluticasone-Salmeterol (Advair HFA 230 mcg / 21 mcg)?INHALE TWO PUFFS BY MOUTH TWICE DAILY (BULK) Insulin Glargine (Insulin Glargine Inj)?80?unit(s)?Subcutaneous Injection?Daily at bedtime Insulin Glargine (Lantus Inj)?Subcutaneous Infusion?Daily Levothyroxine (levothyroxine 0.175 mg oral tablet)?1?tab(s)?By Mouth?Daily Metolazone (metolazone 2.5 mg oral tablet)?TAKE 1 TABLET BY MOUTH ONCE WEEKLY DIRECTED BY PROVIDER Multivitamin With Minerals (Centrum Silver)?By Mouth?Daily Rosuvastatin (rosuvastatin 20 mg oral tablet)?TAKE ONE TABLET BY MOUTH DAILY AT 9PM (VIAL) Spironolactone (spironolactone 25 mg oral tablet)?12.5?Milligram?0.5?tablet?By Mouth?Daily torsemide (torsemide 20 mg oral tablet)?3?tab(s)?60?Milligram?By Mouth?Daily ? Results Recent Labs BLOOD BANK Blood Type A Positive ()?? 05/21/2023 15:38 Antibody Screen Negative ()?? 05/21/2023 15:38 ?? BLOOD COUNT & DIFF WBC 6.1 k/mm3 ()?? 05/21/2023 16:19 RBC 3.03 m/mm3 (Low)?? 05/21/2023 16:19 Hgb 11.0 Gm/dL (Low)?? 05/21/2023 16:19 Hct 32.5 % (Low)?? 05/21/2023 16:19 MCV 107.3 femtoliters (High)?? 05/21/2023 16:19 MCH 36.3 pg (High)?? 05/21/2023 16:19 MCHC 33.8 g/dL ()?? 05/21/2023 16:19 Platelet Count 59 k/mm3 (Low)?? 05/21/2023 16:19 RDW-SD 69.0 femtoliters (High)?? 05/21/2023 16:19 MPV 10.2 femtoliters ()?? 05/21/2023 16:19 Nucleated RBC (Automated) 0.0 #/100 WBC'S ()?? 05/21/2023 16:19 Abs. NRBC 0.0 k/mm3 ()?? 05/21/2023 16:19 Abs. Neut 4.2 k/mm3 ()?? 05/21/2023 16:19 Abs. Lymph 0.8 k/mm3 ()?? 05/21/2023 16:19 Abs. [place] 1.0 k/mm3 (High)?? 05/21/2023 16:19 Abs. Eo 0.1 k/mm3 ()?? 05/21/2023 16:19 Abs. Baso 0.0 k/mm3 ()?? 05/21/2023 16:19 Neut % 68.5 % ()?? 05/21/2023 16:19 Lymph % 12.8 % (Low)?? 05/21/2023 16:19 [place] % 16.0 % (High)?? 05/21/2023 16:19 Eos % 1.5 % ()?? 05/21/2023 16:19 Baso % 0.7 % ()?? 05/21/2023 16:19 Imm Gran 0.5 % ()?? 05/21/2023 16:19 Abs. Imm Gran 0.0 k/mm3 ()?? 05/21/2023 16:19 ?? CHEM GENERAL Sodium 137 mmol/L ()?? 05/21/2023 16:19 Potassium 3.5 mmol/L (Low)?? 05/21/2023 16:19 Chloride 98 mmol/L ()?? 05/21/2023 16:19 Bicarbonate Level 26 mmol/L ()?? 05/21/2023 16:19 Anion Gap 13 ()?? 05/21/2023 16:19 Glucose Level 177 mg/dL (High)?? 05/21/2023 16:19 BUN 46 mg/dL (High)?? 05/21/2023 16:19 Creatinine-Blood 2.0 mg/dL (High)?? 05/21/2023 16:19 Estimated GFR Creatinine 26 ML/MIN/1.73 M2 ()?? 05/21/2023 16:19 Calcium 8.2 mg/dL (Low)?? 05/21/2023 16:19 ?? COAG INR 1.2 (High)?? 05/21/2023 16:57 Protime (PT) 12.6 seconds (High)?? 05/21/2023 16:57 ?? URINE OTHER Est Creatinine Clearance 22.39 mL/min ()?? 05/21/2023 17:02 ? * Darrius MORFIN, Carlos: PERFORM Event Display: Admission Note Authored Date: [id number] ??Attending Attestation: I have seen and evaluated this patient.?? I have discussed the case and its management with the resident and agree with the findings and westley documented in the resident's note.?? I?? will continue to provide care to this patient till 7 AMof the admitting date.? 72-year-old female with a past medical history of diverticulitis, hyperlipidemia, hypertension, CKD, partial thyroidectomy s/p TAVR who came with a complaint of mechanical fall after her leg gave out.?? Evaluated by Ortho planning to do the ORIF of right distal femur fracture.?? While in the ED there is a drop in blood pressure.?? Will give the fluid bolus as needed for the lower blood pressures.?? Hemoglobin dropped down to 11.0-9.6.?? We will get the official report of the CT angiogram of theright lower extremity.?? If she will continue to be hypotensive then will give 1 dose of DDAVP because of thrombocytopenia/low creatinine clearance.?? Will consider blood transfusion if she will continue to be hypotensive.??On clinical examination no significant ecchymosis/swelling of the leg. She denied any chest pain, shortness of breath.?? She is mentating well.?? No sign of hypoperfusion.?? Will get stat lactate level and other electrolytes.?? Will continue to hold Eliquis and also hold thesubcu heparin.?? Will hold diuretic treatment.?? Because of low blood pressures we will move her tothe intercare.?? Type and crossmatch is done.?? Will continue to monitor H/H.?? Right now no indication to get a echocardiogram for preoperative cardiac evaluation.?? Will have judicious use of diuretic and IV fluid because of history of CHF.?? Will continue the cardiac telemetry.If there could be any cardiac decompensation will get a cardiology consultation * Zhou Barnett DO: PERFORM Event Display: Admission Note Authored Date: [id number] Paged at 12:30 AM??due to hypotension in the 70s/50s.?? Blood pressure confirmed manually. ??Patient was evaluated at bedside and was asymptomatic with extremities warm and well-perfused.?? Tachycardia into the low 100s??and temperature of 99.5.?? Stat CBC/CMP/lactate drawn along with blood cultures.?? A total of 1.25 L of fluid was given over the next??2 hours.?? Patient had improvement in bloodpressures??with MAP now sustaining in the 70s.?? CBC did show a drop in hemoglobin from 11-9.6, concerning for bleed.?Lactate elevated at 2.5.?On physical examination patient continues to be mentating well??and extremities warm and well-perfused. ??Wet read on CT??scan??of the right lower extremity shows??a??possible hematoma??posteriorly to fracture.?? At this time we will not opt for CT angiogram.?? Blood transfusion consent signed but will hold off unless patient develops??hypotension again.?? CBC every 6 hours to monitor??H/H.?? Will trend lactate as well.?? GDMT therapy including sp ironolactone??and dapagliflozin discontinued due to hypotension.?? Torsemide??and heparin DVT prophylaxis discontinued as well. ??Can add back on once??patient stabilizes. * Zhou Barnett DO: PERFORM Event Display: Admission Note Authored Date: [id number] Given persistent hypotension??patient was??taken for CTA of??right lower extremity??of which wet read showed no??source of bleeding??and is negative for hematoma or extravasation.?? H/H is stable at 9/26.3. 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 MICU consulted and recommended giving??1 unit PRBC.?? Troponin trend of 86??and on repeat 84, likely due to CKD. CP free. EKG with no acute changes. Bedside US showed no B-lines and no signs??of pulmonary edema. Additional 500cc bolus administered.??Consult??renal in AM, expecting worsening of renal function with contrast administration. Lactate wnl.?? Likely not septic shock, although to be thorough blood cultures and broad spectrum abx administered. Physical examination not consistent with cardiogenic shock. Criteria not met for hemorrhagic shock. Awaiting further MICU recs. * Carlos Rizo MD: PERFORM Event Display: Admission Note Authored Date: [id number] Total time for the critical care??was 50 minutes??that includes??multiple??bedside evaluations of the patient and coordination of the care with??MICU team.?? Physical examination??and plan as mentioned above??in resident note.?? General Appearance: Moderately nourished, not in any apparent distress, alert, awake and oriented x3.?? ED physician did a bedside ultrasound??that ruled out any??B-lines.?? Unlikely cardiogenic shock. ?? Skin: Multiple ecchymosis??on the skin??Eliquis.Warm, dry, pink, no pallor, intact. Eye: ??Normal conjunctiva.?? HEENT: No JVP. ??Moist mucous membrane. Heart: ??S1, S2. ??No murmurs.? . Respiratory:??Decreased air entry in the bases reviewed., no rhonchi, no wheezing. GI: ??Abdomen is soft, nontender, nondistended. ??Bowel sounds are positive. ??No organomegaly Neurologic: ??Nonfocal neurological examination. Extremities: ??No calf tenderness, no clubbing, no edema. Psychiatric: ??Appropriate affect. Musculoskeletal: No gross swelling/hematoma in right groin.?? Right lower extremity??immobilizer. Lymphatic system: No cervical lymphadenopathy. EKG study * Event Display: EKG Authored Date: * Event Display: ECG 12-Lead Authored Date: Please click on pdf link to open report * Event Display: ECG 12-Lead Authored Date: Ventricular Rate: 95 BPM Atrial Rate: 95 BPM P-R Interval: 164 ms QRS Duration: 152 ms Q-T Interval: 444 ms QTC Calculation(Bazett): 557 ms P Morgan: 46 degrees R Morgan: 94 degrees T Morgan: 182 degrees Atrial-sensed ventricular-paced rhythm Abnormal ECG When compared with ECG of 21-MAY-2023 11:33, No significant change was found Confirmed by PETAR MORA MD ([id number]) on 05/23/2023 10:16:12 AM [place]: PETAR MORA MD * Event Display: ECG 12-Lead Authored Date: Please click on pdf link to open report * Event Display: ECG 12-Lead Authored Date: Ventricular Rate: 96 BPM Atrial Rate: 96 BPM P-R Interval: 158 ms QRS Duration: 146 ms Q-T Interval: 446 ms QTC Calculation(Bazett): 563 ms P Morgan: 23 degrees R Morgan: -8 degrees T Morgan: 147 degrees Atrial-sensed ventricular-paced rhythm Abnormal ECG When compared with ECG of 20-OCT-2022 06:25, Vent. rate has increased BY 14 BPM Confirmed by MIKE BARNES MD ([id number]) on 05/21/2023 4:13:17 PM [place]: MIKE BARNES MD Cardiology * Event Display: Cardiac Device Reports Authored Date: * Event Display: Cardiac Rhythm Strips Authored Date: Hospital Progress note * Bonnie Miller: PERFORM Event Display: Progress Note Hospital Authored Date: Patient: ??FLORENTIN SHAUN ? Age:??72 Years?Sex:??Female?:??1950?? Provider Clinical Summary POD#2 Subjective Patient seen and examined.?? Notes reviewed.?? She had just worked with PT and got up to the chair.?? She stated she was feeling ok prior to that but now was uncomfortable.?? She was asking for another pillow to attempt to get comfortable.?? Tolerating a diet.?? Denied N/V.?? Voiding without difficulty.?? Discussed plan to change her dressing today.?? No other orthopedic questions/concerns. Objective Vitals & Measurements T:??97.9?F?? TMIN:??97.9?F?? TMAX:??98.4?F?? HR:??86??(Peripheral)?? RR:??20?? BP:??113/47?? SpO2:??100%?? Physical Exam Gen: Patient sitting in recliner, NAD RLE: Dressing in place, clean and dry; removed Aquacel noted under jatinder wrap laterally.?? Minimal staining noted Knee immobilizer left open, RN to close back up latera Thigh with moderate soft edema, diffusely??tender to palpation Able to actively flex/extend toes +DF/PF Palpable DP pulse Sensation grossly in tact distally Calf supple ?? Lab Results Test Name Test Result Date/Time WBC 6.5 k/mm3 05/25/2023 01:56 EST Hgb 8.0 Gm/dL 05/25/2023 01:56 EST Hct 23.6 % 05/25/2023 01:56 EST Platelet Count 66 k/mm3 05/25/2023 01:56 EST Assessment/Plan 72 year old female POD#2 s/p ORIF Right Distal Femur - Overall care per primary team - OOB with PT/OT, NWB RLE - DVT prophylaxis:??Heparin ? - Would recommend chemical DVT prophylaxis for 4 weeks - Maintain aquacel for 7-10 days post op, may change sooner if soiled - Pain control per primary team - Encourage IS/Deep breathing - Bowel regimen ordered - D/c planning: per primary team.?? Ok to discharge from ortho standpoint ? - Follow up with Dr. Colon in 2 weeks, [phone] -??Please page [phone] with questions/concerns * Noelle Correa RN: PERFORM, SIGN, VERIFY, SIGN, MODIFY Event Display: Progress Note Hospital Authored Date: Patient: SHAUN LERMA Age: 72 years Sex: Female : 1950 Associated Diagnoses: None Author: Noelle Correa RN Findings Problem Related to Alteration in Musculoskeletal : Alteration in Musculoskeletal Func/new 05/25/2023 6:00 EST Alteration in Musculoskeletal Related to Mobility, Orthopedic Procedure, Other: RORIF 05/22 Goals & Outcomes, Musculoskeletal Affected extremity will maintain color/motion/sensation, Pt able to perform ADL's to best of ability, Pt demonstrates precautions/exercise/ transfers per protocol, Pt will be free from complications of immobility, Pt will report acceptable level of comfort/pain relief Interventions, Musculoskeletal Monitor patients ambulation status, monitor Color/Motion/Sensation, Assist with repositioning, Encourage deep breathing & coughing exercises, Notify MD immediately if tissue perfusion deteriorates, Obtain assistive devices as needed, Teach & Encourage use of Incentive spirometer, Teach Pt/caregiver on exercises, Teach pt/caregiver on use of pain scale, TeachPt/caregiver on safety precautions BH Goals/Interventions, Musculoskeletal Yes Musculoskeletal, Problem Start 05/22/2023 18:16 Reviewed Plan with, Musculoskeletal Patient Patient Progression, Musculoskeletal Pt progressing according to plan . Nursing Data Vital Signs : VITAL SIGNS SECTION 05/25/2023 7:20 EST Temperature 97.9 DegF Temperature Route Oral Pulse Rate 86 bpm Respiratory Rate 20 br/min Systolic Blood Pressure 113 mm Hg Diastolic Blood Pressure 47 mm Hg L Blood pressure sites Arm, right Mean Arterial Pressure 69 mm Hg Pulse Pressure 66 mm Hg Oxygen Saturation 100 % Mode of Delivery (Oxygen) Room air . Narrative/Incidental ORIF R patella POD #2. Patient is alert and oriented x3. Lungs are dim upon auscultation. IS at bedside, patient educated in great detail in regards to proper use. Patient denies any SOB, denies any CP. +BSx4, abdomen soft, nontender/ nondistended. Last BM was this AM, 05/24. Diabetic carb count dietin place, tolerating well. Insulin coverage per sliding scale. LUE Dexcom in place. Denies any N/V.Prima- fit in place, voiding clear, yellow urine. Able to get OOB to chair this AM- MAX assist, Roselia lift in use to get pt OOB. +PP, +D/P flex, +CMS. R knee Aquacel dressing in place- knee immobilizer in place while OOB. NWB to RLE while OOB. Gluteal crease slit- EPC applied. Skin tear to buttocks- EPC applied and security installer consult placed. R abdominal fold SHANIQUA - Nystatin in place with interdry to bilateral abdominal folds. Reporting pain 09/30, given PRN Tylenol and PRN 5mg Oxycodone with +relief. Patient resting comfortably in chair at this time. Cboot to LLE. Heparin for DVT prophylaxis. No further concerns at this time, call hill within reach at bedside.. . Discharge Information Rehabilitation Discharge : Rehab Discharge Index 05/25/2023 8:39 EST Comments on treatment indicated adls fucnlt mob safety pt edu Full chart review completed Yes Hospital course 72 yo F with extensive cardiac hx (EF 10-15%) presenting after a mechanical fall resulting in R distal femur and R fibula fracture, now s/p ORIF R distal femur on 05/[address] Colon. NWB R LE with KI, no R knee flexion. 05/24/2023 8:16 EST Comments on treatment indicated 72 yo F with extensive cardiac hx (EF 10-15%) presenting after a mechanical fall resulting in R distal femur and R fibula fracture, now s/p ORIF R distal femur on 05/[address] Colon. NWB R LE with KI, no R knee flexion. Full chart review completed Yes Hospital course see comment Other findings see comment Plan of care PT Gait training, Transfer training, Therapeutic exercise, Functional Activities, Balance training * Madeline KEYS, Noelle: PERFORM Event Display: Progress Note Hospital Authored Date: Patient cleared for discharge thia afternoon. [facility] originally scheduled for 1630- now delayed until 1900. Patient and son made aware at bedside. Bilateral IVs removed, tip intact. POC checked at 1800 - 239 s/p dinner tray came. Patient resting comfortably in bed at this time, awaiting [facility] transport.. * Nelly Castellano: PERFORM, SIGN, VERIFY Event Display: Progress Note Hospital Authored Date: [id number] Patient: SHAUN LERMA Age: 72 years Sex: Female : 1950 Associated Diagnoses: None Author: Nelly Castellano Findings Problem Related to Alteration in Musculoskeletal : Alteration in Musculoskeletal Func/new 05/25/2023 1:00 EST Alteration in Musculoskeletal Related to Fracture, Orthopedic Procedure, Other: RORIF 05/22 Goals & Outcomes, Musculoskeletal Affected extremity will maintain color/motion/sensation, Pt able to perform ADL's to best of ability, Pt demonstrates precautions/exercise/ transfers per protocol, Pt will be free from complications of immobility, Pt will report acceptable level of comfort/pain relief Interventions, Musculoskeletal Monitor patients ambulation status, monitor Color/Motion/Sensation, Assist with repositioning, Encourage deep breathing & coughing exercises, Notify MD immediately if tissue perfusion deteriorates, Obtain assistive devices as needed, Teach & Encourage use of Incentive spirometer, Teach Pt/caregiver on ADL's & adaptive equipment, Teach Pt/caregiver on exercises, Teach pt/caregiver on use of pain scale, Teach Pt/caregiver complications of immobility, Teach Pt/caregiver techniques to increase mobility, Teach Pt/caregiver on safety precautions BH Goals/Interventions, Musculoskeletal Yes Musculoskeletal, Problem Start 05/22/2023 18:16 Reviewed Plan with, Musculoskeletal Patient Patient Progression, Musculoskeletal Pt progressing according to plan . Nursing Data Vital Signs : VITAL SIGNS SECTION 05/24/2023 22:10 EST Early Warning Score 5.00 05/24/2023 22:08 EST Respiratory Rate 18 br/min 05/24/2023 22:03 EST Early Warning Score 5.00 05/24/2023 19:07 EST Early Warning Score 5.00 05/24/2023 19:07 EST Early Warning Score 3.00 05/24/2023 19:07 EST Temperature 98.3 DegF Temperature Route Oral Pulse Rate 89 bpm Respiratory Rate 18 br/min Systolic Blood Pressure 108 mm Hg Diastolic Blood Pressure 52 mm Hg L Blood pressure sites Arm, left Mean Arterial Pressure 71 mm Hg Pulse Pressure 56 mm Hg Oxygen Saturation 95 % Mode of Delivery (Oxygen) Room air . Narrative/Incidental Pt is A+Ox4. Pt denies CP/SOB. Lungs are CTAB, room air. Turn cough deep breathing and incentive spirometry education provided and encouraged 10x/hour; pt able to accurately demonstrate with good effort. Pt voiding clear, yellow urine with primafit in place. Cboot to LLE and subq heparin for DVT prophylaxis. Nystatin and interdry to open, irritated, reddened abdominal fold. Z-guard applied to buttocks, open areas to sacrum and coccyx; wound RN consult pending. Pt with [facility] bed to promote skin integrity. Pt tolerating diabetic carb counting diet, denies N/V, abdomen is large, soft, nontender, +BS4Q, LBM 05/21; educated patient on bowel regimen/protocol and associated constipation risks; m edicated patient with available PRN bowel regimen. Pt educated on all director medical safety, safety, and fall precautions. Bed in low locked position, bed alarm on for safety, hourly rounding in effect, call hill and belongings within reach. P: Alteration in musculoskeletal status I: See interventions in above care plan E: Pt s/p ORIF R distal femur on 05/22. RLE jatinder wrap and knee immobilizer, c/d/i. Ice and elevation. Pt endorsing 5/10 pain, medicated with Tylenol and oxycodone with +relief. +CMS +toe wiggle +Dopplerpulse to BLE. Pt endorses baseline peripheral neuropathy; pt states she feels like she is at her baseline. Pt remaining bedfast for duration of shift; pt T&R q2h and PRN comfort. Pt progressing along plan of care. Discharge Information Rehabilitation Discharge : Rehab Discharge Index 05/24/2023 8:16 EST Comments on treatment indicated 72 yo F with extensive cardiac hx (EF 10-15%) presenting after a mechanical fall resulting in R distal femur and R fibula fracture, now s/p ORIF R distal femur on 05/[address] Colon. NWB R LE with KI, no R knee flexion. Full chart review completed Yes Hospital course see comment Other findings see comment Plan of care PT Gait training, Transfer training, Therapeutic exercise, Functional Activities, Balance training Consult note * Jesika Marino: PERFORM Jesika Marino: PERFORM, MODIFY Jesika Marino: MODIFY, MODIFY Leonel Downs: MODIFY Event Display: Consultation Note Authored Date: [id number] Patient: ??SHAUN LERMA ? Age:??72 Years?Sex:??Female?:??1950?? Chief Complaint/Reason for Consult Fall, right knee pain History of Present Illness Patient is a 72 yo F with history of HTN, CKD, aortic stenosis s/p TAVR (with subsequent revision),nonischemic cardiomyopathy, CHF, ICD placement, who presented to [facility] following ground level falltoday. Patient states her right knee gave out, causing her to fall. [place] severe right knee pain andwas unable to get up. Denies head strike or LOC. Denies other joint/extremity pain. No other??injury.??States she fell about 1 month ago, but was seen at [place] [facility], where imaging was reportedly negative. Describes??increased??difficulty walking since. Walks with walker. Lives in ground-level home with . Infrequent alcohol use. Denies tobacco or drug use. ??Patient had a right distal femur fracture on radiographs. ??Orthopedic service was consulted by ROSA Menon in the emergency department under the direct supervision of Dr. Goodman. Review of Systems Denies fevers, chills or sweats. ??Denies chest pain. ??Denies other injuries or painful joints. ??All others as per [facility] Physical Exam Vitals & Measurements T:??97.6?F?? HR:??92??(Peripheral)?? RR:??18?? BP:??117/45?? SpO2:??96%?? HT:??162??cm?? WT:??116??kg?? BMI:??44.2?? Physical exam: Morbidly obese,??resting comfortably??in stretcher,??in no acute distress. ??Alert and cooperative with examination. ??Mood and affect appropriate. ??Examined on a stretcher in the emergency department. ?? HEENT: Atraumatic, normocephalic Cardiac: Per medical team Pulmonary: Per medical team.?? Abdomen: Soft, nontender, nondistended. ?? Right upper extremity: Full, supple, nonpainful range of motion of shoulder, elbow, wrist and digits. ??No tenderness to palpation. ??Grossly neurovascularly intact radial, median, ulnar nerve distributions. ?? Left upper extremity: Full, supple, nonpainful range of motion of shoulder, elbow, wrist and digits. ??No tenderness to palpation. Grossly neurovascularly intact radial, median, ulnar nerve distributions. ?? Right lower extremity: Wearing extension knee immobilizer. Right knee swollen with diffuse tenderness. Bruising??over knee. No open??wound.??Calf supple and nontender. Multiple??varicosities??noted.??Active dorsiflexion and plantar flexion strength. Grossly neurovascularly intact. ?? Left lower extremity: Full, supple, non-painful range of motion of the hip, knee, foot and ankle. Old bruising to left knee without effusion or bony tenderness.??retirement supple and nontender. Multiple??varicosities??noted.??Active dorsiflexion and plantar flexion strength. Grossly neurovascularly intact. Assessment/Plan Diagnosis:??Closed right intercondylar femur fracture-operative Right proximal??fibula fracture-nonoperative ?? Plan:??Right distal femur fracture will need operative fixation, timing TBD pending medical optimization and OR availability.??Right fibular head fracture will require nonoperative management. Recommend Medicine admission. NPO at midnight. Hold Eliquis, ok for Lovenox. Keep in knee immobilizer at all times. NWB RLE. Multimodal analgesia per Medicine. ??Patient added onto the operative??schedule??when??operative schedule allows. ?? Problem List/Past Medical History Hypertension CKD Aortic stenosis s/p TAVR Nonischemic cardiomyopathy CHF ICD placement Procedure/Surgical History Varicose veins of legs History of subtotal thyroidectomy Tonsillectomy Home Medications Eliquis Torsemide Carvedilol Allopurinol Farxiga Rosuvastatin Colchicine Multivitamin Levothyroxine Metolazone Spironolactone Famotidine Allergies Bee Stings Motrin Social History Walks with walker. Lives in ground-level home with . Infrequent alcohol use. Denies tobacco or drug use. Family History Denies family history of bleeding disorders or anesthesia difficulties Radiology 2 view XR right femur and tib-fib reviewed by myself, showing comminuted, impacted fracture involving distal femoral condyle with likely intra-articular extension. Mildly displaced fibular head fracture. Multiple vascular calcifications. No other acute fractures. Lab Results Labs Last 24 Hours BLOOD COUNT & DIFF ? Event Name?? Event Result?? Date/Time?? WBC 6.1 k/mm3 05/21/23 16:19:00 RBC 3.03 m/mm3??Low 05/21/23 16:19:00 Hgb 11 Gm/dL??Low 05/21/23 16:19:00 Hct 32.5 %??Low 05/21/23 16:19:00 MCV 107.3 femtoliters??High 05/21/23 16:19:00 MCH 36.3 pg??High 05/21/23 16:19:00 MCHC 33.8 g/dL 05/21/23 16:19:00 Platelet Count 59 k/mm3??Low 05/21/23 16:19:00 MPV 10.2 femtoliters 05/21/23 16:19:00 Nucleated RBC (Automated) 0 #/100 WBC'S 05/21/23 16:19:00 ? COAG ? Event Name?? Event Result?? Date/Time?? INR 1.2??High 05/21/23 16:57:00 Protime (PT) 12.6 seconds??High 05/21/23 16:57:00 ? CHEM GENERAL ? Event Name?? Event Result?? Date/Time?? Sodium 137 mmol/L 05/21/23 16:19:00 Chloride 98 mmol/L 05/21/23 16:19:00 Bicarbonate Level 26 mmol/L 05/21/23 16:19:00 Anion Gap 13 05/21/23 16:19:00 Glucose Level 177 mg/dL??High 05/21/23 16:19:00 BUN 46 mg/dL??High 05/21/23 16:19:00 Creatinine-Blood 2 mg/dL??High 05/21/23 16:19:00 ? Note * Jane Miner RN: PERFORM Event Display: Discharge/Transfer Note Hospital Authored Date: [id number] Nursing Discharge Note Entered On: 05/25/2023 18:46 EST Performed On: 05/25/2023 18:45 EST by Jane Miner RN Nursing Discharge Note 2 Did Pt have Specialty Bed or Wound Vac : No Jane Miner RN - 05/25/2023 18:48 EST Discharge Time : 05/25/2023 18:45 EST Discharge Level of Care at Discharge : [facility] facility Discharge Nursing Homes/Rehab Facilities : [facility] Patient Left Unit Via : Other: Stretcher with [facility] Patient Accompanied Off Unit with : Other: Son DC Instructions Provided & Signed by Pt : Yes Patient Understands D/C Instructions : Yes Patient Instructions Discharge Signed : Yes Jane Miner RN - 05/25/2023 18:45 EST * Raine MORFIN, Sarita: PERFORM Event Display: Discharge/Transfer Note Hospital Authored Date: [id number] Patient: ??SHAUN LERMA ? Age:??72 Years?Sex:??Female?:??1950?? Patient Information Discharge Location: [facility] Primary Care Physician: Zainab Pritchard MD Admit Date/Time: 05/21/23 18:24 Discharge Disposition Discharge Disposition: ?? Discharge Diagnosis H.o. 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) Systolic CHF / LVEF = 10-15% (I50.22) Gout (M10.9) AMANUEL (acute kidney injury) (N17.9) Accidental fall (W19.XXXA) Acute blood loss anemia (D62) Age-related osteoporosis with current pathological fracture, other site, initial encounter for fracture (M80.0AXA) Asthma (J45.909) Asymptomatic bacteriuria (R82.71) Closed fracture of head of right fibula (S82.831A) Closed, comminuted, intra-articular fracture of right distal femur (S72.401A) Hypotension (I95.9) LBBB (left bundle branch block) (I44.7) Morbid obesity with BMI of 40.0-44.9, adult (E66.01) Paroxysmal atrial fibrillation (I48.0) Positive urine culture (R82.79) Pulmonary hypertension (I27.20) Status post implantation of automatic cardioverter/defibrillator (AICD) (Z95.810) Widened pulse pressure (R09.89) ?? _ Discharge Medications Allopurinol (allopurinol 100 mg oral tablet)?100?Milligram?1?tablet?By Mouth Carvedilol (carvedilol 3.125 mg oral tablet)?3.125?Milligram?1?tablet?By Mouth?2 times a day?for 90?Days dapagliflozin (Farxiga 10 mg oral tablet)?TAKE 1 TABLET BY MOUTH EVERY DAY dulaglutide (Trulicity Pen)?Subcutaneous Infusion Fluticasone-Salmeterol (Advair HFA 230 mcg / 21 mcg)?INHALE TWO PUFFS BY MOUTH TWICE DAILY (BULK) Heparin?1?Milliliter?5,000?unit(s)?Subcutaneous Injection?3 times a day Insulin Glargine (Insulin Glargine Inj)?45?unit(s)?Subcutaneous Injection?Daily at bedtime Levothyroxine (levothyroxine 0.175 mg oral tablet)?1?tab(s)?By Mouth?Daily Multivitamin With Minerals (Centrum Silver)?By Mouth?Daily Oxycodone (oxyCODONE 5 mg oral tablet)?5?Milligram?By Mouth?Every 4 hours?as needed?for 2?Days?Pain , Severe Rosuvastatin (rosuvastatin 20 mg oral tablet)?TAKE ONE TABLET BY MOUTH DAILY AT 9PM (VIAL) ? Medications Started Heparin?1?Milliliter?5,000?unit(s)?Subcutaneous Injection?3 times a day Oxycodone (oxyCODONE 5 mg oral tablet)?5?Milligram?By Mouth?Every 4 hours?as needed?for 2?Days?Pain , Severe Medications Discontinued Eliquis Doses Changed None Allergies Allergies ?(Active and Proposed Allergies Only) Bee Stings? (Severity: Unknown severity, Onset: Unknown) Motrin? (Severity: Unknown severity, Onset: Unknown) ? PCP Follow-Up/Heads-Up Consider resuming eliquis if hb stable?? repeat hb and cr Hospital Course 72 y.o.??female k/c of DM-2, hypertension, hyperlipidemia, CKD stage III-IV (baseline sCreat = 2.0), non-ischemic dilated cardiomyopathy??/ LBBB / systolic??CHF /??LVEF =??10-15%??/ pulmonary hypertension / PA pressure = 55- 60%??(TTE 01/2022), s/p AICD placement (2011, at [facility]) followed by generator exchange (08/2021, Dr. Sanchez), prior??h.o. critical?? s/p??TAVR followed by re-stenosis of the??bioprosthetic??valve s/p re-do TAVR (02/2020, Dr. Quiles / Dr. Ryland Whitehead), paroxysmal atrial fibrillation on apixaban, hypothyroidism s/p remote??partial thyroidectomy, asthma,??gout, OA??/??DJD, admitted on 05/21/2023 after suffering a fall,??with right knee pain / swelling, found to have a distal femur intra-articular comminuted fracture + a proximal fibula fracture. s/p ORIF (05/23/2023, Dr. Colon) ?? AMANUEL (acute kidney injury) (N17.9)-improving CKD ??(N18.30):?? -Repeat kidney function in 1-2 days ?? Asymptomatic bacteriuria (R82.71):?? Has a (+) urine culture for Enterobacter cloacae, with mild pyuria = 30, but completely denies dysuria / urgency / frequency / suprapubic pain, now or any time recently This is c.w. asymptomatic bacteriuria / colonization / contamination -D/c Abx ?? Acute blood loss anemia (D62) Hypotension (I95.9):? Her prior H&H baseline before was = 13.7 / 40.2 (09/2022) Then it dropped acutely = 9.0 / 26.3, along with hypotension s/p 1 unit PRBC's transfused -Follow up with cbc in 1-2 days ?? Fracture of right distal femur (S72.401A):??. Closed fracture of head of right fibula (S82.831A):??. Accidental fall (W19.XXXA):? Apparently this was her 2nd fall... a few weeks ago, she had already had a similar fall, her legs gave out ... s/p ORIF (05/23/2023, Dr. Colon) Ortho recs: - OOB with PT/OT, NWB RLE - DVT prophylaxis:??Heparin ? - Would recommend chemical DVT prophylaxis for 4 weeks - Maintain aquacel for 7-10 days post op, may change sooner if soiled - Pain control per primary team - Encourage IS/Deep breathing - Bowel regimen ordered - Follow up with Dr. Colon in 2 weeks, [phone] ?? Systolic CHF / LVEF = 10-15% (I50.22):??. S/p AICD (Z95.810):??. Paroxysmal atrial fibrillation (I48.0):??. H.o. critical aortic stenosis s/p TAVR x 2 (I35.0):?? Pulmonary hypertension (I27.20):??. LBBB (left bundle branch block) (I44.7):? -On carvedilol + dapagliflozin + rosuvastatin -Torsemide & spironolactone on HOLD due to AMANUEL -Apixaban on HOLD due to acute blood loss anemia / surgery,??resume as oupt if HB stable ?? Diabetes mellitus type 2 (E11.9):? On dapagliflozin + insulin glargine + insulin s.s. / POC's TID & qHS. At home she is also on dulaglutide Hypothyroidism (E03.9):?On levothyroxine Asthma (J45.909):?On fluticasone-vilanterol Gout (M10.9):??On allopurinol ? Objective Vital Signs?? Temperature: 97.9 DegF (05/25/23 07:20:00) Temperature Route: Oral (05/25/23 07:20:00) Pulse Rate: 86 bpm (05/25/23 07:20:00) Respiratory Rate: 20 br/min (05/25/23 11:04:00) Systolic Blood Pressure: 113 mm Hg (05/25/23 07:20:00) Diastolic Blood Pressure:??47 mm Hg??Low (05/25/23 07:20:00) Blood pressure sites: Arm, right (05/25/23 07:20:00) Mean Arterial Pressure: 69 mm Hg (05/25/23 07:20:00) Pulse Pressure: 66 mm Hg (05/25/23 07:20:00) Oxygen Saturation: 100 % (05/25/23 07:20:00) Mode of Delivery (Oxygen): Room air (05/25/23 07:20:00) Early Warning Score: 6 (05/25/23 12:20:32) ? . Physical Exam General?NAD, AAO HEENT?PERRLA, oropharynx clear, moist mucus membranes Pulm?CTA bilaterally, no wheezes/rhonchi/rales CV?RRR, +S1/S2, no murmurs/rubs GI?Soft, nontender, nondistended, no organomegaly, bowel sounds are present Neuro?Moves all extremities MS?no obvious deformity Psych?Mood appropriate to situation?? Surgical Procedures Open Reduction Internal Fixation Distal 05/23/2023 17:48 Pending Results Add On Lab Order ordered on 05/22/2023 Add On Lab Order ordered on 05/22/2023 Add On Lab Order ordered on 05/22/2023 Basic Metabolic Panel ordered on 05/26/2023 Blood Culture ordered on 05/22/2023 Blood Culture #2 ordered on 05/22/2023 CBC w/ Differential ordered on 05/26/2023 Transfuse RBCs ordered on 05/22/2023 Type and Screen, Use Hold Lavender ordered on 05/22/2023 Follow-Up Appointments Added Follow Up ?Time Frame ?Comments Macho MORFIN, Zainab?1 week: call to discuss follow up visit Home Health Face to Face ^HomeHealthFTF Results Discharge Labs BLOOD BANK Blood Type A Positive ()?? 05/21/2023 15:38 Antibody Screen Negative ()?? 05/21/2023 15:38 RBC Unit ID [id number] ()?? 05/22/2023 04:15 RBC Available PT ()?? 05/22/2023 04:15 ?? BLOOD COUNT & DIFF WBC 6.5 k/mm3 ()?? 05/25/2023 01:56 RBC 2.24 m/mm3 (Low)?? 05/25/2023 01:56 Hgb 8.0 Gm/dL (Low)?? 05/25/2023 01:56 Hct 23.6 % (Low)?? 05/25/2023 01:56 MCV 105.4 femtoliters (High)?? 05/25/2023 01:56 MCH 35.7 pg (High)?? 05/25/2023 01:56 MCHC 33.9 g/dL ()?? 05/25/2023 01:56 Platelet Count 66 k/mm3 (Low)?? 05/25/2023 01:56 RDW-SD 76.6 femtoliters (High)?? 05/25/2023 01:56 MPV 11.3 femtoliters ()?? 05/25/2023 01:56 Nucleated RBC (Automated) 0.0 #/100 WBC'S ()?? 05/25/2023 01:56 Abs. NRBC 0.0 k/mm3 ()?? 05/25/2023 01:56 Abs. Neut 4.2 k/mm3 ()?? 05/21/2023 16:19 Abs. Lymph 0.8 k/mm3 ()?? 05/21/2023 16:19 Abs. [place] 1.0 k/mm3 (High)?? 05/21/2023 16:19 Abs. Eo 0.1 k/mm3 ()?? 05/21/2023 16:19 Abs. Baso 0.0 k/mm3 ()?? 05/21/2023 16:19 Neut % 68.5 % ()?? 05/21/2023 16:19 Lymph % 12.8 % (Low)?? 05/21/2023 16:19 [place] % 16.0 % (High)?? 05/21/2023 16:19 Eos % 1.5 % ()?? 05/21/2023 16:19 Baso % 0.7 % ()?? 05/21/2023 16:19 Imm Gran 0.5 % ()?? 05/21/2023 16:19 Abs. Imm Gran 0.0 k/mm3 ()?? 05/21/2023 16:19 ?? CARDIAC Nt-Probnp 6033 pg/mL (High)?? 05/25/2023 01:56 High Sensitivity Troponin (HSTnT) 84 ng/L (Critical)?? 05/22/2023 04:27 ?? CHEM GENERAL Sodium 134 mmol/L ()?? 05/25/2023 01:56 Potassium 4.0 mmol/L ()?? 05/25/2023 01:56 Chloride 98 mmol/L ()?? 05/25/2023 01:56 Bicarbonate Level 25 mmol/L ()?? 05/25/2023 01:56 Anion Gap 11 ()?? 05/25/2023 01:56 Glucose Level 145 mg/dL (High)?? 05/23/2023 08:12 Glucose, POC 305 mg/dL (High)?? 05/25/2023 11:09 BUN 53 mg/dL (High)?? 05/25/2023 01:56 Creatinine-Blood 2.3 mg/dL (High)?? 05/25/2023 01:56 Estimated GFR Creatinine 23 ML/MIN/1.73 M2 ()?? 05/25/2023 01:56 Calcium 8.0 mg/dL (Low)?? 05/23/2023 08:12 Phosphorus 4.5 mg/dL ()?? 05/25/2023 01:56 Magnesium 2.4 mg/dL (High)?? 05/25/2023 01:56 Protein, Total 4.6 Gm/dL (Low)?? 05/22/2023 04:27 Albumin 2.6 Gm/dL (Low)?? 05/22/2023 04:27 AG Ratio 1.3 ()?? 05/22/2023 04:27 Alkaline Phosphatase 189 units/L (High)?? 05/22/2023 04:27 AST (SGOT) 58 units/L (High)?? 05/22/2023 04:27 ALT (SGPT) 26 units/L ()?? 05/22/2023 04:27 Bilirubin, Total 1.5 mg/dL (High)?? 05/22/2023 04:27 Lactate 1.7 mmol/L ()?? 05/22/2023 04:27 ? COAG INR 1.2 (High)?? 05/21/2023 16:57 Protime (PT) 12.6 seconds (High)?? 05/21/2023 16:57 ?? ENDOCRINE/TUMOR MARKER Cortisol Level 12.1 ??g/dL ()?? 05/22/2023 00:48 ? UA/URINALYSIS Appear/Color, Urine YELLOW ()?? 05/22/2023 02:36 Specific [place], Urine 1.011 ()?? 05/22/2023 02:36 pH, Urine 6.0 ()?? 05/22/2023 02:36 Albumin, Urine TRACE (Abnormal)?? 05/22/2023 02:36 Glucose, Urine 4+ (Abnormal)?? 05/22/2023 02:36 Ketones, Urine NEGATIVE ()?? 05/22/2023 02:36 Bilirubin, Urine NEGATIVE ()?? 05/22/2023 02:36 Hemoglobin, Urine NEGATIVE ()?? 05/22/2023 02:36 Nitrite, Urine NEGATIVE ()?? 05/22/2023 02:36 Leukocyte, Urine 2+ (Abnormal)?? 05/22/2023 02:36 Urobilinogen NORMAL mg/dL ()?? 05/22/2023 02:36 WBC's, Urine 30 /HPF (High)?? 05/22/2023 02:36 RBC's, Urine 1 /HPF ()?? 05/22/2023 02:36 Bacteria SLIGHT HPF (Abnormal)?? 05/22/2023 02:36 Squamous Epith 4 /HPF ()?? 05/22/2023 02:36 Mucus SLIGHT /LPF ()?? 05/22/2023 02:36 Hold Urine Culture Testing available 48 hours from time of collection. ()?? 05/22/2023 02:36 ? URINE OTHER Est Creatinine Clearance 19.47 mL/min ()?? 05/25/2023 03:12 ? VIROLOGY Influenza A PCR NEGATIVE ()?? 05/22/2023 02:57 Influenza B PCR NEGATIVE ()?? 05/22/2023 02:57 RSV PCR NEGATIVE ()?? 05/22/2023 02:57 COVID-19 PCR Specimen Source NASAL ()?? 05/22/2023 02:57 COVID-19 PCR Result NEGATIVE ()?? 05/22/2023 02:57 ? Microbiology ?? COVID-19, RSV, and Flu A/B, Rapid PCR?? Completed?? Source: Nasal Body Site: Nose Collected Dt/Tm: 05/22/2023 02:44 Last Updated Dt/Tm: 05/22/2023 04:28 ? >35 minutes spent on discharge * Tyrel KEYS, Gertrude: PERFORM, SIGN, VERIFY Event Display: Case Management Discharge Plan Authored Date: [id number] Patient: SHAUN LERMA Age: 72 years Sex: Female : 1950 Associated Diagnoses: None Author: Gertrude Sarah RN Discharge Plan Case Management Discharge Plan : Case Management Discharge Plan Data 05/25/2023 13:49 EST Discharge Level of Care at Discharge [facility] facility Discharge Nursing Homes/Rehab Facilities [facility] Discharge Transportation Arranged [facility] [address] [facility] [id number] [phone] Discharge Arranged Transport Date/Time 05/25/2023 16:30 Mode of Transportation Arranged Ambulance * Noelle Correa RN: PERFORM Event Display: Patient Education/Instruction Authored Date: [id number] Inpatient Adult Discharge Instructions. [address] [address] Name: SHAUN LERMA : 1950?? Visit: 05/21/2023 18:24?? Current Date: 05/25/2023 16:43 ?? Account: [id number]?? Inpatient Adult Discharge Instructions We would like [...] and their families. Surveys are administered by [employer] ?? If further treatment with your primary care physician or another doctor is recommended, it is important for you to keep the appointment. Call your primary care physician or return to the Emergency Department immediately if your condition worsens, fails to improve, or new symptoms develop. If you need to find a doctor, you can call [facility] for a referral at [phone] or toll free at [phone]) or log in to [email or web address].. ?? [facility], in keeping with [facility] guidance, no longer requires face masks for staff, patientsor visitors in most situations. Similiar to time spent indoors at other locations, there is the chance that you were exposed to repiratory viruses during your time with us (such as flu or COVID-19). If you develop symptoms concerning for a viral respiratory infection, please seek testing (and treatment if indicated) from your medical provider or home test kit. ?? You can view and manage your care through the patient portal or by using a health care sincere of your choosing. [employer] is a website that allows you to securely view your medical information including your hospital discharge summary, office visit summaries, medications and follow-up visits. You can also request appointments, renew medications, and request access to your medical information using a health care sincere of your choosing, or just ask a question. You can enroll at [email or web address] or register during your next office visit. You have been discharged from [facility], Patient Care Unit: SW7??. If you have any questions regarding these instructions, including results of studies pending, afteryou leave, please call us and we will be happy to assist you 14/10. [facility] Your Care Team Attending Physician Sarita Ni MD?? Consulting Providers Sarita Ni MD?? Discharging Providers Sarita Ni MD Reason for Your Visit From home. pt c/o R knee pain s/p R knee giving out. pt able to lower self to ground. denies head strike. pt noted to have systolic BP ranging from 92-102, noted when demand pacer firing. pt is assymptomatic.?? Your Diagnosis H.o. critical aortic stenosis s/p TAVR x 2 Diabetes mellitus type 2 Non-ischemic dilated cardiomyopathy Hypothyroidism S/P TAVR (transcatheter aortic valve replacement) x 2 Stage III-IV chronic kidney disease Systolic CHF / LVEF = 10-15% Gout Acute blood loss anemia Age-related osteoporosis with current pathological fracture, other site, initial encounter for fracture AMANUEL (acute kidney injury) Asthma Asymptomatic bacteriuria Closed fracture of head of right fibula Closed, comminuted, intra-articular fracture of right distal femur Fall Hypotension Knee pain-swelling LBBB (left bundle branch block) Morbid obesity with BMI of 40.0-44.9, adult Paroxysmal atrial fibrillation Positive urine culture Pulmonary hypertension Status post implantation of automatic cardioverter/defibrillator (AICD) Widened pulse pressure Tests Performed Below is a partial list of the tests performed during your hospitalization. You may have had other tests and procedures not included in this list. Please discuss all test results with your provider. BUN CBC Comprehensive Metabolic Panel CORTISOL COVID-19, RSV, and Flu A/B, Rapid PCR Creatinine GLUCOSE POC H + H INR Lactate Level Lytes Magnesium Level Phosphorus Level ProBNP Troponin T, High Sensitivity Type and Screen Urinalysis w/hold for Urine Culture CT Angio Ext Lower Right CT Ext Lower W/O Contrast Right XR C-Arm > 1 Hour XR Chest 2 Views Frontal and Lat XR Femur 2 Views Right XR Knee 1 or 2 Views Right XR Tibia/Fibula 2 Views Right Add On Lab Order?? Basic Metabolic Panel?? Blood Culture?? Blood Culture #2?? CBC?? CBC w/ Differential?? Transfuse RBCs?? Type and Screen, Use Hold Lavender?? Primary Care Provider Zainab Pritchard MD? Advance Directive Health Care Proxy on File Yes - Health Care Proxy Caregiver Relationship: Spouse Discharge Vitals Temperature: 97.9 DegF Height: 162 cm Pulse Rate: 86 bpm Weight: 111.8 kg Respiratory Rate: 20 br/min Body Mass Index:??42.6 kg/m2??Critical Systolic Blood Pressure: 113 mm Hg Body surface area: 2.24 Diastolic Blood Pressure:??47 mm Hg??Low ?? Oxygen Saturation: 100 % ?? Studies Pending All studies ordered during this hospital stay have been completed unless listed below. Please discuss all pending results with your provider listed above in these instructions. ?? Add On Lab Order?? Basic Metabolic Panel?? Blood Culture?? Blood Culture #2?? CBC?? CBC w/ Differential?? Transfuse RBCs?? Type and Screen, Use Hold Lavender?? What to do next Instructions From Your Doctor ?? Orders? 05/25/23 15:46:00 EST?? You Need to Schedule the Following Appointments Follow Up with??Zainab Pritchard MD When:??Within 1 week: call to discuss follow up visit Where: [address] [facility] [place] [address]- Discharge Medications FLORENTINSHAUN :1950 Visit Date:05/21/2023 Medications: Please continue your medications until treatment is completed or stopped by your provider. Medications not listed below should be discontinued. Discuss any questions related to medications with your provider. What How Much When Instructions Next Dose New Heparin 5,000 unit(s) Subcutaneous Injection 3 times a day 05/24 @ 9pm New Oxycodone (oxyCODONE 5 mg oral tablet) 5 Milligram Oral Every 4 hours as needed for Pain , Severe Duration: 2 Days Printed Prescription As needed for severe pain Changed Insulin Glargine (Insulin Glargine Inj) 45 unit(s) Subcutaneous Injection Daily at Bedtime 05/24 @ 9pm Unchanged Allopurinol (allopurinol 100 mg oral tablet) 1 tab(s) Oral 05/25 @ 9am Unchanged Carvedilol (carvedilol 3.125 mg oral tablet) 1 tab(s) Oral Twice a day Duration: 90 Days 05/24 @ 9pm Unchanged dapagliflozin (Farxiga 10 mg oral tablet) TAKE 1 TABLET BY MOUTH EVERY DAY ?? 05/25 @ 9am Unchanged dulaglutide (Trulicity Pen) Subcutaneous Infusion Unchanged Fluticasone-Salmeterol (Advair HFA 230 mcg / 21 mcg) INHALE TWO PUFFS BY MOUTH TWICE DAILY (BULK) ?? Unchanged Levothyroxine (levothyroxine 0.175 mg oral tablet) 1 tab(s) Oral Daily 05/25 @ 6am Unchanged Multivitamin With Minerals (Centrum Silver) Oral Daily 05/25 @ 6am Unchanged Rosuvastatin (rosuvastatin 20 mg oral tablet) TAKE ONE TABLET BY MOUTH DAILY AT 9PM (VIAL) ?? 05/24 @ 9pm ?? What How Much When Comments Stop Taking apixaban 5 Milligram Oral Twice a day Stop Taking Colchicine (colchicine 0.6 mg oral capsule) 1 capsule Oral Daily Stop Taking Metolazone (metolazone 2.5 mg oral tablet) TAKE 1 TABLET BY MOUTH ONCE WEEKLY DIRECTED BY PROVIDER ?? Stop Taking Potassium Chloride (Potassium Chloride (Csi-Ryjk-Ktk M20) 20 mEq oral tablet, extended release) Stop Taking Spironolactone (spironolactone 25 mg oral tablet) 0.5 tab(s) Oral Daily Stop Taking torsemide (torsemide 20 mg oral tablet) 3 tab(s) Oral Daily Prescription Given During Visit Oxycodone (oxyCODONE 5 mg oral tablet) - 5 mg, By Mouth, Every 4 hours, # 10 tablet, 0 Refills?? Laboratory Results Below is a partial list of the most recent Laboratory test results done prior to this discharge. You may have had other tests and procedures not included in this list. Please discuss all test resultswith your provider. Est Creatinine Clearance - 19.47 mL/min (05/25/2023) RBC Available - PT (05/22/2023) RBC Unit ID - [id number] (05/22/2023) BUN (05/25/2023) ???BUN - 53 mg/dL CBC (05/25/2023) ???WBC - 6.5 k/mm3???RBC - 2.24 m/mm3???Hgb - 8.0 Gm/dL???Hct - 23.6 %???MCV - 105.4 femtoliters???MCH - 35.7 pg???MCHC - 33.9 g/dL???Platelet Count - 66 k/mm3???RDW-SD - 76.6 femtoliters???MPV - 11.3 femtoliters???Nucleated RBC (Automated) - 0.0 #/100 WBC'S???Abs. NRBC - 0.0 k/mm3 Comprehensive Metabolic Panel (05/22/2023) ???Sodium - 134 mmol/L???Potassium - 4.2 mmol/L???Chloride - 99 mmol/L???Bicarbonate Level - 24 mmol/L???Anion Gap - 11???Glucose Level - 194 mg/dL???BUN - 49 mg/dL???Creatinine-Blood - 2.1 mg/dL???Estimated GFR Creatinine - 24 ML/MIN/1.73 M2???Calcium - 8.0 mg/dL???Protein, Total - 4.6 Gm/dL???Albumin - 2.6 Gm/dL???AG Ratio - 1.3???Alkaline Phosphatase - 189 units/L???AST (SGOT) - 58 units/L???ALT (SGPT) - 26 units/L???Bilirubin, Total - 1.5 mg/dL CORTISOL (05/22/2023) ???Cortisol Level - 12.1 ??g/dL COVID-19, RSV, and Flu A/B, Rapid PCR (05/22/2023) ???Influenza A PCR - NEGATIVE???Influenza B PCR - NEGATIVE???RSV PCR - NEGATIVE???COVID-19 PCR Specimen Source - NASAL???COVID-19 PCR Result - NEGATIVE Creatinine (05/25/2023) ???Creatinine-Blood - 2.3 mg/dL???Estimated GFR Creatinine - 23 ML/MIN/1.73 M2 GLUCOSE POC (05/25/2023) ???Glucose, POC - 305 mg/dL H + H (05/22/2023) ???Hgb - 9.4 Gm/dL???Hct - 27.1 % INR (05/21/2023) ???INR - 1.2???Protime (PT) - 12.6 seconds Lactate Level (05/22/2023) ???Lactate - 1.7 mmol/L Lytes (05/25/2023) ???Sodium - 134 mmol/L???Potassium - 4.0 mmol/L???Chloride - 98 mmol/L???Bicarbonate Level - 25 mmol/L???Anion Gap - 11 Magnesium Level (05/25/2023) ???Magnesium - 2.4 mg/dL Phosphorus Level (05/25/2023) ???Phosphorus - 4.5 mg/dL ProBNP (05/25/2023) ???Nt-Probnp - 6033 pg/mL Troponin T, High Sensitivity (05/22/2023) ???High Sensitivity Troponin (HSTnT) - 84 ng/L Type and Screen (05/21/2023) ???Blood Type - A Positive???Antibody Screen - Negative Urinalysis w/hold for Urine Culture (05/22/2023) ???Appear/Color, Urine - YELLOW???Specific [place], Urine - 1.011???pH, Urine - 6.0???Albumin, Urine - TRACE???Glucose, Urine - 4+???Ketones, Urine - NEGATIVE???Bilirubin, Urine - NEGATIVE???Hemoglobin, Urine - NEGATIVE???Nitrite, Urine - NEGATIVE???Leukocyte, Urine - 2+???Urobilinogen - NORMAL???WBC's, Urine - 30 /HPF???RBC's, Urine - 1 /HPF???Bacteria - SLIGHT???Squamous Epith - 4 /HPF???Mucus - SLIGHT???Hold Urine Culture - Testing available 48 hours from time of collection. Immunizations This Visit Given Vaccine Date influenza virus vaccine, inactivated 05/23/2023 Allergies (NKA means No Known Allergies) Bee [...] Belongings I fully understand and agree that [facility] accepts no responsibility for all my personal [...] to send valuables and belongings home. ?? Possessions released to: dentures and left ankle bracelet removed and sent with pt Edward Date for Pt to Sign Valuables/Belongings: 05/23/23 22:29:00 ?? Other Discharge Information ? Case Management Discharge Plan?? Discharge Plan?? Discharge Level of Care at Discharge: [facility] facility Discharge Transportation Arranged: [facility] [address] [facility] [id number] [phone] Mode of Transportation Arranged: Ambulance Discharge Arranged Transport Date/Time: 05/25/23 16:30:00 Discharge Nursing Homes/Rehab Facilities: [facility] ?? Pulmonary Rehab Status?? Pulmonary Rehab Discharge Status?? Respiratory Rate: 20 br/min ? Common Emergency Awareness Tips IS [...] are strongly encouraged to quit. Please call [facility] at [phone] or [phone] or log in to [email or web address] for referrals to smoking cessation programs. ?? 985 Suicide & Crisis Lifeline is available 14/10 if you or someone you know needs to find a reason to keep living. By calling 852 you'll be connected to a skilled, trained counselor at a crisis center in your area. INPATIENT DISCHARGE INSTRUCTIONS SIGNATURE PAGE FLORENTINTAMIT Location:[facility] Registration Date and Time:05/21/2023 18:24 EST Primary Care Physician: Zainab Pritchard MD, Attending Physician: Raine MORFIN, Sarita, I SHAUN LERMA, have received the above patient education materials/instructions and have verbalized understanding. If ambulance or transport services are being used I further acknowledge being given a choice of service. ?? If you need to contact me, please call me at this number: . Patient/Manager Acquisition Name: Patient/Manager Acquisition Signature: Relationship to Patient: Witness Name/Signature: Date: Patient Care team information Care Team Personnel Name: Zainab Pritchard MD Position: [facility] Physician - Primary Care Member Role: PCP Address: Address: [address] [place], [place] [address] Name: De Stiles RN Position: [facility] RN Member Role: Primary Care Nurse Name: Rupinder Gamez RN Position: [facility] RN Member Role: Primary Care Nurse Name: Brenda Pedro RN Position: [facility] RN Member Role: Primary Care Nurse Name: Charli Pedro RN Position: S RN Member Role: Primary Care Nurse Name: Brett Aguirre RN Position: [facility] RN Member Role: Primary Care Nurse Name: Vanessa Corrigan RN Position: [facility] SN RN Member Role: Primary Care Nurse Name: Curtis Squires MD Position: [facility] Renal MD Member Role: Lifetime Consulting Physician Address: Address: [address] [facility] [address] [facility] [place] [address]- Name: Michael Cardenas RN Position: [facility] RN Member Role: Primary Care Nurse Name: Raquel Ivy RN Position: [facility] Onco RN Member Role: Primary Care Nurse Name: Brett Mcarthur RN Position: [facility] RN Member Role: Primary Care Nurse Name: Josefina Syed RN Position: [facility] RN Member Role: Primary Care Nurse Name: Noelle Correa RN Position: [facility] RN Member Role: Primary Care Nurse Name: Myles Johnson RN Position: [facility] RN Member Role: Primary Care Nurse Care Team Related Persons Name: HANNAH LERMA Address: home [address] [place] [address] Name: BECKIE TORREZ Address: home [address] [place] [address]
--- OUTSIDE RECORDS SUMMARY | 2023-07-24 14:13 | XMS_ITS | Continuity of Care Document ---
Demographics Address [address] [place] [address] Mobile Email Address Preferred Language Syriac Marital Status Christian Affiliation Tenriism Race White Ethnic Group Not or Lati no Author Organization [facility] ter Address [address] [place] [id number] Care Team Providers Care Beamer Hand Name Role Phone Zainab Pritchard MD Primary Care Physician Encounter [facility] Date(s): 06/27/23 - 07/03/[address] [address]- Encounter Diagnosis Sacral wound(Final) - 06/28/23 Discharge Disposition: A-Transfer VNA/Home Health Attending Physician: Gaudencio Lazaro MD Admitting Physician: Kaitlin Murphy MD Referring Physician: Not on Staff, Referring [...] opioid drug. Start Date: 04/01/22 Status: Ordered Basaglar KwikPen 100 units/mL subcutaneous solution INJECT 80 UNITS (0.8ml) SUBCUTANEOUSLY DAILY (bulk) Start Date: 06/29/23 Status: Ordered carvedilol 3.125 mg oral tablet 3.125 mg, 1, tablet, By Mouth, 2 times a day, # 180 tablet, Refills 3, Tot. Refills 3, Maintenance,04/11/21 14:21:00 EST, Route to Pharmacy Electronically, [facility] ([facility]), Partial fill upon patient request if the prescription is for... Start Date: 04/11/21 Stop Date: 04/06/22 Status: Ordered carvedilol 3.125 mg oral tablet 3.125 mg, Tablet, By Mouth, 07/03/23 9:00:00 EDT Start Date: 07/03/23 Stop Date: 07/03/23 Status: Completed Centrum Silver By Mouth, Daily, 0 Refills, Maintenance, 06/22/15 10:45:53 Start Date: 06/22/15 Status: Ordered Citracal Maximum + D oral tablet 2 tablet, By Mouth, 2 times a day, # 120 tablet, 0 Refills, Maintenance, 06/29/23 9:46:00 EDT, Tablet, Partial fill upon patient request if the prescription is for a schedule II opioid drug. Start Date: 06/29/23 Status: Ordered colchicine 0.6 mg oral tablet 0.6 mg, By Mouth, 2 times a day, Refills 0, Maintenance, 07/03/23 11:05:00 EDT, Partial fill upon patient request if the prescription is for a schedule II opioid drug. Start Date: 07/03/23 Status: Ordered Eliquis 5 mg oral tablet 1 tablet = 5 mg, By Mouth, 2 times a day, # 60 tablet, 5 Refills, Maintenance, 06/27/23 22:57:00 EDT, Tablet, Partial fill upon patient request if the prescription is for a schedule II opioid drug. Start Date: 06/27/23 Status: Ordered Farxiga 10 mg oral tablet TAKE 1 TABLET BY MOUTH EVERY DAY Start Date: 02/03/22 Status: Ordered gabapentin 100 mg oral capsule 100 mg, Capsule, By Mouth, Once, PRN for Spasm, Routine, 07/02/23 23:12:00 EDT Start Date: 07/02/23 Stop Date: 07/02/23 Status: Completed gabapentin 100 mg oral capsule 100 mg, 1, capsule, By Mouth, Daily at bedtime, # 90 capsule, Refills 5, Maintenance, 06/29/23 9:47:00 EDT, Partial fill upon patient request if the prescription is for a schedule II opioid drug. Start Date: 06/29/23 Status: Ordered levothyroxine 0.175 mg oral tablet 1 tablet, By Mouth, Daily, 0 Refills, Maintenance, 05/29/16 16:22:43 Start Date: 05/29/16 Status: Ordered metolazone 2.5 mg oral tablet 5 mg, 2, tablet, By Mouth, Every week, # 30 tablet, Refills 0, Maintenance, 06/29/23 9:44:00 EDT, Partial fill upon patient request if the prescription is for a schedule II opioid drug. Start Date: 06/29/23 Status: Ordered nystatin topical [id number] u/gm powder 1 applicator, Topically, 2 times a day, On the affected area, # 60 Gm, 0 Refills, Acute 07/10/23 12:03:00 EDT, 07/03/23 12:04:00 EDT, Powder, [facility], Partial fill upon patient request if the prescription is for a schedule II opioid d... Start Date: 07/03/23 Stop Date: 07/10/23 Status: Ordered oxyCODONE 5 mg oral capsule 1 capsule = 5 mg, By Mouth, Every 4 hours, PRN as needed for pain, 0 Refills, Maintenance, :48:00 EDT, Capsule, Partial fill upon patient request if the prescription is for a schedule II opioid drug. Start Date: 06/29/23 Status: Ordered pantoprazole 40 mg oral delayed release tablet 1 tablet = 40 mg, By Mouth, Daily, # 30 tablet, 0 Refills, Maintenance, 06/27/23 22:57:00 EDT, EC Tablet Start Date: 06/27/23 Status: Ordered rosuvastatin 20 mg oral tablet TAKE ONE TABLET BY MOUTH DAILY AT 9PM (VIAL) Start Date: 02/03/22 Status: Ordered spironolactone 25 mg oral tablet 25 mg, 1, tablet, By Mouth, Daily, # 30 tablet, Refills 0, Maintenance, 06/29/23 1:53:00 EDT, Partial fill upon patient request if the prescription is for a schedule II opioid drug. Start Date: 06/29/23 Status: Ordered torsemide 20 mg oral tablet 2 tablet = 40 mg, By Mouth, Daily, # 30 tablet, 0 Refills, Maintenance, 06/28/23 22:15:00 EDT, Tablet, Partial fill upon patient request if the prescription is for a schedule II opioid drug. Start Date: 06/28/23 Status: Ordered Trulicity Pen Subcutaneous Infusion, 0 [...] Exam Date Time Procedure Performing Provider Status 06/27/23 8:[address] Abd/Pelvis W/ IV Contrast Only Monica Richardson; Rosanna (Verified) Notes: (CT Abd/Pelvis W/ IV Contrast Only) Reason For Exam: sacral wound;Other: RESULT: CT Abd/Pelvis W/ IV Contrast Only CT Abd/Pelvis W/ IV Contrast Only Hx of Present Illness: Pt from home, bed bound - fx leg in 10 10 pain to buttocks - visiting nurse noted red area ?wounds.; Reason: Other:; sacral wound; Clinical Question(s): Abscess; Order Comment: TECHNIQUE: Spiral CT through the abdomen and pelvis with IV contrast formatted in 3 planes. 100 cc of Omnipaque 300 was administered intravenously. This study was performed without oral contrast. Weight-based protocol using automatic tube modulation was used to optimize exposure parameters. CTDIvol Body: 15.10 mGy, DLP Body: 938 mGy*cm. COMPARISON: 05/22/2023 FINDINGS: Manufacturing Worker View Findings, Lines and Tubes: None. Visualized Chest: Small pleural effusions. Diaphragm: Normal. Liver: Normal. Gallbladder: No CT evidence of gallbladder pathology. Bile ducts: No biliary ductal dilation. Spleen: Splenomegaly. Pancreas: Normal. Adrenal glands: Normal. Kidneys and ureters: No hydronephrosis, stones, or suspicious masses. Bladder: Normal. Reproductive organs: Unremarkable. Stomach, small bowel, and large bowel: Colonic diverticulosis. No acute abnormality identified. Appendix: Normal. Peritoneum and retroperitoneum: Mild to moderate ascites. No omental or mesenteric lesions. Lymph nodes: No enlarged lymph nodes. Blood vessels: Normal. No aneurysm. No evidence of venous thrombosis. Abdominal and pelvic wall: Fat-containing hernia with multiple vessels seen within the hernia sac. No bowel herniation. Bones: No acute abnormality. IMPRESSION: Mild to moderate amount of ascites. Splenomegaly. No definite nodularity of the liver. Fat-containing hernia demonstrating extensive vascularity/varices. WSN: [id number] Ordering Physician: Edmund Noyola Dictated By: Mundo Cosby MD Dictated Date/Time: 06/27/23 9:00 pm Reviewed By: Mundo Cosby MD Signed By: Mundo Cosby MD Signed Date/Time: 06/27/23 9:00 pm Transcribed By: FELY Transcribed Date/Time: 06/27/23 8:51 pm Vital Signs Most recent to oldest [Reference Range]: 1 2 3 Height 163 cm (07/03/23 4:29 AM) 163 cm (07/02/23 3:13 PM) 163 cm (07/02/23 9:57 AM) Weight 122 kg (06/28/23 6:43 PM) 122 kg (06/28/23 6:00 PM) Oxygen Saturation [94-100 %] 93 % *L* (07/03/23 8:00 AM) 92 % *L* (07/03/23 4:29 AM) 95 % (07/02/23 8:00 PM) Pulse Rate [55-90 bpm] 82 bpm (07/03/23 9:38 AM) 82 bpm (07/03/23 8:00 AM) 70 bpm (07/03/23 4:29 AM) Body Mass Index [18.5-24.99 kg/m2] 45.92 kg/m2 *>HHI* (06/28/23 6:43 PM) Blood Pressure [90-138/55-84 mm Hg] 106/56mm Hg (07/03/23 9:38 AM) 106/56mm Hg (07/03/23 8:00 AM) 111/65mm Hg (07/03/23 4:29 AM) Respiratory Rate [16-30 br/min] 18 br/min (07/03/23 8:00 AM) 19 br/min (07/03/23 4:29 AM) 18 br/min (07/02/23 10:54 PM) Temperature [96.8-100.4 DegF] 97.5 DegF (07/03/23 8:00 AM) 97.3 DegF (07/03/23 4:29 AM) 97.7 DegF (07/02/23 8:00 PM) Mode of Delivery (Oxygen) Room air (07/03/23 8:00 AM) Room air (07/03/23 4:29 AM) Room air (07/02/23 8:00 PM) Blood pressure sites Arm, right (07/03/23 8:00 AM) Arm, right (07/03/23 4:29 AM) Arm, right (07/02/23 8:00 PM) Temperature Route Oral (07/03/23 8:00 AM) Oral (07/03/23 4:29 AM) Oral (07/02/23 8:00 PM) Dry Weight 122 kg (06/28/23 6:43 PM) Social History Social History Type Response Smoking Status Never smoker entered on: 06/22/15 Sex Admission evaluation note * Hernando MORFIN, Imelda: PERFORM, MODIFY, MODIFY, MODIFY, MODIFY, MODIFY Event Display: Admission Note Authored Date: Patient: ??FLORENTIN SHAUN ? Age:??73 Years?Sex:??Female?:??1950?? Chief Complaint/Reason for Consultation Pt from home, bed bound - fx leg in pain to buttocks - visiting nurse noted red area/?wounds. History of Present Illness This is a carmen 73-year-old female with past medical history of type 2 diabetes, hypertension hyperlipidemia CKD stage III, nonischemic dilated cardiomyopathy, heart failure with reduced ejection fraction of 10 to 15%, pulmonary hypertension, aortic stenosis status post TAVR followed by restenosis of bioprosthetic valve status post redo TAVR on 02/2020, paroxysmal atrial fibrillation on apixaban, hypothyroidism status post remote partial thyroidectomy, asthma, gout, OA coming in today secondary to concerns of a new sacral wound. ?? Of note patient was admitted from 05/21 and 05/24 for femur fracture.?? She underwent repair and was eventually discharged to rehab and returned home just a few days ago.?? Patient has home VNA who is examining her today when she noticed a new sacral wound and was concerned whether it was infected andscented to the ED for evaluation.?? Patient herself has no complaints, fever, chills, does endorse some pain in that sacral area.?? Apart from that no URI symptoms, diarrhea, vomiting. ?? On presentation to the ED afebrile hemodynamically stable saturating appropriately on room air.?? She has noted to have a stage II ulcer within the gluteal crease with no surrounding erythema, no fluctuance induration.?? Lab workup showing no leukocytosis, uptrending hemoglobin, mild hypokalemia which is repleted in the ED, improvement in creatinine up to 1.3.?? Borderline mildly elevated total bilirubin or LFTs but that has been her usual baseline.?? Lactate is not elevated either.?? She undergo CT abdomen pelvis did show evidence of deeper infection and shows no acute abnormality apart frommild to moderate amount of ascites.?? In the ED she started on all her home medications and given Tylenol for pain. ?? Patient is supposed to get a hospital bed which will not be delivered until 06/30.?? ED was concerned if she goes back and not having a hospital bed and able to perform regular turns the wound couldget infected and become worse.?? Consulted case management to help with discharge in order to expedite hospital bed but they had no success.?? Hence she will not be admitted for wound care consult and for discharge planning. Review of Systems Full review of systems conducted, negative unless mentioned in the HPI Objective Vital Signs?? Temperature: 97.5 DegF (06/28/23 18:43:00) Temperature Route: Oral (06/28/23 18:43:00) Pulse Rate: 87 bpm (06/28/23 18:43:00) Respiratory Rate: 16 br/min (06/28/23 18:43:00) Vented: No (06/28/23 02:41:00) Systolic Blood Pressure: 114 mm Hg (06/28/23 18:43:00) Diastolic Blood Pressure:??54 mm Hg??Low (06/28/23 18:43:00) Blood pressure sites: Arm, right (06/28/23 18:43:00) Mean Arterial Pressure: 74 mm Hg (06/28/23 18:43:00) Pulse Pressure: 60 mm Hg (06/28/23 18:43:00) Oxygen Saturation: 94 % (06/28/23 14:46:00) Mode of Delivery (Oxygen): Room air (06/28/23 02:41:00) Early Warning Score: 7 (06/28/23 19:04:58) ? Physical Exam General Appearance: no acute distress Eyes: DELIO. No scleral icterus. ENT:?? MM moist. Cardiovascular: RRR S1 and S2 heard with no M/R/G. Respiratory: Clear to auscultation, no wheeze or crackles GI: Soft. Nontender and nondistended. Normal bowel sounds present. no guarding, rigidity MSK:?? No edema or erythema in the lower extremities. Skin: No rashes seen?? Neuro:?? No slurred speech. Moving upper and lower extremities independently Psych: oriented x3. Lines: Peripheral IV in place. Assessment/Plan This is a carmen 73-year-old female with past medical history of type 2 diabetes, hypertension hyperlipidemia CKD stage III, nonischemic dilated cardiomyopathy, heart failure with reduced ejection fraction of 10 to 15%, pulmonary hypertension, aortic stenosis status post TAVR followed by restenosis of bioprosthetic valve status post redo TAVR on 02/2020, paroxysmal atrial fibrillation on apixaban, hypothyroidism status post remote partial thyroidectomy, asthma, gout, OA coming in today secondary to concerns of a new sacral wound. ??Wound is not acutely infected,??admitted to arrange for safe d ischarge??till her hospital bed arrives next week. ?? Sacral wound (S31.000A):?? New sacral wound,??noticed by the nurse and sent here for further evaluation. No obvious erythema or purulent drainage noted No leukocytosis, fevers or chills ?? Patient is supposed to have a hospital bed delivered next Friday.?? ED consulted case management to expedite this with no success.?? Plan ???Wound care consult ?No indication currently for antibiotics ??? Monitor for fevers, leukocytosis ?Case management consult for safe discharge ?? Type 2 diabetes mellitus (E11.9):?? Plan ??? Continue Lantus, insulin sliding ???Hypoglycemia emergency med ? Chronic kidney disease (N18.9):?? Kidney function is currently?at baseline Renally dose medications and avoid nephrotoxic medical Daily BMP ? Chronic anemia (D64.9):?? Patient does have baseline chronic anemia, hemoglobin is actually uptrending from before Daily CBC and monitor for signs of active bleed ?? Heart failure with reduced ejection fraction (I50.20):?? Status post implantation?? (AICD) (Z95.810):?? Status post (TAVR) using bioprosthesis (Z95.3):?? Continue home torsemide Continue home spironolactone Continue Coreg ? Paroxysmal A-fib (I48.0):?? continue apixaban? Hypothyroidism (E03.9):?? continue levothyroxine? Gout (M10.9):?? continue allopurinol ? Medication reconciliation:??Confirmed medications with the ??over the phone however he will be bringing in the list??with him later today??as he was unsure about some of the doses ?Quality Measures CODE: full DIET:diabetic DVT: continue home apixaban ?? Imelda Villagomez [id number] Histories Allergies Allergies ?(Active and Proposed Allergies Only) Bee Stings? (Severity: Unknown severity, Onset: Unknown) Motrin? (Severity: Unknown severity, Onset: Unknown) ? Past Medical History/Problem List Active Problems(20) Aortic stenosis Atrial fibrillation Current tobacco use [...] vein of leg ? Past Surgical History Open treatment of femoral supracondylar or transcondylar fracture with intercondylar extension, includes internal fixation, when performed: 05/23/23 Varicose veins of legs History of subtotal thyroidectomy Tonsillectomy ? Social History Alcohol Details:??Use: Current. ??Type: Wine. Substance Abuse Details:??Use: Never. Tobacco Details:??Never smoker ? Family History Father??(): CAD - Coronary artery disease ? Medications Home Medications Allopurinol (allopurinol 100 mg oral tablet)?100?Milligram?1?tablet?By Mouth apixaban (Eliquis 5 mg oral tablet)?1?tab(s)?5?Milligram?By Mouth?2 times a day Carvedilol (carvedilol 3.125 mg oral tablet)?3.125?Milligram?1?tablet?By Mouth?2 times a day?for 90?Days dapagliflozin (Farxiga 10 mg oral tablet)?TAKE 1 TABLET BY MOUTH EVERY DAY dulaglutide (Trulicity Pen)?Subcutaneous Infusion Fluticasone-Salmeterol (Advair HFA 230 mcg / 21 mcg)?INHALE TWO PUFFS BY MOUTH TWICE DAILY (BULK) Gabapentin (gabapentin 100 mg oral capsule)?200?Milligram?2?capsule?By Mouth?Daily at bedtime Heparin?1?Milliliter?5,000?unit(s)?Subcutaneous Injection?3 times a day Insulin Glargine (Insulin Glargine Inj)?45?unit(s)?Subcutaneous Injection?Daily at bedtime Levothyroxine (levothyroxine 0.175 mg oral tablet)?1?tab(s)?By Mouth?Daily Multivitamin With Minerals (Centrum Silver)?By Mouth?Daily Pantoprazole (pantoprazole 40 mg oral delayed release tablet)?1?tab(s)?40?Milligram?By Mouth?Daily Potassium Chloride (potassium chloride 10 mEq oral capsule, extended release)?1?capsule?10?Milliequivalent?By Mouth?Daily Rosuvastatin (rosuvastatin 20 mg oral tablet)?TAKE ONE TABLET BY MOUTH DAILY AT 9PM (VIAL) torsemide (torsemide 20 mg oral tablet)?1?tab(s)?20?Milligram?By Mouth?Daily ? Results Recent Labs BLOOD COUNT & DIFF WBC 5.7 k/mm3 ()?? 06/27/2023 18:53 RBC 3.12 m/mm3 (Low)?? 06/27/2023 18:53 Hgb 11.3 Gm/dL (Low)?? 06/27/2023 18:53 Hct 35.5 % (Low)?? 06/27/2023 18:53 MCV 113.8 femtoliters (High)?? 06/27/2023 18:53 MCH 36.2 pg (High)?? 06/27/2023 18:53 MCHC 31.8 g/dL (Low)?? 06/27/2023 18:53 Platelet Count 77 k/mm3 (Low)?? 06/27/2023 18:53 RDW-SD 75.9 femtoliters (High)?? 06/27/2023 18:53 MPV 9.5 femtoliters ()?? 06/27/2023 18:53 Nucleated RBC (Automated) 0.0 #/100 WBC'S ()?? 06/27/2023 18:53 Abs. NRBC 0.0 k/mm3 ()?? 06/27/2023 18:53 Abs. Neut 2.7 k/mm3 ()?? 06/27/2023 18:53 Abs. Lymph 2.0 k/mm3 ()?? 06/27/2023 18:53 Abs. Dupage 0.8 k/mm3 ()?? 06/27/2023 18:53 Abs. Eo 0.2 k/mm3 ()?? 06/27/2023 18:53 Abs. Baso 0.1 k/mm3 ()?? 06/27/2023 18:53 Neut % 46.2 % ()?? 06/27/2023 18:53 Lymph % 34.1 % ()?? 06/27/2023 18:53 Dupage % 14.1 % (High)?? 06/27/2023 18:53 Eos % 4.0 % ()?? 06/27/2023 18:53 Baso % 0.9 % ()?? 06/27/2023 18:53 Imm Gran 0.7 % ()?? 06/27/2023 18:53 Abs. Imm Gran 0.0 k/mm3 ()?? 06/27/2023 18:53 ?? CHEM GENERAL Sodium 144 mmol/L ()?? 06/27/2023 18:53 Potassium 3.1 mmol/L (Low)?? 06/27/2023 18:53 Chloride 104 mmol/L ()?? 06/27/2023 18:53 Bicarbonate Level 27 mmol/L ()?? 06/27/2023 18:53 Anion Gap 13 ()?? 06/27/2023 18:53 Glucose Level 144 mg/dL (High)?? 06/27/2023 18:53 Glucose, POC 98 mg/dL ()?? 06/28/2023 08:18 BUN 27 mg/dL (High)?? 06/27/2023 18:53 Creatinine-Blood 1.3 mg/dL (High)?? 06/27/2023 18:53 Estimated GFR Creatinine 43 ML/MIN/1.73 M2 ()?? 06/27/2023 18:53 Calcium 8.8 mg/dL ()?? 06/27/2023 18:53 Protein, Total 5.3 Gm/dL (Low)?? 06/27/2023 18:53 Albumin 2.9 Gm/dL (Low)?? 06/27/2023 18:53 AG Ratio 1.2 ()?? 06/27/2023 18:53 Alkaline Phosphatase 226 units/L (High)?? 06/27/2023 18:53 AST (SGOT) 48 units/L (High)?? 06/27/2023 18:53 ALT (SGPT) 18 units/L ()?? 06/27/2023 18:53 Bilirubin, Total 1.6 mg/dL (High)?? 06/27/2023 18:53 Lactate 1.7 mmol/L ()?? 06/27/2023 18:53 ?? URINE OTHER Est Creatinine Clearance 34.52 mL/min ()?? 06/28/2023 18:53 ? Hospital Progress note * Meseret Galdamez RN: PERFORM, SIGN, VERIFY Event Display: Progress Note Hospital Authored Date: Patient: SHAUN LERMA Age: 73 years Sex: Female : 1950 Associated Diagnoses: None Author: Meseret Galdamez RN Findings Nursing Data Vital Signs : VITAL SIGNS SECTION 07/03/2023 4:29 EDT Temperature 97.3 DegF Temperature Route Oral Pulse Rate 70 bpm Respiratory Rate 19 br/min Systolic Blood Pressure 111 mm Hg Diastolic Blood Pressure 65 mm Hg Blood pressure sites Arm, right Mean Arterial Pressure 80 mm Hg Pulse Pressure 46 mm Hg Oxygen Saturation 92 % L Mode of Delivery (Oxygen) Room air . Evaluation Patient received at 1900 resting in bed, AOx3 on RA. Patient c/o neuropathy and received a one timedose of gabapentin. Patient repositioned multiple times throughout night to find a comfortable sleeping position. Melatonin given. No acute events overnight, VSS and call light within reach. . Discharge Information Rehabilitation Discharge : Rehab Discharge Index 07/01/2023 8:30 EDT Comments on treatment indicated ADLs, fucn mob, txfders, Pt edu, safety, cognition Full chart review completed Yes 06/29/2023 12:58 EDT Comments on treatment indicated 73 female with recent admission to [facility] for femurfx with subsequent stay at rehab. presents from home with sacral ulcer. PT for bed mobility, transfers, ther ex. NWB RLE from recent fx. Rec home c services Full chart review completed Yes Other findings Pt recently dc from rehab after femur fx, NWB RLE with GAEL doned. Pt reporting having w/c and kian at home. Able to sit EOB with SPV. Min A for transition supine <> sit. KI donned t/o session. Min A for boost with bed in trend using BUEs Plan of care PT Transfer training, Therapeutic exercise, Functional Activities * Iveth MORFIN, Gaudencio: PERFORM Event Display: Progress Note Hospital Authored Date: Patient: ??SHAUN LERMA ? Age:??73 Years?Sex:??Female?:??1950?? Subjective No acute overnight events. Patient remains hemodynamically stable. Remains in??leg immobilizer. Does not have any active complaints for me. Review of Systems Negative except as above Social History Alcohol Details:??Use: Current. ??Type: Wine. Substance Abuse Details:??Use: Never. Tobacco Details:??Never smoker ? Family History Father??(): CAD - Coronary artery disease ? Objective Vital Signs?? Temperature: 97.7 DegF (07/02/23 15:13:00) Temperature Route: Oral (07/02/23 15:13:00) Pulse Rate: 87 bpm (07/02/23 15:13:00) Respiratory Rate: 18 br/min (07/02/23 15:13:00) Systolic Blood Pressure: 91 mm Hg (07/02/23 15:13:00) Diastolic Blood Pressure:??53 mm Hg??Low (07/02/23 15:13:00) Blood pressure sites: Arm, right (07/02/23 15:13:00) Mean Arterial Pressure: 66 mm Hg (07/02/23 15:13:00) Pulse Pressure: 38 mm Hg (07/02/23 15:13:00) Oxygen Saturation: 94 % (07/02/23 15:13:00) Mode of Delivery (Oxygen): Room air (07/02/23 15:13:00) Early Warning Score: 5 (07/02/23 16:06:29) ? Physical Exam ? General???sitting up in bed, no acute distress at rest Respiratory???diminished air entry at bases Cardiovascular???normal heart sounds GI???abdomen soft, bowel sound present Neuro-??? oriented x 3 Right leg???has immobilizer Derm???about 1 to 2 cm very small??pressure ulcer noted in the back _ Home Medications Allopurinol (allopurinol 100 mg oral tablet)?100?Milligram?1?tablet?By Mouth apixaban (Eliquis 5 mg oral tablet)?1?tab(s)?5?Milligram?By Mouth?2 times a day Calcium And Vitamin D Combination (Citracal Maximum + D oral tablet)?2?tab(s)?By Mouth?2 times a day Carvedilol (carvedilol 3.125 mg oral tablet)?3.125?Milligram?1?tablet?By Mouth?2 times a day?for 90?Days dapagliflozin (Farxiga 10 mg oral tablet)?TAKE 1 TABLET BY MOUTH EVERY DAY dulaglutide (Trulicity Pen)?Subcutaneous Infusion Famotidine (famotidine 20 mg oral tablet)?20?Milligram?1?tablet?By Mouth?Daily atbedtime Fluticasone-Salmeterol (Advair HFA 230 mcg / 21 mcg)?INHALE TWO PUFFS BY MOUTH TWICE DAILY (BULK) Gabapentin (gabapentin 100 mg oral capsule)?100?Milligram?1?capsule?By Mouth?Daily at bedtime Insulin Glargine (Basaglar KwikPen 100 units/mL subcutaneous solution)?INJECT 80 UNITS (0.8ml) SUBCUTANEOUSLY DAILY (bulk) Levothyroxine (levothyroxine 0.175 mg oral tablet)?1?tab(s)?By Mouth?Daily Metolazone (metolazone 2.5 mg oral tablet)?5?Milligram?2?tablet?By Mouth?Every week Multivitamin With Minerals (Centrum Silver)?By Mouth?Daily Oxycodone (oxyCODONE 5 mg oral capsule)?1?capsule?5?Milligram?By Mouth?Every 4 hours?as needed?as needed for pain Pantoprazole (pantoprazole 40 mg oral delayed release tablet)?1?tab(s)?40?Milligram?By Mouth?Daily Potassium Chloride (potassium chloride 10 mEq oral capsule, extended release)?1?capsule?10?Milliequivalent?By Mouth?Daily Rosuvastatin (rosuvastatin 20 mg oral tablet)?TAKE ONE TABLET BY MOUTH DAILY AT 9PM (VIAL) Spironolactone (spironolactone 25 mg oral tablet)?25?Milligram?1?tablet?By Mouth?Daily torsemide (torsemide 20 mg oral tablet)?2?tab(s)?40?Milligram?By Mouth?Daily ? Inpatient Medications Medications (29) Active SCHEDULED: (14) Allopurinol 100 mg Tablet (allopurinol 100 mg oral tablet) ??100 mg, By Mouth, Daily Apixaban 5 mg Tablet (Apixaban Tablet) ??5 mg, By Mouth, 2 times a day Carvedilol 3.125 mg Tablet (carvedilol 3.125 mg oral tablet) ??3.125 mg, By Mouth, 2 times a day Colchicine 0.6 mg Tablet (colchicine 0.6 mg oral tablet) ??0.6 mg, By Mouth, Daily Dapagliflozin 10 mg Tablet (Dapagliflozin Tablet) ??10 mg, By Mouth, Daily Insulin Glargine 100 units/mL Inj (Lantus Inj) ??45 units 0.45 mL, Subcutaneous Injection, Daily atbedtime Levothyroxine 100 mcg Tablet (levothyroxine 0.1 mg oral tablet) ??100 mcg, By Mouth, Daily Levothyroxine 75 mcg Tablet (levothyroxine 0.075 mg oral tablet) ??75 mcg, By Mouth, Daily NaCl 0.9% Flush 3ml (NaCL 0.9% Flush) ??3 mL, IV Push, Every 8 hours Nystatin Powder ??1 application, Topically, 2 times a day Pantoprazole 40 mg EC Tablet (pantoprazole 40 mg oral delayed release tablet) ??40 mg, By Mouth, Daily Rosuvastatin 20 mg Tablet (rosuvastatin 20 mg oral tablet) ??20 mg, By Mouth, Daily Spironolactone 25 mg Tablet (spironolactone 25 mg oral tablet) ??25 mg, By Mouth, Daily Torsemide 20 mg tablet (torsemide 20 mg oral tablet) ??40 mg 2 tablet, By Mouth, Daily CONTINUOUS: (0) PRN: (15) Acetaminophen 325 mg Tablet (Acetaminophen Tablet) ??650 mg, By Mouth, Every 8 hours Acetaminophen 325 mg Tablet (Acetaminophen Tablet) ??650 mg, By Mouth, Every 4 hours Al hydroxide/Mg hydroxide/simethicone 200 mg-200 mg-20 mg/5 mL Susp UD (Maalox Plus Liquid) ??30 mL, By Mouth, Every 8 hours Dextromethorphan-Guaifenesin 20 mg-200 mg/10 mL Liqu UD (Robitussin DM Liquid) ??10 mL, By Mouth, Every 4 hours Dextrose Inj Syringe (Dextrose 50% Inj Syringe (25Gm)) ??12.5 Gm, IV Push Slowly, Every 20 minutes Dextrose Inj Syringe (Dextrose 50% Inj Syringe (25Gm)) ??25 Gm, IV Push Slowly, Every 15 minutes Docusate Sodium 100 mg Capsule (Docusate Sodium Capsule) ??100 mg 1 capsule, By Mouth, 2 times a day Glucagon 1 mg Inj (Glucagon Inj) ??1 mg, Intramuscular, Once Glucose 40% Gel (15 Gm) (Glucose Gel) ??15 Gm, By Mouth, Every 20 minutes Glucose 40% Gel (15 Gm) (Glucose Gel) ??30 Gm, By Mouth, Every 20 minutes Melatonin 3 mg Tablet (Melatonin Tablet) ??9 mg, By Mouth, Daily at bedtime NaCl 0.9% Flush 3ml (NaCL 0.9% Flush) ??3 mL, IV Push, Every 8 hours Polyethylene Glycol 17 Gm Powder (MiraLax Powder) ??17 Gm 1 pack/packet, By Mouth, Daily Senna Tablet ??8.6 mg 1 tablet, By Mouth, 2 times a day Simethicone 80 mg Chewable Tablet (Simethicone Tablet) ??80 mg, Chew, 3 times a day ? Results Recent Labs CHEM GENERAL Glucose, POC 124 mg/dL (High)?? 07/02/2023 16:05 ? Assessment/Plan Chief Complaint: Pt from home, bed bound - fx leg in pain to buttocks - visiting nurse noted red area/?wounds. ?? Diagnoses Asthma ??(J45.909) Chronic anemia ??(D64.9) Chronic kidney disease ??(N18.9) Gout ??(M10.9) Heart failure with reduced ejection fraction ??(I50.20) Hypothyroidism ??(E03.9) Paroxysmal A-fib ??(I48.0) Pulmonary hypertension ??(I27.20) Sacral wound ??(S31.000A) Status post implantation of automatic cardioverter/defibrillator (AICD) ??(Z95.810) Status post transcatheter aortic valve replacement (TAVR) using bioprosthesis ??(Z95.3) Type 2 diabetes mellitus ??(E11.9) ?? 73-year-old female with past medical history of type 2 diabetes, hypertension hyperlipidemia CKD stage III, nonischemic dilated cardiomyopathy, heart failure with reduced ejection fraction of 10 to 15%, pulmonary hypertension, aortic stenosis status post TAVR followed by restenosis of bioprostheticvalve status post redo TAVR on 02/2020, paroxysmal atrial fibrillation on apixaban, hypothyroidism status post remote partial thyroidectomy, asthma, gout, OA coming in today secondary to concerns of a new sacral wound. ??Wound is not acutely infected,??admitted to arrange for safe discharge???needed hospital bed which was supposed to come in 06/30.?Her who is a caregiver??is having prosta te surgery today ?? Sacral wound (S31.000A):?? New sacral wound,??noticed by the nurse and sent here for further evaluation. No obvious erythema or purulent drainage noted No leukocytosis, fevers or chills On exam???no evidence of infection Plan -??appreciate wound care recommendations, please see notes. - Change position ?? Type 2 diabetes mellitus (E11.9):??Lantus and insulin sliding scale. ??Hypoglycemia measures in place Chronic kidney disease (N18.9):?at baseline. Renally dose medications and avoid nephrotoxic medical Chronic anemia (D64.9):??Patient does have baseline chronic anemia, hemoglobin is actually uptrending from before Heart failure with reduced ejection fraction (I50.20) /??Status post implantation?? (AICD) (Z95.810) / Status post (TAVR) using bioprosthesis (Z95.3)/ Paroxysmal A-fib (I48.0):??torsemide,??spironolactone, Coreg, apixaban?? Hypothyroidism (E03.9):??levothyroxine? Gout (M10.9):??allopurinol ?? VTE prophylaxis???planned anticoagulation CODE STATUS???full ?? OMN/dispo???test case developer following for safe discharge planning ? Discharge Planning:??Short-term rehab versus home with services ? * Chay KEYS, Eyad Cavazos: PERFORM, SIGN, VERIFY Event Display: Progress Note Hospital Authored Date: Patient: HSAUN LERMA Age: 73 years Sex: Female : 1950 Associated Diagnoses: None Author: Chay KEYS, Eyad Cavazos Findings Problem Related to Alteration in Musculoskeletal : Alteration in Musculoskeletal Func/new 07/02/2023 11:00 EDT Alteration in Musculoskeletal Related to Fracture, Mobility Goals & Outcomes, Musculoskeletal Affected extremity will maintain color/motion/sensation, Pt able to perform ADL's to best of ability, Pt will be free from complications of immobility, Pt will demonstrate ability to participate in ADL's, Pt will report acceptable level of comfort/pain relief Interventions, Musculoskeletal monitor Color/Motion/Sensation, Assist with repositioning, Encouragedeep breathing & coughing exercises, Teach Pt/caregiver on ADL's & adaptive equipment, Teach pt/caregiver on use of pain scale, Teach Pt/caregiver complications of immobility, monitor CMS of injured extremity, Elevate injured extremity, Maintain proper alignment of injured extremity BH Goals/Interventions, Musculoskeletal Yes Musculoskeletal, Problem Start 06/30/2023 18:01 Reviewed Plan with, Musculoskeletal Patient Patient Progression, Musculoskeletal Pt progressing according to plan . Nursing Data Musculoskeletal Data. : Musculoskeletal Data. 07/02/2023 16:00 EDT Musculoskeletal Assessment Status Unchanged from recorder's assessment 07/02/2023 14:00 EDT Musculoskeletal Assessment Status Unchanged from recorder's assessment 07/02/2023 12:00 EDT Musculoskeletal Assessment Status Unchanged from recorder's assessment 07/02/2023 10:00 EDT Musculoskeletal Assessment Status Unchanged from recorder's assessment 07/02/2023 8:00 EDT Musculoskeletal Symptoms Fracture, Weakness Special Orthopedic Devices Immobilizer Musculoskeletal WNL except . Evaluation P: as per nursing care plan. I: as per interventions. E: Bite Block Maker's first contact with Ms. Lerma this morning; she is alert and oriented times 4. her respirations are even and unlabored, at rest speaking in complete sentences. She denies chest pain but endorses right knee discomfort Tylenol given with positive effect. Right knee immobilizer in place. 's questions answered. See i-view for full assessment. Will continue to monitor. . Consult note * Gayle Galvin RN: PERFORM, SIGN, VERIFY, MODIFY, SIGN Event Display: Consultation Note Authored Date: [id number] Patient: SHAUN LERMA Age: 73 years Sex: Female : 1950 Associated Diagnoses: None Author: Gayle Galvin RN History of Presenting Problem coccyxbuttocks / sacral wound 06/26 intergluteal crease Date of Service 07/02/2023 Reason for referral Wound: Description Location: Intergluteal crease Etiology: MASD (moisture associated skin damage): Intertrigo Wound Bed: Linear partial thickness skin loss along crease with red viable wound base Edges: Defined No Fluctuance or Induration Azul Wound: Blanchable erythema, maceration, desquamation Drainage: Scant sanguineous Odor: None Pain with palpation and manipulation of periwound/buttocks Goals: Offload pressure, moisture management and barrier protection with enhanced autolytic debridement *High risk of evolution to pressure due to area directly over coccyx, integumentary already compromised. *Desquamation from todays photo appears to look like 'edge' of wound although wound bed within this, sanguineous drainage quickly filled area creating poor representation of wound base compared to myvisualization . Wound RN consult entered to assess sacrum wound and make topical recommendations. Patient was admitted on 06/27/23 for concerns of new sacral wound. Significant PMH includes DM2, HTN, HLD, CKD3, nonischemic dilated cardiomyopathy, HF, pulmonary HTN, pAfib and /TAVR and TAVR re-do February 2020; see H&P for further details. Discussed patient with RN previsit, described mixed incontinence. Upon entering the room patient is lying in bed. Wound RN role explained and patient is agreeable to assessment as well as photodocumentation. RLE brace in place. Repositioned onto right side per patient request, primafit in place with leak, urine soaked through pad and sheet. PCT at bedside assisting with repositioning throughout visit. Discussed with patient increased risk of pressure development to this wound, we discussed pressure and moisture prevention interventions and Triad. Patient hopefulto be discharged soon. RN not available to update post visit. Recommendations/update sent via [employer] to MD Michelle Lazaro. Recommendations: 1.) Intergluteal crease/buttocks: Cleanse with pH balanced cleanser. Pat dry. Apply thin layer of Triad to wound bed. Only pat and dab, no scrub and rub, when soiling occurs. Reapply thin layer PRN after incontinence care. 2.) Continue use of specialty bed/low air loss mattress 3.) Turn and reposition every 2 hours and PRN 4.) Continue incontinence care as well as moisture management; do not utilize Mepilex foam dressingwith incontinence 5.) Do not utilize brief use 6.) Continue to offload bony prominences 7.) Continue to provide optimal nutritional support 8.) Provide Gaymar cushion to chair when patient OOB Please reconsult wound care RNs for deterioration in wound/skin status Patient at increased risk for pressure injury development d/t mobility, moisture and current integumentary status, please ensure to utilize pressure prevention interventions Plan Patient Teaching Discussed plan of care with patient Discussed plan of care with RN Time spent 31-45 minutes Note * Karly Tong RN: PERFORM Event Display: Discharge/Transfer Note Hospital Authored Date: Nursing Discharge Note Entered On: 07/03/2023 13:16 EDT Performed On: 07/03/2023 13:16 EDT by Karly Tong RN Nursing Discharge Note 2 Discharge Time : 07/03/2023 13:15 EDT Discharge Level of Care at Discharge : Homehealth/VNA Discharge VNA/Hospice/Home Care(v001) : [facility] Patient Left Unit Via : Ambulance Patient Accompanied Off Unit with : Ambulance/Chair Van Personnel Handover Given to Transport Personnel : Yes DC Instructions Provided & Signed by Pt : Yes Patient Understands D/C Instructions : Yes Patient Instructions Discharge Signed : Yes Did Pt have Specialty Bed or Wound Vac : No Karly Tong RN - 07/03/2023 13:16 EDT * Gaudencio Lazaro MD: PERFORM Event Display: Discharge/Transfer Note Hospital Authored Date: Patient: ??SHAUN LERMA ? Age:??73 Years?Sex:??Female?:??1950?? Patient Information Discharge Location: Primary Care Physician: Zainab Pritchard MD Admit Date/Time: 06/27/23 18:38 Discharge Disposition Discharge Disposition: Home with Home Health Discharge Diagnosis Sacral wound (S31.000A) Chronic kidney disease (N18.9) Chronic anemia (D64.9) Heart failure with reduced ejection fraction (I50.20) Status post implantation of automatic cardioverter/defibrillator (AICD) (Z95.810) Paroxysmal A-fib (I48.0) Status post transcatheter aortic valve replacement (TAVR) using bioprosthesis (Z95.3) Pulmonary hypertension (I27.20) Type 2 diabetes mellitus (E11.9) Hypothyroidism (E03.9) Asthma (J45.909) Gout (M10.9) _ Discharge Medications Allopurinol (allopurinol 100 mg oral tablet)?100?Milligram?1?tablet?By Mouth apixaban (Eliquis 5 mg oral tablet)?1?tab(s)?5?Milligram?By Mouth?2 times a day Calcium And Vitamin D Combination (Citracal Maximum + D oral tablet)?2?tab(s)?By Mouth?2 times a day Carvedilol (carvedilol 3.125 mg oral tablet)?3.125?Milligram?1?tablet?By Mouth?2 times a day?for 90?Days Colchicine (colchicine 0.6 mg oral tablet)?0.6?Milligram?By Mouth?2 times a day dapagliflozin (Farxiga 10 mg oral tablet)?TAKE 1 TABLET BY MOUTH EVERY DAY dulaglutide (Trulicity Pen)?Subcutaneous Infusion Fluticasone-Salmeterol (Advair HFA 230 mcg / 21 mcg)?INHALE TWO PUFFS BY MOUTH TWICE DAILY (BULK) Gabapentin (gabapentin 100 mg oral capsule)?100?Milligram?1?capsule?By Mouth?Daily at bedtime Insulin Glargine (Elenita DacostaPen 100 units/mL subcutaneous solution)?INJECT 80 UNITS (0.8ml) SUBCUTANEOUSLY DAILY (bulk) Levothyroxine (levothyroxine 0.175 mg oral tablet)?1?tab(s)?By Mouth?Daily Metolazone (metolazone 2.5 mg oral tablet)?5?Milligram?2?tablet?By Mouth?Every week Multivitamin With Minerals (Centrum Silver)?By Mouth?Daily Nystatin Topical (Nystatin Powder)?1?applicator?Topically?2 times a day Oxycodone (oxyCODONE 5 mg oral capsule)?1?capsule?5?Milligram?By Mouth?Every 4 hours?as needed?as needed for pain Pantoprazole (pantoprazole 40 mg oral delayed release tablet)?1?tab(s)?40?Milligram?By Mouth?Daily Rosuvastatin (rosuvastatin 20 mg oral tablet)?TAKE ONE TABLET BY MOUTH DAILY AT 9PM (VIAL) Spironolactone (spironolactone 25 mg oral tablet)?25?Milligram?1?tablet?By Mouth?Daily torsemide (torsemide 20 mg oral tablet)?2?tab(s)?40?Milligram?By Mouth?Daily ? Medications Started None Medications Discontinued None Doses Changed ?? -Please discuss the need of continuing Potassium with your PCP -You were needing a reduced dose of Insulin while in the hospital: Lantus 45units daily PCP Follow-Up/Heads-Up - Repeat blood work - Follow-up on discharge. - Please review list of medications??and medication changes. Hospital Course 73-year-old female with past medical history of type 2 diabetes, hypertension hyperlipidemia CKD stage III, nonischemic dilated cardiomyopathy, heart failure with reduced ejection fraction of 10 to 15%, pulmonary hypertension, aortic stenosis status post TAVR followed by restenosis of bioprostheticvalve status post redo TAVR on 02/2020, paroxysmal atrial fibrillation on apixaban, hypothyroidism status post remote partial thyroidectomy, asthma, gout, OA coming in today secondary to concerns of a new sacral wound. ??Wound is not acutely infected,??admitted to arrange for safe discharge???needed hospital bed which was supposed to come in 06/30.?Her who is a caregiver??is having prosta te surgery while she was hospitalised. ??Presented today by wound doctor and. ??Safe discharge planning??done by CM??patient is medically stable to go home. ?? Sacral wound (S31.000A):?? New sacral wound,??noticed by the nurse and sent here for further evaluation. No obvious erythema or purulent drainage noted No leukocytosis, fevers or chills On exam???no evidence of infection Plan -??appreciate wound care recommendations, please see notes. - Change position ?? Type 2 diabetes mellitus (E11.9):??Lantus and insulin sliding scale. ??Hypoglycemia measures in place Chronic kidney disease (N18.9):?at baseline. Renally dose medications and avoid nephrotoxic medical Chronic anemia (D64.9):??Patient does have baseline chronic anemia, hemoglobin is actually uptrending from before Heart failure with reduced ejection fraction (I50.20) /??Status post implantation?? (AICD) (Z95.810) / Status post (TAVR) using bioprosthesis (Z95.3)/ Paroxysmal A-fib (I48.0):??torsemide,??spironolactone, Coreg, apixaban?? Hypothyroidism (E03.9):??levothyroxine? Gout (M10.9):??allopurinol, colchicine ? Objective . Physical Exam General???sitting up in bed, no acute distress at rest Respiratory???diminished air entry at bases Cardiovascular???normal heart sounds GI???abdomen soft, bowel sound present Neuro-??? oriented x 3 Right leg???has immobilizer Derm???about 1 to 2 cm very small??pressure ulcer noted in the back Pending Results No Pending Results Follow-Up Appointments Added Follow Up ?Time Frame ?Comments Zainab Pritchard MD Patient Instructions ??? Please follow the primary care physician for administer medication repeating a set of blood work within 1 week's time. ??? Present to the emergency department experiencing the following symptoms including but not admitted to shortness of breath, chest pain, new fevers, oozing from ulcer or any other issues. ??? Follow-up with wound care for continued management of your sacral wounds ?? Recommendations as per wound RN: 1.) Intergluteal crease/buttocks: Cleanse with pH balanced cleanser. Pat dry. Apply thin layer of Triad to wound bed. Only pat and dab, no scrub and rub, when soiling occurs. Reapply thin layer PRN after incontinence care. ?? 2.) Continue use of specialty bed/low air loss mattress 3.) Turn and reposition every 2 hours and PRN 4.) Continue incontinence care as well as moisture management; do not utilize Mepilex foam dressingwith incontinence 5.) Do not utilize brief use 6.) Continue to offload bony prominences 7.) Continue to provide optimal nutritional support 8.) Provide Gaymar cushion to chair when OOB ? Medication changes: -Please discuss the need of continuing Potassium with your PCP -You were needing a reduced dose of Insulin while in the hospital: Lantus 45units daily Post Discharge Care Discharge ?07/03/23 11:07:00 EDT Home Health Face to Face ^HomeHealthFTF Results Discharge Labs BACTERIOLOGY Blood Culture Results Final report ()?? 06/27/2023 18:53 Blood Culture Specimen Source BLOOD ()?? 06/27/2023 18:53 Blood Culture Isolate 1 Comment ()?? 06/27/2023 18:53 Blood Cult 2 Results Final report ()?? 06/27/2023 19:30 Blood Culture 2 Specimen Source BLOOD ()?? 06/27/2023 19:30 Blood Culture 2 Isolate 1 Comment ()?? 06/27/2023 19:30 ?? BLOOD COUNT & DIFF WBC 5.8 k/mm3 ()?? 06/29/2023 05:12 RBC 3.07 m/mm3 (Low)?? 06/29/2023 05:12 Hgb 11.2 Gm/dL (Low)?? 06/29/2023 05:12 Hct 34.8 % (Low)?? 06/29/2023 05:12 MCV 113.4 femtoliters (High)?? 06/29/2023 05:12 MCH 36.5 pg (High)?? 06/29/2023 05:12 MCHC 32.2 g/dL (Low)?? 06/29/2023 05:12 Platelet Count 68 k/mm3 (Low)?? 06/29/2023 05:12 RDW-SD 73.0 femtoliters (High)?? 06/29/2023 05:12 MPV 10.3 femtoliters ()?? 06/29/2023 05:12 Nucleated RBC (Automated) 0.0 #/100 WBC'S ()?? 06/29/2023 05:12 Abs. NRBC 0.0 k/mm3 ()?? 06/29/2023 05:12 Abs. Neut 2.7 k/mm3 ()?? 06/27/2023 18:53 Abs. Lymph 2.0 k/mm3 ()?? 06/27/2023 18:53 Abs. Dupage 0.8 k/mm3 ()?? 06/27/2023 18:53 Abs. Eo 0.2 k/mm3 ()?? 06/27/2023 18:53 Abs. Baso 0.1 k/mm3 ()?? 06/27/2023 18:53 Neut % 46.2 % ()?? 06/27/2023 18:53 Lymph % 34.1 % ()?? 06/27/2023 18:53 Dupage % 14.1 % (High)?? 06/27/2023 18:53 Eos % 4.0 % ()?? 06/27/2023 18:53 Baso % 0.9 % ()?? 06/27/2023 18:53 Imm Gran 0.7 % ()?? 06/27/2023 18:53 Abs. Imm Gran 0.0 k/mm3 ()?? 06/27/2023 18:53 ?? CHEM GENERAL Sodium 141 mmol/L ()?? 06/29/2023 05:13 Potassium 3.1 mmol/L (Low)?? 06/29/2023 05:13 Chloride 103 mmol/L ()?? 06/29/2023 05:13 Bicarbonate Level 28 mmol/L ()?? 06/29/2023 05:13 Anion Gap 10 ()?? 06/29/2023 05:13 Glucose Level 85 mg/dL ()?? 06/29/2023 05:13 Glucose, POC 88 mg/dL ()?? 07/03/2023 08:05 BUN 25 mg/dL (High)?? 06/29/2023 05:13 Creatinine-Blood 1.3 mg/dL (High)?? 06/29/2023 05:13 Estimated GFR Creatinine 42 ML/MIN/1.73 M2 ()?? 06/29/2023 05:13 Calcium 8.5 mg/dL (Low)?? 06/29/2023 05:13 Protein, Total 5.3 Gm/dL (Low)?? 06/27/2023 18:53 Albumin 2.9 Gm/dL (Low)?? 06/27/2023 18:53 AG Ratio 1.2 ()?? 06/27/2023 18:53 Alkaline Phosphatase 226 units/L (High)?? 06/27/2023 18:53 AST (SGOT) 48 units/L (High)?? 06/27/2023 18:53 ALT (SGPT) 18 units/L ()?? 06/27/2023 18:53 Bilirubin, Total 1.6 mg/dL (High)?? 06/27/2023 18:53 Lactate 1.7 mmol/L ()?? 06/27/2023 18:53 ? HEME OTHER Hold Blue Top SPECIMEN DISCARDED AFTER 4 HOURS. ()?? 06/27/2023 18:53 ? MISC. CHEMISTRY Hold Green Top SPECIMEN DISCARDED AFTER 1 WEEK ()?? 06/27/2023 18:53 ? URINE OTHER Est Creatinine Clearance 34.52 mL/min ()?? 06/28/2023 18:53 ? 31??minutes spent on discharge * Cinda Zambrano RN: VERIFY, PERFORM, SIGN Event Display: Case Management Discharge Plan Authored Date: [id number] Patient: SHAUN LERMA Age: 73 years Sex: Female : 1950 Associated Diagnoses: None Author: Cinda Zambrano RN Discharge Plan Case Management Discharge Plan : Case Management Discharge Plan Data 07/03/2023 9:45 EDT Discharge Level of Care at Discharge Homehealth[facility]VNA [facility] Arranged [facility] [address] [place] [address] Mode of Transportation Arranged Ambulance Agency Negotiator Sales #1 intake Service Categories #1 Occupational Therapy, Physical Therapy, Intermediate Service Comments #1 the visiting nurse staff will call to set up a visit 1-2 days after discharge * Karly Tong RN: PERFORM, MODIFY Event Display: Patient Education/Instruction Authored Date: [id number] Inpatient Adult Discharge Instructions. [address] [address] Name: SHAUN LERMA : 1950?? Visit: 06/27/2023 18:38?? Current Date: 07/03/2023 11:48 ?? Account: [id number]?? Inpatient Adult Discharge Instructions We would like [...] and their families. Surveys are administered by [employer] ?? If further treatment with your primary care physician or another doctor is recommended, it is important for you to keep the appointment. Call your primary care physician or return to the Emergency Department immediately if your condition worsens, fails to improve, or new symptoms develop. If you need to find a doctor, you can call [facility] Link for a referral at [phone] or toll free at [phone]) or log in to [email or web address].. ?? [facility], in keeping with [facility] guidance, no longer requires face masks for [...] a health care sincere of your choosing. [employer] is a website that allows you to securely view your medical information including your hospital discharge summary, office visit summaries, medications and follow-up visits. You can also request appointments, renew medications, and request access to your medical information using a health care sincere of your choosing, or just ask a question. You can enroll at [email or web address] or register during your next office visit. You have been discharged from [facility], Patient Care Unit: S3??. If you have any questions regarding these instructions, including results of studies pending, afteryou leave, please call us and we will be happy to assist you 14/10. [facility] Your Care Team Attending Physician Gaudencio Lazaro MD?? Consulting Providers Gaudencio Lazaro MD?? Discharging Providers Gaudencio Lazaro MD Reason for Your Visit Pt from home, bed bound - fx leg in apr. 12/31 pain to buttocks - visiting nurse noted red area/?wounds.?? Your Diagnosis Asthma Chronic anemia Chronic kidney disease Gout Heart failure with reduced ejection fraction Hypothyroidism Paroxysmal A-fib Pulmonary hypertension Skin problem Status post implantation of automatic cardioverter/defibrillator (AICD) Status post transcatheter aortic valve replacement (TAVR) using bioprosthesis Type 2 diabetes mellitus Tests Performed Below is a partial list of the tests performed during your hospitalization. You may have had other tests and procedures not included in this list. Please discuss all test results with your provider. Basic Metabolic Panel Blood Culture Blood Culture #2 Blood Culture 2 Results Blood Culture Result CBC CBC w/ Differential Comprehensive Metabolic Panel GLUCOSE POC HOLD BLUE TUBE HOLD GREEN TUBE Lactate Level CT Abd/Pelvis W/ IV Contrast Only No tests performed during this visit.?? Primary Care Provider Zainab Pritchard MD? Advance Directive Health Care Proxy on File Yes - Health Care Proxy Discharge Vitals Temperature: 97.5 DegF Height: 163 cm Pulse Rate: 82 bpm Weight: 122 kg Respiratory Rate: 18 br/min Body Mass Index:??45.92 kg/m2??Critical Systolic Blood Pressure: 106 mm Hg Body surface area: 2.35 Diastolic Blood Pressure: 56 mm Hg ?? Oxygen Saturation:??93 %??Low ?? Studies Pending All studies ordered during this hospital stay have been completed unless listed below. Please discuss all pending results with your provider listed above in these instructions. ?? No incomplete studies found?? What to do next Instructions From Your Doctor ??? Please follow the primary care physician for administer medication repeating a set of blood work within 1 week's time. ??? Present to the emergency department experiencing the following symptoms including but not admitted to shortness of breath, chest pain, new fevers, oozing from ulcer or any other issues. ??? Follow-up with wound care for continued management of your sacral wounds ?? Recommendations as per wound RN: 1.) Intergluteal crease/buttocks: Cleanse with pH balanced cleanser. Pat dry. Apply thin layer of Triad to wound bed. Only pat and dab, no scrub and rub, when soiling occurs. Reapply thin layer PRN after incontinence care. ?? 2.) Continue use of specialty bed/low air loss mattress 3.) Turn and reposition every 2 hours and PRN 4.) Continue incontinence care as well as moisture management; do not utilize Mepilex foam dressingwith incontinence 5.) Do not utilize brief use 6.) Continue to offload bony prominences 7.) Continue to provide optimal nutritional support 8.) Provide Gaymar cushion to chair when OOB ? Medication changes: -Please discuss the need of continuing Potassium with your PCP -You were needing a reduced dose of Insulin while in the hospital: Lantus 45units daily ?? Orders? 07/03/23 11:07:00 EDT?? You Need to Schedule the Following Appointments Follow Up with??Macho MORFIN, Zainab Where: [address] [facility] [place] [address]- Discharge Medications SHAUN LERMA :1950 Visit Date:06/27/2023 Medications: Please continue your medications until treatment is completed or stopped by your provider. Medications not listed below should be discontinued. Discuss any questions related to medications with your provider. What How Much When Instructions Next Dose New Nystatin Topical (nystatin topical 510920 u/ gm powder) 1 applicator Topically Twice a day On the affected area ?? Pickup at [place] [address] 07/02 PM Changed Gabapentin (gabapentin 100 mg oral capsule) 1 capsule Oral Daily at Bedtime 07/02 Bedtime Changed Insulin Glargine (Basaglar KwikPen 100 units/ mL subcutaneous solution) 45 units at bedtime ?? 07/02 PM Changed torsemide (torsemide 20 mg oral tablet) 2 tab(s) Oral Daily 07/03 AM Unchanged Allopurinol (allopurinol 100 mg oral tablet) 1 tab(s) Oral Daily 07/03 AM Unchanged apixaban (Eliquis 5 mg oral tablet) 1 tab(s) Oral Twice a day 07/02 PM Unchanged Calcium And Vitamin D Combination (Citracal Maximum + D oral tablet) 2 tab(s) Oral Twice a day 07/02 PM Unchanged Carvedilol (carvedilol 3.125 mg oral tablet) 1 tab(s) Oral Twice a day Duration: 90 Days 07/02 PM Unchanged dapagliflozin (Farxiga 10 mg oral tablet) TAKE 1 TABLET BY MOUTH EVERY DAY ?? 07/03 AM Unchanged dulaglutide (Trulicity Pen) Subcutaneous Infusion resume home schedule Unchanged Fluticasone-Salmeterol (Advair HFA 230 mcg / 21 mcg) INHALE TWO PUFFS BY MOUTH TWICE DAILY (BULK) ?? 07/03 AM Unchanged Levothyroxine (levothyroxine 0.175 mg oral tablet) 1 tab(s) Oral Daily 07/03 AM Unchanged Metolazone (metolazone 2.5 mg oral tablet) 2 tab(s) Oral Every week weekly Unchanged Multivitamin With Minerals (Centrum Silver) Oral Daily 07/03 AM Unchanged Oxycodone (oxyCODONE 5 mg oral capsule) 1 capsule Oral Every 4 hours as needed for as needed for pain as needed Unchanged Pantoprazole (pantoprazole 40 mg oral delayed release tablet) 1 tab(s) Oral Daily 07/03 AM Unchanged Rosuvastatin (rosuvastatin 20 mg oral tablet) TAKE ONE TABLET BY MOUTH DAILY AT 9PM (VIAL) ?? 07/02 PM Unchanged Spironolactone (spironolactone 25 mg oral tablet) 1 tab(s) Oral Daily 07/03 AM Pharmacy Information [facility]: [address], [place] [id number] [phone] ?? What How Much When Comments Stop Taking Famotidine (famotidine 20 mg oral tablet) 1 tab(s) Oral Daily at Bedtime Stop Taking Heparin 5,000 unit(s) Subcutaneous Injection 3 times a day Stop Taking Potassium Chloride (potassium chloride 10 mEq oral capsule, extended release) 1 capsule Oral Daily Prescription Given During Visit Nystatin Topical (nystatin topical 295885 u/gm powder) - , Topically, 2 times a day, # 60 Gm, 0 Refills, On the affected area, [facility], [address] [place] [phone]?? Laboratory Results Below is a partial list of the most recent Laboratory test results done prior to this discharge. You may have had other tests and procedures not included in this list. Please discuss all test resultswith your provider. Est Creatinine Clearance - 34.52 mL/min (06/28/2023) Basic Metabolic Panel (06/29/2023) ???Sodium - 141 mmol/L???Potassium - 3.1 mmol/L???Chloride - 103 mmol/L???Bicarbonate Level - 28 mmol/L???Anion Gap - 10???Glucose Level - 85 mg/dL???BUN - 25 mg/dL???Creatinine-Blood - 1.3 mg/dL???Estimated GFR Creatinine - 42 ML/MIN/1.73 M2???Calcium - 8.5 mg/dL Blood Culture (06/27/2023) ???Blood Culture Results - Final report???Blood Culture Specimen Source - BLOOD Blood Culture #2 (06/27/2023) ???Blood Cult 2 Results - Final report???Blood Culture 2 Specimen Source - BLOOD Blood Culture 2 Results (06/27/2023) ???Blood Culture 2 Isolate 1 - Comment Blood Culture Result (06/27/2023) ???Blood Culture Isolate 1 - Comment CBC (06/29/2023) ???WBC - 5.8 k/mm3???RBC - 3.07 m/mm3???Hgb - 11.2 Gm/dL???Hct - 34.8 %???MCV - 113.4 femtoliters???MCH - 36.5 pg???MCHC - 32.2 g/dL???Platelet Count - 68 k/mm3???RDW-SD - 73.0 femtoliters???MPV - 10.3 femtoliters???Nucleated RBC (Automated) - 0.0 #/100 WBC'S???Abs. NRBC - 0.0 k/mm3 CBC w/ Differential (06/27/2023) ???WBC - 5.7 k/mm3???RBC - 3.12 m/mm3???Hgb - 11.3 Gm/dL???Hct - 35.5 %???MCV - 113.8 femtoliters???MCH - 36.2 pg???MCHC - 31.8 g/dL???Platelet Count - 77 k/mm3???RDW-SD - 75.9 femtoliters???MPV - 9.5 femtoliters???Nucleated RBC (Automated) - 0.0 #/100 WBC'S???Abs. NRBC - 0.0 k/mm3???Abs. Neut - 2.7 k/mm3???Abs. Lymph - 2.0 k/mm3???Abs. Dupage - 0.8 k/mm3???Abs. Eo - 0.2 k/mm3???Abs. Baso - 0.1 k/mm3???Neut % - 46.2 %???Lymph % - 34.1 %???Dupage % - 14.1 %???Eos % - 4.0 %???Baso % - 0.9 %???Imm Gran - 0.7 %???Abs. Imm Gran - 0.0 k/mm3 Comprehensive Metabolic Panel (06/27/2023) ???Sodium - 144 mmol/L???Potassium - 3.1 mmol/L???Chloride - 104 mmol/L???Bicarbonate Level - 27 mmol/L???Anion Gap - 13???Glucose Level - 144 mg/dL???BUN - 27 mg/dL???Creatinine-Blood - 1.3 mg/dL???Estimated GFR Creatinine - 43 ML/MIN/1.73 M2???Calcium - 8.8 mg/dL???Protein, Total - 5.3 Gm/dL???Albumin - 2.9 Gm/dL???AG Ratio - 1.2???Alkaline Phosphatase - 226 units/L???AST (SGOT) - 48 units/L???ALT (SGPT) - 18 units/L???Bilirubin, Total - 1.6 mg/dL GLUCOSE POC (07/03/2023) ???Glucose, POC - 125 mg/dL HOLD BLUE TUBE (06/27/2023) ???Hold Blue Top - SPECIMEN DISCARDED AFTER 4 HOURS. HOLD GREEN TUBE (06/27/2023) ???Hold Green Top - SPECIMEN DISCARDED AFTER 1 WEEK Lactate Level (06/27/2023) ???Lactate - 1.7 mmol/L Allergies (NKA means No Known Allergies) Bee [...] Belongings I fully understand and agree that [facility] accepts no responsibility for all my personal [...] to send valuables and belongings home. ?? Date for Pt to Sign Valuables/Belongings: 06/28/23 17:21:00 ?? Other Discharge Information ? Case Management Discharge Plan?? Discharge Plan?? Discharge Agency Information?? Discharge Level of Care at Discharge: Homehealth/VNA Agency Negotiator Sales #1: intake Discharge Transportation Arranged: [facility] [address] [place] [address] ??[phone] Service Categories #1: Occupational Therapy, Physical Therapy, Intermediate Mode of Transportation Arranged: Ambulance Service Comments #1: the visiting nurse staff will call to set up a visit 1-2 days after discharge Discharge VNA/Hospice/Home Care: [facility] ? Pulmonary Rehab Status?? Pulmonary Rehab Discharge [...] are strongly encouraged to quit. Please call [facility] [employer] [facility] at [phone] or [phone] ([phone]) or log in to [email or web address] for referrals to smoking cessation programs. ?? 444 Suicide & Crisis Lifeline is available 14/10 if you or someone you know needs to find a reason to keep living. By calling 022 you'll be connected to a skilled, trained counselor at a crisis center in your area. INPATIENT DISCHARGE INSTRUCTIONS SIGNATURE PAGE FLORENTINSHAUN Location:[facility] Registration Date and Time:06/27/2023 18:38 EDT Primary Care Physician: Zainab Pritchard MD, Attending Physician: Iveth MORFIN, [facility], I SHAUN LERMA, have received the above patient education materials/instructions and have verbalized understanding. If ambulance or transport services are being used I further acknowledge being given a choice of service. ?? If you need to contact me, please call me at this number: . Patient/Commercial Property Administrator Name: Patient/Commercial Property Administrator Signature: Relationship to Patient: Witness Name/Signature: Date: * Karly Tong RN: PERFORM Event Display: Patient Education Leaflets Authored Date: Wound Healing ?? 642 You are an important partner in your care along with your health care team.?? Eating healthful foods and drinking nutrition shakes are two things that you can do to help improve wound healing! ?? What should I eat? ?? Protein Rich Foods Meat (Beef/Pork) Chicken/[place] Fish Cottage Cheese Nuts/Nut butters Beans Cheese Nutrition shakes Milk Yogurt Luxembourgish Yogurt Eggs Vitamin C Rich Foods Oranges [place] Juice Pineapple Strawberries Melons Broccoli Peppers Kiwi Papaya Zinc Rich Foods Beef Pork Dark meat chicken Oysters Crabmeat Beans Fortified cereal Nuts Wheat germ ? It is important to consume adequate??Calories and Protein each day. ?? If you do not eat many foods rich in vitamin C or zinc, you may need a complete multivitamin with minerals to ensure you are getting enough of these nutrients. ? Patient Care team information Care Team Personnel Name: Zainab Pritchard MD Position: [facility] Physician - Primary Care Member Role: PCP Address: Address: [address] [place] [address]- Name: De Stiles RN Position: [facility] RN Member Role: Primary Care Nurse Name: Rupinder Shah RN Position: [facility] RN Member Role: Primary Care Nurse Name: Monik Walker RN Position: [facility] RN Member Role: Primary Care Nurse Name: Radha Cuadra RN Position: [facility] RN Member Role: Primary Care Nurse Name: Brenda Pedro RN Position: [facility] RN Member Role: Primary Care Nurse Name: Charli Pedro RN Position: [facility] RN Member Role: Primary Care Nurse Name: Brett Aguirre RN Position: [facility] RN Member Role: Primary Care Nurse Name: Vanessa Corrigan RN Position: [facility] SN RN Member Role: Primary Care Nurse Name: Nigel De La O RN Position: S RN Member Role: Primary Care Nurse Name: Curtis Squires MD Position: [facility] Renal MD Member Role: Lifetime Consulting Physician Address: Address: [address] [place] [address] [address] [facility] [place] [address]- Name: Michael Cardenas RN Position: [facility] RN Member Role: Primary Care Nurse Name: Raquel Ivy RN Position: [facility] Onco RN Member Role: Primary Care Nurse Name: Brett Mcarthur RN Position: [facility] RN Member Role: Primary Care Nurse Name: Ric Ocampo Position: S RN Member Role: Primary Care Nurse Name: Josefina Syed RN Position: [facility] RN Member Role: Primary Care Nurse Name: Noelle Correa RN Position: S RN Member Role: Primary Care Nurse Name: Myles Johnson RN Position: [facility] RN Member Role: Primary Care Nurse Care Team Related Persons Name: HANNAH LERMA Address: home [address] [place] [address] Name: BECKIE TORREZ Address: home [address] [place] [address]
--- OUTSIDE RECORDS SUMMARY | 2023-07-24 14:13 | XMS_ITS | Patient Health Record ---
Demographics Address [address] [place] [address] Mobile Email Address Preferred Language en Marital Status Congregational Affiliation Unknown Race White Ethnic Group Unknown [facility] Address [address] [place] [address] Support Name Relationship Address Phone Chandra Thomas Emergency Contact [address] [place] [address] Ebonie Thomas Guarantor Unknown [phone] Care Team Providers Care Rug Sample Beveler Name Role Phone Zainab Pritchard MD Primary Care Provider Lennie Sifuentes Unavailable [phone] ALLERGIES Allergen (clinical drug ingredient) Drug/Non Drug Allergy documented on EMR Reaction Allergy Type Onset Date Status Motrin rash Drug Allergy Active REASON FOR REFERRAL No Information MEDICATIONS Medication SIG (Take, Route, Frequency, Duration) Notes Start Date End Date Status Levothyroxine Sodium 175 MCG Oral for 30 Days Active Farxiga 10 MG TAKE ONE TABLET BY M OUTH DAILY AT 9AM (VIAL) Oral for 30 Days Active Eliquis 5 MG TAKE ONE TABLET BY M OUTH TWICE DAILY @ 9AM & 5PM (VIAL) Oral for 30 Days Active Colchicine 0.6 MG Oral for 30 Days Active Carvedilol 3.125 MG TAKE ONE TABLET BY M OUTH TWICE DAILY @ 9AM & 5PM (VIAL) Oral for 30 Days Active Centrum Silver - as directed Orally 12/16/2022 Active Allopurinol 100 MG Oral for 30 Days Active Torsemide 20 MG Oral for 30 Days Active Spironolactone 25 MG Oral for 30 Days Active Extra Depth Orthopedic Shoes (1 Pair) with Customized Heat Molded Multidensity Innersoles (3 Pair) as directed Dx: NIDDM/Polyneuropathy (E11.42), Hammertoe Foot Deformity (M20.41,M20.42), Preulcerative Skin Lesion(s) (L85.1 01/22/2023 Active Acetaminophen ER 650 MG 2 tablets as nee ded Orally every 8 hrs 12/16/2022 Active Rosuvastatin Calcium 20 MG TAKE ONE TABL ET BY MOUTH DAILY AT 5PM (vial) Oral for 30 Days Active Potassium 12/16/2022 Active metOLazone 2.5 MG Oral for 24 Days Active SOCIAL HISTORY Tobacco Use: Social History Observation Description Date Details (start date - stop date) Former Smoker NA - NA Sex Assigned At : Social History Observation Description Sex Assigned At Unknown Tobacco Use/Smoking Question Answer Notes Are you a: former smoker Additional Findings: Tobacco Non-User Current no n-smoker Alcohol Screen Question Answer Notes Did you have a drink containing alcohol in the p ast year? Yes Points 0 Interpretation Negative Tobacco use other than smoking: Question Answer Notes Are you an other tobacco user? No PROBLEMS Problem Type ICD Code Onset Dates Problem Status W/U Status Risk SNOMED Code Notes Problem Other hammer toe(s) (acquired), right foot (M20.41) Active confirmed Acquired hammer toe of right foot (64082303223 96409) Problem Other hammer toe(s) (acquired), left foot (M20.42) Active confirmed Acquired hammer toe of left foot (87306512010 12531) Problem Type 2 diabetes mellitus with polyneuropathy (E11.42) Active confirmed 63501740 VITAL SIGNS Height 5 ft 4 in in 01/22/2023 Weight 255 lbs 01/22/2023 BMI 43.77 kg/m2 01/22/2023 Encounters Encounter Location Date Provider Diagnosis [address] [address] 12/16/2022 Lennie C[address]antes[address] [address] 01/22/2023 Lennie Vitale Other hammer toe(s) (acquired), right foot M20.41 ; Other hammer toe(s) (acquired), left foot M20.42 ; Type 2 diabetes mellitus with polyneuropathy E11.42 and Tinea unguium B35.[address] [facility] [address] 04/14/2023 [facility] [address] 04/16/2023 [facility] [place] [address] 05/26/2023 Lennie Vitale [facility] [place] [address] [place] [address] 05/28/2023 Lennie Vitale ASSESSMENTS Encounter Date Diagnosis Assessment Notes Treatment Notes Treatment Clinical Notes 01/22/2023 Other hammer toe(s) (acquired), right foot (ICD-10 - M20.41) Patient Educated with: DIABETIC FOOT CARE INSTRUCTIONS.pdf (DIABETIC FOOT CARE INSTRUCTIONS.pdf ) 01/22/2023 Other hammer toe(s) (acquired), left foot (ICD-10 - M20.42) 01/22/2023 Type 2 diabetes mellitus with polyneuropathy (ICD-10 - E11.42) 01/22/2023 Tinea unguium (ICD-1 0 - B35.1) PLAN OF TREATMENT No Information Insurance Providers Payer Name Payer Address Payer Phone Subscriber Number Group Number Insured Name Patient Relationship to Insured Coverage Start Date Coverage End Date Medicare National [employer] [address] [place] [address] [id number] Ebonie Thomas Self - patient is the insured MEDICAL (GENERAL) HISTORY Medical History History ICD Code covid-19 Diabetic Gout Heart disease thyroid Replacement Heart Valves
== END 2023-07-24 14:52 | disposition home or self-care (01) ==
LOC: HO.HMGC 14:11
PROVIDERS: PCP Internal Medicine; Visit Provider Internal Medicine
DX: E11.8 Type 2 diabetes mellitus with unspecified complications (principal); S72.401A Unspecified fracture of lower end of right femur, initial encounter for closed fracture; I42.8 Other cardiomyopathies; I47.20 Ventricular tachycardia, unspecified; N18.4 Chronic kidney disease, stage 4 (severe); I48.0 Paroxysmal atrial fibrillation; Z45.02 Encounter for adjustment and management of automatic implantable cardiac defibrillator
CPT/HCPCS: 99443

== ENCOUNTER → 2023-08-13 23:59 | Outpatient (BNV) | payer MEDICARE, SELFPAY ==
--- NOTE | 2023-08-24 14:15 | A.OFFVIS_ITS ---
Intake Visit Reasons: Remote ICD check- [employer] Allergies bees Allergy (Unknown, Verified 07/24/23 14:12) angioedema ibuprofen [From MOTRIN] Allergy (Unknown, Verified 07/24/23 14:12) [facility] Medical History (Updated 07/24/23 @ 14:49 by Zainab Pritchard MD) Dysuria Hypokalemia Diarrhea Elevated LFTs Skin abnormality Preop cardiovascular exam Acute bronchitis Shortness of breath Cataract (lens) fragments in eye following cataract surgery, bilateral CKD (chronic kidney disease) stage 4, GFR 15-29 ml/min Annual physical exam Gout Arthritis Ankle pain, chronic Edema Type 2 diabetes mellitus with unspecified complications Morbid obesity Chronic kidney disease PAF (paroxysmal atrial fibrillation) Biventricular ICD (implantable cardioverter-defibrillator) in place Ventricular tachycardia Surgical History History of tonsillectomy History of partial thyroidectomy Hx of cholecystectomy S/P TAVR (transcatheter aortic valve replacement) Family History Father CVD (cardiovascular disease) Mother No problems noted. Sister Cancer Son No problems noted. Sister Leukemia Son No problems noted. Son No problems noted. Daughter No problems noted. Brother No problems noted. Brother No problems noted. Brother No problems noted. Social History Household Members: Spouse Housing: Apartment Alcohol intake: never Patient Tobacco Use Status: Never used Tobacco e-Cigarette/Vaping Use: Never Used Advance Directives Date on File: 10/23/22 service: No Current occupational status: retired Cognitive needs: No Hearing needs: No Vision needs: No Office Procedures Cardiac Device Check Cardiac Device Check Details: Date of service 08/13/2023; Battery life >7 years; normal lead parameters; adequate biv pacing; no treated VT/VF; ; normal ICD function. [id number] Cardiac Interrogation, implant defibrillator w/interim Procedure code (CPT) selection complete Assessment & Plan Assessment & Plan (1) Non-ischemic cardiomyopathy: Comment: echo 07/14, left ventricle injection fraction 20% global hypokinesis, s/p ICD, no ACEI or ARB CKD stage 4, on dapagliflozin carvedilol Code(s): I42.8 - Other cardiomyopathies Category: Medical Plan x Coding Level of Care Code Procedure Only Diagnoses Non-ischemic cardiomyopathy I42.8 CPT Codes Cardiac Device Check - Cardiac Device 13: [id number] Cardiac Interrogation, implant defibrillator w/interim ([id number])
== END ==
PROVIDERS: PCP Internal Medicine; Visit Provider Internal Medicine
DX: I42.8 Other cardiomyopathies (principal); Z95.810 Presence of automatic (implantable) cardiac defibrillator
CPT/HCPCS: 93295

== ENCOUNTER 2023-11-10 08:58 | Outpatient (AMB) | payer MEDICARE, SELFPAY ==
[2023-11-10 09:02] VITALS: BP 100/64; PULSE 92; O2SAT 96
--- NOTE | 2023-11-10 09:02 | A.OFFPC_ITS ---
Vital Signs 11/10/23 09:02 Height 5 ft 4 in BMI Reason not done Patient refused/unable BP 100/64 Blood Pressure Location Lt radial Position Sitting Pulse 92 Pulse Source Pulse Oximeter Pulse Oximetry (%) 96 Oxygen Delivery Method Room Air Intake Visit Reasons: 2 month follow up/DM Allergies bees Allergy (Unknown, Verified 11/10/23 09:04) angioedema ibuprofen [From MOTRIN] Allergy (Unknown, Verified 11/10/23 09:04) RASH Medication List - Last Reconciled 11/10/23 by Zainab Pritchard MD acetaminophen ER (Tylenol 8 Hour) 650 mg PO Q8H PRN allopurinol 200 mg (2 x 100 mg) PO DAILY apixaban (Eliquis) 5 mg PO BID blood sugar diagnostic (FreeStyle Lite Strips) test 3 times a day DX E11.9 carvedilol 3.125 mg PO BID clotrimazole 1% 1 appl topical BID colchicine (Colcrys) 0.6 mg PO BID dapagliflozin propanediol (Farxiga) 10 mg PO QAM dulaglutide (Trulicity) 3 mg (0.5 mL) subcut QWEEK flash glucose sensor (FreeStyle Silvestre 14 Day Sensor kit) As directed fluticasone propion-salmeterol 230-21 mcg/actuation (Advair HFA) 2 puffs inhalation BID gabapentin 100 mg PO BEDTIME insulin aspart U-100 (Novolog FlexPen U-100 Insulin aspart) 18 units (0.18 mL) subcut TID insulin glargine (Basaglar KwikPen U-100 Insulin) 80 units (0.8 mL) subcut DAILY ketoconazole 2% 1 appl topical DAILY levothyroxine 175 mcg PO QAM methylcellulose (laxative) (Citrucel) 500 mg PO BID metolazone every Friday miscellaneous medical supply electric scooter pantoprazole 40 mg PO DAILY pen needle, diabetic (BD Ultra-Fine Mini Pen Needle) 1 ea subcut DIRECTED potassium chloride ER 60 mEq (3 x 20 mEq) PO DAILY 90 days rosuvastatin (Crestor) 20 mg PO DAILY sennosides (Natural Senna Laxative) 17.2 mg (2 x 8.6 mg) PO BEDTIME spironolactone 25 mg PO QAM sucralfate 1 g PO BEDTIME torsemide 60 mg (3 x 20 mg) PO QAM walker 2 wheels and 2 flat feet [wheelchair-28 inch wide with removeable leg rests As directed] Tobacco use date assessed: 11/10/23 Fall risk assessment: 2 + Falls in past year Last assessed Fall Risk: 11/10/23 Dental Screening Dental Screen Date: 05/09/23 HPI 2 month follow up/DM HPI Details Pt presents for IDDM, HFrEF, CKD 4, A fib. Patient was hospitalized and underwent inpatient rehab after fall in June. Patient has been slowly recovering started better home physical therapy 3 weeks ago and has been getting out of bed and to wheelchair. She reports high blood glucose readings but did not bring her reader with her today. She has been compliant taking insulin , Trulicity and Farxiga. [facility] Medical History Dysuria Hypokalemia Diarrhea Elevated LFTs Skin abnormality Preop cardiovascular exam Acute bronchitis Shortness of breath Cataract (lens) fragments in eye following cataract surgery, bilateral CKD (chronic kidney disease) stage 4, GFR 15-29 ml/min Annual physical exam Gout Arthritis Ankle pain, chronic Edema Type 2 diabetes mellitus with unspecified complications Morbid obesity Chronic kidney disease PAF (paroxysmal atrial fibrillation) Biventricular ICD (implantable cardioverter-defibrillator) in place Ventricular tachycardia Surgical History History of tonsillectomy History of partial thyroidectomy Hx of cholecystectomy S/P TAVR (transcatheter aortic valve replacement) Family History Father CVD (cardiovascular disease) Mother No problems noted. Sister Cancer Son No problems noted. Sister Leukemia Son No problems noted. Son No problems noted. Daughter No problems noted. Brother No problems noted. Brother No problems noted. Brother No problems noted. Social History Household Members: Spouse Housing: Apartment Alcohol intake: never Patient Tobacco Use Status: Never used Tobacco e-Cigarette/Vaping Use: Never Used Advance Directives Date on File: 10/23/22 service: No Current occupational status: retired Cognitive needs: No Hearing needs: No Vision needs: No Questionnaire Thrive Questionnaire Date Thrive assessed: 07/24/23 AUDIT C Alcohol Use Questionnaire (AUDIT-C) 1. How often do you have a drink containing alcohol?: Never 3. How often do you have six or more drinks on one occasion?: Never Total Score: 0 BETY-7 AMB Questionnaire BETY-7 Date BETY - 7 assessed: 07/24/23 Source: Developed by Drs. Johnny Rodríguez, Ammy Sarah, Raphael Miranda and colleagues, with an educational sundeep from [employer]. Review of Systems Const All systems reviewed & are unremarkable except as noted in HPI and below ENT Reports no additional complaints Card Reports no additional complaints Resp Reports no additional complaints GI Reports no additional complaints Reports no additional complaints Physical exam (Primary Care) Vital Signs: Last Vital Signs Pulse 92 11/10/23 09:02 BP 100/64 11/10/23 09:02 Pulse Ox 96 11/10/23 09:02 Oxygen Delivery Method Room Air 11/10/23 09:02 Tobacco/Smoking Status: Tobacco use Status Tobacco use date assessed 11/10/23 11/10/23 09:09 Patient Tobacco Use Status Never used Tobacco 11/10/23 09:09 e-Cigarette/Vaping Use Never Used 11/10/23 09:09 Thrive Assessment: Date of Thrive Assessment Date Thrive assessed 07/24/23 11/10/23 09:09 Const General: no acute distress HENMT Face and sinus: Yes normal facial exam Neck Neck: Yes supple Resp Effort & Inspection: normal respiratory effort Auscultation: clear to auscultation bilaterally Cardio Rhythm: regular rhythm Heart sounds: S1 normal heart sound present and S2 normal heart sound present GI Inspection: Yes normal to inspection Palpation (GI): Soft to palpation Extrem General: Yes no clubbing, cyanosis or edema Assessment and Plan Assessment & Plan (1) Ventricular tachycardia: Comment: STATUS POST IMPLANTED CARDIOVERTER -DEFIBRILLATOR 2021 Code(s): I47.2 - Ventricular tachycardia Plan: Follow-up with cardiology (2) Non-ischemic cardiomyopathy: Comment: echo 07/14, left ventricle injection fraction 20% global hypokinesis, s/p ICD, no ACEI or ARB CKD stage 4, on dapagliflozin carvedilol Code(s): I42.8 - Other cardiomyopathies Plan: Continue current medications (3) PAF (paroxysmal atrial fibrillation): Comment: On Eliquis Code(s): I48.0 - Paroxysmal atrial fibrillation Plan: Continue Eliquis and carvedilol for rate control (4) Morbid obesity: Code(s): E66.01 - Morbid (severe) obesity due to excess calories Plan: Decrease caloric intake increase physical activity discussed with the patient. (5) Type 2 diabetes mellitus with unspecified complications: Code(s): E11.8 - Type 2 diabetes mellitus with unspecified complications Plan: ADA diet increase physical activity discussed with the patient. Return for fasting blood work. Follow-up in 1 month. Patient was advised to bring her Freestyle reader to review her blood glucose readings. (6) CKD (chronic kidney disease) stage 4, GFR 15-29 ml/min: Comment: Follow-up with line tender Code(s): N18.4 - Chronic kidney disease, stage 4 (severe) Plan: AVOID NEPHROTOXINS MONITOR RENAL FUNCTION Orders: Orders Comprehensive [place]. Panel Fast Today E11.8 - Type 2 diabetes mellitus with unspecified complications, E66.01 - Morbid (severe) obesity due to excess calories, I42.8 - Other cardiomyopathies, I47.2 - Ventricular tachycardia, I48.0 - Paroxysmal atrial fibrillation, N18.4 - Chronic kidney disease, stage 4 (severe) Lipid Panel Today E11.8 - Type 2 diabetes mellitus with unspecified complications, E66.01 - Morbid (severe) obesity due to excess calories, I42.8 - Other cardiomyopathies, I47.2 - Ventricular tachycardia, I48.0 - Paroxysmal atrial fibrillation, N18.4 - Chronic kidney disease, stage 4 (severe) Complete Blood Count Auto Diff Today E11.8 - Type 2 diabetes mellitus with unspecified complications, E66.01 - Morbid (severe) obesity due to excess calories, I42.8 - Other cardiomyopathies, I47.2 - Ventricular tachycardia, I48.0 - Paroxysmal atrial fibrillation, N18.4 - Chronic kidney disease, stage 4 (severe) Microalbumin, Random (w Creat) Today E11.8 - Type 2 diabetes mellitus with unspecified complications, E66.01 - Morbid (severe) obesity due to excess calories, I42.8 - Other cardiomyopathies, I47.2 - Ventricular tachycardia, I48.0 - Paroxysmal atrial fibrillation, N18.4 - Chronic kidney disease, stage 4 (severe) TSH reflex Free T4 Today E11.8 - Type 2 diabetes mellitus with unspecified complications, E66.01 - Morbid (severe) obesity due to excess calories, I42.8 - Other cardiomyopathies, I47.2 - Ventricular tachycardia, I48.0 - Paroxysmal atrial fibrillation, N18.4 - Chronic kidney disease, stage 4 (severe) Uric Acid Today E11.8 - Type 2 diabetes mellitus with unspecified complications, E66.01 - Morbid (severe) obesity due to excess calories, I42.8 - Other cardiomyopathies, I47.2 - Ventricular tachycardia, I48.0 - Paroxysmal atrial fibrillation, N18.4 - Chronic kidney disease, stage 4 (severe) Hemoglobin A1c Today E11.8 - Type 2 diabetes mellitus with unspecified complications, I48.0 - Paroxysmal atrial fibrillation Medications: Changed From torsemide 60 mg (3 x 20 mg) PO QAM 270 tabs 3RF I10 - Essential (primary) hypertension, I50.22 - Chronic systolic (congestive) heart failure To torsemide 40 mg (2 x 20 mg) PO QAM 180 tabs 3RF I10 - Essential (primary) hypertension, I50.22 - Chronic systolic (congestive) heart failure Refilled flash glucose sensor (FreeStyle Silvestre 14 Day Sensor kit) As directed 2 ea 5RF Discontinued colchicine (Colcrys) Discontinued Reason: Doctor's Order 0.6 mg PO BID 180 tabs 1RF pantoprazole take one tablet half an hour before breakfast Discontinued Reason: Doctor's Order 40 mg PO DAILY 90 tabs 2RF K21.9 - Gastro-esophageal reflux disease without esophagitis sucralfate Discontinued Reason: Doctor's Order 1 g PO BEDTIME 90 tabs 4RF R19.7 - Diarrhea, unspecified Coding Level of Care Code Est Pt Level 4 (94599) Complex EM visit Add On G2211 Diagnoses Ventricular tachycardia I47.2 Non-ischemic cardiomyopathy I42.8 PAF (paroxysmal atrial fibrillation) I48.0 Morbid obesity E66.01 Type 2 diabetes mellitus with unspecified complications E11.8 CKD (chronic kidney disease) stage 4, GFR 15-29 ml/min N18.4
--- OUTSIDE RECORDS SUMMARY | 2023-11-12 07:35 | XMS_ITS ---
Demographics Address [address] [place] [address] Mobile Email Address Preferred Language en Marital Status Mormonism Affiliation Unknown Race White Ethnic Group Unknown Author Organization [facility] Address [address] [place] [address] Support Name Relationship Address Phone Chandra Thomas Emergency Contact [address] [place] [address] Ebonie Thomas Guarantor Unknown [phone] Care Team Providers Care Chair Inspector And Leveler Name Role Phone Zainab Pritchard MD Primary Care Provider Lennie Sifuentes Unavailable [phone] Encounters Encounter Location Date Provider Diagnosis [facility] [address] [place] [address] 04/16/2023 Lennie Vitale PLAN OF TREATMENT No Information
--- OUTSIDE RECORDS SUMMARY | 2023-11-12 07:35 | XMS_ITS ---
Demographics Address [address] [place] [address] Mobile Email Address Preferred Language en Marital Status Orthodox Affiliation Unknown Race White Ethnic Group Unknown Author Organization [facility] Address [address] [place] [address] Support Name Relationship Address Phone Chandra Thomas Emergency Contact [address] [place] [address] Ebonie Thomas Guarantor Unknown [phone] Care Team Providers Care Union Laborer Name Role Phone Zainab Pritchard MD Primary Care Provider Lennie Sifuentes Unavailable [phone] Encounters Encounter Location Date Provider Diagnosis [facility] [address] [place] [address] 05/28/2023 Lennie Vitale PLAN OF TREATMENT No Information
--- OUTSIDE RECORDS SUMMARY | 2023-11-12 07:35 | XMS_ITS | Patient Health Record ---
Demographics Address [address] [place] [address] Mobile Email Address Preferred Language en Marital Status Caodaism Affiliation Unknown Race White Ethnic Group Unknown [facility] Address [address] [facility] [place] [address] Support Name Relationship Address Phone Chandra Thomas Emergency Contact [address] [place] [address] Ebonie Thomas Guarantor Unknown [phone] Care Team Providers Care Chute Loader Name Role Phone Zainab Pritchard MD Primary Care Provider Lennie Sifuentes Unavailable [phone] ALLERGIES Allergen (clinical drug ingredient) Drug/Non Drug [...] confirmed Acquired hammer toe of right foot ([id number]) Problem Other hammer toe(s) (acquired), left foot (M20.42) Active confirmed Acquired hammer toe of left foot ([id number]) Problem Type 2 diabetes mellitus with polyneuropathy (E11.42) Active confirmed [id number] VITAL SIGNS Height 5 ft 4 in in 01/22/2023 Weight 255 lbs 01/22/2023 BMI 43.77 kg/m2 01/22/2023 Encounters Encounter Location Date Provider Diagnosis [address] [address] 12/16/2022 Lennie Cervantes[address] [address] 01/22/2023 Lennie Vitale Other hammer toe(s) (acquired), right foot M20.41 ; Other hammer toe(s) (acquired), left foot M20.42 ; Type 2 diabetes mellitus with polyneuropathy E11.42 and Tinea unguium B35.1 [facility] [address] 04/14/2023 [facility] [address] 04/16/2023 [facility] [place] [address] 05/26/2023 Lennie Vitale [facility] [place] [address] [place] [address] 05/28/2023 Lennie Vitale ASSESSMENTS Encounter Date Diagnosis [...] Medicare National [employer] [address] [place] [address] [id number] Ebonie Thomas Self - patient is the insured MEDICAL (GENERAL) HISTORY Medical History History ICD Code covid-19 Diabetic Gout Heart disease thyroid Replacement Heart Valves
--- OUTSIDE RECORDS SUMMARY | 2023-11-12 07:35 | XMS_ITS ---
Demographics Address [address] [place] [address] Mobile Email Address Preferred Language en Marital Status Mandaeism Affiliation Unknown Race White Ethnic Group Unknown Author Organization [facility] Address [address] [place] [address] Support Name Relationship Address Phone Chandra Thomas Emergency Contact [address] [place] [address] Ebonie Thomas Guarantor Unknown [phone] Care Team Providers Care Spot Worker Name Role Phone Zainab Pritchard MD Primary Care Provider Unavaila Lennie C[place] Unavailable [phone] REASON FOR VISIT cx 3/6 Encounters Encounter Location Date Provider Diagnosis [facility] [address] [place] [address] 05/26/2023 Lennie Vitale PLAN OF TREATMENT No Information
== END 2023-11-10 10:32 | disposition home or self-care (01) ==
LOC: HO.HMGC 08:58
PROVIDERS: PCP Internal Medicine; Visit Provider Internal Medicine
DX: I47.20 Ventricular tachycardia, unspecified (principal); E11.8 Type 2 diabetes mellitus with unspecified complications; N18.4 Chronic kidney disease, stage 4 (severe); I42.8 Other cardiomyopathies; I48.0 Paroxysmal atrial fibrillation; E66.01 Morbid (severe) obesity due to excess calories
CPT/HCPCS: 99214; G2211

== ENCOUNTER 2023-11-11 07:55 | Outpatient (REF) | payer MEDICARE, SELFPAY ==
[2023-11-11 09:55] LABS: MANUAL DIFF FLAG NO
[2023-11-11 10:08] LABS: Basophils Percent Auto 0.7 % (0-2); Eosinophils Absolute Auto 0.4 X10*3/uL (0.0-0.4); Eosinophils Percent Auto 7.7 % (0-4); Hematocrit 33.2 % (37.0-47.0); Hemoglobin 11.5 g/dl (12.0-16.0); Imm Gran Abs Auto 0.03 X10*3/uL (0.00-0.03); Imm Gran Pct Auto 0.5 % (0.0-0.4); Lymphocytes Absolute Auto 1.1 X10*3/uL (1.2-4.9); Lymphocytes Percent Auto 19.1 % (20-40); Mean Corpuscular HGB Conc 34.6 g/dl (31.0-35.0); Mean Corpuscular Hemoglobin 37.1 pg (27.0-33.0); Mean Corpuscular Volume 107.1 fL (80.0-98.0); Monocytes Absolute Auto 0.8 X10*3/uL (0.1-1.2); Neutrophils Absolute Auto 3.4 x10*3/uL (2.0-8.3); White Blood Count 5.8 X10*3/uL (4.8-10.8)
[2023-11-11 10:15] LABS: Platelet Count 69 X10*3/uL (160-400)
[2023-11-11 10:21] LABS: Estimated Average Glucose 301 mg/dL; Hemoglobin A1c % 12.1 % (<6.0)
[2023-11-11 10:55] LABS: Alanine Aminotransferase 19 U/L (0-31); Alkaline Phosphatase 178 U/L (39-117); Anion Gap 13 (12-20); Aspartate Amino Transferase 34 U/L (5-31); Bilirubin Total 1.3 mg/dL (0.0-1.0); Blood Urea Nitrogen 27 mg/dL (9-16); Calcium 9.2 mg/dL (8.4-10.2); Carbon Dioxide 31 mmol/L (22-29); Chloride 94 mmol/L (96-108); Cholesterol 140 mg/dL (<200); Estimated Glomerular Filt Rate 27; Glucose Fasting 409 mg/dL (60-99); HDL Cholesterol 28 mg/dL (>40); LDL Cholesterol Calculated 69 mg/dL (<100); Potassium 3.7 mmol/L (3.3-5.1); Sodium 134 mmol/L (135-145); Total Protein 6.5 g/dL (6.5-8.0); Triglycerides 215 mg/dL (<150); Uric Acid 7.5 mg/dL (2.4-5.7)
[2023-11-11 10:56] LABS: TSH reflex Free T4 5.53 uIU/mL (0.32-4.0)
[2023-11-11 13:16] LABS: Free T4 (Free Thyroxine) 0.95 ng/dL (0.71-1.85)
[2023-11-11 14:17] LABS: Creatinine Urine 25.18 mg/dL; Microalbum/Creatinine Ratio Ur 31.7 ug/mg cr (<30)
== END 2023-11-11 07:56 | disposition home or self-care (01) ==
LOC: HO.HMGCLDS 07:55
PROVIDERS: PCP Internal Medicine; Visit Provider Internal Medicine
DX: N18.4 Chronic kidney disease, stage 4 (severe) (principal); E11.8 Type 2 diabetes mellitus with unspecified complications; E66.01 Morbid (severe) obesity due to excess calories; I48.0 Paroxysmal atrial fibrillation; I42.8 Other cardiomyopathies; I47.20 Ventricular tachycardia, unspecified
CPT/HCPCS: 36415; 80053; 80061; 82043; 82570; 83036; 84439; 84443; 84550; 85025

== ENCOUNTER → 2023-11-14 23:59 | Outpatient (BNV) | payer MEDICARE, SELFPAY ==
--- NOTE | 2023-11-18 14:42 | A.OFFVIS_ITS ---
Intake Visit Reasons: Remote ICD monitoring- Medtronic Allergies bees Allergy (Unknown, Verified 11/10/23 09:04) angioedema ibuprofen [From MOTRIN] Allergy (Unknown, Verified 11/10/23 09:04) RASH [facility] Medical History (Updated 11/10/23 @ 10:36 by Zainab Pritchard MD) Dysuria Hypokalemia Diarrhea Elevated LFTs Skin abnormality Preop cardiovascular exam Acute bronchitis Shortness of breath Cataract (lens) fragments in eye following cataract surgery, bilateral CKD (chronic kidney disease) stage 4, GFR 15-29 ml/min Annual physical exam Gout Ankle pain, chronic Edema Type 2 diabetes mellitus with unspecified complications Morbid obesity Chronic kidney disease PAF (paroxysmal atrial fibrillation) Biventricular ICD (implantable cardioverter-defibrillator) in place Ventricular tachycardia Surgical History History of tonsillectomy History of partial thyroidectomy Hx of cholecystectomy S/P TAVR (transcatheter aortic valve replacement) Family History Father CVD (cardiovascular disease) Mother No problems noted. Sister Cancer Son No problems noted. Sister Leukemia Son No problems noted. Son No problems noted. Daughter No problems noted. Brother No problems noted. Brother No problems noted. Brother No problems noted. Social History Household Members: Spouse Housing: Apartment Alcohol intake: never Patient Tobacco Use Status: Never used Tobacco e-Cigarette/Vaping Use: Never Used Advance Directives Date on File: 10/23/22 service: No Current occupational status: retired Cognitive needs: No Hearing needs: No Vision needs: No Office Procedures Cardiac Device Check Cardiac Device Check Details: Date of service 11/14/2023; Battery life 7 years; normal lead parameters; no treated VT/VF; normal ICD function. [id number] Cardiac Interrogation, implant defibrillator w/interim Procedure code (CPT) selection complete Assessment & Plan Assessment & Plan (1) Non-ischemic cardiomyopathy: Comment: echo 07/14, left ventricle injection fraction 20% global hypokinesis, s/p ICD, no ACEI or ARB CKD stage 4, on dapagliflozin carvedilol Code(s): I42.8 - Other cardiomyopathies Category: Medical Plan x Coding Level of Care Code Procedure Only Diagnoses Non-ischemic cardiomyopathy I42.8 CPT Codes Cardiac Device Check - Cardiac Device 13: [id number] Cardiac Interrogation, implant defibrillator w/interim ([id number])
== END ==
PROVIDERS: PCP Internal Medicine; Visit Provider Internal Medicine
DX: I42.8 Other cardiomyopathies (principal); Z95.810 Presence of automatic (implantable) cardiac defibrillator
CPT/HCPCS: 93295

== ENCOUNTER → 2023-11-14 23:59 | Outpatient (BNV) | payer MEDICARE, SELFPAY ==
--- NOTE | 2023-11-18 14:45 | MHC.OFFVIS ---
Intake Visit Reasons: Remote HF monitoring- Medtronic Allergies bees Allergy (Unknown, Verified 11/10/23 09:04) angioedema ibuprofen [From MOTRIN] Allergy (Unknown, Verified 11/10/23 09:04) RASH [facility] Medical History (Updated 11/10/23 @ 10:36 by Zainab Pritchard MD) Dysuria Hypokalemia Diarrhea Elevated LFTs Skin abnormality Preop cardiovascular exam Acute bronchitis Shortness of breath Cataract (lens) fragments in eye following cataract surgery, bilateral CKD (chronic kidney disease) stage 4, GFR 15-29 ml/min Annual physical exam Gout Ankle pain, chronic Edema Type 2 diabetes mellitus with unspecified complications Morbid obesity Chronic kidney disease PAF (paroxysmal atrial fibrillation) Biventricular ICD (implantable cardioverter-defibrillator) in place Ventricular tachycardia Surgical History History of tonsillectomy History of partial thyroidectomy Hx of cholecystectomy S/P TAVR (transcatheter aortic valve replacement) Family History Father CVD (cardiovascular disease) Mother No problems noted. Sister Cancer Son No problems noted. Sister Leukemia Son No problems noted. Son No problems noted. Daughter No problems noted. Brother No problems noted. Brother No problems noted. Brother No problems noted. Social History Household Members: Spouse Housing: Apartment Alcohol intake: never Patient Tobacco Use Status: Never used Tobacco e-Cigarette/Vaping Use: Never Used Advance Directives Date on File: 10/23/22 service: No Current occupational status: retired Cognitive needs: No Hearing needs: No Vision needs: No Office Procedures Cardiac Device Check Cardiac Device Check Details: Date of service- 11/14/2023; based on impedance data and physiological variables, there is possible OptiVol fluid accumulation from 11/28/2022 to ongoing. [id number] Cardiac Device Interrogation, cardio physiologic monitor Procedure code (CPT) selection complete Assessment & Plan Assessment & Plan (1) Non-ischemic cardiomyopathy: Comment: echo 07/14, left ventricle injection fraction 20% global hypokinesis, s/p ICD, no ACEI or ARB CKD stage 4, on dapagliflozin carvedilol Code(s): I42.8 - Other cardiomyopathies Category: Medical Plan x Coding Level of Care Code Procedure Only Diagnoses Non-ischemic cardiomyopathy I42.8 CPT Codes Cardiac Device Check - Cardiac Device 15: [id number] Cardiac Device Interrogation, cardio physiologic monitor ([id number])
== END ==
PROVIDERS: PCP Internal Medicine; Visit Provider Internal Medicine
DX: I42.8 Other cardiomyopathies (principal); Z95.810 Presence of automatic (implantable) cardiac defibrillator
CPT/HCPCS: 93297